=== PATIENT | male | born 1940 | race Caucasian/White ===

== ENCOUNTER → 2016-12-08 | Outpatient (CLI) | payer OTHER ==
[2016-12-08 12:20] LABS: PROTHROMBIN TIME 37.4 secs (9.7-11.4)
== END ==
LOC: LAB 11:45
PROVIDERS: ATTEND Physician Assistant
DX: I48.91 Unspecified atrial fibrillation (principal)
CPT/HCPCS: 36415; 85610

== ENCOUNTER → 2016-12-18 | Outpatient (CLI) | payer OTHER ==
[2016-12-18 09:29] LABS: PROTHROMBIN TIME 38.7 secs (9.7-11.4)
== END ==
LOC: LAB 09:08
PROVIDERS: ATTEND Physician Assistant Medical
DX: I48.91 Unspecified atrial fibrillation (principal)
CPT/HCPCS: 36415; 85610

== ENCOUNTER 2016-12-20 13:24 | Inpatient (IN) | payer OTHER ==
[2016-12-20] MEDS ORDERED: ALBUTEROL SULFATE 2.5 MG/3 ML NEB ONE (13:44)
[2016-12-20] MEDS ORDERED: Sodium Chloride 0.9% 1,000 ML PRIMARY IV ONE (13:44)
[2016-12-20] MEDS ORDERED: methylPREDNISolone 125 MG/2 ML VIAL IVP ONE (13:44)
[2016-12-20] MEDS ORDERED: NORMAL SALINE 10 ML SYRINGE FLUSH IVP PRN (13:44)
[2016-12-20 13:57] LABS: BASOPHILS # (AUTO) 0.07 10*3/UL; BASOPHILS % (AUTO) 0.7 % (0-1); EOSINOPHILS % (AUTO) 2.8 % (0-8); HEMATOCRIT 39.2 % (42.0-52.0); HEMOGLOBIN 13.8 g/dL (14.0-18.0); IMM GRAN % (AUTO) 0.2 % (0-5); IMM GRAN# (AUTO) 0.02 10*3/UL; LYMPHOCYTES % (AUTO) 38.2 % (10-50); MEAN CORPUSCULAR HEMOGLOBIN 32.6 PG (27-31); MEAN CORPUSCULAR HGB CONC 35.2 g/dL (33-37); MEAN PLATELET VOLUME 10.3 FL (7.4-12.2); MONOCYTES # (AUTO) 1.86 10*3/UL (0.3-0.8); MONOCYTES % (AUTO) 17.4 % (5-15); NEUTROPHILS # (AUTO) 4.37 10*3/UL; NEUTROPHILS % (AUTO) 40.7 % (50-80); RDW COEFFICIENT OF VARIATION 14.9 % (11.5-14.5); RED BLOOD COUNT 4.23 10^6/uL (4.70-6.10); WHITE BLOOD COUNT 10.72 10^3/uL (4.8-10.8)
[2016-12-20 14:01] LABS: PLATELET MORPHOLOGY COMMENT NORMAL MORPHOLOGY (NORM)
[2016-12-20 14:03] LABS: BUN/CREATININE RATIO 27.5 (6-20); CALCIUM 9.5 mg/dL (8.7-10.7); CREATININE 0.8 mg/dL (0.70-1.50); POTASSIUM 4.1 meq/L (3.8-5.2); TOTAL PROTEIN 7.4 g/dL (6.1-8.0)
--- NOTE | 2016-12-20 14:07 | EKG ---
[address] [address] Measurements Intervals [place] Rate: 80 P: 87 AK: 146 QRS: 83 QRSD: 75 T: 66 QT: 365 QTc: 401 Interpretive Statements SINUS RHYTHM WITH MARKED SINUS ARRHYTHMIA MINIMAL ST DEPRESSION [0.025+ mV ST DEPRESSION] Compared to ECG 08/05/2014 09:05:55 Atrial fibrillation no longer present Myocardial infarct finding no longer present Possible ischemia no longer present ST (T wave) deviation still present Electronically Signed On 12-22-16 08:07:49 MST by Gurjit Sanders MD [email or web address]
[2016-12-20] MEDS: LEVALBUTEROL HCL 1.25 MG/3 ML NEB PRN ×3 (14:15→14:49)
[2016-12-20] MEDS ORDERED: LORazepam 2 MG/1 ML VIAL IVP ONE (14:55)
[2016-12-20] MEDS ORDERED: LORazepam 2 MG/1 ML VIAL ONE (15:02)
[2016-12-20] MEDS ORDERED: Sodium Chloride 0.9% 1,000 ML IV SCH (16:30)
--- NOTE | 2016-12-20 16:36 | PDOC ---
History and Physical - History of Present Illness Date and Time of Service: 12/20/2016 4:30 PM Chief Complaint: Shortness of breath of one day duration History of Present Illness: This is a 75 years old male with medical history significant for history of COPD on oxygen at night and intermittently during the day, hypertension, history of coronary artery disease with previous stent in 2013 and chronic pain syndrome who came into the hospital with history of shortness of breath that started today he said he tried his nebulizer didn't work and because of that he came into the ER. In the ER he was found in COPD exacerbation was given breathing treatments and he continued to feel short of breath so he was admitted. He did say that he think that he got a cold the last 2 days with some cough and minimal phlegm production. No fever, no chest pain. Past Medical History Medical History: 1. COPD on oxygen at night and intermittently during the daytime. 2. Hypothyroidism. 3. Coronary artery disease with previous stent in 2013. 4. Atrial fibrillation on Coumadin. 5. Chronic pain syndrome Surgical History: 1. Appendectomy. 2. Previous knee replacement. 3. Cervical neck fusion 2012 Family History: Reviewed an Not Pertinent Past Social History: He smokes one pack a day, drinks nearly every day no drugs. Tobacco Use: Current Every Day Smoker Substance Use Type: None Alcohol Use: Other (He drinks nearly every day) Medication / Allergies Home Medications: Home Medications Medication Instructions Recorded Confirmed Type Aspirin Chewable Tab 324 mg PO ONCE (ED) #0 tab 08/05/14 12/20/16 Rx Levothyroxine Sodium [Synthroid] 100 mcg PO DAILY 08/05/14 12/20/16 History Metoprolol Tartrate Tab 12.5 mg PO BID #0 tablet 08/05/14 12/20/16 Rx [Lopressor Tab] Atorvastatin Calcium [Lipitor] 20 mg PO DAILY 11/10/14 12/20/16 History Warfarin Sodium [Coumadin Tab] 5 mg PO DAILY 11/10/14 12/20/16 History Albuterol Sulfate [Proair Hfa] 2 puff INH Q4-6H #3 inh 05/30/16 12/20/16 Clinic Albuterol Sulfate [Ventolin Hfa] 1 - 2 puff INH Q4-6H PRN #1 puff 05/30/1612/20 Clinic Budesonide/Formoterol Fumarate 6 gm IH BID #3 inhaler 05/30/16 12/20/16 Clinic [Symbicort] Nitroglycerin SL Tab [Nitrostat 0.4 mg SL PRN PRN #20 tab 05/30/16 12/20/16 Clinic Sl Tab] Albuterol/Ipratropium Inhaler 4 gm IH QID #1 inhaler 07/15/16 12/20/16 Clinic [Combivent Respimat Inhaler] Lisinopril 20 mg PO BID #90 tab-cap 10/28/16 12/20/16 Clinic Tizanidine HCl 1 cap PO Q6-8H PRN #90 cap 11/19/16 12/20/16 Clinic oxyCODONE/APAP 5/325 Tab 1 tab PO Q6H PRN 12/20/16 12/20/16 History [Percocet 5/325 Tab] Allergies/Adverse Reactions: Allergies Allergy/AdvReac Type Severity Reaction Status Date / Time amlodipine besylate Allergy Intermediate Edema of Verified 12/20/16 18:38 [From [facility]] ankles Review of Systems - Review of Systems All Systems: Reviewed & No Additional Complaints Except as Stated Exam - Vitals Vital Signs: Vital Signs Temperature 97.3 F Temperature Source Temporal Artery Scan Pulse Rate 92 Respiratory Rate 18 Blood Pressure 97/57 Pulse Ox 94 Height 5 ft 7.5 in Weight 121 lb 6 oz - General General Appearance: POSITIVE: No Acute Distress, Thin - Head Head Exam: POSITIVE: Normal Inspection, Atraumatic - Eye Eye Exam: POSITIVE: Normal Appearance - ENT ENT Exam: POSITIVE: Normal Exam - Neck Neck Exam: POSITIVE: Normal Inspection - Respiratory Additional Respiratory Exam Details: Very poor air entry otherwise clear - Cardiovascular Cardiovascular Exam: POSITIVE: RRR - GI/Abdominal GI/Abdominal Exam: POSITIVE: Normal Bowel Sounds, Non Tender, Non Distended, Soft - Rectal Rectal Exam: POSITIVE: Deferred - External Exam: POSITIVE: Deferred Exam: POSITIVE: Deferred - Extremities Extremities Exam: POSITIVE: Normal Inspection - Back Back Exam: POSITIVE: Normal Inspection - Neurological Neurological Exam: POSITIVE: Alert, Oriented x 3, CN II-XII Intact, Moves All Extremities Equally - Psychiatric Psychiatric Exam: POSITIVE: Normal Affect - Integumentary Integumentary Exam: POSITIVE: Normal Color Results - Labs CBC and BMP: 12/20/16 13:14 12/20/16 13:14 - EKG Data EKG Shows Normal: Sinus Rhythm - EKG Data Additional EKG Details: Minimal ST depression in lead 2 and 3 - Imaging Status: Image Reviewed by Me (Chest x-ray show evidence of COPD infiltrates) Assessment and Plan - Patient Problems (1) COPD exacerbation Current Visit: Yes Status: Acute Comment: We'll treat him as such with antibiotics, steroid and breathing treatment. (2) History of atrial fibrillation Current Visit: Yes Status: Acute Comment: Continue Coumadin will monitor his INR (3) Hypertension Current Visit: Yes Status: Acute Comment: Same med (4) Chronic pain syndrome Current Visit: Yes Status: Acute Comment: Continue previous pain medications (5) Hypothyroidism Current Visit: Yes Status: Acute Comment: Same med (6) DVT prophylaxis Current Visit: Yes Status: Acute Comment: He is on Coumadin
[2016-12-20] MEDS: NICOTINE 21 MG /DAY PATCH TRANSDERM SCH (17:00)
[2016-12-20] MEDS: cefTRIAXone Inj 1 GM in Sodium Chloride 0.9% 100 ML IV SCH (17:01)
[2016-12-20] MEDS: NORMAL SALINE 10 ML SYRINGE FLUSH IVP PRN (17:13)
[2016-12-20] MEDS: AZITHROMYCIN 250 MG TABLET PO SCH (17:32)
[2016-12-20] MEDS: methylPREDNISolone 125 MG/2 ML VIAL IVP SCH (18:17)
[2016-12-20] MEDS: LEVALBUTEROL HCL 1.25 MG/3 ML NEB SCH (18:34)
[2016-12-20] MEDS ORDERED: AZITHROMYCIN 250 MG TABLET PO SCH (19:00)
[2016-12-20] MEDS: ATORVASTATIN 20 MG TABLET PO SCH (20:47)
[2016-12-20] MEDS: Metoprolol TARTRATE Tab 25 MG TAB PO SCH (20:47)
[2016-12-20] MEDS: Warfarin 5 MG TAB PO SCH (20:47)
[2016-12-20] MEDS: LORazepam 2 MG/1 ML VIAL IVP PRN (20:47)
[2016-12-20] MEDS: LISINOPRIL 20 MG TABLET PO SCH (20:47)
[2016-12-20] MEDS ORDERED: BUDESONIDE IH SCH (21:00)
[2016-12-20] MEDS ORDERED: FORMOTEROL FUMARATE IH SCH (21:00)
--- NOTE | 2016-12-20 23:21 | PDOC ---
Dyspnea HPI - General Chief Complaint: Dyspnea Stated Complaint: DYSPNEA Date Seen by Provider: 12/20/16 Time Seen by Provider: 13:30 Source: POSITIVE: Patient, EMS, Other (Son) Exam Limitations: POSITIVE: No limitations Treatment Prior to Arrival: REPORTS: Oxygen, Albuterol Neb Treatment, Other ( Solu-Medrol per paramedics) Nurse's Notes Reviewed & Considered: Yes EMS Report Reviewed & Considered: Verbal - History of Present Illness Initial Comments: The patient is a 75 year old male. He is brought to the emergency room by ambulance. He states that this morning he began to develop an increase in his chronic dyspnea. He states he has had a loose cough and states he has had some URI symptoms for 2 or 3 days. He has a known history of COPD and continues to smoke about a pack of cigarettes per day. Patient administered 2 albuterol treatments by nebulizer at home, and when he experienced no improvement he called the ambulance. Paramedics administered a DuoNeb nebulizer treatment and another albuterol nebulizer treatment in route and also administered 125 mg of Solu-Medrol IV. Body Location Affected: REPORTS: Chest Timing: REPORTS: Gradual (Dyspnea), Getting Worse Duration: <24 hours Severity: Moderate Quality: REPORTS: Other (Patient denies any pain anywhere) Initiating Event: REPORTS: Upper Respiratory Illness Context: REPORTS: Rest Exacerbated By: REPORTS: Exertion, Coughing Associated Symptoms: REPORTS: Productive Cough. DENIES: Fever, Chills, Sweating , Chest Pain, Chest Discomfort, Left Chest, Right Chest, Central Chest, Chest Heaviness, Chest Tightness, Painful Breathing, Radiation to Back, Radiation to Jaw, Radiation to Arm, Bloody Cough, Heart Racing, Leg Pain, Calf Pain, Ankle Swelling, Leg Swelling, Dizziness, Light-Headedness, Anxiety, Tingling - Hands, Tingling - Face, Muscle Spasms - Hands, Muscle Spasms - Feet Similar Symptoms Previously: Yes Recently seen/treated/hospitalized: No Any Prior Injuries Related to Current Complaint?: No - Patient Home Medications Home Medications: Home Medications Aspirin Chewable Tab 324 mg PO ONCE (ED) #0 tab 08/05/14 Levothyroxine Sodium [Synthroid] 100 mcg PO DAILY 08/05/14 Metoprolol Tartrate Tab [Lopressor Tab] 12.5 mg PO BID #0 tablet 08/05/14 Atorvastatin Calcium [Lipitor] 20 mg PO DAILY 11/10/14 Warfarin Sodium [Coumadin Tab] 5 mg PO DAILY 11/10/14 Albuterol Sulfate [Proair Hfa] 2 puff INH Q4-6H #3 inh 05/30/16 Albuterol Sulfate [Ventolin Hfa] 1 - 2 puff INH Q4-6H PRN #1 puff 05/30/16 Budesonide/Formoterol Fumarate [Symbicort] 6 gm IH BID #3 inhaler 05/30/16 Nitroglycerin SL Tab [Nitrostat Sl Tab] 0.4 mg SL PRN PRN #20 tab 05/30/16 Albuterol/Ipratropium Inhaler [Combivent Respimat Inhaler] 4 gm IH QID #1 inhaler 07/15/16 Lisinopril 20 mg PO BID #90 tab-cap 10/28/16 Tizanidine HCl 1 cap PO Q6-8H PRN #90 cap 11/19/16 oxyCODONE/APAP 5/325 Tab [Percocet 5/325 Tab] 1 tab PO Q6H PRN 12/20/16 - Patient Allergies Allergies/Adverse Reactions: Allergies Allergy/AdvReac Type Severity Reaction Status Date / Time amlodipine besylate Allergy Intermediate Edema of Verified 12/20/16 18:38 [From [facility]] ankles Past Medical History - heen HEENT History: Hard of Hearing Additional HEENT History: wears glasses Cardiovascular History: Hypertension, Previous SD, Arrhythmia Additional Cardiovasular History: STENTS Respiratory History: COPD, Shortness of Breath, Home Oxygen Use Gastrointestinal History: Denies History Genitourinary History: Denies History Endocrine History: Hypothyroidism Musculoskeletal History: Arthritis, Joint Pain, Osteoarthritis Prosthesis or Implant: Yes (left knee replacement) Neurological History: Denies History Blood Disorders: Denies History Psychiatric History: Substance Abuse Additional Psychiatric History: acoholic History of Sexually Transmitted Diseases: No Male Reproductive History: Denies History Cancer History: Skin In Past Year Been Physically Harmed or Verbally Threatened: No History of MDRO: No History of Other Communicable Diseases: No Tobacco Use: Current Every Day Smoker Alcohol Use: Occasionally Substance Use Type: None Previous Surgical History: Yes Type / Date of Surgery: MULTIPLE ORTHO, APPY, STENT Anesthesia Reactions: No Malignant Hyperthermia: No Significant Family History: Cancer Additional Family History: both sisters had breast CA Past Medical History Reviewed: Reviewed - No Changes ROS - Limitations ROS Limitations: No Limitations Constitution: REPORTS: Recent Illness (URI symptoms) Cardiovascular: REPORTS: Denies Cardiac Symptoms Respiratory: REPORTS: Cough Productive, Shortness Of Breath Neurological: REPORTS: Denies Neuro Symptoms Gastrointestinal: REPORTS: Denies GI Symptoms Endocrine: REPORTS: Denies Symptoms Musculoskeletal: REPORTS: Denies MS Symptoms Genitourinary: REPORTS: Denies Symptoms Eyes: REPORTS: Denies Symptoms ENT: REPORTS: Denies Symptoms Skin: REPORTS: Denies Skin Symptoms Lympathic: REPORTS: Denies Lympathic Symptoms Immunologic: POSITIVE: Denies Symptoms Psychiatric: POSITIVE: Anxiety Dyspnea Physical Exam - General Appearance General Appearance: REPORTS: Alert, Cooperative, No Acute Distress, No Evidence of Trauma, Anxious - HEENT HEENT: POSITIVE: Head Inspection Nml, Eyes Inspection Nml, Ears Inspection Nml, Nose Inspection Nml, Oral/Dental Inspect. Nml, Pharynx Inspect. Nml, PERRL, EOMI - Neck Neck: REPORTS: Normal Inspection, No Carotid Bruit - Respiratory Respiratory: REPORTS: No Pleuritic Chest Pain, Respiratory Distress, Prolonged Expirations, Decreased Air Movement, Speaks Broken Sentences. DENIES: No Respiratory Distress (Moderate respiratory distress; oxygen saturation on 4 L around 92%), Breath Sounds Normal (Breasts sounds very distant with some scattered rhonchi), Speaks Full Sentences, No Pain on Inspiration, Rhonchi, Accessory Muscle Use, Retractions, Splinting, Dull on Percussion, Chest Wall Tenderness, Stridor - Cardiovascular Cardiovascular: REPORTS: Regular Rate and Rhythm, Heart Sounds Normal, Equal Pulses, Strong Pulses, No Murmur, No Gallop, No Friction Rub, No JVD Peripheral Pulses: Radial (R): 2+, Radial (L): 2+ - Abdomen Abdomen: Soft: (All Quadrants), Normal Bowel Sounds: (All Quadrants), Denies Tenderness: (All Quadrants), No Splenomegaly: (All Quadrants), No Hepatomegaly: (All Quadrants), No Guarding: (All Quadrants), No Rebound: (All Quadrants), No Palpable Pulse: (All Quadrants), No Palpabale Mass: (All Quadrants), No Distention: (All Quadrants), No Rigidity: (All Quadrants) - Skin Skin: REPORTS: Intact, Normal For Race, Warm, Dry, No Rash - Extremities Extremity: Non-Tender: (All Extremities), Normal ROM: (All Extremities), Normal Inspection: (All Extremities) - Neurological / Psychological Neurological: POSITIVE: Oriented X3, admin dir Normal As Tested, Motor Normal, Sensation Normal, 5, 6 Dyspnea Progress - Results Reviewed by me Xrays/CTs/US Reviewed by me: Yes Discussed with Radiologist: No Radiology Findings: Emphysema; no definite infiltrates seen on my interpretation ; radiologist interpretation pending. Lab Results Reviewed: Yes Lab Results:: Laboratory Results 12/20/16 12/20/16 12/20/16 Range/Units 13:14 13:15 14:14 WBC 10.72 (4.8-10.8) 10^3/uL RBC 4.23 L (4.70-6.10) 10^6/uL Hgb 13.8 L (14.0-18.0) g/dL Hct 39.2 L (42.0-52.0) % MCV 92.7 H (80-90) FL MCH 32.6 H (27-31) PG MCHC 35.2 (33-37) g/dL RDW Std Deviation 48.9 (39-50) fL RDW Coeff of Isabelle 14.9 H (11.5-14.5) % Plt Count 365 H (140-350) 10*3/uL MPV 10.3 (7.4-12.2) FL Immature Gran % (Auto) 0.2 (0-5) % Neut % (Auto) 40.7 L (50-80) % Lymph % (Auto) 38.2 (10-50) % [place] % (Auto) 17.4 H (5-15) % Eos % (Auto) 2.8 (0-8) % Baso % (Auto) 0.7 (0-1) % Immature Gran # (Auto) 0.02 10*3/UL Neut # (Auto) 4.37 10*3/UL Lymph # (Auto) 4.10 10*3/uL [place] # (Auto) 1.86 H (0.3-0.8) 10*3/UL Eos # (Auto) 0.30 10*3/UL Baso # (Auto) 0.07 10*3/UL WBC Morphology Comment Normal morphology (NORM) Plt Morphology Comment Normal morphology (NORM) RBC Morph Comment Normal morphology (NORM) PT 29.0 H (9.7-11.4) secs INR 2.76 (0.00-5.90) N/A D-Dimer 0.21 (0.00-0.59) mg/L VBG pH 7.34 (7.32-7.42) VBG pCO2 44 L (45-55) mmHg VBG HCO3 24 (22-26) mmol/L VBG Base Excess -2 (-2-2) MMOL/L Sodium 138 (135-145) meq/L Potassium 4.1 (3.8-5.2) meq/L Chloride 100 (98-112) meq/L Carbon Dioxide 25 (23-33) meq/L Anion Gap 13 (5-20) BUN 22 (7-22) mg/dL Creatinine 0.8 (0.70-1.50) mg/dL Estimated GFR (>60 ml/min/1.73m(2)) BUN/Creatinine Ratio 27.50 H (6-20) Glucose 109 (78-110) mg/dL Calculated Osmolality 289.0 (267-292) mOsm/kg Calcium 9.5 (8.7-10.7) mg/dL Total Bilirubin 1.0 (0.3-1.2) mg/dL AST 29 (21-57) IU/L ALT 35 (21-72) IU/L Alkaline Phosphatase 59 (38-126) IU/L Total Protein 7.4 (6.1-8.0) g/dL Albumin 4.4 (3.5-4.8) g/dL Globulin 3.0 (2.50-4.10) g/dL Albumin/Globulin Ratio 1.40 (1.3-2.0) mg/g EKG Interpreted/Reviewed By Me:: Yes EKG Interpretation:: POSITIVE: Normal Rate, Normal Intervals, Normal [place], Normal QRS, Normal ST/T. NEGATIVE: Normal Sinus Rhythm (Sinus arrhythmia) - Patient's Progress Pain Medication Addressed: POSITIVE: Not Applicable School/Work Release Addressed: POSITIVE: Not Applicable Re-Examine Time: 15:15 Re-Examine Comment: Patient breathing better. Able to talk in complete sentences. Patient given a milligram of Ativan IV for his anxiety. Saturations on supplemental oxygen 94%. Blood cultures drawn. Case discussed with hospitalist, Dr. Obando, and patient is admitted for further evaluation and treatment. Status: POSITIVE: Improved, Re-Examined Air Movement: POSITIVE: Fair - Consult Consult (If Yes, Name of Consulting MD & Time Called): Yes (Dr. Obando, hospitalist, [id number]) Consulting MD will see pt:: [place] [facility] [place] Counseled: POSITIVE: Patient, RE: Lab Results, RE: Radiology Results, RE: DX, RE : Need for F/U Patient Care Time - Estimated PCT Patient Care Time (In Minutes): 45 Vital Signs - Recent Vital Signs Vital Signs: Vital Signs (Last 8 hours) Temp Pulse Pulse Resp BP BP Pulse Ox 12/20/16 23:00 98 12/20/16 20:00 98.4 F 93 20 140/71 93 12/20/16 19:00 114 H 87 24 98 12/20/16 18:39 98 12/20/16 16:54 94 12/20/16 16:52 97.2 F 89 24 111/50 94 12/20/16 16:36 90 24 12/20/16 15:58 97.3 F 92 18 97/57 94 - VS Reviewed Vital Signs Reviewed: Yes Discharge Clinical Impression: Chronic obstructive lung disease Discharge Disposition: Admit to Inpatient Condition: Fair Date Decision to Admit to Inpatient: 12/20/16 Time Decision to Admit to Inpatient: 15:15
[2016-12-21] MEDS: methylPREDNISolone 125 MG/2 ML VIAL IVP SCH ×5 (00:17→23:58)
[2016-12-21] MEDS: NORMAL SALINE 10 ML SYRINGE FLUSH IVP PRN ×6 (00:17→23:57)
[2016-12-21] MEDS: LEVALBUTEROL HCL 1.25 MG/3 ML NEB SCH ×4 (00:46→18:52)
[2016-12-21] MEDS: oxyCODONE-ACETAMINOPHEN 5-325 TAB PO PRN (04:22)
[2016-12-21] MEDS: LEVOTHYROXINE 100 MCG TABLET PO SCH (05:46)
[2016-12-21 06:58] LABS: PROTHROMBIN TIME 29.3 secs (9.7-11.4)
[2016-12-21] MEDS: TIOTROPIUM BROMIDE 18 MCG CAPSULE INH SCH (07:19)
[2016-12-21] MEDS: Metoprolol TARTRATE Tab 25 MG TAB PO SCH ×2 (08:10→20:08)
[2016-12-21] MEDS: LISINOPRIL 20 MG TABLET PO SCH ×2 (08:11→20:08)
[2016-12-21] MEDS: NICOTINE 21 MG /DAY PATCH TRANSDERM SCH ×2 (08:11→20:06)
--- NOTE | 2016-12-21 08:39 | PDOC(PROG) ---
Date and Time of Service: 12/21/2016 8:35 AM Interval History: Subjective Maybe a little bit better compared to yesterday but he still short of breath, coughing with minimal phlegm production today. Objective : Data - Labs CBC and BMP: 12/20/16 13:14 12/20/16 13:14 Labs - Last 24 Hours: Laboratory Results 12/21/16 Range/Units 06:44 PT 29.3 H (9.7-11.4) secs INR 2.79 (0.00-5.90) N/A Objective : Exam - General General Appearance: No Acute Distress, Cooperative, Thin - Head Head Exam: Normal Inspection - Eye Eye Exam: Normal Appearance - ENT ENT Exam: Normal Exam - Neck Neck Exam: Normal Inspection - Respiratory Additional Respiratory Exam Details: Very poor air entry but otherwise clear - Cardiovascular Cardiovascular Exam: RRR - GI/Abdominal GI/Abdominal Exam: Normal Bowel Sounds, Non Tender, Non Distended, Soft - Rectal Rectal Exam: Deferred - External Exam: Deferred - Extremities Extremities Exam: Normal Inspection - Back Back Exam: Normal Inspection - Neurological Neurological Exam: Alert, Oriented x 3, CN II-XII Intact, Moves All Extremities Equally - Integumentary Integumentary Exam: Normal Color Assessment and Plan - Patient Problems (1) COPD exacerbation Current Visit: Yes Status: Acute Comment: Continue current treatment with steroid and antibiotics and bronchodilator. We think there is some anxiety component and we gave him some Ativan last night and that helped (2) History of atrial fibrillation Current Visit: Yes Status: Acute Comment: Continue monitoring his INR (3) Hypertension Current Visit: Yes Status: Acute Comment: Same med (4) Chronic pain syndrome Current Visit: Yes Status: Acute Comment: Same med (5) Hypothyroidism Current Visit: Yes Status: Acute Comment: Same med (6) DVT prophylaxis Current Visit: Yes Status: Acute Comment: He is on Coumadin
[2016-12-21] MEDS: LEVALBUTEROL HCL 1.25 MG/3 ML NEB PRN (11:01)
[2016-12-21] MEDS: AZITHROMYCIN 250 MG TABLET PO SCH (16:29)
[2016-12-21] MEDS: cefTRIAXone Inj 1 GM in Sodium Chloride 0.9% 100 ML IV SCH (16:29)
[2016-12-21] MEDS: ATORVASTATIN 20 MG TABLET PO SCH (20:08)
[2016-12-21] MEDS: Warfarin 5 MG TAB PO SCH (20:09)
[2016-12-22] MEDS: LEVALBUTEROL HCL 1.25 MG/3 ML NEB SCH ×4 (00:03→19:09)
[2016-12-22] MEDS: LORazepam 2 MG/1 ML VIAL IVP PRN ×3 (00:32→21:48)
[2016-12-22] MEDS: NORMAL SALINE 10 ML SYRINGE FLUSH IVP PRN ×5 (00:32→19:02)
[2016-12-22] MEDS: LEVALBUTEROL HCL 1.25 MG/3 ML NEB PRN (03:55)
[2016-12-22] MEDS: LEVOTHYROXINE 100 MCG TABLET PO SCH (06:01)
[2016-12-22] MEDS: methylPREDNISolone 125 MG/2 ML VIAL IVP SCH ×2 (06:02→12:19)
[2016-12-22 06:34] LABS: PROTHROMBIN TIME 53.2 secs (9.7-11.4)
[2016-12-22] MEDS ORDERED: LEVALBUTEROL HCL 1.25 MG/3 ML NEB ONE (06:57)
[2016-12-22] MEDS: TIOTROPIUM BROMIDE 18 MCG CAPSULE INH SCH (06:59)
[2016-12-22] MEDS: NICOTINE 21 MG /DAY PATCH TRANSDERM SCH (08:26)
[2016-12-22] MEDS: oxyCODONE-ACETAMINOPHEN 5-325 TAB PO PRN ×2 (08:28→23:49)
[2016-12-22] MEDS: Metoprolol TARTRATE Tab 25 MG TAB PO SCH ×2 (08:28→20:10)
[2016-12-22] MEDS: LISINOPRIL 20 MG TABLET PO SCH ×2 (08:28→20:10)
--- NOTE | 2016-12-22 08:36 | DI ---
XR CXR 2VW PA/LAT,12/20/2016 1:44 PM: Clinical History: Dyspnea Previous Exam: August 05, 2014 Findings: 3 total views of the chest are obtained, and demonstrate a new density within the right midlung field which appears to be in the superior segment of the right lower lobe. There are stable postsurgical c hanges consistent with anterior fusion of the lower cervical spine. There is diffuse hyperinflation and COPD. There is mild osteopenia. Impression: Diffuse COPD and new right lower lobe pneumonia. Recommend followup imaging after treatment to docume nt resolution.
--- NOTE | 2016-12-22 13:12 | PDOC(PROG) ---
Date and Time of Service: 12/22/2016, 1308 Interval History: States that he is thinking about quitting smoking. He's tried Chantix and was not clear whether it really helped because he was only on about a week. No nausea or vomiting. Still feels very short of breath. Objective : Data - Labs CBC and BMP: 12/20/16 13:14 12/20/16 13:14 Labs - Last 24 Hours: Laboratory Results 12/22/16 Range/Units 06:08 PT 53.2 H (9.7-11.4) secs INR 5.00 (0.00-5.90) N/A Objective : Exam - General General Appearance: No Acute Distress, Cooperative Additional General Exam Details: Vital Signs - Last Taken Temperature 97.2 F 12/22/16 11:17 Pulse Rate 76 12/22/16 11:17 Respiratory Rate 18 12/22/16 11:17 Blood Pressure 135/53 12/22/16 11:17 Pulse Ox 4 12/22/16 11:17 His pulse oximetry is 94% on 2-1/2 L per nasal cannula. - Eye Eye Exam: No Scleral Icterus - Respiratory Respiratory Exam: Breathing Non Labored, Decreased Breath Sounds (Markedly decreased breath sounds in his lungs bilaterally.) - Cardiovascular Cardiovascular Exam: RRR, No Murmur, No Clicks, No Gallops, No Rubs, No JVD - GI/Abdominal GI/Abdominal Exam: Normal Bowel Sounds, Non Tender, Non Distended, Soft - Extremities Extremities Exam: No Edema Present, No Cyanosis Present - Neurological Neurological Exam: Alert, Oriented x 3, No Facial Droop, Speech Intact / Clear, Moves All Extremities Equally Assessment and Plan - Patient Problems (1) COPD exacerbation Current Visit: Yes Status: Acute (2) History of atrial fibrillation Current Visit: Yes Status: Acute (3) Hypertension Current Visit: Yes Status: Acute (4) Hypothyroidism Current Visit: Yes Status: Acute Qualifiers: Hypothyroidism type: acquired Qualified Description: Acquired hypothyroidism Qualifier Code(s): (E03.9) Hypothyroidism, unspecified - Assessment / Plan Additional Assessment/Plan Details: INR is elevated today, coumadin stopped continue rocephin and zithromax; reduce steroids dose, but continue hopefully, home tomorrow if breath sounds improve some. nicotine patch and gum PRN
[2016-12-22] MEDS ORDERED: NICOTINE 2 MG GUM BUCCAL PRN (13:14)
[2016-12-22] MEDS ORDERED: ALBUTEROL SULFATE 2.5 MG/3 ML NEB PRN (13:55)
[2016-12-22] MEDS ORDERED: AZITHROMYCIN 250 MG TABLET PO SCH ×2 (16:15→17:00)
[2016-12-22] MEDS: cefTRIAXone Inj 1 GM in Sodium Chloride 0.9% 100 ML IV SCH (16:35)
[2016-12-22] MEDS: methylPREDNISolone 40 MG/1 ML VIAL IVP SCH (19:02)
[2016-12-22] MEDS: ATORVASTATIN 20 MG TABLET PO SCH (20:11)
[2016-12-22] MEDS ORDERED: Influenza 16-17 Vaccine(4yrs+) 45 MCG/0.5 ML SYRINGE IM ONE (23:00)
[2016-12-23] MEDS: methylPREDNISolone 40 MG/1 ML VIAL IVP SCH ×3 (00:04→12:43)
[2016-12-23] MEDS: NORMAL SALINE 10 ML SYRINGE FLUSH IVP PRN ×3 (00:05→12:43)
[2016-12-23] MEDS: LEVALBUTEROL HCL 1.25 MG/3 ML NEB SCH (00:56)
[2016-12-23] MEDS ORDERED: ALPRAZolam Tab 0.25 MG TABLET PO PRN (01:28)
[2016-12-23] MEDS ORDERED: IPRATROPIUM/ALBUTEROL SULFATE 3 ML NEB NEB ONE ×2 (01:28→01:32)
[2016-12-23] MEDS: LEVOTHYROXINE 100 MCG TABLET PO SCH (05:46)
[2016-12-23 05:49] LABS: ABG BASE EXCESS 0 MMOL/L (-2-2); ABG HCO3 25 (22-26); ABG OXYGEN SATURATION 94 % (90-100); ABG PH 7.41 (7.35-7.45); ABG TCO2 26 MMOL/L (23-27); ALLEN TEST Yes; COLLECTION SITE R Rad X 1
[2016-12-23 05:50] LABS: FIO2/O2 2LPM NC
[2016-12-23] MEDS: LORazepam 2 MG/1 ML VIAL IVP PRN (07:41)
[2016-12-23] MEDS: TIOTROPIUM BROMIDE 18 MCG CAPSULE INH SCH (07:55)
[2016-12-23] MEDS: IPRATROPIUM/ALBUTEROL SULFATE 3 ML NEB NEB SCH ×2 (07:55→12:49)
[2016-12-23] MEDS ORDERED: PHYTONADIONE 5 MG TABLET PO ONE ×2 (08:29→12:56)
[2016-12-23] MEDS: LISINOPRIL 20 MG TABLET PO SCH (09:12)
[2016-12-23] MEDS: Metoprolol TARTRATE Tab 25 MG TAB PO SCH (09:12)
[2016-12-23] MEDS: NICOTINE 21 MG /DAY PATCH TRANSDERM SCH (09:23)
[2016-12-23 09:27] LABS: PROTHROMBIN TIME 75.7 secs (9.7-11.4)
[2016-12-23 12:22] VITALS: RESP 18; TEMP 97.6
--- NOTE | 2016-12-23 12:43 | DCSUMMARY ---
Hospitalization Summary Admit Date: 12/20/16 Discharge Date: 12/23/16 Primary Diagnosis:: end-stage COPD with exacerbation. Hospital Course: This is a very pleasant 75-year-old male with a what appears to be end-stage COPD, noted with pulmonary cachexia and stated weight loss of about 20 pounds over the last 6 months or so. The patient was admitted with cough, shortness of breath, and phlegm production. He was placed on Rocephin, Zithromax, and breathing therapies, and steroids. He had intermittent bouts of acute exacerbations of shortness of breath, but overall improved during the hospital stay. His steroids were able to be tapered slightly prior to discharge. He is on Coumadin for atrial fibrillation and stroke prevention, but his INR is now at 7. This is because of the Zithromax interaction and we will need to stop his Coumadin at this time as I think he would benefit from daily Zithromax to help prevent further COPD exacerbations. We predominantly were able to make a better effect with nebulized therapies here for breathing then with inhaled therapies. Anxiety was quite severe, and was improved with Xanax or Ativan during the hospital stay. The patient is aware that he is at end-stage COPD and is already starting to make arrangements at home for considerations for his end-of-life state. We will try to get him some information on consideration for the hospice program as well. Today, no complaints of chest pain. States his breathing is much better. No nausea or vomiting. We did work on smoking cessation and use nicotine replacement products and spoke about a at bedside in depth. He "wants to go home". Assessment and Plan: 1. As per discharge assessments noted 2. Disposition: Patient is discharged home. 3. Condition on discharge, stable and improved. Poor prognosis for long-term based on end-stage COPD. 4. Diet: regular diet 5. Activities: resume normal activities 6. Follow-Up: 1. Dr. Mishra later this week 2. 7. Medications at the Time of Discharge: Home Medications Medication Instructions Recorded Confirmed Type Aspirin Chewable Tab 324 mg PO ONCE (ED) #0 tab 08/05/14 12/20/16 Rx Levothyroxine Sodium [Synthroid] 100 mcg PO DAILY 08/05/14 12/20/16 History Metoprolol Tartrate Tab 12.5 mg PO BID #0 tablet 08/05/14 12/20/16 Rx [Lopressor Tab] Atorvastatin Calcium [Lipitor] 20 mg PO DAILY 11/10/14 12/20/16 History Albuterol Sulfate [Proair Hfa] 2 puff INH Q4-6H #3 inh 05/30/16 12/20/16 Clinic Albuterol Sulfate [Ventolin Hfa] 1 - 2 puff INH Q4-6H PRN #1 puff 05/30/1612/20 Clinic Budesonide/Formoterol Fumarate 6 gm IH BID #3 inhaler 05/30/16 12/20/16 Clinic [SYMBICORT] Nitroglycerin SL Tab [Nitrostat 0.4 mg SL PRN PRN #20 tab 05/30/16 12/20/16 Clinic SL Tab] Albuterol/Ipratropium Inhaler 4 gm IH QID #1 inhaler 07/15/16 12/20/16 Clinic [Combivent Respimat Inhaler] Lisinopril 20 mg PO BID #90 tab-cap 10/28/16 12/20/16 Clinic oxyCODONE/APAP 5/325 Tab 1 tab PO Q6H PRN 12/20/16 12/20/16 History [Percocet 5/325 Tab] ALPRAZolam Tab [Xanax Tab] 0.25 mg PO Q8H PRN #60 tab 12/23/16 Rx Albuterol Neb Soln 0.083% 2.5 mg NEB RTQ2H PRN #120 vial.neb 12/23/16 Rx Albuterol/Ipratrop Neb Soln 3 ml NEB RTQ6H #120 ampul.neb 12/23/16 Rx [Duoneb Neb Soln] Azithromycin [Zithromax] 250 mg PO DAILY@1700 #30 tab 12/23/16 Rx Nicotine 21mg Patch [Nicoderm CQ 1 patch TRANSDERM DAILY #30 patch 12/23/16 Rx 21mg Patch] Nicotine 2mg Gum [Nicorette 2mg 2 mg BUCCAL Q3H PRN #90 gum 12/23/16 Rx Gum] Prednisone 10 mg PO DAILY #120 tab.ds.pk 12/23/16 Rx Rivaroxaban [Xarelto] 20 mg PO DAILY #90 tablet 12/23/16 Rx 8. Time, care, counseling and coordination of care for this discharge is greater than 30 minutes. Exam - Vitals Vital Signs: Vital Signs Temperature 97.6 F Temperature Source Temporal Artery Scan Pulse Rate [Apical] 84 Pulse Rate [Telemetry] 76 Pulse Rate [Pulse Oximeter] 87 Pulse Rate 87 Respiratory Rate 18 Blood Pressure [Left Arm] 141/67 Blood Pressure [Right Arm] 142/65 Blood Pressure 97/57 Pulse Ox 95 Oxygen Flow Rate 2 Oxygen Delivery Method Nasal Cannula Height 5 ft 7.5 in Weight 118 lb 3.2 oz - General General Appearance: POSITIVE: No Acute Distress, Cooperative - Eye Eye Exam: POSITIVE: No Scleral Icterus - Respiratory Respiratory Exam: POSITIVE: Breathing Non Labored, Decreased Breath Sounds ( Improved breath sounds over yesterday.) - Cardiovascular Cardiovascular Exam: POSITIVE: RRR, No Murmur, No Clicks, No Gallops, No Rubs, No JVD - GI/Abdominal GI/Abdominal Exam: POSITIVE: Normal Bowel Sounds, Non Tender, Non Distended, Soft - Extremities Extremities Exam: POSITIVE: No Edema Present, No Cyanosis Present, Clubbing Present - Neurological Neurological Exam: POSITIVE: Alert, Oriented x 3, No Facial Droop, Speech Intact / Clear, Moves All Extremities Equally, No Fasciculations, No Clonus - Psychiatric Psychiatric Exam: POSITIVE: Normal Affect, Normal Mood Data Perinent Studies: Laboratory Results 12/20/16 12/20/16 12/20/16 Range/Units 13:14 13:15 14:14 WBC 10.72 (4.8-10.8) 10^3/uL RBC 4.23 L (4.70-6.10) 10^6/uL Hgb 13.8 L (14.0-18.0) g/dL Hct 39.2 L (42.0-52.0) % MCV 92.7 H (80-90) FL MCH 32.6 H (27-31) PG MCHC 35.2 (33-37) g/dL RDW Std Deviation 48.9 (39-50) fL RDW Coeff of Isabelle 14.9 H (11.5-14.5) % Plt Count 365 H (140-350) 10*3/uL MPV 10.3 (7.4-12.2) FL Immature Gran % (Auto) 0.2 (0-5) % Neut % (Auto) 40.7 L (50-80) % Lymph % (Auto) 38.2 (10-50) % [place] % (Auto) 17.4 H (5-15) % Eos % (Auto) 2.8 (0-8) % Baso % (Auto) 0.7 (0-1) % Immature Gran # (Auto) 0.02 10*3/UL Neut # (Auto) 4.37 10*3/UL Lymph # (Auto) 4.10 10*3/uL [place] # (Auto) 1.86 H (0.3-0.8) 10*3/UL Eos # (Auto) 0.30 10*3/UL Baso # (Auto) 0.07 10*3/UL WBC Morphology Comment Normal morphology (NORM) Plt Morphology Comment Normal morphology (NORM) RBC Morph Comment Normal morphology (NORM) PT 29.0 H (9.7-11.4) secs INR 2.76 (0.00-5.90) N/A D-Dimer 0.21 (0.00-0.59) mg/L ABG pH (7.35-7.45) ABG pCO2 (34-38) MMHG ABG pO2 (65-75) MMHG ABG HCO3 (22-26) ABG Total CO2 (23-27) MMOL/L ABG O2 Saturation (90-100) % ABG Base Excess (-2-2) MMOL/L Gray Test VBG pH 7.34 (7.32-7.42) VBG pCO2 44 L (45-55) mmHg VBG HCO3 24 (22-26) mmol/L VBG Base Excess -2 (-2-2) MMOL/L FiO2 Sodium 138 (135-145) meq/L Potassium 4.1 (3.8-5.2) meq/L Chloride 100 (98-112) meq/L Carbon Dioxide 25 (23-33) meq/L Anion Gap 13 (5-20) BUN 22 (7-22) mg/dL Creatinine 0.8 (0.70-1.50) mg/dL Estimated GFR (>60 ml/min/1.73m(2)) BUN/Creatinine Ratio 27.50 H (6-20) Glucose 109 (78-110) mg/dL Calculated Osmolality 289.0 (267-292) mOsm/kg Calcium 9.5 (8.7-10.7) mg/dL Total Bilirubin 1.0 (0.3-1.2) mg/dL AST 29 (21-57) IU/L ALT 35 (21-72) IU/L Alkaline Phosphatase 59 (38-126) IU/L Total Protein 7.4 (6.1-8.0) g/dL Albumin 4.4 (3.5-4.8) g/dL Globulin 3.0 (2.50-4.10) g/dL Albumin/Globulin Ratio 1.40 (1.3-2.0) mg/g 12/21/16 12/22/16 12/23/16 Range/Units 06:44 06:08 01:35 WBC (4.8-10.8) 10^3/uL RBC (4.70-6.10) 10^6/uL Hgb (14.0-18.0) g/dL Hct (42.0-52.0) % MCV (80-90) FL MCH (27-31) PG MCHC (33-37) g/dL RDW Std Deviation (39-50) fL RDW Coeff of Isabelle (11.5-14.5) % Plt Count (140-350) 10*3/uL MPV (7.4-12.2) FL Immature Gran % (Auto) (0-5) % Neut % (Auto) (50-80) % Lymph % (Auto) (10-50) % [place] % (Auto) (5-15) % Eos % (Auto) (0-8) % Baso % (Auto) (0-1) % Immature Gran # (Auto) 10*3/UL Neut # (Auto) 10*3/UL Lymph # (Auto) 10*3/uL [place] # (Auto) (0.3-0.8) 10*3/UL Eos # (Auto) 10*3/UL Baso # (Auto) 10*3/UL WBC Morphology Comment (NORM) Plt Morphology Comment (NORM) RBC Morph Comment (NORM) PT 29.3 H 53.2 H (9.7-11.4) secs INR 2.79 5.00 (0.00-5.90) N/A D-Dimer (0.00-0.59) mg/L ABG pH 7.41 (7.35-7.45) ABG pCO2 40 H (34-38) MMHG ABG pO2 72 (65-75) MMHG ABG HCO3 25 (22-26) ABG Total CO2 26 (23-27) MMOL/L ABG O2 Saturation 94 (90-100) % ABG Base Excess 0 (-2-2) MMOL/L Gray Test Yes VBG pH (7.32-7.42) VBG pCO2 (45-55) mmHg VBG HCO3 (22-26) mmol/L VBG Base Excess (-2-2) MMOL/L FiO2 2lpm nc Sodium (135-145) meq/L Potassium (3.8-5.2) meq/L Chloride (98-112) meq/L Carbon Dioxide (23-33) meq/L Anion Gap (5-20) BUN (7-22) mg/dL Creatinine (0.70-1.50) mg/dL Estimated GFR (>60 ml/min/1.73m(2)) BUN/Creatinine Ratio (6-20) Glucose (78-110) mg/dL Calculated Osmolality (267-292) mOsm/kg Calcium (8.7-10.7) mg/dL Total Bilirubin (0.3-1.2) mg/dL AST (21-57) IU/L ALT (21-72) IU/L Alkaline Phosphatase (38-126) IU/L Total Protein (6.1-8.0) g/dL Albumin (3.5-4.8) g/dL Globulin (2.50-4.10) g/dL Albumin/Globulin Ratio (1.3-2.0) mg/g 12/23/16 Range/Units 07:55 WBC (4.8-10.8) 10^3/uL RBC (4.70-6.10) 10^6/uL Hgb (14.0-18.0) g/dL Hct (42.0-52.0) % MCV (80-90) FL MCH (27-31) PG MCHC (33-37) g/dL RDW Std Deviation (39-50) fL RDW Coeff of Isabelle (11.5-14.5) % Plt Count (140-350) 10*3/uL MPV (7.4-12.2) FL Immature Gran % (Auto) (0-5) % Neut % (Auto) (50-80) % Lymph % (Auto) (10-50) % [place] % (Auto) (5-15) % Eos % (Auto) (0-8) % Baso % (Auto) (0-1) % Immature Gran # (Auto) 10*3/UL Neut # (Auto) 10*3/UL Lymph # (Auto) 10*3/uL [place] # (Auto) (0.3-0.8) 10*3/UL Eos # (Auto) 10*3/UL Baso # (Auto) 10*3/UL WBC Morphology Comment (NORM) Plt Morphology Comment (NORM) RBC Morph Comment (NORM) PT 75.7 H (9.7-11.4) secs INR 7.06 H* (0.00-5.90) N/A D-Dimer (0.00-0.59) mg/L ABG pH (7.35-7.45) ABG pCO2 (34-38) MMHG ABG pO2 (65-75) MMHG ABG HCO3 (22-26) ABG Total CO2 (23-27) MMOL/L ABG O2 Saturation (90-100) % ABG Base Excess (-2-2) MMOL/L Gray Test VBG pH (7.32-7.42) VBG pCO2 (45-55) mmHg VBG HCO3 (22-26) mmol/L VBG Base Excess (-2-2) MMOL/L FiO2 Sodium (135-145) meq/L Potassium (3.8-5.2) meq/L Chloride (98-112) meq/L Carbon Dioxide (23-33) meq/L Anion Gap (5-20) BUN (7-22) mg/dL Creatinine (0.70-1.50) mg/dL Estimated GFR (>60 ml/min/1.73m(2)) BUN/Creatinine Ratio (6-20) Glucose (78-110) mg/dL Calculated Osmolality (267-292) mOsm/kg Calcium (8.7-10.7) mg/dL Total Bilirubin (0.3-1.2) mg/dL AST (21-57) IU/L ALT (21-72) IU/L Alkaline Phosphatase (38-126) IU/L Total Protein (6.1-8.0) g/dL Albumin (3.5-4.8) g/dL Globulin (2.50-4.10) g/dL Albumin/Globulin Ratio (1.3-2.0) mg/g Patient Problems - Patient Problem List (1) COPD exacerbation Current Visit: Yes Status: Acute (2) History of atrial fibrillation Current Visit: Yes Status: Acute (3) Hypertension Current Visit: Yes Status: Acute Qualifiers: Hypertension type: essential hypertension Qualified Description: Essential hypertension Qualifier Code(s): (I10) Essential (primary) hypertension (4) Hypothyroidism Current Visit: Yes Status: Acute Qualifiers: Hypothyroidism type: acquired Qualified Description: Acquired hypothyroidism Qualifier Code(s): (E03.9) Hypothyroidism, unspecified
== END 2016-12-23 13:31 | disposition home or self-care (01) | DRG 191 ==
LOC: ER 13:24 → MED/SURG 15:32
PROVIDERS: ADMIT Internal Medicine; ATTEND Internal Medicine
DX: J44.9 Chronic obstructive pulmonary disease, unspecified (principal); R06.00 Dyspnea, unspecified; J44.1 Chronic obstructive pulmonary disease with (acute) exacerbation; R64 Cachexia; I48.91 Unspecified atrial fibrillation; I10 Essential (primary) hypertension; E03.9 Hypothyroidism, unspecified; G89.4 Chronic pain syndrome
CPT/HCPCS: 36415; 36600; 71020; 80053; 82803; 85025; 85379; 85610; 87040; 87804; 93005; 93010; 94640; 94761; 96374; 99285; J0696; J2060; J2920; J7030; J7050; J7620

== ENCOUNTER → 2016-12-26 | Outpatient (CLI) | payer OTHER | LOC: MMPC 12-26 09:00 | PROVIDERS: ATTEND Family Medicine | DX: J43.2 Centrilobular emphysema (principal); I25.10 Atherosclerotic heart disease of native coronary artery without angina pectoris; I10 Essential (primary) hypertension | CPT/HCPCS: 99213; G0463 ==

== ENCOUNTER 2016-12-27 00:50 | Inpatient (IN) | payer OTHER ==
[2016-12-27] MEDS ORDERED: Sodium Chloride 0.9% 1,000 ML PRIMARY IV ONE (01:31)
[2016-12-27] MEDS ORDERED: NORMAL SALINE 10 ML SYRINGE FLUSH IVP PRN (01:31)
[2016-12-27] MEDS ORDERED: ALBUTEROL SULFATE 2.5 MG/3 ML NEB ONE (01:31)
[2016-12-27 01:46] LABS: BASOPHILS # (AUTO) 0.03 10*3/UL; BASOPHILS % (AUTO) 0.2 % (0-1); EOSINOPHILS % (AUTO) 0.2 % (0-8); HEMATOCRIT 44.5 % (42.0-52.0); HEMOGLOBIN 15.2 g/dL (14.0-18.0); IMM GRAN % (AUTO) 0.4 % (0-5); IMM GRAN# (AUTO) 0.08 10*3/UL; LYMPHOCYTES # (AUTO) 2.71 10*3/uL; LYMPHOCYTES % (AUTO) 14.1 % (10-50); MEAN CORPUSCULAR HEMOGLOBIN 31.2 PG (27-31); MEAN CORPUSCULAR HGB CONC 34.2 g/dL (33-37); MEAN PLATELET VOLUME 9.8 FL (7.4-12.2); MONOCYTES # (AUTO) 2.22 10*3/UL (0.3-0.8); MONOCYTES % (AUTO) 11.5 % (5-15); NEUTROPHILS # (AUTO) 14.16 10*3/UL; NEUTROPHILS % (AUTO) 73.6 % (50-80); RDW COEFFICIENT OF VARIATION 14.9 % (11.5-14.5); RED BLOOD COUNT 4.87 10^6/uL (4.70-6.10); WHITE BLOOD COUNT 19.24 10^3/uL (4.8-10.8)
[2016-12-27 01:48] LABS: BILIRUBIN,TOTAL 1.7 mg/dL (0.3-1.2); CALCIUM 9.2 mg/dL (8.7-10.7); CREATININE 0.7 mg/dL (0.70-1.50); POTASSIUM 3.7 meq/L (3.8-5.2)
[2016-12-27 02:01] LABS: PLATELET MORPHOLOGY COMMENT NORMAL MORPHOLOGY (NORM)
[2016-12-27 02:14] LABS: VENOUS HCO3 27.2 mmol/L (22-26)
--- NOTE | 2016-12-27 02:53 | PDOC ---
Upper Respiratory HPI - General Chief Complaint: Respiratory Complaint Stated Complaint: Difficulty Breathing Date Seen by Provider: 12/27/16 Time Seen by Provider: 01:20 Source: POSITIVE: Patient, EMS Exam Limitations: POSITIVE: No limitations Nurse's Notes Reviewed & Considered: Yes EMS Report Reviewed & Considered: Verbal - History of Present Illness Initial Comments: The patient is a 75-year-old male who is brought to the emergency room by ambulance. Patient has a history of severe emphysema and COPD. He smoked a pack of cigarettes per day up until 6 days ago. He was admitted to the hospital Thursday, 5 days ago, for an exacerbation of COPD and was discharged 2 days ago. Patient states he's gotten progressively dyspneic and has had some cough. No known fevers. No chest pain. He is on oxygen at home 2-1/2 L/m continuously. Patient has a past history of alcohol abuse and hypertension and has had a previous myocardial infarction with coronary artery stents. History of hypothyroidism. In route to the emergency room paramedics administered a DuoNeb nebulizer treatment followed by an albuterol nebulizer treatment. They administered 125 mg of Solu-Medrol IV and 2 g of magnesium IV. Patient is cachectic and states he weighs 113 pounds. He lives alone, but his son has been staying with him since he was discharged from the hospital. Timing: REPORTS: Gradual, Getting Worse Duration: <24 hours Severity: Moderate Quality: REPORTS: Other (Dyspnea; denies pain) Context: DENIES: Recent Foreign Travel, Insect Bite, Tick Bite, Multiple Pt's w / Same Sx, Recent Chemotherapy, Other Modifying Factors: improves with: Exertion, Coughing Associated Symptoms: REPORTS: Productive Cough (Cough productive of mucoid sputum), Shortness of Breath. DENIES: Fever, Chills, Sweating, Earache, Runny Nose, Sinus Pain, Sinus Drainage, Sore Throat, Hoarseness, Allergy, Hay Fever, Chest Pain, Cough, Bloody Cough, Hurts to Breathe, Headache, Other Similar Symptoms Previously: Yes Recently seen/treated/hospitalized: Yes Any Prior Injuries Related to Current Complaint?: No - Patient Home Medications Home Medications: Home Medications Aspirin Chewable Tab 324 mg PO ONCE (ED) #0 tab 08/05/14 Levothyroxine Sodium [Synthroid] 100 mcg PO DAILY 08/05/14 Metoprolol Tartrate Tab [Lopressor Tab] 12.5 mg PO BID #0 tablet 08/05/14 Atorvastatin Calcium [Lipitor] 20 mg PO DAILY 11/10/14 Albuterol Sulfate [Proair Hfa] 2 puff INH Q4-6H #3 inh 05/30/16 Albuterol Sulfate [Ventolin Hfa] 1 - 2 puff INH Q4-6H PRN #1 puff 05/30/16 Budesonide/Formoterol Fumarate [SYMBICORT] 6 gm IH BID #3 inhaler 05/30/16 Nitroglycerin SL Tab [Nitrostat SL Tab] 0.4 mg SL PRN PRN #20 tab 05/30/16 Albuterol/Ipratropium Inhaler [Combivent Respimat Inhaler] 4 gm IH QID #1 inhaler 07/15/16 Lisinopril 20 mg PO BID #90 tab-cap 10/28/16 oxyCODONE/APAP 5/325 Tab [Percocet 5/325 Tab] 1 tab PO Q6H PRN 12/20/16 ALPRAZolam Tab [Xanax Tab] 0.25 mg PO Q8H PRN #60 tab 12/23/16 Albuterol Neb Soln 0.083% 2.5 mg NEB RTQ2H PRN #120 vial.neb 12/23/16 Albuterol/Ipratrop Neb Soln [Duoneb Neb Soln] 3 ml NEB RTQ6H #120 ampul.neb Azithromycin [Zithromax] 250 mg PO DAILY@1700 #30 tab 12/23/16 Nicotine 21mg Patch [Nicoderm CQ 21mg Patch] 1 patch TRANSDERM DAILY #30 patch 12/23/16 Nicotine 2mg Gum [Nicorette 2mg Gum] 2 mg BUCCAL Q3H PRN #90 gum 12/23/16 Prednisone 10 mg PO DAILY #120 tab.ds.pk 12/23/16 Rivaroxaban [Xarelto] 20 mg PO DAILY #90 tablet 12/23/16 - Patient Allergies Allergies/Adverse Reactions: Allergies Allergy/AdvReac Type Severity Reaction Status Date / Time amlodipine besylate Allergy Intermediate Edema of Verified 12/23/16 06:27 [From [facility]] ankles Past Medical History - heen HEENT History: Hard of Hearing Additional HEENT History: wears glasses Cardiovascular History: Hypertension, Previous PA, Arrhythmia Additional Cardiovasular History: STENTS Respiratory History: COPD, Shortness of Breath, Home Oxygen Use Gastrointestinal History: Denies History Genitourinary History: Denies History Endocrine History: Hypothyroidism Musculoskeletal History: Arthritis, Joint Pain, Osteoarthritis Prosthesis or Implant: Yes (left knee replacement) Neurological History: Denies History Blood Disorders: Denies History Psychiatric History: Substance Abuse Additional Psychiatric History: acoholic History of Sexually Transmitted Diseases: No Cancer History: Skin In Past Year Been Physically Harmed or Verbally Threatened: No History of MDRO: No History of Other Communicable Diseases: No Tobacco Use: Current Every Day Smoker Alcohol Use: Occasionally Substance Use Type: None Previous Surgical History: Yes Type / Date of Surgery: MULTIPLE ORTHO, APPY, STENT Anesthesia Reactions: No Malignant Hyperthermia: No Significant Family History: Cancer Additional Family History: both sisters had breast CA Past Medical History Reviewed: Reviewed - No Changes ROS - Limitations ROS Limitations: No Limitations Constitution: REPORTS: Denies Symptoms, Weakness Cardiovascular: REPORTS: Denies Cardiac Symptoms Respiratory: REPORTS: Cough Productive (Productive of mucoid sputum), Shortness Of Breath Neurological: REPORTS: Denies Neuro Symptoms Gastrointestinal: REPORTS: Denies GI Symptoms Endocrine: REPORTS: Denies Symptoms Musculoskeletal: REPORTS: Denies MS Symptoms Genitourinary: REPORTS: Denies Symptoms Eyes: REPORTS: Denies Symptoms ENT: REPORTS: Denies Symptoms Skin: REPORTS: Denies Skin Symptoms Lympathic: REPORTS: Denies Lympathic Symptoms Immunologic: POSITIVE: Denies Symptoms Psychiatric: POSITIVE: Denies Psych Symptoms Upper Respiratory/Fever Exam - General Appearance General Appearance: REPORTS: Alert, Cooperative, No Evidence of Trauma, Moderate Distress (Due to dyspnea) - HEENT HEENT: POSITIVE: Head Inspection Nml, Eyes Inspection Nml, Ears Inspection Nml, Nose Inspection Nml, Oral/Dental Inspect. Nml, Pharynx Inspect. Nml, PERRL, EOMI - Neck Neck: REPORTS: Normal Inspection, Supple - Respiratory Respiratory: REPORTS: No Pleuritic Chest Pain, No Pain on Inspiration, Respiratory Distress (Moderate), Rhonchi (Breath sounds very distant), Decreased Air Movement, Speaks Broken Sentences - Abdomen Abdomen: Soft: (All Quadrants), Normal Bowel Sounds: (All Quadrants), Denies Tenderness: (All Quadrants), No Splenomegaly: (All Quadrants), No Hepatomegaly: (All Quadrants), No Guarding: (All Quadrants), No Rebound: (All Quadrants), No Palpable Pulse: (All Quadrants), No Palpabale Mass: (All Quadrants), No Distention: (All Quadrants), No Rigidity: (All Quadrants) - Cardiovascular Cardiovascular: REPORTS: Regular Rate and Rhythm, Heart Sounds Normal, Equal Pulses, Strong Pulses, No Murmur, No Gallop, No Friction Rub, No JVD Peripheral Pulses: Radial (R): 2+, Radial (L): 2+ - Skin Skin: REPORTS: Intact, Normal For Race, Warm, Dry, No Rash - Extremities Extremity: Non-Tender: (All Extremities), Normal ROM: (All Extremities), Normal Inspection: (All Extremities) - Neurological / Psychological Neurological: POSITIVE: Oriented X3, criminal legal assistant Normal As Tested, Motor Normal, Sensation Normal, 5, 6 Upper Resp/Fever Progress - Results Reviewed by me Xrays/CTs/US Reviewed by me: Yes Discussed with Radiologist: No Radiology Findings: Severe emphysema Lab Results Reviewed: Yes Lab Results:: Laboratory Results 12/27/16 12/27/16 Range/Units 01:00 01:31 WBC 19.24 H (4.8-10.8) 10^3/uL RBC 4.87 (4.70-6.10) 10^6/uL Hgb 15.2 (14.0-18.0) g/dL Hct 44.5 (42.0-52.0) % MCV 91.4 H (80-90) FL MCH 31.2 H (27-31) PG MCHC 34.2 (33-37) g/dL RDW Std Deviation 48.5 (39-50) fL RDW Coeff of Isabelle 14.9 H (11.5-14.5) % Plt Count 441 H (140-350) 10*3/uL MPV 9.8 (7.4-12.2) FL Immature Gran % (Auto) 0.4 (0-5) % Neut % (Auto) 73.6 (50-80) % Lymph % (Auto) 14.1 (10-50) % [place] % (Auto) 11.5 (5-15) % Eos % (Auto) 0.2 (0-8) % Baso % (Auto) 0.2 (0-1) % Immature Gran # (Auto) 0.08 10*3/UL Neut # (Auto) 14.16 10*3/UL Lymph # (Auto) 2.71 10*3/uL [place] # (Auto) 2.22 H (0.3-0.8) 10*3/UL Eos # (Auto) 0.04 10*3/UL Baso # (Auto) 0.03 10*3/UL WBC Morphology Comment Normal morphology (NORM) Plt Morphology Comment Normal morphology (NORM) RBC Morph Comment Normal morphology (NORM) VBG pH 7.33 (7.32-7.42) VBG pCO2 50.7 (45-55) mmHg VBG HCO3 27.2 H (22-26) mmol/L VBG Base Excess 1 (-2-2) MMOL/L Sodium 140 (135-145) meq/L Potassium 3.7 L (3.8-5.2) meq/L Chloride 98 (98-112) meq/L Carbon Dioxide 31 (23-33) meq/L Anion Gap 11 (5-20) BUN 28 H (7-22) mg/dL Creatinine 0.7 (0.70-1.50) mg/dL Estimated GFR (>60 ml/min/1.73m(2)) BUN/Creatinine Ratio 40.00 H (6-20) Glucose 178 H (78-110) mg/dL Calculated Osmolality 299.0 H (267-292) mOsm/kg Calcium 9.2 (8.7-10.7) mg/dL Magnesium 2.4 (1.6-2.4) mg/dL Total Bilirubin 1.7 H (0.3-1.2) mg/dL AST 112 H (21-57) IU/L ALT 57 (21-72) IU/L Alkaline Phosphatase 45 (38-126) IU/L Total Protein 7.0 (6.1-8.0) g/dL Albumin 4.2 (3.5-4.8) g/dL Globulin 2.8 (2.50-4.10) g/dL Albumin/Globulin Ratio 1.50 (1.3-2.0) mg/g EKG Interpreted/Reviewed By Me:: Yes EKG Interpretation:: POSITIVE: Normal Sinus Rhythm, Normal Rate, Normal Intervals, Normal [place], Normal QRS, Normal ST/T, Abnormal EKG (Supraventricular premature beats) - Patient's Progress Pain Medication Addressed: POSITIVE: Not Applicable School/Work Release Addressed: POSITIVE: Not Applicable Re-Examine Time: 02:40 Re-Examine Comment: Peak expiratory flow rate less than 60% predicted both before and after beta agonist nebulizer treatment. Able to speak in complete sentences now when he states he feels some better, but he still dyspneic. Status: POSITIVE: Improved, Re-Examined Air Movement: Poor Antibiotics Given: No Nebulizer Treatment Given:: Yes - Consult Consult (If Yes, Name of Consulting MD & Time Called): Yes (Dr. Hicks, hospitalist, [id number]) Consulting MD will see pt:: POSITIVE: [facility] – [place] Admit Counseled: POSITIVE: Patient, RE: Lab Results, RE: Radiology Results, RE: DX, RE : Need for F/U Patient Care Time - Estimated PCT Patient Care Time (In Minutes): 40 Vital Signs - Recent Vital Signs Vital Signs: Vital Signs (Last 8 hours) Temp Pulse Resp BP Pulse Ox 12/27/16 01:15 98.2 F 96 26 H 165/86 94 - VS Reviewed Vital Signs Reviewed: Yes Discharge Clinical Impression: Emphysema lung, COPD exacerbation, Cachexia Discharge Disposition: Admit to Inpatient Condition: Fair Date Decision to Admit to Inpatient: 12/27/16 Time Decision to Admit to Inpatient: 02:40
[2016-12-27] MEDS ORDERED: ASPIRIN 81 MG (BABY) CHEWABLE TABLET PO ONE (03:10)
[2016-12-27] MEDS ORDERED: ACETAMINOPHEN 325 MG TABLET PO PRN (03:10)
[2016-12-27] MEDS ORDERED: NICOTINE 2 MG GUM BUCCAL PRN (03:10)
[2016-12-27] MEDS ORDERED: ONDANSETRON 4 MG/2 ML VIAL IVP PRN (03:10)
[2016-12-27] MEDS ORDERED: NITROGLYCERIN 0.4 MG SL TAB (BOTTLE OF 3) SL PRN (03:10)
--- NOTE | 2016-12-27 03:25 | EKG ---
[address] [place] [address] [place] [address] Measurements Intervals [place] Rate: 99 P: 84 MT: 140 QRS: 86 QRSD: 75 T: 58 QT: 367 QTc: 423 Interpretive Statements SINUS RHYTHM WITH OCCASIONAL SUPRAVENTRICULAR PREMATURE COMPLEXES NONSPECIFIC ST DEPRESSION Compared to ECG 12/20/2016 14:05:29 Sinus arrhythmia no longer present ST (T wave) deviation still present Electronically Signed On 12-27-16 15:50:03 [facility] by Beltran Noble [email or web address]
[2016-12-27] MEDS: NORMAL SALINE 10 ML SYRINGE FLUSH IVP PRN ×4 (03:41→22:12)
[2016-12-27] MEDS: methylPREDNISolone 125 MG/2 ML VIAL IVP SCH ×4 (03:41→22:10)
[2016-12-27] MEDS: ALPRAZolam Tab 0.25 MG TABLET PO PRN ×3 (03:41→22:10)
[2016-12-27 03:53] LABS: PROTHROMBIN TIME 13.4 secs (9.7-11.4)
[2016-12-27] MEDS: oxyCODONE-ACETAMINOPHEN 5-325 TAB PO PRN ×2 (04:51→16:27)
--- NOTE | 2016-12-27 04:51 | DI ---
HISTORY: Respiratory insufficiency. COPD. Question PE. TECHNIQUE: Contiguous axial images of the chest were obtained and submitted for interpretation. FINDINGS: No main or segmental pulmonary emboli. Moderate emphysematous changes are noted bilaterally, most severe in the upper lobes. The lungs are h yperinflated without pneumothorax, pleural effusion, or area of consolidation. There is a calcified granuloma in the left upper lobe. There is a 6 mm subpleural pulmonary nodule in the posterior aspect of the right lower lobe. Airways are patent with no endobronchial lesion. There is diffuse bronchi al wall thickening, a finding associated with chronic bronchitis and reactive airways disease. No evidence of great vessel injury, dissection, or aneurysm. There are extensive atheromatous aortic and coronary artery calcifications. The right and left main pulmonary arteries are dilated, a findin g associated with pulmonary artery hypertension. There is microcardia with no pericardial effusion. No mediastinal or hilar lymphadenopathy. There are calcified left hilar lymph nodes. The thyroid exhibits normal CT morphology. 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 The patient is cachectic. There is age indeterminate anterior compression deformity of L1. There is m ultilevel degenerative disc disease and postsurgical changes of the cervical thoracic spine. IMPRESSION: 1. No main or segmental pulmonary emboli. 2. Moderate bilateral emphysematous changes, most severe in the upper lobes, with hyperinflated lungs . 3. Subpleural 6 mm nodule posterior right lower lobe. Follow-up is recommended according to the Flei schner criteria. 4. Diffuse bronchial wall thickening is a finding associated with chronic bronchitis and reactive air ways disease. 5. Dilated right and left main pulmonary arteries, a finding that is commonly associated with pulmona ry artery hypertension. 6. Microcardia. 7. 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 A dedicated angiogram may be obtained for further characterization. 8. Age indeterminate L1 anterior compression deformity.
--- NOTE | 2016-12-27 04:56 | PDOC ---
History and Physical - History of Present Illness Date and Time of Service: 12/27/2016, 0454 Chief Complaint: Acute exacerbation shortness breath History of Present Illness: This very pleasant 75-year-old male that we actually discharged earlier this week with end-stage COPD who was treated aggressively for an exacerbation. At the time of his discharge, I felt like this could be end-stage and we gave him information on hospice. He states that he is going to explore this and was starting to do that within the next week with his primary care provider Dr. Mishra. He was doing his breathing treatments, switched over to his Xarelto therapy, continuing steroids, and daily Zithromax to try and prevent exacerbations and he woke up this morning suddenly feeling very short of breath. He states he tried an albuterol updraft and it didn't help. He states he didn't want to get as bad as he was when he initially came in the hospital last time so he had his son called 911 and came in for evaluation. Apparently in route, the patient was given some magnesium, and an extra dose of Solu- Medrol. He also got a DuoNeb in route. He got 1 more albuterol therapy in the emergency room. Chest x-ray did not reveal a pneumonia and in fact on my view it has not changed significantly since 2013. No CT scan was done. It is unclear if the patient had a pulmonary embolus that may be adding to his shortness of breath given his high risk status with his COPD so I ordered one on admission. I am still waiting for the results from the radiologist although I do not grossly see something that stands out as a massive pulmonary embolism on my view of the film. Was very straightforward with the patient, and don't see much that we can do outside of what we have artery been doing to make him better. I think this is end-stage, as marked by pulmonary cachexia and hospice is the patient's best option. He is very interested in having a hospice consultation. He reports in addition to his severe shortness of breath, that he has had increased work of breathing, no appetite at all, and has not slept since leaving the hospital. He states overall that the steroids seemed to help him more than anything. Past Medical History Medical History: 1. COPD with chronic hypoxemic respiratory failure, oxygen at home which she intermittently takes during the day, and is on all the time at night. He has pulmonary cachexia as well. We have him on daily steroids and Zithromax to try and prevent exacerbations. 2. Hypothyroidism. 3. Coronary artery disease with previous stent in 2013. 4. Atrial fibrillation, which we switched over to Xarelto. 5. Chronic pain syndrome. 6. Pulmonary cachexia and loss of weight. Surgical History: 1. Appendectomy. 2. Previous knee replacement. 3. Cervical neck fusion 2012 Family History: Reviewed an Not Pertinent Pertinent Family History: Father of coronary artery disease and myocardial infarction. He's not sure what his mother passed on from. Past Social History: He smokes one pack a day, drinks nearly every day no drugs. Has 2 children, a son who lives here in [place]. His ex- also helps take care of him. He states he has not had anything to smoke since we put a nicotine patch on him on his prior hospital stay. Tobacco Use: Former Smoker (Has not had anything to smoke since prior hospital stay when he was placed on the nicotine patch) Substance Use Type: None Alcohol Use: Heavy Medication / Allergies Home Medications: Home Medications Medication Instructions Recorded Confirmed Type Aspirin Chewable Tab 324 mg PO ONCE (ED) #0 tab 08/05/14 12/27/16 Rx Levothyroxine Sodium [Synthroid] 100 mcg PO DAILY 08/05/14 12/27/16 History Metoprolol Tartrate Tab 12.5 mg PO BID #0 tablet 08/05/14 12/27/16 Rx [Lopressor Tab] Atorvastatin Calcium [Lipitor] 20 mg PO DAILY 11/10/14 12/27/16 History Albuterol Sulfate [Proair Hfa] 2 puff INH Q4-6H #3 inh 05/30/16 12/27/16 Clinic Albuterol Sulfate [Ventolin Hfa] 1 - 2 puff INH Q4-6H PRN #1 puff 05/30/1612/27 Clinic Budesonide/Formoterol Fumarate 6 gm IH BID #3 inhaler 05/30/16 12/27/16 Clinic [SYMBICORT] Nitroglycerin SL Tab [Nitrostat 0.4 mg SL PRN PRN #20 tab 05/30/16 12/27/16 Clinic SL Tab] Albuterol/Ipratropium Inhaler 4 gm IH QID #1 inhaler 07/15/16 12/27/16 Clinic [Combivent Respimat Inhaler] Lisinopril 20 mg PO BID #90 tab-cap 10/28/16 12/27/16 Clinic oxyCODONE/APAP 5/325 Tab 1 tab PO Q6H PRN 12/20/16 12/27/16 History [Percocet 5/325 Tab] ALPRAZolam Tab [Xanax Tab] 0.25 mg PO Q8H PRN #60 tab 12/23/16 12/27/16 Rx Albuterol Neb Soln 0.083% 2.5 mg NEB RTQ2H PRN #120 vial.neb 12/23/16 12/27/16 Rx Albuterol/Ipratrop Neb Soln 3 ml NEB RTQ6H #120 ampul.neb 12/23/16 12/27/16 Rx [Duoneb Neb Soln] Azithromycin [Zithromax] 250 mg PO DAILY@1700 #30 tab 12/23/16 12/27/16 Rx Nicotine 21mg Patch [Nicoderm CQ 1 patch TRANSDERM DAILY #30 patch 12/23/16 Rx 21mg Patch] Nicotine 2mg Gum [Nicorette 2mg 2 mg BUCCAL Q3H PRN #90 gum 12/23/16 12/27/16 Rx Gum] Prednisone 10 mg PO DAILY #120 tab.ds.pk 12/23/16 12/27/16 Rx Rivaroxaban [Xarelto] 20 mg PO DAILY #90 tablet 12/23/16 12/27/16 Rx Allergies/Adverse Reactions: Allergies Allergy/AdvReac Type Severity Reaction Status Date / Time amlodipine besylate Allergy Intermediate Edema of Verified 12/23/16 06:27 [From [facility]] ankles Review of Systems - Constitutional Constitutional: REPORTS: General Health Poor, Weight Loss - Respiratory Respiratory: REPORTS: Cough, Dyspnea At Rest, Dyspnea with Exertion, See HPI - Cardiovascular Cardiovascular: REPORTS: Negative System Review - Gastrointestinal Gastrointestinal / Abdominal: REPORTS: Poor Appetite - Genitourinary Genitourinary: REPORTS: Negative System Review - Musculoskeletal Musculoskeletal: REPORTS: Back Pain, Other (States he has arthritis) - Hematlogic / Lymphatic Hematologic / Lymphatic: REPORTS: Negative System Review - Neurological Neurologic: REPORTS: Negative System Review - Psychiatric Psychiatric: REPORTS: Anxiety Exam - Vitals Vital Signs: Vital Signs Temperature 98.2 F Temperature Source Temporal Artery Scan Pulse Rate 90 Respiratory Rate 22 Blood Pressure 131/74 Pulse Ox 94 Oxygen Flow Rate 2 Oxygen Delivery Method Nasal Cannula Height 5 ft 7 in Weight 108 lb 9.6 oz - General General Appearance: POSITIVE: Cooperative, Mild Distress - Head Head Exam: POSITIVE: Normal Inspection, Normocephalic, Atraumatic Additional Head Exam Details: Has temporal wasting consistent with pulmonary cachexia - Eye Eye Exam: POSITIVE: Normal Appearance, No Scleral Icterus - ENT ENT Exam: POSITIVE: Mucous Membranes Moist - Neck Neck Exam: POSITIVE: Normal Inspection, No Tenderness, No Thyromegaly - Respiratory Respiratory Exam: POSITIVE: Decreased Breath Sounds Additional Respiratory Exam Details: Poor air movement on lung exam, tripod positioning, "pink puffer" presentation. He's got excess 3 muscle involvement and anterior scalene involvement, and can only say about 2 or 3 words before taking a breath. He is labored, but doesn't appear in need of intubation - Cardiovascular Cardiovascular Exam: POSITIVE: RRR, No Murmur, No Clicks, No Gallops, No Rubs, No JVD - GI/Abdominal GI/Abdominal Exam: POSITIVE: Normal Bowel Sounds, Non Tender, Non Distended, Soft - Rectal Rectal Exam: POSITIVE: Deferred - External Exam: POSITIVE: Deferred Exam: POSITIVE: Deferred - Extremities Extremities Exam: POSITIVE: No Edema Present, No Cyanosis Present, Clubbing Present - Back Back Exam: POSITIVE: Normal Inspection, No CVA Tenderness - Neurological Neurological Exam: POSITIVE: Alert, Oriented x 3, No Facial Droop, Speech Intact / Clear, Moves All Extremities Equally - Psychiatric Psychiatric Exam: POSITIVE: Normal Affect, Normal Mood - Integumentary Integumentary Exam: POSITIVE: Normal Color, Warm, Dry, Intact Results - Labs CBC and BMP: 12/27/16 01:00 12/27/16 01:00 Labs - Last 24 Hours: Laboratory Results 12/27/16 12/27/16 Range/Units 01:00 01:31 WBC 19.24 H (4.8-10.8) 10^3/uL RBC 4.87 (4.70-6.10) 10^6/uL Hgb 15.2 (14.0-18.0) g/dL Hct 44.5 (42.0-52.0) % MCV 91.4 H (80-90) FL MCH 31.2 H (27-31) PG MCHC 34.2 (33-37) g/dL RDW Std Deviation 48.5 (39-50) fL RDW Coeff of Isabelle 14.9 H (11.5-14.5) % Plt Count 441 H (140-350) 10*3/uL MPV 9.8 (7.4-12.2) FL Immature Gran % (Auto) 0.4 (0-5) % Neut % (Auto) 73.6 (50-80) % Lymph % (Auto) 14.1 (10-50) % Tripp % (Auto) 11.5 (5-15) % Eos % (Auto) 0.2 (0-8) % Baso % (Auto) 0.2 (0-1) % Immature Gran # (Auto) 0.08 10*3/UL Neut # (Auto) 14.16 10*3/UL Lymph # (Auto) 2.71 10*3/uL Tripp # (Auto) 2.22 H (0.3-0.8) 10*3/UL Eos # (Auto) 0.04 10*3/UL Baso # (Auto) 0.03 10*3/UL WBC Morphology Comment Normal morphology (NORM) Plt Morphology Comment Normal morphology (NORM) RBC Morph Comment Normal morphology (NORM) PT 13.4 H (9.7-11.4) secs INR 1.29 (0.00-5.90) N/A VBG pH 7.33 (7.32-7.42) VBG pCO2 50.7 (45-55) mmHg VBG HCO3 27.2 H (22-26) mmol/L VBG Base Excess 1 (-2-2) MMOL/L Sodium 140 (135-145) meq/L Potassium 3.7 L (3.8-5.2) meq/L Chloride 98 (98-112) meq/L Carbon Dioxide 31 (23-33) meq/L Anion Gap 11 (5-20) BUN 28 H (7-22) mg/dL Creatinine 0.7 (0.70-1.50) mg/dL Estimated GFR (>60 ml/min/1.73m(2)) BUN/Creatinine Ratio 40.00 H (6-20) Glucose 178 H (78-110) mg/dL Calculated Osmolality 299.0 H (267-292) mOsm/kg Calcium 9.2 (8.7-10.7) mg/dL Magnesium 2.4 (1.6-2.4) mg/dL Total Bilirubin 1.7 H (0.3-1.2) mg/dL AST 112 H (21-57) IU/L ALT 57 (21-72) IU/L Alkaline Phosphatase 45 (38-126) IU/L Total Protein 7.0 (6.1-8.0) g/dL Albumin 4.2 (3.5-4.8) g/dL Globulin 2.8 (2.50-4.10) g/dL Albumin/Globulin Ratio 1.50 (1.3-2.0) mg/g - EKG Data -: EKG Interpreted by Me EKG Shows Normal: Sinus Rhythm - EKG Data EKG Interpretation: Other (Borderline sinus tachycardia [place] [address] or so) - Imaging Status: Image Reviewed by Me (Chest x-ray, on my view, is negative for any acute pneumonia. It is consistent with hyper expansion and COPD. CTA of the chest, on my view appeared negative for pneumonia. Positive for emphysema, and I could not see grossly any evidence of pulmonary embolism. The radiology report came back literally as I was dictating, and it appears the patient has an L1 compression fracture of undetermined time, emphysema, no evidence of pulmonary embolism, no pneumonia, and significant degenerative spinal disease in the lumbar spine.) Assessment and Plan - Patient Problems (1) Acute on chronic respiratory failure with hypoxemia Current Visit: Yes Status: Acute (2) Respiratory insufficiency Current Visit: Yes Status: Acute (3) Chronic pain syndrome Current Visit: No Status: Acute (4) History of atrial fibrillation Current Visit: No Status: Acute (5) Hypertension Current Visit: Yes Status: Chronic Qualifiers: Hypertension type: essential hypertension Qualified Description: Essential hypertension Qualifier Code(s): (I10) Essential (primary) hypertension (6) Hypothyroidism Current Visit: Yes Status: Chronic Qualifiers: Hypothyroidism type: acquired Qualified Description: Acquired hypothyroidism Qualifier Code(s): (E03.9) Hypothyroidism, unspecified - Assessment / Plan Additional Assessment/Plan Details: Readmit the patient. I did get the CT scan, and again on my view Continue high-dose IV Medrol, no changed antibiotics, continue daily prednisone , and daily Zithromax. Breathing therapies to try and relieve shortness of breath is much as possible. Hospice consult and evaluation. I think overall the patient would probably be better served inpatient but he really wants to try to stay home if possible. Nebulized morphine might help him at home. I'm very glad to see that there is no blood clot, and I think the Coumadin is too much to be managing at this point given his end-stage appearance. Continue Xarelto. Meds for anxiety and for insomnia. We can try BiPAP on a last ditch effort, but I don't think it'll make a lot of difference. Overall prognosis guarded, likely to regardless of anything we can provide him here therapy-hodges. I discussed this with the patient and he is very aware of his end-stage nature of his disease, and he agrees with the plan above. DO NOT RESUSCITATE and DO NOT INTUBATE
[2016-12-27] MEDS: ALBUTEROL SULFATE 2.5 MG/3 ML NEB PRN ×3 (05:07→15:20)
[2016-12-27] MEDS ORDERED: LORazepam 2 MG/1 ML VIAL IVP ONE (05:13)
[2016-12-27] MEDS: LEVOTHYROXINE 100 MCG TABLET PO SCH (05:33)
[2016-12-27] MEDS: IPRATROPIUM/ALBUTEROL SULFATE 3 ML NEB NEB SCH ×3 (06:29→18:45)
[2016-12-27] MEDS: FLUTICASONE/SALMETEROL 500/50 UD INHALER INH SCH ×2 (06:31→18:44)
[2016-12-27] MEDS: Metoprolol TARTRATE Tab 25 MG TAB PO SCH ×2 (08:56→22:10)
[2016-12-27] MEDS: LISINOPRIL 20 MG TABLET PO SCH ×2 (08:56→22:10)
[2016-12-27] MEDS: predniSONE Tab 10 MG TAB PO SCH (08:56)
[2016-12-27] MEDS: NICOTINE 21 MG /DAY PATCH TRANSDERM SCH (08:56)
[2016-12-27] MEDS: Patch Removal PATCH TRANSDERM SCH (09:00)
--- NOTE | 2016-12-27 12:58 | PDOC(PROG) ---
Interval History: Patient with history of end-stage COPD and typical pink puffer readmitted again after 2 days at home. Patient is working pretty hard to breathe with all his accessory muscles I have decided to start BiPAP to give his a muscles arrest he has agreed to this and is doing BiPAP as we speak unfortunately this is not a cure Objective : Data - Labs CBC and BMP: 12/27/16 01:00 12/27/16 01:00 Objective : Exam - General General Appearance: Cooperative - Respiratory Respiratory Exam: Clear to Auscultation - Bilaterally, Decreased Breath Sounds - Cardiovascular Cardiovascular Exam: RRR, No Murmur - GI/Abdominal GI/Abdominal Exam: Normal Bowel Sounds, Non Tender, Non Distended, Soft - Extremities Extremities Exam: No Clubbing Present, No Edema Present, No Cyanosis Present Assessment and Plan - Patient Problems (1) COPD exacerbation Current Visit: Yes Status: Acute (2) Cachexia Current Visit: Yes Status: Acute (3) Pulmonary cachexia due to chronic obstructive pulmonary disease Current Visit: Yes Status: Acute - Assessment / Plan Additional Assessment/Plan Details: This very nice 75-year-old gentleman with end-stage COPD CT scan of his chest shows no PE at this point we'll continue high-dose IV steroids Zithromax. I will try to do BiPAP to help with his with his respiratory fatigue. Hospice consult was initiated he would like to do this at home if possible continue salt though at this point since the Coumadin would not be an option because of his Zithromax. Overall prognosis is guarded and poor I did discuss this with the patient he understands the instead chest nature of the disease does not want to be resuscitated or intubated agrees with the above plan
[2016-12-27] MEDS: Rivaroxaban Tab 10 MG TAB PO SCH (16:26)
[2016-12-27] MEDS: AZITHROMYCIN 250 MG TABLET PO SCH (16:26)
[2016-12-28] MEDS: IPRATROPIUM/ALBUTEROL SULFATE 3 ML NEB NEB SCH ×3 (00:42→14:32)
[2016-12-28] MEDS: methylPREDNISolone 125 MG/2 ML VIAL IVP SCH ×2 (04:31→11:06)
[2016-12-28] MEDS: NORMAL SALINE 10 ML SYRINGE FLUSH IVP PRN ×2 (04:31→11:06)
[2016-12-28] MEDS: ALBUTEROL SULFATE 2.5 MG/3 ML NEB PRN ×2 (04:49→09:41)
[2016-12-28 05:32] LABS: VENOUS HCO3 26.3 mmol/L (22-26)
[2016-12-28] MEDS: ALPRAZolam Tab 0.25 MG TABLET PO PRN (05:37)
[2016-12-28] MEDS: LEVOTHYROXINE 100 MCG TABLET PO SCH (05:37)
[2016-12-28 05:47] LABS: BASOPHILS # (AUTO) 0.02 10*3/UL; BASOPHILS % (AUTO) 0.1 % (0-1); EOSINOPHILS % (AUTO) 0 % (0-8); HEMATOCRIT 40.5 % (42.0-52.0); HEMOGLOBIN 13.7 g/dL (14.0-18.0); IMM GRAN % (AUTO) 0.4 % (0-5); IMM GRAN# (AUTO) 0.09 10*3/UL; LYMPHOCYTES # (AUTO) 1.02 10*3/uL; LYMPHOCYTES % (AUTO) 5.1 % (10-50); MEAN CORPUSCULAR HEMOGLOBIN 31.2 PG (27-31); MEAN CORPUSCULAR HGB CONC 33.8 g/dL (33-37); MEAN PLATELET VOLUME 9.9 FL (7.4-12.2); MONOCYTES # (AUTO) 0.98 10*3/UL (0.3-0.8); MONOCYTES % (AUTO) 4.9 % (5-15); NEUTROPHILS # (AUTO) 17.93 10*3/UL; NEUTROPHILS % (AUTO) 89.5 % (50-80); RDW COEFFICIENT OF VARIATION 14.8 % (11.5-14.5); RED BLOOD COUNT 4.39 10^6/uL (4.70-6.10); WHITE BLOOD COUNT 20.04 10^3/uL (4.8-10.8)
[2016-12-28 05:56] LABS: BUN/CREATININE RATIO 44.28 (6-20); CALCIUM 9.3 mg/dL (8.7-10.7); CREATININE 0.7 mg/dL (0.70-1.50); POTASSIUM 4.6 meq/L (3.8-5.2)
[2016-12-28 08:02] LABS: PLATELET MORPHOLOGY COMMENT NORMAL MORPHOLOGY (NORM)
[2016-12-28] MEDS: FLUTICASONE/SALMETEROL 500/50 UD INHALER INH SCH ×2 (08:39→18:46)
[2016-12-28] MEDS: NICOTINE 21 MG /DAY PATCH TRANSDERM SCH (09:05)
[2016-12-28] MEDS: LISINOPRIL 20 MG TABLET PO SCH ×2 (09:06→21:29)
[2016-12-28] MEDS: predniSONE Tab 10 MG TAB PO SCH (09:06)
[2016-12-28] MEDS: Metoprolol TARTRATE Tab 25 MG TAB PO SCH ×2 (09:06→21:29)
[2016-12-28] MEDS: Patch Removal PATCH TRANSDERM SCH (09:27)
--- NOTE | 2016-12-28 12:11 | PDOC(PROG) ---
Interval History: Patient did not like the BiPAP but it did give him some muscle relief I had to increase his anxiety medication and feels better he does not want the DuoNeb she went back his albuterol I will also add Spiriva to his regimen Objective : Data - Labs CBC and BMP: 12/28/16 05:37 12/28/16 05:37 Labs - Last 24 Hours: Laboratory Results 12/28/16 12/28/16 Range/Units 05:00 05:37 WBC 20.04 H (4.8-10.8) 10^3/uL RBC 4.39 L (4.70-6.10) 10^6/uL Hgb 13.7 L (14.0-18.0) g/dL Hct 40.5 L (42.0-52.0) % MCV 92.3 H (80-90) FL MCH 31.2 H (27-31) PG MCHC 33.8 (33-37) g/dL RDW Std Deviation 48.4 (39-50) fL RDW Coeff of Isabelle 14.8 H (11.5-14.5) % Plt Count 437 H (140-350) 10*3/uL MPV 9.9 (7.4-12.2) FL Immature Gran % (Auto) 0.4 (0-5) % Neut % (Auto) 89.5 H (50-80) % Lymph % (Auto) 5.1 L (10-50) % Hardin % (Auto) 4.9 L (5-15) % Eos % (Auto) 0 (0-8) % Baso % (Auto) 0.1 (0-1) % Immature Gran # (Auto) 0.09 10*3/UL Neut # (Auto) 17.93 10*3/UL Lymph # (Auto) 1.02 10*3/uL Hardin # (Auto) 0.98 H (0.3-0.8) 10*3/UL Eos # (Auto) 0 10*3/UL Baso # (Auto) 0.02 10*3/UL WBC Morphology Comment Normal morphology (NORM) Plt Morphology Comment Normal morphology (NORM) RBC Morph Comment Normal morphology (NORM) VBG pH 7.54 H (7.32-7.42) VBG pCO2 30.4 L (45-55) mmHg VBG HCO3 26.3 H (22-26) mmol/L VBG Base Excess 4 H (-2-2) MMOL/L Sodium 138 (135-145) meq/L Potassium 4.6 (3.8-5.2) meq/L Chloride 100 (98-112) meq/L Carbon Dioxide 30 (23-33) meq/L Anion Gap 8 (5-20) BUN 31 H (7-22) mg/dL Creatinine 0.7 (0.70-1.50) mg/dL Estimated GFR (>60 ml/min/1.73m(2)) BUN/Creatinine Ratio 44.28 H (6-20) Glucose 135 H (78-110) mg/dL Calculated Osmolality 294.0 H (267-292) mOsm/kg Calcium 9.3 (8.7-10.7) mg/dL Objective : Exam - Head Head Exam: Normal Inspection - Respiratory Respiratory Exam: Clear to Auscultation - Bilaterally, Decreased Breath Sounds - Cardiovascular Cardiovascular Exam: RRR, No Murmur - GI/Abdominal GI/Abdominal Exam: Normal Bowel Sounds, Non Tender, Non Distended - Extremities Extremities Exam: No Clubbing Present, No Edema Present, No Cyanosis Present - Neurological Neurological Exam: Alert, Oriented x 3, CN II-XII Intact, No Facial Droop, Speech Intact / Clear - Psychiatric Psychiatric Exam: Normal Affect, Normal Mood Assessment and Plan - Patient Problems (1) COPD exacerbation Current Visit: Yes Status: Acute Comment: End-stage patient will like to do hospice at home most likely this consult will happen tomorrow I will add Spiriva to his regimen decrease his IV Solu-Medrol to prednisone 30 daily IV steroids make him very agitated and unable to sleep unfortunately there is not much else we can do for this nice patient which the disease state has caused him to lose weight and is cachectic (2) Cachexia Current Visit: Yes Status: Acute (3) Pulmonary cachexia due to chronic obstructive pulmonary disease Current Visit: Yes Status: Acute
[2016-12-28] MEDS: ALBUTEROL SULFATE 8.5 GM HFA INHALER INH PRN ×2 (13:07→18:45)
[2016-12-28] MEDS: ALPRAZolam Tab 1 MG TABLET PO SCH ×2 (13:08→17:40)
--- NOTE | 2016-12-28 14:07 | DI ---
PA /LATERAL CHEST X-RAY, 12/27/2016 1:31 AM : Clinical History: Dyspnea. Emphysema. Previous Exam: 12/20/2016. There is no acute soft tissue or bony abnormality. Heart size is normal. There is no acute infiltrate or effusion. There is centrilobular emphysema with Za B lines indicating chronic interstitial pu lmonary fibrosis. There is pulmonary arterial hypertension. There are no pulmonary nodules. There has been no interval change. Readin. There is no acute infiltrate or effusion. 2. Centrilobular emphysema. There is associated pulmonary arterial hypertension with chronic interst itial pulmonary fibrosis.
[2016-12-28] MEDS: Rivaroxaban Tab 10 MG TAB PO SCH (17:37)
[2016-12-28] MEDS: AZITHROMYCIN 250 MG TABLET PO SCH (17:37)
[2016-12-28] MEDS: oxyCODONE-ACETAMINOPHEN 5-325 TAB PO PRN (19:08)
[2016-12-28] MEDS: LORazepam 2 MG/1 ML VIAL IVP ONE (19:54)
[2016-12-29] MEDS: ALPRAZolam Tab 1 MG TABLET PO SCH ×2 (01:43→12:27)
[2016-12-29] MEDS: ALBUTEROL SULFATE 8.5 GM HFA INHALER INH PRN ×3 (01:57→13:09)
[2016-12-29] MEDS ORDERED: LORazepam 2 MG/1 ML VIAL ONE (03:48)
[2016-12-29] MEDS: LORazepam 2 MG/1 ML VIAL IVP ONE (03:49)
[2016-12-29] MEDS: NORMAL SALINE 10 ML SYRINGE FLUSH IVP PRN (03:49)
[2016-12-29] MEDS: LEVOTHYROXINE 100 MCG TABLET PO SCH (05:36)
[2016-12-29] MEDS ORDERED: TIOTROPIUM BROMIDE 18 MCG CAPSULE INH SCH (07:00)
[2016-12-29] MEDS: FLUTICASONE/SALMETEROL 500/50 UD INHALER INH SCH (07:01)
[2016-12-29] MEDS: NICOTINE 21 MG /DAY PATCH TRANSDERM SCH (08:20)
[2016-12-29] MEDS: Metoprolol TARTRATE Tab 25 MG TAB PO SCH (08:20)
[2016-12-29] MEDS: LISINOPRIL 20 MG TABLET PO SCH (08:20)
[2016-12-29] MEDS: Patch Removal PATCH TRANSDERM SCH (08:39)
[2016-12-29] MEDS ORDERED: predniSONE Tab 20 MG, predniSONE Tab 10 MG PO SCH ×2 (09:00)
[2016-12-29 11:35] VITALS: RESP 19; TEMP 97.5
--- NOTE | 2016-12-29 12:13 | DCSUMMARY ---
Hospitalization Summary Hospital Course: Final Discharge Diagnosis: Current Visit Problems Problem Status Priority Diagnosed Code Acute on chronic respiratory failure with hypoxemia Acute J96.21 COPD exacerbation Acute J44.1 Cachexia Acute R64 Emphysema lung Acute J43.9 End stage COPD Acute J44.9 Pulmonary cachexia due to chronic obstructive pulmonary disease Acute J44.9, R64 Respiratory insufficiency Acute R06.89 Hypertension Chronic I10 Hypothyroidism Chronic E03.9 Diagnostic Data, Laboratory Data, and Procedures of Signifigance: Laboratory Results 12/27/16 12/27/16 12/28/16 Range/Units 01:00 01:31 05:00 WBC 19.24 H (4.8-10.8) 10^3/uL RBC 4.87 (4.70-6.10) 10^6/uL Hgb 15.2 (14.0-18.0) g/dL Hct 44.5 (42.0-52.0) % MCV 91.4 H (80-90) FL MCH 31.2 H (27-31) PG MCHC 34.2 (33-37) g/dL RDW Std Deviation 48.5 (39-50) fL RDW Coeff of Isabelle 14.9 H (11.5-14.5) % Plt Count 441 H (140-350) 10*3/uL MPV 9.8 (7.4-12.2) FL Immature Gran % (Auto) 0.4 (0-5) % Neut % (Auto) 73.6 (50-80) % Lymph % (Auto) 14.1 (10-50) % [place] % (Auto) 11.5 (5-15) % Eos % (Auto) 0.2 (0-8) % Baso % (Auto) 0.2 (0-1) % Immature Gran # (Auto) 0.08 10*3/UL Neut # (Auto) 14.16 10*3/UL Lymph # (Auto) 2.71 10*3/uL [place] # (Auto) 2.22 H (0.3-0.8) 10*3/UL Eos # (Auto) 0.04 10*3/UL Baso # (Auto) 0.03 10*3/UL WBC Morphology Comment Normal morphology (NORM) Plt Morphology Comment Normal morphology (NORM) RBC Morph Comment Normal morphology (NORM) PT 13.4 H (9.7-11.4) secs INR 1.29 (0.00-5.90) N/A VBG pH 7.33 7.54 H (7.32-7.42) VBG pCO2 50.7 30.4 L (45-55) mmHg VBG HCO3 27.2 H 26.3 H (22-26) mmol/L VBG Base Excess 1 4 H (-2-2) MMOL/L Sodium 140 (135-145) meq/L Potassium 3.7 L (3.8-5.2) meq/L Chloride 98 (98-112) meq/L Carbon Dioxide 31 (23-33) meq/L Anion Gap 11 (5-20) BUN 28 H (7-22) mg/dL Creatinine 0.7 (0.70-1.50) mg/dL Estimated GFR (>60 ml/min/1.73m(2)) BUN/Creatinine Ratio 40.00 H (6-20) Glucose 178 H (78-110) mg/dL Calculated Osmolality 299.0 H (267-292) mOsm/kg Calcium 9.2 (8.7-10.7) mg/dL Magnesium 2.4 (1.6-2.4) mg/dL Total Bilirubin 1.7 H (0.3-1.2) mg/dL AST 112 H (21-57) IU/L ALT 57 (21-72) IU/L Alkaline Phosphatase 45 (38-126) IU/L Total Protein 7.0 (6.1-8.0) g/dL Albumin 4.2 (3.5-4.8) g/dL Globulin 2.8 (2.50-4.10) g/dL Albumin/Globulin Ratio 1.50 (1.3-2.0) mg/g 12/28/16 Range/Units 05:37 WBC 20.04 H (4.8-10.8) 10^3/uL RBC 4.39 L (4.70-6.10) 10^6/uL Hgb 13.7 L (14.0-18.0) g/dL Hct 40.5 L (42.0-52.0) % MCV 92.3 H (80-90) FL MCH 31.2 H (27-31) PG MCHC 33.8 (33-37) g/dL RDW Std Deviation 48.4 (39-50) fL RDW Coeff of Isabelle 14.8 H (11.5-14.5) % Plt Count 437 H (140-350) 10*3/uL MPV 9.9 (7.4-12.2) FL Immature Gran % (Auto) 0.4 (0-5) % Neut % (Auto) 89.5 H (50-80) % Lymph % (Auto) 5.1 L (10-50) % [place] % (Auto) 4.9 L (5-15) % Eos % (Auto) 0 (0-8) % Baso % (Auto) 0.1 (0-1) % Immature Gran # (Auto) 0.09 10*3/UL Neut # (Auto) 17.93 10*3/UL Lymph # (Auto) 1.02 10*3/uL [place] # (Auto) 0.98 H (0.3-0.8) 10*3/UL Eos # (Auto) 0 10*3/UL Baso # (Auto) 0.02 10*3/UL WBC Morphology Comment Normal morphology (NORM) Plt Morphology Comment Normal morphology (NORM) RBC Morph Comment Normal morphology (NORM) PT (9.7-11.4) secs INR (0.00-5.90) N/A VBG pH (7.32-7.42) VBG pCO2 (45-55) mmHg VBG HCO3 (22-26) mmol/L VBG Base Excess (-2-2) MMOL/L Sodium 138 (135-145) meq/L Potassium 4.6 (3.8-5.2) meq/L Chloride 100 (98-112) meq/L Carbon Dioxide 30 (23-33) meq/L Anion Gap 8 (5-20) BUN 31 H (7-22) mg/dL Creatinine 0.7 (0.70-1.50) mg/dL Estimated GFR (>60 ml/min/1.73m(2)) BUN/Creatinine Ratio 44.28 H (6-20) Glucose 135 H (78-110) mg/dL Calculated Osmolality 294.0 H (267-292) mOsm/kg Calcium 9.3 (8.7-10.7) mg/dL Magnesium (1.6-2.4) mg/dL Total Bilirubin (0.3-1.2) mg/dL AST (21-57) IU/L ALT (21-72) IU/L Alkaline Phosphatase (38-126) IU/L Total Protein (6.1-8.0) g/dL Albumin (3.5-4.8) g/dL Globulin (2.50-4.10) g/dL Albumin/Globulin Ratio (1.3-2.0) mg/g Course of Hospitalization: Is a very nice 75-year-old gentleman with end-stage COPD who was recently admitted and discharged and then readmitted again for end-stage COPD exacerbation he is on steroids and daily Zithromax was also given a trial of BiPAP in the hospital which did not make any difference and he actually does not like it. We had a hospice consult which she wanted and the plan is he was accepted into home hospice both him and his son and excess all agreed. He is now on Advair, Spiriva, prednisone 30 mg daily he will be discharged in stable and improved condition. He also has pulmonary cachexia and hospice do believe is the patient's best option at this time Past Medical History Medical History: 1. COPD with chronic hypoxemic respiratory failure, oxygen at home which she intermittently takes during the day, and is on all the time at night. He has pulmonary cachexia as well. We have him on daily steroids and Zithromax to try and prevent exacerbations. 2. Hypothyroidism. 3. Coronary artery disease with previous stent in 2013. 4. Atrial fibrillation, which we switched over to Xarelto. 5. Chronic pain syndrome. 6. Pulmonary cachexia and loss of weight. Surgical History: 1. Appendectomy. 2. Previous knee replacement. 3. Cervical neck fusion 2012 Family History: Reviewed an Not Pertinent Pertinent Family History: Father of coronary artery disease and myocardial infarction. He's not sure what his mother passed on from. Past Social History: He smokes one pack a day, drinks nearly every day no drugs. Has 2 children, a son who lives here in [place]. His ex- also helps take care of him. He states he has not had anything to smoke since we put a nicotine patch on him on his prior hospital stay. Tobacco Use: Former Smoker (Has not had anything to smoke since prior hospital stay when he was placed on the nicotine patch) Substance Use Type: None Alcohol Use: Heavy On the date of discharge, the patient was examined: Gen.: No acute distress, alert, nontoxic Heart: Regular rate and rhythm, no murmurs, clicks, gallops, or rubs Lungs: Clear to auscultation bilaterally, breathing is nonlabored Abdomen/GI: Normal tones on auscultation, soft, nontender, nondistended Musculoskeletal/extremities: No clubbing, cyanosis, or edema Vitals reviewed and are listed below Vital Signs (24 hrs) Temp Pulse Pulse Pulse Resp BP Pulse Ox 12/29/16 11:34 97.5 F 64 19 122/51 100 12/29/16 07:30 58 L 17 12/29/16 07:22 97.6 F 76 17 130/49 96 12/29/16 04:48 95 12/29/16 04:17 97.8 F 84 24 145/60 95 12/29/16 03:00 70 12/29/16 00:04 69 12/28/16 20:20 97.6 F 90 24 139/61 94 12/28/16 19:00 84 78 12/28/16 17:00 97.3 F 94 24 140/62 96 12/28/16 15:00 68 Assessment and Plan: 1. As per discharge assessments above 2. Disposition: 3. Condition on discharge, stable and improved. 4. Diet: regular diet 5. Activities: resume normal activities 6. Follow-Up: 1. PCP Dr. Mishra 2. 7. Medications at the Time of Discharge: Home Medications Medication Instructions Recorded Confirmed Type Aspirin Chewable Tab 324 mg PO ONCE (ED) #0 tab 08/05/14 12/27/16 Rx Levothyroxine Sodium [Synthroid] 100 mcg PO DAILY 08/05/14 12/27/16 History Metoprolol Tartrate Tab 12.5 mg PO BID #0 tablet 08/05/14 12/27/16 Rx [Lopressor Tab] Atorvastatin Calcium [Lipitor] 20 mg PO DAILY 11/10/14 12/27/16 History Albuterol Sulfate [Proair Hfa] 2 puff INH Q4-6H #3 inh 05/30/16 12/27/16 Clinic Albuterol Sulfate [Ventolin Hfa] 1 - 2 puff INH Q4-6H PRN #1 puff 05/30/1612/27 Clinic Budesonide/Formoterol Fumarate 6 gm IH BID #3 inhaler 05/30/16 12/27/16 Clinic [SYMBICORT] Nitroglycerin SL Tab [Nitrostat 0.4 mg SL PRN PRN #20 tab 05/30/16 12/27/16 Clinic SL Tab] Albuterol/Ipratropium Inhaler 4 gm IH QID #1 inhaler 07/15/16 12/27/16 Clinic [Combivent Respimat Inhaler] Lisinopril 20 mg PO BID #90 tab-cap 10/28/16 12/27/16 Clinic oxyCODONE/APAP 5/325 Tab 1 tab PO Q6H PRN 12/20/16 12/27/16 History [Percocet 5/325 Tab] ALPRAZolam Tab [Xanax Tab] 0.25 mg PO Q8H PRN #60 tab 12/23/16 12/27/16 Rx Albuterol Neb Soln 0.083% 2.5 mg NEB RTQ2H PRN #120 vial.neb 12/23/16 12/27/16 Rx Albuterol/Ipratrop Neb Soln 3 ml NEB RTQ6H #120 ampul.neb 12/23/16 12/27/16 Rx [Duoneb Neb Soln] Azithromycin [Zithromax] 250 mg PO DAILY@1700 #30 tab 12/23/16 12/27/16 Rx Nicotine 21mg Patch [Nicoderm CQ 1 patch TRANSDERM DAILY #30 patch 12/23/16 Rx 21mg Patch] Nicotine 2mg Gum [Nicorette 2mg 2 mg BUCCAL Q3H PRN #90 gum 12/23/16 12/27/16 Rx Gum] Prednisone 10 mg PO DAILY #120 tab.ds.pk 12/23/16 12/27/16 Rx Rivaroxaban [Xarelto] 20 mg PO DAILY #90 tablet 12/23/16 12/27/16 Rx Spiriva one puff twice a day 8. Time, care, counseling and coordination of care for this discharge is greater than 30 minutes. Exam - Vitals Vital Signs: Vital Signs Temperature 97.5 F Temperature Source Temporal Artery Scan Pulse Rate [Apical] 58 Pulse Rate [Pulse Oximeter] 64 Pulse Rate [Telemetry] 97 Pulse Rate 70 Respiratory Rate 19 Blood Pressure [Left Arm] 122/51 Blood Pressure 131/74 Pulse Ox 100 Oxygen Flow Rate 4.5 Oxygen Delivery Method Nasal Cannula Height 5 ft 7 in Weight 50.984 kg Patient Problems - Patient Problem List (1) COPD exacerbation Current Visit: Yes Status: Acute (2) Cachexia Current Visit: Yes Status: Acute (3) Pulmonary cachexia due to chronic obstructive pulmonary disease Current Visit: Yes Status: Acute
== END 2016-12-29 14:40 | disposition hospice, home (50) | DRG 191 ==
LOC: ER 00:50 → MED/SURG 03:02
PROVIDERS: ADMIT Family Medicine; ATTEND Family Medicine
DX: J44.1 Chronic obstructive pulmonary disease with (acute) exacerbation (principal); R64 Cachexia; J43.8 Other emphysema; I10 Essential (primary) hypertension; E03.9 Hypothyroidism, unspecified; R06.89 Other abnormalities of breathing
CPT/HCPCS: 36415; 71020; 71275; 80048; 80053; 82803; 83735; 85025; 85610; 87040; 93005; 93010; 94640; 94660; 94761; 99284; J2060; J7512; J7620

== ENCOUNTER 2017-02-01 06:30 | Inpatient (IN) | payer OTHER ==
[2017-02-01] MEDS ORDERED: NORMAL SALINE 10 ML SYRINGE FLUSH IVP PRN ×2 (07:05→09:29)
[2017-02-01] MEDS ORDERED: ONDANSETRON 4 MG/2 ML VIAL IVP ONE (07:05)
[2017-02-01] MEDS ORDERED: Sodium Chloride 0.9% 1,000 ML PRIMARY IV ONE (07:05)
[2017-02-01] MEDS ORDERED: ONDANSETRON 4 MG/2 ML VIAL ONE (07:09)
--- NOTE | 2017-02-01 07:12 | EKG ---
[address] [place] [address] Measurements Intervals [place] Rate: 61 P: [place]: 0 QRS: 89 QRSD: 74 T: 79 QT: 441 QTc: 444 Interpretive Statements SINUS RHYTHM WITH FREQUENT PACS AND ATRIAL BIGEMINEY LOW QRS VOLTAGE IN PRECORDIAL LEADS Compared to ECG 12/27/2016 01:37:18 Low QRS voltage now present ST (T wave) deviation no longer present Electronically Signed On 02-01-17 11:41:47 MDT by Beltran Noble [email or web address]
[2017-02-01 07:13] LABS: BASOPHILS # (AUTO) 0.01 10*3/UL; BASOPHILS % (AUTO) 0.1 % (0-1); EOSINOPHILS # (AUTO) 0.01 10*3/UL; EOSINOPHILS % (AUTO) 0.1 % (0-8); HEMATOCRIT 24.3 % (42.0-52.0); HEMOGLOBIN 8.1 g/dL (14.0-18.0); LYMPHOCYTES # (AUTO) 1.24 10*3/uL; MEAN CORPUSCULAR HEMOGLOBIN 32.5 PG (27-31); MEAN CORPUSCULAR HGB CONC 33.3 g/dL (33-37); MEAN CORPUSCULAR VOLUME 97.6 FL (80-90); MONOCYTES # (AUTO) 1.26 10*3/UL (0.3-0.8); MONOCYTES % (AUTO) 9.9 % (5-15); NEUTROPHILS # (AUTO) 10.13 10*3/UL; NEUTROPHILS % (AUTO) 79.6 % (50-80); PLATELET MORPHOLOGY COMMENT NORMAL MORPHOLOGY (NORM); RBC MORPHOLOGY COMMENT NORMAL MORPHOLOGY (NORM); RED BLOOD COUNT 2.49 10^6/uL (4.70-6.10); WBC MORPHOLOGY COMMENT NORMAL MORPHOLOGY (NORM)
[2017-02-01] MEDS ORDERED: MORPHINE SULFATE 4 MG/1 ML ONE (07:17)
[2017-02-01] MEDS ORDERED: MORPHINE SULFATE 4 MG/1 ML IVP ONE (07:21)
[2017-02-01 07:24] LABS: BUN/CREATININE RATIO 32.5 (6-20); CALCIUM 6.4 mg/dL (8.7-10.7); SERUM ALBUMIN 2.4 g/dL (3.5-4.8)
[2017-02-01] MEDS ORDERED: Pantoprazole Inj 40 MG in Normal Saline Flush 10 ML IVP ONE ×2 (08:31→09:37)
--- NOTE | 2017-02-01 08:52 | PDOC ---
Nausea/Vomiting/Diarrhea HPI - General Chief Complaint: Nausea / Vomiting / Diarrhea Stated Complaint: diarrhea Date Seen by Provider: 02/01/17 Time Seen by Provider: 06:40 Source: POSITIVE: Patient, EMS, Old records Exam Limitations: POSITIVE: No limitations Nurse's Notes Reviewed & Considered: Yes EMS Report Reviewed & Considered: Verbal - History of Present Illness Initial Comments: The patient is a 76-year-old male who is brought to the emergency room by ambulance from his residence. Patient states that for 3 days she's had severe nausea without vomiting. He also states he's had diarrhea. He states his stool is "dark brown". Patient fell at home and thinks he may have had a brief loss of consciousness. He fell and struck his back and left shoulder and he has an abrasion to both sides of his back and a skin tear to the posterior aspect of his right elbow patient has a long-standing history of COPD and was hospitalized in December for this condition. He presently takes 30 mg of prednisone daily. He also has a history of atrial fibrillation for which she is receiving Xarelto, 20 mg daily. He is presently taking Zithromax, and was treated with antibiotics for his recent exacerbation of COPD. He has a history of having had a cardiac stent in the past he lives with his son, who called the ambulance when he fell. Paramedics report that his blood pressure at the scene was around 90/50 and they did start an IV and administered some saline in route. Patient denies any head, chest, neck or extremity trauma or discomfort. He states he does have a history of chronic low back pain. History of cachexia secondary to his COPD. He states he's had some "heartburn"lately. Body Location Affected: REPORTS: Abdomen (Heartburn with nausea and diarrhea) Timing: REPORTS: Gradual, Getting Worse Duration: >24 hours (3 days) Severity: Moderate Quality: REPORTS: "Pain" (Some heartburn) Abdominal Pain Onset Location: REPORTS: Epigastric Abdominal Pain Radiation: REPORTS: No radiation Context: REPORTS: Standing (Possible syncopal episode when he stood up at home this morning) Modifying Factors: improves with: Nothing Associated Symptoms: REPORTS: Diarrhea, Abdominal Pain (Epigastric), Burning Similar Symptoms Previously: No Recent Care Received: REPORTS: Recently Seen, Treated by MD, Hospitalized ( Hospitalized in late December for exacerbation of COPD) Any Prior Injuries Related to Current Complaint?: No - Patient Home Medications Home Medications: Home Medications Aspirin Chewable Tab 324 mg PO ONCE (ED) #0 tab 08/05/14 Levothyroxine Sodium [Synthroid] 100 mcg PO DAILY 08/05/14 Metoprolol Tartrate Tab [Lopressor Tab] 12.5 mg PO BID #0 tablet 08/05/14 Atorvastatin Calcium [Lipitor] 20 mg PO DAILY 11/10/14 Albuterol Sulfate [Proair Hfa] 2 puff INH Q4-6H #3 inh 05/30/16 Albuterol Sulfate [Ventolin Hfa] 1 - 2 puff INH Q4-6H PRN #1 puff 05/30/16 Budesonide/Formoterol Fumarate [SYMBICORT] 6 gm IH BID #3 inhaler 05/30/16 Nitroglycerin SL Tab [Nitrostat SL Tab] 0.4 mg SL PRN PRN #20 tab 05/30/16 Albuterol/Ipratropium Inhaler [Combivent Respimat Inhaler] 4 gm IH QID #1 inhaler 07/15/16 Lisinopril 20 mg PO BID #90 tab-cap 10/28/16 oxyCODONE/APAP 5/325 Tab [Percocet 5/325 Tab] 1 tab PO Q6H PRN 12/20/16 ALPRAZolam Tab [Xanax Tab] 0.25 mg PO Q8H PRN #60 tab 12/23/16 Albuterol Neb Soln 0.083% 2.5 mg NEB RTQ2H PRN #120 vial.neb 12/23/16 Albuterol/Ipratrop Neb Soln [Duoneb Neb Soln] 3 ml NEB RTQ6H #120 ampul.neb Azithromycin [Zithromax] 250 mg PO DAILY@1700 #30 tab 12/23/16 Nicotine 21mg Patch [Nicoderm CQ 21mg Patch] 1 patch TRANSDERM DAILY #30 patch 12/23/16 Nicotine 2mg Gum [Nicorette 2mg Gum] 2 mg BUCCAL Q3H PRN #90 gum 12/23/16 Rivaroxaban [Xarelto] 20 mg PO DAILY #90 tablet 12/23/16 Tiotropium Inhalation Cap [Spiriva Inhalation Cap] 18 mcg INH RTDAILY #30 inhaler 12/29/16 predniSONE Tab [Deltasone Tab] 30 mg PO DAILY #30 tab 12/29/16 - Patient Allergies Allergies/Adverse Reactions: Allergies Allergy/AdvReac Type Severity Reaction Status Date / Time amlodipine besylate Allergy Intermediate Edema of Verified 02/01/17 06:39 [From [facility]] ankles Past Medical History - heen HEENT History: Hard of Hearing Additional HEENT History: wears glasses Cardiovascular History: Hypertension, Previous ID, Arrhythmia Additional Cardiovasular History: STENTS Respiratory History: COPD, Shortness of Breath, Home Oxygen Use Gastrointestinal History: Denies History Genitourinary History: Denies History Endocrine History: Hypothyroidism Musculoskeletal History: Arthritis, Joint Pain, Osteoarthritis Prosthesis or Implant: Yes (left knee replacement) Neurological History: Denies History Blood Disorders: Denies History Psychiatric History: Substance Abuse Additional Psychiatric History: acoholic History of Sexually Transmitted Diseases: No Cancer History: Skin In Past Year Been Physically Harmed or Verbally Threatened: No History of MDRO: No History of Other Communicable Diseases: No Tobacco Use: Former Smoker Alcohol Use: None Substance Use Type: None Previous Surgical History: Yes Type / Date of Surgery: MULTIPLE ORTHO, APPY, STENT Anesthesia Reactions: No Malignant Hyperthermia: No Significant Family History: Cancer Additional Family History: both sisters had breast CA Past Medical History Reviewed: Reviewed - No Changes ROS - Limitations ROS Limitations: No Limitations Constitution: REPORTS: Weakness Cardiovascular: REPORTS: Denies Cardiac Symptoms Respiratory: REPORTS: Denies Resp Symptoms Neurological: REPORTS: Denies Neuro Symptoms Gastrointestinal: REPORTS: Abdominal Pain ("Heart burn"), Nausea, Diarrhea, Black Stools Endocrine: REPORTS: Denies Symptoms Musculoskeletal: REPORTS: Denies MS Symptoms Genitourinary: REPORTS: Denies Symptoms Eyes: REPORTS: Denies Symptoms ENT: REPORTS: Denies Symptoms Skin: REPORTS: Denies Skin Symptoms Lympathic: REPORTS: Denies Lympathic Symptoms Immunologic: POSITIVE: Denies Symptoms Psychiatric: POSITIVE: Denies Psych Symptoms Nausea/Vomiting/Diarrhea Exam - General Appearance General Appearance: POSITIVE: Alert, Cooperative, No Evidence of Trauma, Mild Distress - HEENT HEENT: POSITIVE: Head Inspection Nml, Eyes Inspection Nml, Ears Inspection Nml, Nose Inspection Nml, Oral/Dental Inspect. Nml, Pharynx Inspect. Nml, PERRL, EOMI - Neck Neck: POSITIVE: Supple, Normal Inspection, Non Tender - Respiratory Respiratory: POSITIVE: No Respiratory Distress, Breath Sounds Normal, Chest Non- Tender - Cardiovascular Cardiovascular: POSITIVE: Heart Sounds Normal, Equal Pulses, Strong Pulses, Irregularly Irreg Rhythm. NEGATIVE: Tachycardia, Bradycardia (Irregular rhythm. 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 show a predominantly sinus rhythm with frequent PACs, or possibly sinus arrhythmia) Peripheral Pulses: Radial (R): 2+, Radial (L): 2+ - Chest Chest: POSITIVE: Tender (Some tenderness on palpation over the right and left posterior thorax sees where he has abrasions from his recent fall; no bony or subcutaneous crepitus or emphysema or flail.) - Abdomen Abdomen: Soft: (All Quadrants), Normal Bowel Sounds: (All Quadrants), Denies Tenderness: (All Quadrants), No Splenomegaly: (All Quadrants), No Hepatomegaly: (All Quadrants), No Guarding: (All Quadrants), No Rebound: (All Quadrants), No Palpable Pulse: (All Quadrants), No Palpabale Mass: (All Quadrants), No Distention: (All Quadrants), No Rigidity: (All Quadrants) - Genital / Rectal Rectal: POSITIVE: Non Tender, Normal Rectal Tone, Heme Positive Stool - Back Back: POSITIVE: Other (Abrasions to both posterior lateral thoraces, left greater than right as above) - Skin Skin: POSITIVE: Other (Skin tear posterior aspect of right elbow and abrasions posterior thorax as above) - Extremities Extremity: Non-Tender: (All Extremities), Normal ROM: (All Extremities), Normal Inspection: (All Extremities) - Neurological / Psychological Neurological: POSITIVE: Oriented X3, transcriptionist Normal As Tested, Motor Normal, Sensation Normal, 5, 6 Images - Complete Complete: 1 - Abrasions 2 - Abrasion 3 - Small skin tear N/V/D Progress - Results Reviewed by me Xrays/CTs/US Reviewed by me: Yes Discussed with Radiologist: No Radiology Findings: Chest x-ray shows no rib fractures or pulmonary contusions or pneumothorax. COPD. Atelectasis versus infiltrates right lower lung. Lab Results Reviewed: Yes (H/H 8.1/24.3; on 12/28/2016 H/H was13.7/40.5) Lab Results:: Laboratory Results 02/01/17 02/01/17 02/01/17 Range/Units 07:00 07:12 07:13 WBC 12.72 H (4.8-10.8) 10^3/uL RBC 2.49 L (4.70-6.10) 10^6/uL Hgb 8.1 L (14.0-18.0) g/dL Hct 24.3 L (42.0-52.0) % MCV 97.6 H (80-90) FL MCH 32.5 H (27-31) PG MCHC 33.3 (33-37) g/dL RDW Std Deviation 56.5 H (39-50) fL RDW Coeff of Isabelle 16.7 H (11.5-14.5) % Plt Count 285 (140-350) 10*3/uL MPV 9.0 (7.4-12.2) FL Immature Gran % (Auto) 0.6 (0-5) % Neut % (Auto) 79.6 (50-80) % Lymph % (Auto) 9.7 L (10-50) % [place] % (Auto) 9.9 (5-15) % Eos % (Auto) 0.1 (0-8) % Baso % (Auto) 0.1 (0-1) % Immature Gran # (Auto) 0.07 10*3/UL Neut # (Auto) 10.13 10*3/UL Lymph # (Auto) 1.24 10*3/uL [place] # (Auto) 1.26 H (0.3-0.8) 10*3/UL Eos # (Auto) 0.01 10*3/UL Baso # (Auto) 0.01 10*3/UL WBC Morphology Comment Normal morphology (NORM) Plt Morphology Comment Normal morphology (NORM) RBC Morph Comment Normal morphology (NORM) PT 12.7 H (9.7-11.4) secs INR 1.23 (0.00-5.90) N/A APTT 38.3 H (22.6-31.3) SECS Sodium 130 L (135-145) meq/L Potassium 3.5 L (3.8-5.2) meq/L Chloride 104 (98-112) meq/L Carbon Dioxide 19 L (23-33) meq/L Anion Gap 7 (5-20) BUN 26 H (7-22) mg/dL Creatinine 0.8 (0.70-1.50) mg/dL Estimated GFR (>60 ml/min/1.73m(2)) BUN/Creatinine Ratio 32.50 H (6-20) Glucose 98 (78-110) mg/dL Calculated Osmolality 274.0 (267-292) mOsm/kg Lactic Acid 2.0 (0.70-2.10) MMOL/L Calcium 6.4 L (8.7-10.7) mg/dL Magnesium 2.0 (1.6-2.4) mg/dL Total Bilirubin 1.4 H (0.3-1.2) mg/dL AST 23 (21-57) IU/L ALT 41 (21-72) IU/L Alkaline Phosphatase 31 L (38-126) IU/L Total Protein 4.3 L (6.1-8.0) g/dL Albumin 2.4 L (3.5-4.8) g/dL Globulin 1.9 L (2.50-4.10) g/dL Albumin/Globulin Ratio 1.20 L (1.3-2.0) mg/g Amylase 60 (30-110) U/L Lipase 99 (23-300) IU/L EKG Interpreted/Reviewed By Me:: Yes EKG Interpretation:: POSITIVE: Normal Intervals, Normal [place], Normal QRS, Normal ST/T (Basically a sinus rhythm with frequent PVCs; possibly sinus arrhythmia) - Patient's Progress Pain Medication Addressed: POSITIVE: Yes (Morphine sulfate, 4 mg for his back pain) School/Work Release Addressed: POSITIVE: Not Applicable Re-examine Time: 08:30 Re-Examine Comment: After 1100 mL of normal saline blood pressure is 118/72, pulse 70. Patient given Protonix 40 mg IV and then started on a Protonix consonant infusion. Patient does not list Xarelto among his home medications, however review of his discharge summary in late December indicates that he was on this medication. 2 units of packed red blood cells ordered typed and crossed. Status: POSITIVE: Improved, Re-Examined - Consult Consult (If Yes, Name of Consulting MD & Time Called): Yes (Dr. Obando, hospitalist, [id number]) Consulting MD will see pt:: [place] [facility] [place] Counseled: POSITIVE: Patient, RE: Lab Results, RE: Radiology Results, RE: DX, RE : Need for F/U Patient Care Time - Estimated PCT Patient Care Time (In Minutes): 60 Vital Signs - Recent Vital Signs Vital Signs: Vital Signs (Last 8 hours) Temp Pulse Resp BP Pulse Ox 02/01/17 06:42 96.1 F L 62 18 91/57 97 - VS Reviewed Vital Signs Reviewed: Yes Discharge Clinical Impression: Chronic obstructive lung disease, Cachexia, Upper gastrointestinal hemorrhage, Hypotension Discharge Disposition: Admit to Inpatient Condition: Fair Date Decision to Admit to Inpatient: 02/01/17 Time Decision to Admit to Inpatient: 08:15
[2017-02-01] MEDS ORDERED: LIDOCAINE W/ SODIUM BICARB 0.5 ML SYR SUBD PRN (09:29)
[2017-02-01] MEDS ORDERED: Sodium Chloride 0.9% 1,000 ML PRIMARY IV SCH (09:30)
--- NOTE | 2017-02-01 09:32 | PDOC ---
History and Physical - History of Present Illness Date and Time of Service: 02/01/2017 9:45 AM Chief Complaint: Diarrhea going on off 2-3 days duration, heartburn started today. Nausea the last 2 days. Past out today History of Present Illness: This is a 76 years old male with medical history significant for history of COPD on oxygen, history of coronary artery disease with previous stent and history of atrial fibrillation was on Coumadin and recently was switched to Xarelto, he had 2 recent admission to the hospital for COPD exacerbation the last one was end of December who came into the hospital with history of diarrhea that started 2-3 days ago, he said he want multiple times yesterday maybe more than 10 times he didn't notice bleeding, he said he didn't pay attention, had nausea and decreased appetite and abdominal pain initially describe it in the lower abdomen but today is more like heartburn in the epigastrium. He said he got up today and he passed out son helped him to get up and they called the medics and brought him here. In the ER blood tests showed a hemoglobin of 8.1 in addition he was guaiac positive. He was given fluids and was admitted. He did get also Protonix in the ER. He is denying chest pain, says always short of breath, abdominal pain mainly now in the epigastric area it was earlier in the lower abdomen. No vomiting he said he was just nauseated. Past Medical History Medical History: 1. COPD with chronic hypoxemic respiratory failure, oxygen at home which she intermittently takes during the day, and is on all the time at night. He has pulmonary cachexia as well. He is on daily steroids and Zithromax to try and prevent exacerbations. 2. Hypothyroidism. 3. Coronary artery disease with previous stent in 2013. 4. Atrial fibrillation, he was switched over to Xarelto recently. 5. Chronic pain syndrome. 6. Pulmonary cachexia and loss of weight. Surgical History: 1. Appendectomy. 2. Previous knee replacement. 3. Cervical neck fusion 2012 Family History: Reviewed an Not Pertinent Pertinent Family History: Father of coronary artery disease and myocardial infarction. He's not sure what his mother passed on from. Past Social History: He smokes one pack a day, drinks nearly every day no drugs. Has 2 children, a son who lives here in [place]. His ex- also helps take care of him. He states he has not had anything to smoke since we put a nicotine patch on him on his prior hospital stay. Tobacco Use: Former Smoker Substance Use Type: None Alcohol Use: Occasionally Medication / Allergies Home Medications: Home Medications Medication Instructions Recorded Confirmed Type RX: Aspirin Chewable Tab 324 mg PO ONCE (ED) #0 tab 08/05/14 02/01/17 Rx RX: Levothyroxine Sodium 100 mcg PO DAILY 08/05/14 02/01/17 History [Synthroid] RX: Metoprolol Tartrate Tab 12.5 mg PO BID #0 tablet 08/05/14 02/01/17 Rx [Lopressor Tab] RX: Atorvastatin Calcium [Lipitor] 20 mg PO DAILY 11/10/14 02/01/17 History RX: Albuterol Sulfate [Proair Hfa] 2 puff INH Q4-6H #3 inh 05/30/16 02/01/17 Clinic RX: Albuterol Sulfate [Ventolin 1 - 2 puff INH Q4-6H PRN #1 puff 05/30/16 Clinic Hfa] RX: Budesonide/Formoterol Fumarate 6 gm IH BID #3 inhaler 05/30/16 02/01/17 Clinic [SYMBICORT] RX: Nitroglycerin SL Tab 0.4 mg SL PRN PRN #20 tab 05/30/16 02/01/17 Clinic [Nitrostat SL Tab] RX: Albuterol/Ipratropium Inhaler 4 gm IH QID #1 inhaler 07/15/16 02/01/17 Clinic [Combivent Respimat Inhaler] RX: Lisinopril 20 mg PO BID #90 tab-cap 10/28/16 02/01/17 Clinic RX: oxyCODONE/APAP 5/325 Tab 1 tab PO Q6H PRN 12/20/16 02/01/17 History [Percocet 5/325 Tab] RX: ALPRAZolam Tab [Xanax Tab] 0.25 mg PO Q8H PRN #60 tab 12/23/16 02/01/17 Rx RX: Albuterol Neb Soln 0.083% 2.5 mg NEB RTQ2H PRN #120 vial.neb 12/23/16 Rx RX: Albuterol/Ipratrop Neb Soln 3 ml NEB RTQ6H #120 ampul.neb 12/23/16 02/01/17 Rx [Duoneb Neb Soln] RX: Azithromycin [Zithromax] 250 mg PO DAILY@1700 #30 tab 12/23/16 02/01/17 Rx RX: Nicotine 21mg Patch [Nicoderm 1 patch TRANSDERM DAILY #30 patch 12/23/1612/19 Rx CQ 21mg Patch] RX: Nicotine 2mg Gum [Nicorette 2 mg BUCCAL Q3H PRN #90 gum 12/23/16 02/01/17 Rx 2mg Gum] RX: Rivaroxaban [Xarelto] 20 mg PO DAILY #90 tablet 12/23/16 02/01/17 Rx RX: Tiotropium Inhalation Cap 18 mcg INH RTDAILY #30 inhaler 12/29/16 02/01/17 Rx [Spiriva Inhalation Cap] RX: predniSONE Tab [Deltasone 30 mg PO DAILY #30 tab 12/29/16 02/01/17 Rx Tab] Allergies/Adverse Reactions: Allergies Allergy/AdvReac Type Severity Reaction Status Date / Time amlodipine besylate Allergy Intermediate Edema of Verified 02/01/17 09:46 [From [facility]] ankles Review of Systems - Review of Systems All Systems: Reviewed & No Additional Complaints Except as Stated Exam - General General Appearance: POSITIVE: No Acute Distress, Cooperative - Head Head Exam: POSITIVE: Normal Inspection, Atraumatic - Eye Eye Exam: POSITIVE: Normal Appearance - ENT ENT Exam: POSITIVE: Normal Exam - Respiratory Respiratory Exam: POSITIVE: Clear to Auscultation - Bilaterally - Cardiovascular Cardiovascular Exam: POSITIVE: RRR - GI/Abdominal GI/Abdominal Exam: POSITIVE: Normal Bowel Sounds, Non Tender, Non Distended, Soft - Rectal Rectal Exam: POSITIVE: Deferred - External Exam: POSITIVE: Deferred - Extremities Extremities Exam: POSITIVE: Normal Inspection - Back Back Exam: POSITIVE: Normal Inspection - Neurological Neurological Exam: POSITIVE: Alert, Oriented x 3 - Psychiatric Psychiatric Exam: POSITIVE: Normal Affect - Integumentary Integumentary Exam: POSITIVE: Normal Color Results - Labs CBC and BMP: 02/01/17 07:13 02/01/17 07:12 Assessment and Plan - Patient Problems (1) GI bleed Current Visit: Yes Status: Acute Comment: Probably upper, will continue on IV Protonix, will give Tranexamic acid , DC Xarelto. Will send for C. difficile also. We consulted surgery (2) Chronic obstructive lung disease Current Visit: Yes Status: Acute Comment: Continue bronchodilator treatment. Hold the prednisone for now (3) Hypertension Current Visit: No Status: Chronic Comment: We'll hold the blood pressure medication for now. Qualifiers: Hypertension type: essential hypertension Qualified Description: Essential hypertension Qualifier Code(s): (I10) Essential (primary) hypertension (4) Hypothyroidism Current Visit: No Status: Chronic Comment: Same medications Qualifiers: Hypothyroidism type: acquired Qualified Description: Acquired hypothyroidism Qualifier Code(s): (E03.9) Hypothyroidism, unspecified (5) Chronic pain syndrome Current Visit: No Status: Acute Comment: same pain medications (6) History of atrial fibrillation Current Visit: No Status: Acute Comment: Will hold Xarleto for now. Will hold Beta wilton for now, if BP better we may restart beta blockers
[2017-02-01] MEDS ORDERED: Sodium Chloride 0.9% 500 ML PRIMARY IV ONE (09:36)
[2017-02-01] MEDS: MORPHINE SULFATE 2 MG/1 ML IVP PRN ×2 (10:30→17:17)
[2017-02-01] MEDS: ALPRAZolam Tab 0.25 MG TABLET PO PRN ×2 (10:30→23:38)
[2017-02-01] MEDS: ONDANSETRON 4 MG/2 ML VIAL IV PRN (10:30)
[2017-02-01] MEDS: ALBUTEROL SULFATE 2.5 MG/3 ML NEB PRN (10:37)
[2017-02-01] MEDS ORDERED: TRANEXAMIC ACID 1,000 MG / 10 ML VIAL ONE (10:56)
[2017-02-01] MEDS ORDERED: Sodium Chloride 0.9% 100 ML IV ONE ×2 (12:01→23:07)
[2017-02-01] MEDS: Tranexamic Acid 1,000 MG in Sodium Chloride 0.9% 100 ML IV SCH ×2 (12:06→23:37)
[2017-02-01] MEDS: oxyCODONE-ACETAMINOPHEN 5-325 TAB PO PRN ×2 (12:14→23:38)
[2017-02-01 13:11] LABS: VENOUS PH 7.34 (7.32-7.42)
[2017-02-01] MEDS: IPRATROPIUM/ALBUTEROL SULFATE 3 ML NEB NEB SCH ×2 (13:22→18:19)
[2017-02-01 16:14] LABS: BILIRUBIN,URINE NEGATIVE (NEG); CLARITY,URINE CLEAR (CLEAR); COLOR,URINE YELLOW; GLUCOSE, URINE (UA) NEGATIVE (NEG); NITRATE,URINE NEGATIVE (NEG); OCCULT BLOOD,URINE NEGATIVE (NEG); PROTEIN,URINE 100 mg/dl (NEG)
[2017-02-01 16:29] LABS: SQUAMOUS EPITHELIAL CELL,UR FEW; URINE SAMPLE TYPE CLEAN CATCH URINE
[2017-02-01 16:30] LABS: URINE CASTS FEW
[2017-02-01] MEDS ORDERED: Metoprolol TARTRATE Tab 25 MG TAB PO SCH (21:00)
[2017-02-01 21:02] LABS: BASOPHILS # (AUTO) 0.02 10*3/UL; BASOPHILS % (AUTO) 0.1 % (0-1); EOSINOPHILS # (AUTO) 0 10*3/UL; EOSINOPHILS % (AUTO) 0 % (0-8); HEMATOCRIT 35.4 % (42.0-52.0); HEMOGLOBIN 12.3 g/dL (14.0-18.0); LYMPHOCYTES # (AUTO) 1.47 10*3/uL; MEAN CORPUSCULAR HEMOGLOBIN 31.7 PG (27-31); MEAN CORPUSCULAR HGB CONC 34.7 g/dL (33-37); MEAN CORPUSCULAR VOLUME 91.2 FL (80-90); MEAN PLATELET VOLUME 8.8 FL (7.4-12.2); MONOCYTES # (AUTO) 1.61 10*3/UL (0.3-0.8); MONOCYTES % (AUTO) 10.7 % (5-15); NEUTROPHILS # (AUTO) 11.95 10*3/UL; NEUTROPHILS % (AUTO) 79.1 % (50-80); RED BLOOD COUNT 3.88 10^6/uL (4.70-6.10)
[2017-02-01 21:03] LABS: PLATELET MORPHOLOGY COMMENT NORMAL MORPHOLOGY (NORM); RBC MORPHOLOGY COMMENT NORMAL MORPHOLOGY (NORM); WBC MORPHOLOGY COMMENT NORMAL MORPHOLOGY (NORM)
[2017-02-01 21:11] LABS: BUN/CREATININE RATIO 31.25 (6-20); CALCIUM 6.9 mg/dL (8.7-10.7)
[2017-02-01] MEDS: ATORVASTATIN 20 MG TABLET PO SCH (21:14)
--- NOTE | 2017-02-01 21:39 | DI ---
AP /LATERAL CHEST X-RAY, 02/01/2017 7:12 AM : Clinical History: Chest trauma. COPD. Previous Exam: 12/27/2016. There is no acute soft tissue or bony abnormality. The patient is cachectic. Heart size is normal. No acute infiltrate or effusion is present. There is no pneumothorax or evidence of a pulmonary contusi on. Septae are present indicating presence of bullae. There is centrilobular emphysema with pulmonary arterial hypertension. Za B lines are present indicating chronic interstitial pulmonary fibrosis . Mediastinal structures are otherwise normal. There are no pulmonary nodules. Readin. No acute fracture is evident. There is no pneumothorax or pulmonary contusion. 2. Centrilobular emphysema with bullae and pulmonary arterial hypertension. Chronic interstitial pul monary fibrosis.
[2017-02-01] MEDS: FORMOTEROL FUMARATE IH SCH (23:42)
[2017-02-01] MEDS: BUDESONIDE IH SCH (23:42)
[2017-02-02] MEDS: IPRATROPIUM/ALBUTEROL SULFATE 3 ML NEB NEB SCH ×4 (00:55→19:18)
[2017-02-02 05:19] LABS: BASOPHILS # (AUTO) 0.01 10*3/UL; BASOPHILS % (AUTO) 0.1 % (0-1); EOSINOPHILS # (AUTO) 0.03 10*3/UL; EOSINOPHILS % (AUTO) 0.2 % (0-8); HEMATOCRIT 35.9 % (42.0-52.0); LYMPHOCYTES # (AUTO) 1.65 10*3/uL; MEAN CORPUSCULAR HEMOGLOBIN 30.9 PG (27-31); MEAN CORPUSCULAR HGB CONC 33.4 g/dL (33-37); MEAN CORPUSCULAR VOLUME 92.5 FL (80-90); MEAN PLATELET VOLUME 9.7 FL (7.4-12.2); MONOCYTES # (AUTO) 1.57 10*3/UL (0.3-0.8); MONOCYTES % (AUTO) 10.9 % (5-15); NEUTROPHILS # (AUTO) 11.11 10*3/UL; RED BLOOD COUNT 3.88 10^6/uL (4.70-6.10)
[2017-02-02 05:21] LABS: PLATELET MORPHOLOGY COMMENT NORMAL MORPHOLOGY (NORM); RBC MORPHOLOGY COMMENT NORMAL MORPHOLOGY (NORM); WBC MORPHOLOGY COMMENT NORMAL MORPHOLOGY (NORM)
[2017-02-02 05:30] LABS: BUN/CREATININE RATIO 26.25 (6-20); CALCIUM 6.8 mg/dL (8.7-10.7); SERUM ALBUMIN 2.9 g/dL (3.5-4.8)
[2017-02-02] MEDS: LEVOTHYROXINE 100 MCG TABLET PO SCH (06:15)
[2017-02-02] MEDS: TIOTROPIUM BROMIDE 18 MCG CAPSULE INH SCH (06:50)
--- NOTE | 2017-02-02 08:07 | PDOC(PROG) ---
Date and Time of Service: 02/02/2017 8:04 AM Interval History: Subjective Patient feels better compared to yesterday, he vomited once in the ICU and it was a coffee-ground that was yesterday and none since then. No more diarrhea. His abdominal pain is gone. Overall he feels better. Some fatigue but otherwise no new symptoms. His breathing is the same at his baseline Objective : Data - Labs CBC and BMP: 02/02/17 04:33 02/02/17 04:33 Labs - Last 24 Hours: Laboratory Results 02/01/17 02/01/17 02/02/17 Range/Units 15:45 20:57 04:33 WBC 15.11 H 14.41 H (4.8-10.8) 10^3/uL RBC 3.88 L 3.88 L (4.70-6.10) 10^6/uL Hgb 12.3 L 12.0 L (14.0-18.0) g/dL Hct 35.4 L 35.9 L (42.0-52.0) % MCV 91.2 H 92.5 H (80-90) FL MCH 31.7 H 30.9 (27-31) PG MCHC 34.7 33.4 (33-37) g/dL RDW Std Deviation 57.1 H 59.8 H (39-50) fL RDW Coeff of Isabelle 17.7 H 18.2 H (11.5-14.5) % Plt Count 268 279 (140-350) 10*3/uL MPV 8.8 9.7 (7.4-12.2) FL Immature Gran % (Auto) 0.4 0.3 (0-5) % Neut % (Auto) 79.1 77.0 (50-80) % Lymph % (Auto) 9.7 L 11.5 (10-50) % [place] % (Auto) 10.7 10.9 (5-15) % Eos % (Auto) 0 0.2 (0-8) % Baso % (Auto) 0.1 0.1 (0-1) % Immature Gran # (Auto) 0.06 0.04 10*3/UL Neut # (Auto) 11.95 11.11 10*3/UL Lymph # (Auto) 1.47 1.65 10*3/uL [place] # (Auto) 1.61 H 1.57 H (0.3-0.8) 10*3/UL Eos # (Auto) 0 0.03 10*3/UL Baso # (Auto) 0.02 0.01 10*3/UL WBC Morphology Comment Normal morphology Normal morphology (NORM) Plt Morphology Comment Normal morphology Normal morphology (NORM) RBC Morph Comment Normal morphology Normal morphology (NORM) Sodium 129 L 129 L (135-145) meq/L Potassium 4.8 D 4.2 (3.8-5.2) meq/L Chloride 101 100 (98-112) meq/L Carbon Dioxide 23 22 L (23-33) meq/L Anion Gap 5 7 (5-20) BUN 25 H 21 (7-22) mg/dL Creatinine 0.8 0.8 (0.70-1.50) mg/dL Estimated GFR (>60 ml/min/1.73m(2)) BUN/Creatinine Ratio 31.25 H 26.25 H (6-20) Glucose 95 79 (78-110) mg/dL Calculated Osmolality 271.0 269.0 (267-292) mOsm/kg Calcium 6.9 L 6.8 L (8.7-10.7) mg/dL Total Bilirubin 2.0 H (0.3-1.2) mg/dL AST 26 (21-57) IU/L ALT 42 (21-72) IU/L Alkaline Phosphatase 43 (38-126) IU/L Total Protein 5.3 L (6.1-8.0) g/dL Albumin 2.9 L (3.5-4.8) g/dL Globulin 2.4 L (2.50-4.10) g/dL Albumin/Globulin Ratio 1.20 L (1.3-2.0) mg/g Ur Collection Type Clean catch urine Urine Color Yellow Urine Clarity Clear (CLEAR) Urine pH 7.0 (5.0-8.5) Ur Specific [place] 1.020 (1.005-1.030) Urine Protein 100 (NEG) mg/dl Urine Glucose (UA) Negative (NEG) mg/dL Urine Ketones 15 (NEG) Urine Occult Blood Negative (NEG) Urine Nitrate Negative (NEG) Urine Bilirubin Negative (NEG) Urine Urobilinogen 1.0 (0.2) EU/dL Ur Leukocyte Esterase Negative (NEG) Urine RBC 2-3 (NONE) /hpf Urine WBC 1-2 (NONE) Ur Squamous Epith Cells Few (NONE) Ur Renal Epithelial Cell None (NONE) Urine Crystals None Urine Bacteria None (NONE) Urine Casts Few (NONE) Urine Mucus Few (NONE) Urine Trichomonas None (NONE) Urine Yeast None (NONE) Ur Culture Indicated? Culture not set Objective : Exam - General General Appearance: No Acute Distress, Cooperative, Thin - Head Head Exam: Normal Inspection, Atraumatic - Eye Eye Exam: Normal Appearance - ENT ENT Exam: Normal Exam - Neck Neck Exam: Normal Inspection - Respiratory Additional Respiratory Exam Details: Decreased air entry otherwise clear - Cardiovascular Cardiovascular Exam: RRR - GI/Abdominal GI/Abdominal Exam: Normal Bowel Sounds, Non Tender, Non Distended, Soft - Rectal Rectal Exam: Deferred - External Exam: Deferred - Extremities Extremities Exam: Normal Inspection - Back Back Exam: Normal Inspection - Neurological Neurological Exam: Alert, Oriented x 3, CN II-XII Intact - Psychiatric Psychiatric Exam: Normal Affect - Integumentary Integumentary Exam: Normal Color Assessment and Plan - Patient Problems (1) GI bleed Current Visit: Yes Status: Acute Comment: Looks upper, hemoglobin is stable, he is status 2 units of blood. We DC'd the Xarelto. We DC'd the prednisone. Continue Protonix drip. We'll start cutting back on his fluid. May be able to stop it at one point today. Advance his diet and keep him nothing by mouth after midnight for scope tomorrow. (2) Chronic obstructive lung disease Current Visit: Yes Status: Acute Comment: Continue bronchodilator treatment (3) Hypertension Current Visit: No Status: Chronic Comment: Hold lisinopril I think we can start the metoprolol Qualifiers: Hypertension type: essential hypertension Qualified Description: Essential hypertension Qualifier Code(s): (I10) Essential (primary) hypertension (4) Hypothyroidism Current Visit: No Status: Chronic Comment: Same medications Qualifiers: Hypothyroidism type: acquired Qualified Description: Acquired hypothyroidism Qualifier Code(s): (E03.9) Hypothyroidism, unspecified (5) Chronic pain syndrome Current Visit: No Status: Acute Comment: Same medications (6) History of atrial fibrillation Current Visit: No Status: Acute Comment: Restart metoprolol, we DC'd the Xarelto
[2017-02-02] MEDS: ALPRAZolam Tab 0.25 MG TABLET PO PRN ×2 (09:21→16:51)
[2017-02-02] MEDS: Metoprolol TARTRATE Tab 25 MG TAB PO SCH ×2 (09:26→20:20)
[2017-02-02] MEDS: ALBUTEROL SULFATE 2.5 MG/3 ML NEB PRN ×2 (09:32→22:17)
[2017-02-02] MEDS: FORMOTEROL FUMARATE IH SCH (11:16)
[2017-02-02] MEDS: BUDESONIDE IH SCH (11:16)
[2017-02-02] MEDS: MORPHINE SULFATE 2 MG/1 ML IVP PRN ×3 (11:58→22:10)
[2017-02-02] MEDS ORDERED: NORMAL SALINE 10 ML SYRINGE FLUSH IVP PRN (13:19)
[2017-02-02] MEDS ORDERED: LIDOCAINE W/ SODIUM BICARB 0.5 ML SYR SUBD PRN (13:19)
[2017-02-02] MEDS: metroNIDAZOLE Tab 500 MG TAB PO SCH ×2 (15:17→20:21)
[2017-02-02] MEDS: ONDANSETRON 4 MG/2 ML VIAL IV PRN (16:55)
[2017-02-02 17:24] LABS: HEMATOCRIT 35.5 % (42.0-52.0); HEMOGLOBIN 11.9 g/dL (14.0-18.0)
[2017-02-02] MEDS: FLUTICASONE/SALMETEROL 500/50 UD INHALER INH SCH (19:18)
[2017-02-02] MEDS: ATORVASTATIN 20 MG TABLET PO SCH (20:21)
[2017-02-03] MEDS: ALPRAZolam Tab 0.25 MG TABLET PO PRN (00:41)
[2017-02-03] MEDS: IPRATROPIUM/ALBUTEROL SULFATE 3 ML NEB NEB SCH ×4 (01:00→20:04)
[2017-02-03] MEDS: LEVOTHYROXINE 100 MCG TABLET PO SCH (04:52)
[2017-02-03 05:10] LABS: BASOPHILS # (AUTO) 0.03 10*3/UL; BASOPHILS % (AUTO) 0.2 % (0-1); EOSINOPHILS # (AUTO) 0.18 10*3/UL; EOSINOPHILS % (AUTO) 1.1 % (0-8); HEMATOCRIT 35.7 % (42.0-52.0); HEMOGLOBIN 12.1 g/dL (14.0-18.0); MEAN CORPUSCULAR HEMOGLOBIN 31.2 PG (27-31); MEAN CORPUSCULAR HGB CONC 33.9 g/dL (33-37); MEAN PLATELET VOLUME 10.2 FL (7.4-12.2); MONOCYTES # (AUTO) 1.95 10*3/UL (0.3-0.8); MONOCYTES % (AUTO) 12.2 % (5-15); NEUTROPHILS % (AUTO) 76.5 % (50-80); PLATELET MORPHOLOGY COMMENT NORMAL MORPHOLOGY (NORM); RBC MORPHOLOGY COMMENT NORMAL MORPHOLOGY (NORM); RED BLOOD COUNT 3.88 10^6/uL (4.70-6.10); WBC MORPHOLOGY COMMENT NORMAL MORPHOLOGY (NORM)
[2017-02-03 05:22] LABS: BLOOD UREA NITROGEN 15 mg/dL (7-22); CALCIUM 6.7 mg/dL (8.7-10.7); SERUM ALBUMIN 2.6 g/dL (3.5-4.8)
[2017-02-03] MEDS ORDERED: Lactated Ringers 1,000 ML PRIMARY IV ONE (06:16)
[2017-02-03] MEDS: TIOTROPIUM BROMIDE 18 MCG CAPSULE INH SCH (06:48)
[2017-02-03] MEDS: FLUTICASONE/SALMETEROL 500/50 UD INHALER INH SCH ×2 (06:48→20:04)
[2017-02-03] MEDS: MORPHINE SULFATE 2 MG/1 ML IVP PRN ×4 (06:58→21:46)
[2017-02-03] MEDS ORDERED: LIDOCAINE 2% VISCOUS(20 MG/1 ML) - 15 ML UD CUP PO ONE (07:25)
[2017-02-03] MEDS ORDERED: LIDOCAINE W/ SODIUM BICARB 0.5 ML SYR ONE (07:34)
--- NOTE | 2017-02-03 08:13 | GEN.OPNOTE ---
EGD Operative Note Surgery Date: 02/03/17 Preoperative Diagnosis: Gastrointestinal hemorrhage Postoperative Diagnosis: Esophagitis. Gastric ulcers. Duodenitis and ulcers Procedure: Esophagogastroduodenoscopy with biopsy Surgeon: Randy Montesinos MD Anesthesia Provider: John Snow CRNA Anesthesia Type: MAC Indications: Patient had acute gastrointestinal hemorrhage where he dropped his hemoglobin today 8.1. Patient denied any blood in the stool but test Hemoccult positive. Patient is anticoagulated Findings: Esophagus: The videoscope was inserted into the posterior pharynx current esophagus under visualization. At the EG junction patient did have some linear ulcers that appear to be healing. GE junction measured about 38 cm from incisors. GE Junction : 38 cm from incisors Fundus : Scope was flexed on itself revealing hiatal hernia. Patient did have some ulcerations within the hiatal hernia. Body : Patient has some ulcerations that were healing within the body of the stomach biopsies taken Prepyloric : Prepyloric area had some acute inflammatory condition CLOtest was taken Small Intestine : First second third and fourth portion the duodenum visualizes cutely inflamed with some ulcerations no actively bleeding. Biopsies taken A lubricated flexible upper endoscope was inserted and passed through the esophagus and stomach into the duodenum.
[2017-02-03] MEDS ORDERED: TAMSULOSIN 0.4 MG CAPSULE PO SCH (09:00)
--- NOTE | 2017-02-03 09:16 | PDOC(PROG) ---
Date and Time of Service: 02/03/2017 9:14 AM Interval History: Subjective Patient feel he said fatigued and tired, but the no more diarrhea no abdominal pain. He just had the upper EGD procedure. Objective : Data - Labs CBC and BMP: 02/03/17 04:29 02/03/17 04:29 Labs - Last 24 Hours: Laboratory Results 02/02/17 02/03/17 Range/Units 17:19 04:29 WBC 15.96 H (4.8-10.8) 10^3/uL RBC 3.88 L (4.70-6.10) 10^6/uL Hgb 11.9 L 12.1 L (14.0-18.0) g/dL Hct 35.5 L 35.7 L (42.0-52.0) % MCV 92.0 H (80-90) FL MCH 31.2 H (27-31) PG MCHC 33.9 (33-37) g/dL RDW Std Deviation 57.5 H (39-50) fL RDW Coeff of Isabelle 17.5 H (11.5-14.5) % Plt Count 230 (140-350) 10*3/uL MPV 10.2 (7.4-12.2) FL Immature Gran % (Auto) 0.6 (0-5) % Neut % (Auto) 76.5 (50-80) % Lymph % (Auto) 9.4 L (10-50) % [place] % (Auto) 12.2 (5-15) % Eos % (Auto) 1.1 (0-8) % Baso % (Auto) 0.2 (0-1) % Immature Gran # (Auto) 0.10 10*3/UL Neut # (Auto) 12.20 10*3/UL Lymph # (Auto) 1.50 10*3/uL [place] # (Auto) 1.95 H (0.3-0.8) 10*3/UL Eos # (Auto) 0.18 10*3/UL Baso # (Auto) 0.03 10*3/UL WBC Morphology Comment Normal morphology (NORM) Plt Morphology Comment Normal morphology (NORM) RBC Morph Comment Normal morphology (NORM) Sodium 125 L (135-145) meq/L Potassium 4.6 (3.8-5.2) meq/L Chloride 98 (98-112) meq/L Carbon Dioxide 17 L (23-33) meq/L Anion Gap 10 (5-20) BUN 15 (7-22) mg/dL Creatinine 0.6 L (0.70-1.50) mg/dL Estimated GFR Stage Set Designer BUN/Creatinine Ratio 25.00 H (6-20) Glucose 59 L (78-110) mg/dL Calculated Osmolality 258.0 L (267-292) mOsm/kg Calcium 6.7 L (8.7-10.7) mg/dL Total Bilirubin 2.4 H (0.3-1.2) mg/dL AST 25 (21-57) IU/L ALT 37 (21-72) IU/L Alkaline Phosphatase 36 L (38-126) IU/L Total Protein 4.7 L (6.1-8.0) g/dL Albumin 2.6 L (3.5-4.8) g/dL Globulin 2.1 L (2.50-4.10) g/dL Albumin/Globulin Ratio 1.20 L (1.3-2.0) mg/g Objective : Exam - General General Appearance: No Acute Distress, Cooperative, Thin - Head Head Exam: Normal Inspection, Atraumatic - Eye Eye Exam: Normal Appearance - ENT ENT Exam: Normal Exam - Neck Neck Exam: Normal Inspection - Respiratory Additional Respiratory Exam Details: Decreased air entry otherwise clear - Cardiovascular Cardiovascular Exam: RRR - GI/Abdominal GI/Abdominal Exam: Normal Bowel Sounds, Non Tender, Non Distended, Soft - Rectal Rectal Exam: Deferred - External Exam: Deferred - Extremities Extremities Exam: Normal Inspection - Back Back Exam: Normal Inspection - Neurological Neurological Exam: Alert, Oriented x 3, CN II-XII Intact, Speech Intact / Clear , Moves All Extremities Equally - Psychiatric Psychiatric Exam: Normal Affect Assessment and Plan - Patient Problems (1) GI bleed Current Visit: Yes Status: Acute Comment: EGD showed the multiple ulcers I think probably this is responsible for the bleeding. Continue Protonix drip until tomorrow and then will stop it and switch him to twice a day by mouth Protonix. We DC'd the prednisone. We DC 'd the Xarelto for now. (2) Chronic obstructive lung disease Current Visit: Yes Status: Acute Comment: Continue bronchodilators (3) Hypertension Current Visit: No Status: Chronic Comment: Continue holding the lisinopril Qualifiers: Hypertension type: essential hypertension Qualified Description: Essential hypertension Qualifier Code(s): (I10) Essential (primary) hypertension (4) Hypothyroidism Current Visit: No Status: Chronic Comment: Same med Qualifiers: Hypothyroidism type: acquired Qualified Description: Acquired hypothyroidism Qualifier Code(s): (E03.9) Hypothyroidism, unspecified (5) Chronic pain syndrome Current Visit: No Status: Acute Comment: Same medications (6) History of atrial fibrillation Current Visit: No Status: Acute Comment: Continue beta wilton and hold anticoagulation for now. (7) C. difficile colitis Current Visit: Yes Status: Acute Comment: Stool study showed C. difficile so we DC'd his Zithromax and he is on Flagyl continue.
[2017-02-03] MEDS ORDERED: ALPRAZolam Tab 0.25 MG TABLET PO PRN (09:26)
[2017-02-03] MEDS ORDERED: Calcium/Vit D 600mg/400u Tab 1 TAB TABLET PO SCH (10:00)
[2017-02-03] MEDS: metroNIDAZOLE Tab 500 MG TAB PO SCH ×4 (11:06→21:40)
[2017-02-03] MEDS: Calcium/Vit D 600mg/400u Tab 1 TAB TABLET PO SCH ×2 (11:06→21:39)
[2017-02-03] MEDS: TAMSULOSIN 0.4 MG CAPSULE PO SCH (11:06)
[2017-02-03] MEDS: Metoprolol TARTRATE Tab 25 MG TAB PO SCH ×3 (11:07→21:38)
[2017-02-03] MEDS ORDERED: ONDANSETRON 4 MG/2 ML VIAL ONE (11:25)
[2017-02-03] MEDS: ONDANSETRON 4 MG/2 ML VIAL IVP PRN (11:30)
[2017-02-03] MEDS: ONDANSETRON 4 MG/2 ML VIAL IV PRN (11:30)
[2017-02-03] MEDS ORDERED: MORPHINE SULFATE 2 MG/1 ML ONE ×2 (11:57→12:29)
[2017-02-03] MEDS ORDERED: 1/2NS + 20mEq KCL 1,000 ML PRIMARY IV ONE (18:01)
[2017-02-03] MEDS: ATORVASTATIN 20 MG TABLET PO SCH (21:39)
[2017-02-04] MEDS: IPRATROPIUM/ALBUTEROL SULFATE 3 ML NEB NEB SCH ×4 (00:30→19:10)
[2017-02-04] MEDS: LEVOTHYROXINE 100 MCG TABLET PO SCH (04:35)
[2017-02-04 05:44] LABS: BLOOD UREA NITROGEN 11 mg/dL (7-22); BUN/CREATININE RATIO 18.33 (6-20); CALCIUM 7.1 mg/dL (8.7-10.7)
[2017-02-04] MEDS: MORPHINE SULFATE 2 MG/1 ML IVP PRN ×3 (06:18→17:17)
[2017-02-04] MEDS: FLUTICASONE/SALMETEROL 500/50 UD INHALER INH SCH ×2 (06:37→19:10)
[2017-02-04] MEDS: TAMSULOSIN 0.4 MG CAPSULE PO SCH (08:55)
[2017-02-04] MEDS: Metoprolol TARTRATE Tab 25 MG TAB PO SCH ×2 (08:56→20:14)
[2017-02-04] MEDS: PANTOPRAZOLE 40 MG TABLET PO SCH ×2 (08:56→20:14)
[2017-02-04] MEDS: Calcium/Vit D 600mg/400u Tab 1 TAB TABLET PO SCH ×2 (08:56→20:14)
[2017-02-04] MEDS: metroNIDAZOLE Tab 500 MG TAB PO SCH (08:57)
[2017-02-04] MEDS ORDERED: TAMSULOSIN 0.4 MG CAPSULE PO SCH (09:00)
[2017-02-04] MEDS ORDERED: PANTOPRAZOLE 40 MG TABLET PO SCH (09:00)
[2017-02-04 10:49] LABS: BASOPHILS # (AUTO) 0.05 10*3/UL; BASOPHILS % (AUTO) 0.3 % (0-1); EOSINOPHILS # (AUTO) 0 10*3/UL; EOSINOPHILS % (AUTO) 0 % (0-8); HEMATOCRIT 32.7 % (42.0-52.0); HEMOGLOBIN 10.9 g/dL (14.0-18.0); LYMPHOCYTES # (AUTO) 1.24 10*3/uL; MEAN CORPUSCULAR HGB CONC 33.3 g/dL (33-37); MEAN CORPUSCULAR VOLUME 92.9 FL (80-90); MEAN PLATELET VOLUME 9.5 FL (7.4-12.2); MONOCYTES # (AUTO) 1.41 10*3/UL (0.3-0.8); MONOCYTES % (AUTO) 8.4 % (5-15); NEUTROPHILS # (AUTO) 13.93 10*3/UL; NEUTROPHILS % (AUTO) 82.7 % (50-80); RED BLOOD COUNT 3.52 10^6/uL (4.70-6.10)
[2017-02-04 10:51] LABS: PLATELET MORPHOLOGY COMMENT NORMAL MORPHOLOGY (NORM); RBC MORPHOLOGY COMMENT NORMAL MORPHOLOGY (NORM); WBC MORPHOLOGY COMMENT NORMAL MORPHOLOGY (NORM)
[2017-02-04] MEDS: ONDANSETRON 4 MG/2 ML VIAL IVP PRN (11:18)
--- NOTE | 2017-02-04 14:01 | PDOC(PROG) ---
Interval History: Patient is status post EGD multiple ulcers found feels pretty weak occasional cough Objective : Data - Labs CBC and BMP: 02/04/17 04:43 02/04/17 04:37 Labs - Last 24 Hours: Laboratory Results 02/03/17 02/04/17 02/04/17 Range/Units 08:08 04:37 04:43 WBC 16.84 H (4.8-10.8) 10^3/uL RBC 3.52 L (4.70-6.10) 10^6/uL Hgb 10.9 L (14.0-18.0) g/dL Hct 32.7 L (42.0-52.0) % MCV 92.9 H (80-90) FL MCH 31.0 (27-31) PG MCHC 33.3 (33-37) g/dL RDW Std Deviation 55.7 H (39-50) fL RDW Coeff of Isabelle 16.9 H (11.5-14.5) % Plt Count 254 (140-350) 10*3/uL MPV 9.5 (7.4-12.2) FL Immature Gran % (Auto) 1.2 (0-5) % Neut % (Auto) 82.7 H (50-80) % Lymph % (Auto) 7.4 L (10-50) % [place] % (Auto) 8.4 (5-15) % Eos % (Auto) 0 (0-8) % Baso % (Auto) 0.3 (0-1) % Immature Gran # (Auto) 0.21 10*3/UL Neut # (Auto) 13.93 10*3/UL Lymph # (Auto) 1.24 10*3/uL [place] # (Auto) 1.41 H (0.3-0.8) 10*3/UL Eos # (Auto) 0 10*3/UL Baso # (Auto) 0.05 10*3/UL WBC Morphology Comment Normal morphology (NORM) Plt Morphology Comment Normal morphology (NORM) RBC Morph Comment Normal morphology (NORM) Sodium 124 L (135-145) meq/L Potassium 4.0 (3.8-5.2) meq/L Chloride 95 L (98-112) meq/L Carbon Dioxide 22 L (23-33) meq/L Anion Gap 7 (5-20) BUN 11 (7-22) mg/dL Creatinine 0.6 L (0.70-1.50) mg/dL Estimated GFR Tool Inspector BUN/Creatinine Ratio 18.33 (6-20) Glucose 116 H (78-110) mg/dL Calculated Osmolality 257.0 L (267-292) mOsm/kg Calcium 7.1 L (8.7-10.7) mg/dL Vitamin D 25-Hydroxy 13.9 L (30-100) NG/ML H. pylori Urease Test Negative (NEGATIVE) Objective : Exam - General General Appearance: Cooperative - Head Head Exam: Normal Inspection, Normocephalic - Respiratory Additional Respiratory Exam Details: Decreased breath sounds at the bases and some rhonchi in the left lower lobe - Cardiovascular Cardiovascular Exam: RRR, No Murmur, No Clicks, No Gallops - GI/Abdominal GI/Abdominal Exam: Normal Bowel Sounds, Non Tender, Non Distended, Soft - Extremities Extremities Exam: No Clubbing Present, No Edema Present - Neurological Neurological Exam: Alert, Oriented x 3, CN II-XII Intact, No Facial Droop - Psychiatric Psychiatric Exam: Normal Affect, Normal Mood Assessment and Plan - Patient Problems (1) C. difficile colitis Current Visit: Yes Status: Acute Comment: Continue Flagyl (2) Cachexia Current Visit: Yes Status: Acute Comment: Secondary to end-stage lung disease (3) Chronic obstructive lung disease Current Visit: Yes Status: Acute Comment: Check a VBG (4) GI bleed Current Visit: Yes Status: Acute Comment: Multiple ulcers found stop anticoagulation for now he is on Simpson for A. fib but because of the bleeding we will need to hold this (5) Hyponatremia Current Visit: Yes Status: Acute Comment: Patient is cachectic from his lung status end-stage lung disease looks to have very dehydrated malnourished we will hydrate with normal saline 75 recheck labs in the morning Photo / Body Diagrams - Uploaded Photos Uploaded Photos:
[2017-02-04] MEDS: Sodium Chloride 0.9% 1,000 ML IV SCH (14:35)
[2017-02-04] MEDS: Vancomycin Oral Soln 125 MG/5 ML (7500MG/300ML) BOTTLE PO SCH ×2 (14:58→20:16)
[2017-02-04 15:38] LABS: VENOUS PH 7.45 (7.32-7.42)
--- NOTE | 2017-02-04 16:12 | DI ---
CT CHEST SCAN WITHOUT IV CONTRAST, 02/04/2017 1:58 PM : Clinical History: Cough. Previous Exam: 12/27/2016. Scans are performed from the base of the neck to the lower lung bases without IV contrast. Sagittal a nd coronal images using non MIPS and MIPS technique are generated. The patient appears cachectic. The base of the neck and thoracic inlet are normal. There are no abnor mal axillary, supraclavicular, mediastinal, or hilar nodes. Since the previous study, the patient has slight increase in the small pericardial effusion. This patient either has very dense coronary arter y calcifications or the patient has multiple stents in the proximal and middle thirds of the LAD, the proximal half of the left circumflex artery, and in the proximal portion of the right coronary arter y. There are no acute infiltrates or effusions. There is centrilobular emphysema with bullae predomin antly in the lung apices. There is also evidence of Za A and Za B lines indicating interstiti al pulmonary fibrosis. However, since the last exam, the Za A and Za B lines are significantl y more prominent on the left side than on the previous exam whereas there has been no significant zack nge in those interstitial markings in the right lung. There are some patchy densities toward the malvin phery of the lingular segment and left upper lobe. This patient may have experienced aspiration in th e left lung while he was in a left decubitus position and the changes in the peripheral alveoli and t he interstitial markings of the left upper lobe represent subacute or acute interstitial and alveolar disease. There has been no significant change in the overall appearance of the right lung. Both adre nal glands and the spleen as well as the visualized portions of the liver and pancreas are normal. Th ere are some calcifications in the upper portions of the kidneys but these are felt to be vascular ra ther than renal calculi. READIN. There is no classic acute alveolar infiltrate present to indicate a bacterial pneumonia. However, since the previous study from 12/27/2016, the patient has developed increased amounts of Za A and Za B lines predominantly in the left upper lobe including the lingular segment. There is also ev idence of alveolar airspace disease along the perimeter of the lingular segment. These findings are s uggestive that this patient probably aspirated while he was in the left lateral decubitus position so metime in the recent past since the last examination. 2. There is a small pericardial effusion that is slightly larger than on the prior exam. There is al so extensive coronary artery disease. 3. There is bullous emphysema with pulmonary arterial hypertension and chronic interstitial pulmonar y fibrosis.
--- NOTE | 2017-02-04 16:51 | PT.PROG ---
Progress Note Progress Note: S. Patient stated that he is very sore and tired this afternoon and does not want to do much exercise. O. Patient performed supine exercises in the form of; heel slides, quad sets, ankle pumps, pillow squeezes, hip abduction/adduction all x 10 bilaterally. Patient was left in bed with alarm and call light. A. Patient did not tolerate treatment well this afternoon, he struggles with pain and did not want to move this afternoon however he agreed to do more more exercises tomorrow. P. continue POC.
[2017-02-04] MEDS ORDERED: LEVOFLOXACIN 750 MG IV ONE (20:10)
[2017-02-04] MEDS: ATORVASTATIN 20 MG TABLET PO SCH (20:14)
[2017-02-04] MEDS: oxyCODONE-ACETAMINOPHEN 5-325 TAB PO PRN (20:14)
[2017-02-04] MEDS: Levofloxacin 750mg (Premix) 750 MG in Dextrose 1 BAG IV SCH (20:19)
[2017-02-04] MEDS: ALPRAZolam Tab 0.25 MG TABLET PO PRN (23:42)
[2017-02-05] MEDS: IPRATROPIUM/ALBUTEROL SULFATE 3 ML NEB NEB SCH ×4 (00:12→18:53)
[2017-02-05] MEDS: Vancomycin Oral Soln 125 MG/5 ML (7500MG/300ML) BOTTLE PO SCH ×4 (01:29→19:42)
[2017-02-05 04:42] LABS: BASOPHILS # (AUTO) 0.04 10*3/UL; BASOPHILS % (AUTO) 0.3 % (0-1); EOSINOPHILS # (AUTO) 0.02 10*3/UL; EOSINOPHILS % (AUTO) 0.1 % (0-8); HEMATOCRIT 31.6 % (42.0-52.0); HEMOGLOBIN 10.6 g/dL (14.0-18.0); LYMPHOCYTES # (AUTO) 1.37 10*3/uL; MEAN CORPUSCULAR HEMOGLOBIN 31.1 PG (27-31); MEAN CORPUSCULAR HGB CONC 33.5 g/dL (33-37); MEAN CORPUSCULAR VOLUME 92.7 FL (80-90); MEAN PLATELET VOLUME 9.4 FL (7.4-12.2); MONOCYTES # (AUTO) 1.35 10*3/UL (0.3-0.8); MONOCYTES % (AUTO) 9.5 % (5-15); NEUTROPHILS # (AUTO) 11.25 10*3/UL; NEUTROPHILS % (AUTO) 79.6 % (50-80); RED BLOOD COUNT 3.41 10^6/uL (4.70-6.10)
[2017-02-05] MEDS: LEVOTHYROXINE 100 MCG TABLET PO SCH (04:42)
[2017-02-05] MEDS: oxyCODONE-ACETAMINOPHEN 5-325 TAB PO PRN ×2 (04:42→20:28)
[2017-02-05 04:43] LABS: PLATELET MORPHOLOGY COMMENT NORMAL MORPHOLOGY (NORM); RBC MORPHOLOGY COMMENT NORMAL MORPHOLOGY (NORM); WBC MORPHOLOGY COMMENT NORMAL MORPHOLOGY (NORM)
[2017-02-05] MEDS: Sodium Chloride 0.9% 1,000 ML IV SCH ×2 (04:43→20:31)
[2017-02-05 04:54] LABS: BLOOD UREA NITROGEN 9 mg/dL (7-22); SERUM ALBUMIN 2.5 g/dL (3.5-4.8)
[2017-02-05] MEDS: FLUTICASONE/SALMETEROL 500/50 UD INHALER INH SCH ×2 (06:25→18:53)
[2017-02-05] MEDS: Metoprolol TARTRATE Tab 25 MG TAB PO SCH ×2 (09:05→20:32)
[2017-02-05] MEDS: TAMSULOSIN 0.4 MG CAPSULE PO SCH (09:07)
[2017-02-05] MEDS: Calcium/Vit D 600mg/400u Tab 1 TAB TABLET PO SCH ×2 (09:07→20:27)
[2017-02-05] MEDS: PANTOPRAZOLE 40 MG TABLET PO SCH ×2 (09:08→20:27)
[2017-02-05] MEDS: Levofloxacin 750mg (Premix) 750 MG in Dextrose 1 BAG IV SCH (09:11)
[2017-02-05] MEDS: MORPHINE SULFATE 2 MG/1 ML IVP PRN ×3 (10:01→19:41)
--- NOTE | 2017-02-05 10:10 | PTI REPORT ---
Thank you for the referral of Nino [place]. He was seen on 02/04/17 for an inpatient evaluation secondary to c.diff, rib fracture, and falling at home. SUBJECTIVE: The patient is a 76-year-old male who was referred by Dr. Obando secondary to falling at home. He has been in the hospital the last three or four days under acute status with a diagnosis of c.diff, rib fracture, and falling at home. He states he fell at home in the kitchen this last Thursday evening where he sustained his rib fracture. The patient is also a chronic smokes and is on oxygen and has an unrelated diagnosis of COPD. Rib fractures are obviously making it harder to breathe. The patient does live alone at home in the [facility] apartment building but states he does have good family support. He does have one flight of stairs to get into and out of his home. PAST MEDICAL HISTORY: Past medical history can be found in the patient's medical record. OBJECTIVE FINDINGS: General observations: The patient was seen in his room and was alert and oriented x3. He was struggling to breathe a little bit. Pain: Deep breathing is painful and sore on the left side of his rib cage. The patient has a history of chronic neck and back pain. The patient states this recent fall has exacerbated his lower lumbar back pain, right in the small of his back. He denies any radicular symptoms. Range of motion/Strength: The patient demonstrates good range of motion of both upper extremities with functional strength at the shoulders, elbows, hands, and fingers. The patient's lower extremities have functional range of motion and strength without any deficiencies. Transfers: The patient needs assist of one to transfer from seated to standing. Balance: The patient's La score was 18, which is very poor. Ambulation: The patient states that he does use a cane and sometimes a walker at home, but doesn't always use it as he should. ASSESSMENT: Problem List: Weakness of upper and lower extremities COPD History of back pain High risk for falling Short-Term Goals: To be met by discharge from inpatient: Patient will have a pain level less than or equal to 4/10 with activity. Patient will be able to perform all bed mobility and transfers independently and safely. Patient will be able to ambulate household distances with least restrictive assistive device. Patient will be able to ascend and descend one flight of stairs with least restrictive assistive device independently and safely. Long-Term Goals: To be met following discharge from inpatient: Patient will be able to return to home, as independent as possible, as a LOW to MEDIUM fall risk. TREATMENT PLAN: Patient will be seen B.I.D during the week and one time per day over the weekend as an inpatient for pain relief modalities for his back and rib cage, strengthening of upper and lower extremities, transfer training, and working on ambulatory distance and stairs. INITIAL TREATMENT: Treatment today consisted of the initial evaluation activities only. JEN
--- NOTE | 2017-02-05 11:38 | PT.PROG ---
Progress Note Progress Note: Patient refused therapy this morning. He stated he is too tired to do therapy after having a shower this morning.
--- NOTE | 2017-02-05 12:01 | PDOC(PROG) ---
Objective : Data - Labs CBC and BMP: 02/05/17 04:22 02/05/17 04:22 Labs - Last 24 Hours: Laboratory Results 02/04/17 02/04/17 02/04/17 Range/Units 04:37 14:23 14:26 WBC (4.8-10.8) 10^3/uL RBC (4.70-6.10) 10^6/uL Hgb (14.0-18.0) g/dL Hct (42.0-52.0) % MCV (80-90) FL MCH (27-31) PG MCHC (33-37) g/dL RDW Std Deviation (39-50) fL RDW Coeff of Isabelle (11.5-14.5) % Plt Count (140-350) 10*3/uL MPV (7.4-12.2) FL Immature Gran % (Auto) (0-5) % Neut % (Auto) (50-80) % Lymph % (Auto) (10-50) % [place] % (Auto) (5-15) % Eos % (Auto) (0-8) % Baso % (Auto) (0-1) % Immature Gran # (Auto) 10*3/UL Neut # (Auto) 10*3/UL Lymph # (Auto) 10*3/uL [place] # (Auto) (0.3-0.8) 10*3/UL Eos # (Auto) 10*3/UL Baso # (Auto) 10*3/UL WBC Morphology Comment (NORM) Plt Morphology Comment (NORM) RBC Morph Comment (NORM) VBG pH 7.45 H (7.32-7.42) VBG pCO2 30 L (45-55) mmHg VBG HCO3 21 L (22-26) mmol/L VBG Base Excess -3 L (-2-2) MMOL/L Sodium (135-145) meq/L Potassium (3.8-5.2) meq/L Chloride (98-112) meq/L Carbon Dioxide (23-33) meq/L Anion Gap (5-20) BUN (7-22) mg/dL Creatinine (0.70-1.50) mg/dL Estimated GFR BUN/Creatinine Ratio (6-20) Glucose (78-110) mg/dL Calculated Osmolality (267-292) mOsm/kg Calcium 6.9 L (8.9 - 10.1) mg/dL Phosphorus 1.1 L (2.5 - 4.5) mg/dL Magnesium 2.1 (1.6-2.4) mg/dL Total Bilirubin (0.3-1.2) mg/dL AST (21-57) IU/L ALT (21-72) IU/L Alkaline Phosphatase (38-126) IU/L Total Protein (6.1-8.0) g/dL Albumin (3.5-4.8) g/dL Globulin (2.50-4.10) g/dL Albumin/Globulin Ratio (1.3-2.0) mg/g Creatinine (PTH) 0.6 L (0.8-1.3) mg/dL 02/05/17 Range/Units 04:22 WBC 14.15 H (4.8-10.8) 10^3/uL RBC 3.41 L (4.70-6.10) 10^6/uL Hgb 10.6 L (14.0-18.0) g/dL Hct 31.6 L (42.0-52.0) % MCV 92.7 H (80-90) FL MCH 31.1 H (27-31) PG MCHC 33.5 (33-37) g/dL RDW Std Deviation 55.3 H (39-50) fL RDW Coeff of Isabelle 16.8 H (11.5-14.5) % Plt Count 275 (140-350) 10*3/uL MPV 9.4 (7.4-12.2) FL Immature Gran % (Auto) 0.8 (0-5) % Neut % (Auto) 79.6 (50-80) % Lymph % (Auto) 9.7 L (10-50) % [place] % (Auto) 9.5 (5-15) % Eos % (Auto) 0.1 (0-8) % Baso % (Auto) 0.3 (0-1) % Immature Gran # (Auto) 0.12 10*3/UL Neut # (Auto) 11.25 10*3/UL Lymph # (Auto) 1.37 10*3/uL [place] # (Auto) 1.35 H (0.3-0.8) 10*3/UL Eos # (Auto) 0.02 10*3/UL Baso # (Auto) 0.04 10*3/UL WBC Morphology Comment Normal morphology (NORM) Plt Morphology Comment Normal morphology (NORM) RBC Morph Comment Normal morphology (NORM) VBG pH (7.32-7.42) VBG pCO2 (45-55) mmHg VBG HCO3 (22-26) mmol/L VBG Base Excess (-2-2) MMOL/L Sodium 126 L (135-145) meq/L Potassium 3.8 (3.8-5.2) meq/L Chloride 96 L (98-112) meq/L Carbon Dioxide 24 (23-33) meq/L Anion Gap 6 (5-20) BUN 9 (7-22) mg/dL Creatinine 0.6 L (0.70-1.50) mg/dL Estimated GFR Fruit Cutter BUN/Creatinine Ratio 15.00 (6-20) Glucose 97 (78-110) mg/dL Calculated Osmolality 260.0 L (267-292) mOsm/kg Calcium 7.0 L (8.9 - 10.1) mg/dL Phosphorus (2.5 - 4.5) mg/dL Magnesium (1.6-2.4) mg/dL Total Bilirubin 1.3 H (0.3-1.2) mg/dL AST 19 L (21-57) IU/L ALT 33 (21-72) IU/L Alkaline Phosphatase 51 (38-126) IU/L Total Protein 4.8 L (6.1-8.0) g/dL Albumin 2.5 L (3.5-4.8) g/dL Globulin 2.3 L (2.50-4.10) g/dL Albumin/Globulin Ratio 1.00 L (1.3-2.0) mg/g Creatinine (PTH) (0.8-1.3) mg/dL Assessment and Plan - Patient Problems (1) C. difficile colitis Current Visit: Yes Status: Acute Comment: Continue by mouth vancomycin for a total 14 days diarrhea is improving as well as white count (2) Cachexia Current Visit: Yes Status: Acute Comment: Patient was discharged to hospice a few months ago secondary to end- stage lung disease he did go home and had his appetite back he gained 20 pounds in and he is now not in hospice any longer (3) Chronic obstructive lung disease Current Visit: Yes Status: Acute Comment: Continue current meds (4) GI bleed Current Visit: Yes Status: Acute Comment: GI bleed is resolved patient on Protonix by mouth twice a day (5) Hyponatremia Current Visit: Yes Status: Acute Comment: Continue IV fluids (6) Urinary obstruction Current Visit: Yes Status: Acute Comment: He was unable to urinate last night we had to insert a Horn he had 800 out I will get CT scan of his abdomen and pelvis make sure he does not have any masses or something pushing on his ureters or kidneys or prostate if his imaging is normal then we will try to take out the Horn and put him on Flomax and consult with urology (7) Infiltrate noted on imaging study Current Visit: Yes Status: Acute Comment: *Levaquin 750 IV daily Photo / Body Diagrams - Uploaded Photos Uploaded Photos:
--- NOTE | 2017-02-05 14:34 | DI ---
CT ABDOMEN SCAN WITH IV CONTRAST, 02/05/2017 11:56 AM : Clinical History: Urinary obstruction. Previous Exam: 11/11/2014. Scans are performed from the lower lung bases through the liver and kidneys with IV contrast. 65 ml o f Isovue 300 was injected IV. Low density oral barium contrast (Volumen - low density CT enterography oral contrast) was administered for all phases of the exam. But there is chronic interstitial fibrosis manifested by Za A and Za B lines with more involv ement on the left side than the right. The liver is normal. The gallbladder is grossly normal. There is no abnormality of the spleen, pancreas, and adrenal glands. Both kidneys are normal in size, shape , position and contour. There is no hydronephrosis or hydroureter. There are bilateral renal calcific ations but these are felt to be vascular. No renal or ureteral calculi are present. There are no abno rmal retrocrural or periaortic nodes. No ascites is present. READING: Normal CT abdomen scan. There is no hydronephrosis or hydroureter. CT PELVIS SCAN WITH IV CONTRAST, 02/05/2017 11:56 AM: Clinical History: See above. Previous Exam: 11/11/2014. Scans are performed from just superior to the umbilicus to the symphysis pubis with IV contrast. This is the same bolus of contrast used for the CT scans of the abdomen. Scans through the lower abdomen and pelvis show no masses or abnormal fluid collections. There is no adenopathy. The appendix is not visualized with certainty but there is no inflammatory mass either in the cecum or in the right lower quadrant. The small bowel, terminal ileum, and ileocecal valve are n ormal. The colon is also normal. There are no hernias. The bladder is partially filled and a Horn ca theter is present. There is enlargement of the prostate. READING: Prostatic enlargement. The exam is otherwise normal.
--- NOTE | 2017-02-05 16:35 | PT.PROG ---
Progress Note Progress Note: S. Patient states that he does not want to do much therapy this afternoon. O. Patient performed supine to sit transfer then sit to stand transfer then ambulated 30 feet around his room. He was left in the restroom and nursing was notified and he was given the call light. A. Patient continues to struggle with pain and is not willing to participate with therapy. Patient would continue to benefit from skilled therapy to increase strength and mobility. P. Continue POC.
[2017-02-05] MEDS: ATORVASTATIN 20 MG TABLET PO SCH (20:28)
[2017-02-06] MEDS: IPRATROPIUM/ALBUTEROL SULFATE 3 ML NEB NEB SCH ×4 (00:25→19:11)
[2017-02-06] MEDS: Vancomycin Oral Soln 125 MG/5 ML (7500MG/300ML) BOTTLE PO SCH ×4 (02:26→20:50)
[2017-02-06] MEDS: MORPHINE SULFATE 2 MG/1 ML IVP PRN ×3 (02:26→15:21)
[2017-02-06] MEDS: LEVOTHYROXINE 100 MCG TABLET PO SCH (04:55)
[2017-02-06] MEDS: oxyCODONE-ACETAMINOPHEN 5-325 TAB PO PRN ×2 (04:55→19:11)
[2017-02-06 05:34] LABS: BASOPHILS # (AUTO) 0.04 10*3/UL; BASOPHILS % (AUTO) 0.4 % (0-1); EOSINOPHILS # (AUTO) 0.03 10*3/UL; EOSINOPHILS % (AUTO) 0.3 % (0-8); HEMATOCRIT 31.5 % (42.0-52.0); HEMOGLOBIN 10.5 g/dL (14.0-18.0); LYMPHOCYTES # (AUTO) 1.38 10*3/uL; MEAN CORPUSCULAR HEMOGLOBIN 30.6 PG (27-31); MEAN CORPUSCULAR HGB CONC 33.3 g/dL (33-37); MEAN CORPUSCULAR VOLUME 91.8 FL (80-90); MEAN PLATELET VOLUME 9.4 FL (7.4-12.2); MONOCYTES # (AUTO) 1.13 10*3/UL (0.3-0.8); MONOCYTES % (AUTO) 11.7 % (5-15); NEUTROPHILS # (AUTO) 7.01 10*3/UL; NEUTROPHILS % (AUTO) 72.5 % (50-80); RED BLOOD COUNT 3.43 10^6/uL (4.70-6.10)
[2017-02-06 05:40] LABS: BLOOD UREA NITROGEN 6 mg/dL (7-22); CALCIUM 6.9 mg/dL (8.7-10.7); SERUM ALBUMIN 2.5 g/dL (3.5-4.8)
[2017-02-06 05:44] LABS: PLATELET MORPHOLOGY COMMENT NORMAL MORPHOLOGY (NORM); RBC MORPHOLOGY COMMENT NORMAL MORPHOLOGY (NORM); WBC MORPHOLOGY COMMENT NORMAL MORPHOLOGY (NORM)
[2017-02-06] MEDS: FLUTICASONE/SALMETEROL 500/50 UD INHALER INH SCH ×2 (06:23→19:11)
[2017-02-06] MEDS: Levofloxacin 750mg (Premix) 750 MG in Dextrose 1 BAG IV SCH (08:30)
[2017-02-06] MEDS: PANTOPRAZOLE 40 MG TABLET PO SCH ×2 (08:33→20:49)
[2017-02-06] MEDS: Metoprolol TARTRATE Tab 25 MG TAB PO SCH ×2 (08:33→20:48)
[2017-02-06] MEDS: Calcium/Vit D 600mg/400u Tab 1 TAB TABLET PO SCH ×2 (08:33→20:48)
[2017-02-06] MEDS: TAMSULOSIN 0.4 MG CAPSULE PO SCH (08:34)
[2017-02-06] MEDS: Sodium Chloride 0.9% 1,000 ML IV SCH (08:39)
[2017-02-06] MEDS: Sodium Chloride 0.9% 1,000 ML with Multivitamin Inj 10 ML, Thiamine Inj 100 MG, Folic A... IV SCH ×5 (10:48)
--- NOTE | 2017-02-06 11:55 | PDOC(PROG) ---
Interval History: Patient states he is doing a little better but he seems very weak and cachectic secondary to his end-stage lung disease denies chest pain nausea vomiting Objective : Data - Labs CBC and BMP: 02/06/17 05:26 02/06/17 05:26 Labs - Last 24 Hours: Laboratory Results 02/06/17 Range/Units 05:26 WBC 9.67 (4.8-10.8) 10^3/uL RBC 3.43 L (4.70-6.10) 10^6/uL Hgb 10.5 L (14.0-18.0) g/dL Hct 31.5 L (42.0-52.0) % MCV 91.8 H (80-90) FL MCH 30.6 (27-31) PG MCHC 33.3 (33-37) g/dL RDW Std Deviation 54.7 H (39-50) fL RDW Coeff of Isabelle 16.7 H (11.5-14.5) % Plt Count 282 (140-350) 10*3/uL MPV 9.4 (7.4-12.2) FL Immature Gran % (Auto) 0.8 (0-5) % Neut % (Auto) 72.5 (50-80) % Lymph % (Auto) 14.3 (10-50) % [place]ayer % (Auto) 11.7 (5-15) % Eos % (Auto) 0.3 (0-8) % Baso % (Auto) 0.4 (0-1) % Immature Gran # (Auto) 0.08 10*3/UL Neut # (Auto) 7.01 10*3/UL Lymph # (Auto) 1.38 10*3/uL [place] # (Auto) 1.13 H (0.3-0.8) 10*3/UL Eos # (Auto) 0.03 10*3/UL Baso # (Auto) 0.04 10*3/UL WBC Morphology Comment Normal morphology (NORM) Plt Morphology Comment Normal morphology (NORM) RBC Morph Comment Normal morphology (NORM) Sodium 124 L (135-145) meq/L Potassium 3.3 L (3.8-5.2) meq/L Chloride 96 L (98-112) meq/L Carbon Dioxide 23 (23-33) meq/L Anion Gap 5 (5-20) BUN 6 L (7-22) mg/dL Creatinine 0.5 L (0.70-1.50) mg/dL Estimated GFR Blocker [employer] BUN/Creatinine Ratio 12.00 (6-20) Glucose 117 H (78-110) mg/dL Calculated Osmolality 256.0 L (267-292) mOsm/kg Calcium 6.9 L (8.7-10.7) mg/dL Total Bilirubin 0.8 (0.3-1.2) mg/dL AST 26 (21-57) IU/L ALT 34 (21-72) IU/L Alkaline Phosphatase 65 (38-126) IU/L Total Protein 4.9 L (6.1-8.0) g/dL Albumin 2.5 L (3.5-4.8) g/dL Globulin 2.4 L (2.50-4.10) g/dL Albumin/Globulin Ratio 1.00 L (1.3-2.0) mg/g Objective : Exam - General General Appearance: Cooperative - Respiratory Respiratory Exam: Decreased Breath Sounds, Rhonci - Cardiovascular Cardiovascular Exam: RRR, No Murmur, No Clicks, No Gallops - GI/Abdominal GI/Abdominal Exam: Non Tender, Non Distended, Soft - Extremities Extremities Exam: No Clubbing Present, No Edema Present, No Cyanosis Present Assessment and Plan - Patient Problems (1) C. difficile colitis Current Visit: Yes Status: Acute Comment: Continue by mouth flank WBCs improving (2) Cachexia Current Visit: Yes Status: Acute Comment: I will give him a banana bag this is secondary to his end-stage lung disease (3) Chronic obstructive lung disease Current Visit: Yes Status: Acute Comment: Continue inhalers (4) GI bleed Current Visit: Yes Status: Acute Comment: On Protonix by mouth twice a day (5) Hyponatremia Current Visit: Yes Status: Acute Comment: We'll give him normal saline and banana bag (6) Urinary obstruction Current Visit: Yes Status: Acute Comment: I will take out Horn this morning continue Flomax hopefully this patient will start making urine otherwise will consult urology CT scan of his abdomen and pelvis showed enlarged prostate but no other findings (7) Infiltrate noted on imaging study Current Visit: Yes Status: Acute Comment: Continue Levaquin IV - Assessment / Plan Additional Assessment/Plan Details: Overall this patient is very weak and cachectic he did enroll in hospice month or 2 ago he said he did gain 20 pounds in the was discharged from hospice he remained to be extremely weak he will be continuing to be in the hospital over the weekend to see if he urinates PT and OT was consult that overall he might even need to be in swing bed or jail if he decides to and does not make any improvement over the weekend for now continue IV Levaquin for his pneumonia by mouth bank and IV fluids Photo / Body Diagrams - Uploaded Photos Uploaded Photos:
[2017-02-06] MEDS ORDERED: ERGOCALCIFEROL 50,000 IU CAPSULE PO ONE (14:04)
--- NOTE | 2017-02-06 16:25 | PT.PROG ---
Progress Note Progress Note: S. Patient states that he does not want to do much therapy this afternoon. O. Patient performed supine to sit transfer then sit to stand transfer then ambulated 30 feet around his room. He performed standing balance activities x 3 minutes and standing marches x 10 bilaterally. Patient was left in bed with alarm and call light. A. Patient continues to struggle with pain and is not willing to participate with much therapy. Patient would continue to benefit from skilled therapy to increase strength and mobility and decrease pain. P. Continue POC.
[2017-02-06] MEDS: NORMAL SALINE 10 ML SYRINGE FLUSH IVP PRN (19:29)
[2017-02-06] MEDS: ATORVASTATIN 20 MG TABLET PO SCH (20:49)
[2017-02-07] MEDS: IPRATROPIUM/ALBUTEROL SULFATE 3 ML NEB NEB SCH ×2 (01:55→06:23)
[2017-02-07] MEDS: oxyCODONE-ACETAMINOPHEN 5-325 TAB PO PRN (01:56)
[2017-02-07] MEDS: Vancomycin Oral Soln 125 MG/5 ML (7500MG/300ML) BOTTLE PO SCH ×2 (01:56→09:11)
[2017-02-07] MEDS: LEVOTHYROXINE 100 MCG TABLET PO SCH (05:36)
[2017-02-07] MEDS: FLUTICASONE/SALMETEROL 500/50 UD INHALER INH SCH (06:24)
[2017-02-07 07:49] VITALS: RESP 16; TEMP 98.2
[2017-02-07] MEDS: MORPHINE SULFATE 2 MG/1 ML IVP PRN (08:00)
[2017-02-07] MEDS ORDERED: Sodium Chloride 0.9% 1,000 ML PRIMARY IV ONE (08:20)
[2017-02-07 08:39] LABS: BASOPHILS # (AUTO) 0.03 10*3/UL; BASOPHILS % (AUTO) 0.4 % (0-1); EOSINOPHILS # (AUTO) 0.02 10*3/UL; EOSINOPHILS % (AUTO) 0.2 % (0-8); HEMATOCRIT 31.2 % (42.0-52.0); HEMOGLOBIN 10.7 g/dL (14.0-18.0); MEAN CORPUSCULAR HEMOGLOBIN 31.5 PG (27-31); MEAN CORPUSCULAR HGB CONC 34.3 g/dL (33-37); MEAN CORPUSCULAR VOLUME 91.8 FL (80-90); MONOCYTES # (AUTO) 0.75 10*3/UL (0.3-0.8); MONOCYTES % (AUTO) 9.4 % (5-15); NEUTROPHILS # (AUTO) 6.04 10*3/UL; NEUTROPHILS % (AUTO) 75.4 % (50-80)
[2017-02-07 08:41] LABS: PLATELET MORPHOLOGY COMMENT NORMAL MORPHOLOGY (NORM); RBC MORPHOLOGY COMMENT NORMAL MORPHOLOGY (NORM); WBC MORPHOLOGY COMMENT NORMAL MORPHOLOGY (NORM)
[2017-02-07 08:48] LABS: BLOOD UREA NITROGEN 7 mg/dL (7-22); SERUM ALBUMIN 2.5 g/dL (3.5-4.8)
[2017-02-07] MEDS: Calcium/Vit D 600mg/400u Tab 1 TAB TABLET PO SCH (09:11)
[2017-02-07] MEDS: PANTOPRAZOLE 40 MG TABLET PO SCH (09:12)
[2017-02-07] MEDS: TAMSULOSIN 0.4 MG CAPSULE PO SCH (09:12)
[2017-02-07] MEDS: Levofloxacin 750mg (Premix) 750 MG in Dextrose 1 BAG IV SCH (09:12)
[2017-02-07] MEDS: NORMAL SALINE 10 ML SYRINGE FLUSH IVP PRN (09:13)
[2017-02-07] MEDS ORDERED: THIAMINE 100 MG/1 ML - 2 ML ONE (09:52)
[2017-02-07] MEDS ORDERED: FOLIC ACID 5 MG/1 ML - 10 ML ONE (09:52)
[2017-02-07] MEDS ORDERED: MVI, ADULT NO.1 WITH VIT K 10 ML VIAL IV ONE (09:52)
[2017-02-07] MEDS ORDERED: Sodium Chloride 0.9% 1,000 ML ONE (09:52)
--- NOTE | 2017-02-07 10:00 | PT.PROG ---
Progress Note Progress Note: S: pt reports he is not up to participate in therapy today despite max verbal cues and encouragement from PT.
--- NOTE | 2017-02-07 10:01 | PDOC(PROG) ---
Interval History: See discharge summary Objective : Data - Labs CBC and BMP: 02/07/17 08:35 02/07/17 08:35 Labs - Last 24 Hours: Laboratory Results 02/07/17 Range/Units 08:35 WBC 8.01 (4.8-10.8) 10^3/uL RBC 3.40 L (4.70-6.10) 10^6/uL Hgb 10.7 L (14.0-18.0) g/dL Hct 31.2 L (42.0-52.0) % MCV 91.8 H (80-90) FL MCH 31.5 H (27-31) PG MCHC 34.3 (33-37) g/dL RDW Std Deviation 54.8 H (39-50) fL RDW Coeff of Isabelle 17.0 H (11.5-14.5) % Plt Count 301 (140-350) 10*3/uL MPV 9.0 (7.4-12.2) FL Immature Gran % (Auto) 0.9 (0-5) % Neut % (Auto) 75.4 (50-80) % Lymph % (Auto) 13.7 (10-50) % [place] % (Auto) 9.4 (5-15) % Eos % (Auto) 0.2 (0-8) % Baso % (Auto) 0.4 (0-1) % Immature Gran # (Auto) 0.07 10*3/UL Neut # (Auto) 6.04 10*3/UL Lymph # (Auto) 1.10 10*3/uL [place] # (Auto) 0.75 (0.3-0.8) 10*3/UL Eos # (Auto) 0.02 10*3/UL Baso # (Auto) 0.03 10*3/UL WBC Morphology Comment Normal morphology (NORM) Plt Morphology Comment Normal morphology (NORM) RBC Morph Comment Normal morphology (NORM) Sodium 125 L (135-145) meq/L Potassium 3.1 L (3.8-5.2) meq/L Chloride 94 L (98-112) meq/L Carbon Dioxide 25 (23-33) meq/L Anion Gap 6 (5-20) BUN 7 (7-22) mg/dL Creatinine 0.5 L (0.70-1.50) mg/dL Estimated GFR [employer] Sales Developer BUN/Creatinine Ratio 14.00 (6-20) Glucose 124 H (78-110) mg/dL Calculated Osmolality 258.0 L (267-292) mOsm/kg Calcium 7.0 L (8.7-10.7) mg/dL Total Bilirubin 0.8 (0.3-1.2) mg/dL AST 47 (21-57) IU/L ALT 45 (21-72) IU/L Alkaline Phosphatase 54 (38-126) IU/L Total Protein 4.9 L (6.1-8.0) g/dL Albumin 2.5 L (3.5-4.8) g/dL Globulin 2.4 L (2.50-4.10) g/dL Albumin/Globulin Ratio 1.00 L (1.3-2.0) mg/g TSH 5.63 H (0.2700-4.2000) uIU/mL Free T4 Pending Assessment and Plan - Patient Problems (1) C. difficile colitis Current Visit: Yes Status: Acute Comment: cont po vanco (2) Cachexia Current Visit: Yes Status: Acute Comment: secondary to end stage lung desase gave banana bag (3) Chronic obstructive lung disease Current Visit: Yes Status: Acute Comment: cont inhalers (4) GI bleed Current Visit: Yes Status: Acute Comment: stable s/p egd om ppi (5) Hyponatremia Current Visit: Yes Status: Acute Comment: sec to cachexia (6) Urinary obstruction Current Visit: Yes Status: Acute Comment: resolved (7) Infiltrate noted on imaging study Current Visit: Yes Status: Acute Comment: cont levaquin (8) Hypotension Current Visit: Yes Status: Acute Comment: 1 liter bolus (9) Hypokalemia Current Visit: Yes Status: Acute Comment: replace with 40 bid (10) Hypothyroidism Current Visit: No Status: Chronic Comment: increse dose to 125 mcg thsh 5.95 Qualifiers: Hypothyroidism type: acquired Qualified Description: Acquired hypothyroidism Qualifier Code(s): (E03.9) Hypothyroidism, unspecified Photo / Body Diagrams - Uploaded Photos Uploaded Photos:
[2017-02-07 10:07] LABS: FREE T4 (FREE THYROXINE) 1.28 ng/dL (0.93-1.71)
[2017-02-07] MEDS: Metoprolol TARTRATE Tab 25 MG TAB PO SCH (10:26)
[2017-02-07] MEDS: Sodium Chloride 0.9% 1,000 ML with Multivitamin Inj 10 ML, Thiamine Inj 100 MG, Folic A... IV SCH ×5 (11:08)
--- NOTE | 2017-02-07 11:25 | DCSUMMARY ---
Hospitalization Summary Hospital Course: Final Discharge Diagnosis: Current Visit Problems Problem Status Priority Diagnosed Code C. difficile colitis Acute A04.7 Cachexia Acute R64 Chronic obstructive lung disease Acute J44.9 GI bleed Acute K92.2 Gastrointestinal bleeding, upper Acute K92.2 Hypokalemia Acute E87.6 Hyponatremia Acute E87.1 Hypotension Acute I95.9 Infiltrate noted on imaging study Acute R93.8 Urinary obstruction Acute N13.9 Diagnostic Data, Laboratory Data, and Procedures of Signifigance: Laboratory Results 02/01/17 02/01/17 02/01/17 Range/Units 07:00 07:08 07:12 WBC (4.8-10.8) 10^3/uL RBC (4.70-6.10) 10^6/uL Hgb (14.0-18.0) g/dL Hct (42.0-52.0) % MCV (80-90) FL MCH (27-31) PG MCHC (33-37) g/dL RDW Std Deviation (39-50) fL RDW Coeff of Isabelle (11.5-14.5) % Plt Count (140-350) 10*3/uL MPV (7.4-12.2) FL Immature Gran % (Auto) (0-5) % Neut % (Auto) (50-80) % Lymph % (Auto) (10-50) % Charlton % (Auto) (5-15) % Eos % (Auto) (0-8) % Baso % (Auto) (0-1) % Immature Gran # (Auto) 10*3/UL Neut # (Auto) 10*3/UL Lymph # (Auto) 10*3/uL Charlton # (Auto) (0.3-0.8) 10*3/UL Eos # (Auto) 10*3/UL Baso # (Auto) 10*3/UL WBC Morphology Comment (NORM) Plt Morphology Comment (NORM) RBC Morph Comment (NORM) PT 12.7 H (9.7-11.4) secs INR 1.23 (0.00-5.90) N/A APTT 38.3 H (22.6-31.3) SECS VBG pH 7.34 (7.32-7.42) VBG pCO2 28 L (45-55) mmHg VBG HCO3 15 L (22-26) mmol/L VBG Base Excess -10 L (-2-2) MMOL/L Sodium 130 L (135-145) meq/L Potassium 3.5 L (3.8-5.2) meq/L Chloride 104 (98-112) meq/L Carbon Dioxide 19 L (23-33) meq/L Anion Gap 7 (5-20) BUN 26 H (7-22) mg/dL Creatinine 0.8 (0.70-1.50) mg/dL Estimated GFR (>60 ml/min/1.73m(2)) BUN/Creatinine Ratio 32.50 H (6-20) Glucose 98 (78-110) mg/dL Calculated Osmolality 274.0 (267-292) mOsm/kg Lactic Acid 2.0 (0.70-2.10) MMOL/L Calcium 6.4 L (8.7-10.7) mg/dL Phosphorus (2.5 - 4.5) mg/dL Magnesium 2.0 (1.6-2.4) mg/dL Total Bilirubin 1.4 H (0.3-1.2) mg/dL AST 23 (21-57) IU/L ALT 41 (21-72) IU/L Alkaline Phosphatase 31 L (38-126) IU/L Total Protein 4.3 L (6.1-8.0) g/dL Albumin 2.4 L (3.5-4.8) g/dL Globulin 1.9 L (2.50-4.10) g/dL Albumin/Globulin Ratio 1.20 L (1.3-2.0) mg/g Amylase 60 (30-110) U/L Lipase 99 (23-300) IU/L Vitamin D 25-Hydroxy (30-100) NG/ML TSH (0.2700-4.2000) uIU/mL Free T4 (0.93-1.71) ng/dL Creatinine (PTH) (0.8-1.3) mg/dL Ur Collection Type Urine Color Urine Clarity (CLEAR) Urine pH (5.0-8.5) Ur Specific [place] (1.005-1.030) Urine Protein (NEG) mg/dl Urine Glucose (UA) (NEG) mg/dL Urine Ketones (NEG) Urine Occult Blood (NEG) Urine Nitrate (NEG) Urine Bilirubin (NEG) Urine Urobilinogen (0.2) EU/dL Ur Leukocyte Esterase (NEG) Urine RBC (NONE) /hpf Urine WBC (NONE) Ur Squamous Epith Cells (NONE) Ur Renal Epithelial Cell (NONE) Urine Crystals Urine Bacteria (NONE) Urine Casts (NONE) Urine Mucus (NONE) Urine Trichomonas (NONE) Urine Yeast (NONE) Ur Culture Indicated? H. pylori Urease Test (NEGATIVE) Blood Type A POSITIVE Antibody Screen Negative Crossmatch See Detail 02/01/17 02/01/17 02/01/17 Range/Units 07:13 15:45 20:57 WBC 12.72 H 15.11 H (4.8-10.8) 10^3/uL RBC 2.49 L 3.88 L (4.70-6.10) 10^6/uL Hgb 8.1 L 12.3 L (14.0-18.0) g/dL Hct 24.3 L 35.4 L (42.0-52.0) % MCV 97.6 H 91.2 H (80-90) FL MCH 32.5 H 31.7 H (27-31) PG MCHC 33.3 34.7 (33-37) g/dL RDW Std Deviation 56.5 H 57.1 H (39-50) fL RDW Coeff of Isabelle 16.7 H 17.7 H (11.5-14.5) % Plt Count 285 268 (140-350) 10*3/uL MPV 9.0 8.8 (7.4-12.2) FL Immature Gran % (Auto) 0.6 0.4 (0-5) % Neut % (Auto) 79.6 79.1 (50-80) % Lymph % (Auto) 9.7 L 9.7 L (10-50) % Charlton % (Auto) 9.9 10.7 (5-15) % Eos % (Auto) 0.1 0 (0-8) % Baso % (Auto) 0.1 0.1 (0-1) % Immature Gran # (Auto) 0.07 0.06 10*3/UL Neut # (Auto) 10.13 11.95 10*3/UL Lymph # (Auto) 1.24 1.47 10*3/uL Charl[place] # (Auto) 1.26 H 1.61 H (0.3-0.8) 10*3/UL Eos # (Auto) 0.01 0 10*3/UL Baso # (Auto) 0.01 0.02 10*3/UL WBC Morphology Comment Normal morphology Normal morphology (NORM) Plt Morphology Comment Normal morphology Normal morphology (NORM) RBC Morph Comment Normal morphology Normal morphology (NORM) PT (9.7-11.4) secs INR (0.00-5.90) N/A APTT (22.6-31.3) SECS VBG pH (7.32-7.42) VBG pCO2 (45-55) mmHg VBG HCO3 (22-26) mmol/L VBG Base Excess (-2-2) MMOL/L Sodium 129 L (135-145) meq/L Potassium 4.8 D (3.8-5.2) meq/L Chloride 101 (98-112) meq/L Carbon Dioxide 23 (23-33) meq/L Anion Gap 5 (5-20) BUN 25 H (7-22) mg/dL Creatinine 0.8 (0.70-1.50) mg/dL Estimated GFR (>60 ml/min/1.73m(2)) BUN/Creatinine Ratio 31.25 H (6-20) Glucose 95 (78-110) mg/dL Calculated Osmolality 271.0 (267-292) mOsm/kg Lactic Acid (0.70-2.10) MMOL/L Calcium 6.9 L (8.7-10.7) mg/dL Phosphorus (2.5 - 4.5) mg/dL Magnesium (1.6-2.4) mg/dL Total Bilirubin (0.3-1.2) mg/dL AST (21-57) IU/L ALT (21-72) IU/L Alkaline Phosphatase (38-126) IU/L Total Protein (6.1-8.0) g/dL Albumin (3.5-4.8) g/dL Globulin (2.50-4.10) g/dL Albumin/Globulin Ratio (1.3-2.0) mg/g Amylase (30-110) U/L Lipase (23-300) IU/L Vitamin D 25-Hydroxy (30-100) NG/ML TSH (0.2700-4.2000) uIU/mL Free T4 (0.93-1.71) ng/dL Creatinine (PTH) (0.8-1.3) mg/dL Ur Collection Type Clean catch urine Urine Color Yellow Urine Clarity Clear (CLEAR) Urine pH 7.0 (5.0-8.5) Ur Specific [place] 1.020 (1.005-1.030) Urine Protein 100 (NEG) mg/dl Urine Glucose (UA) Negative (NEG) mg/dL Urine Ketones 15 (NEG) Urine Occult Blood Negative (NEG) Urine Nitrate Negative (NEG) Urine Bilirubin Negative (NEG) Urine Urobilinogen 1.0 (0.2) EU/dL Ur Leukocyte Esterase Negative (NEG) Urine RBC 2-3 (NONE) /hpf Urine WBC 1-2 (NONE) Ur Squamous Epith Cells Few (NONE) Ur Renal Epithelial Cell None (NONE) Urine Crystals None Urine Bacteria None (NONE) Urine Casts Few (NONE) Urine Mucus Few (NONE) Urine Trichomonas None (NONE) Urine Yeast None (NONE) Ur Culture Indicated? Culture not set H. pylori Urease Test (NEGATIVE) Blood Type Antibody Screen Crossmatch 02/02/17 02/02/17 02/03/17 Range/Units 04:33 17:19 04:29 WBC 14.41 H 15.96 H (4.8-10.8) 10^3/uL RBC 3.88 L 3.88 L (4.70-6.10) 10^6/uL Hgb 12.0 L 11.9 L 12.1 L (14.0-18.0) g/dL Hct 35.9 L 35.5 L 35.7 L (42.0-52.0) % MCV 92.5 H 92.0 H (80-90) FL MCH 30.9 31.2 H (27-31) PG MCHC 33.4 33.9 (33-37) g/dL RDW Std Deviation 59.8 H 57.5 H (39-50) fL RDW Coeff of Isabelle 18.2 H 17.5 H (11.5-14.5) % Plt Count 279 230 (140-350) 10*3/uL MPV 9.7 10.2 (7.4-12.2) FL Immature Gran % (Auto) 0.3 0.6 (0-5) % Neut % (Auto) 77.0 76.5 (50-80) % Lymph % (Auto) 11.5 9.4 L (10-50) % Charlton % (Auto) 10.9 12.2 (5-15) % Eos % (Auto) 0.2 1.1 (0-8) % Baso % (Auto) 0.1 0.2 (0-1) % Immature Gran # (Auto) 0.04 0.10 10*3/UL Neut # (Auto) 11.11 12.20 10*3/UL Lymph # (Auto) 1.65 1.50 10*3/uL Charl[place] # (Auto) 1.57 H 1.95 H (0.3-0.8) 10*3/UL Eos # (Auto) 0.03 0.18 10*3/UL Baso # (Auto) 0.01 0.03 10*3/UL WBC Morphology Comment Normal morphology Normal morphology (NORM) Plt Morphology Comment Normal morphology Normal morphology (NORM) RBC Morph Comment Normal morphology Normal morphology (NORM) PT (9.7-11.4) secs INR (0.00-5.90) N/A APTT (22.6-31.3) SECS VBG pH (7.32-7.42) VBG pCO2 (45-55) mmHg VBG HCO3 (22-26) mmol/L VBG Base Excess (-2-2) MMOL/L Sodium 129 L 125 L (135-145) meq/L Potassium 4.2 4.6 (3.8-5.2) meq/L Chloride 100 98 (98-112) meq/L Carbon Dioxide 22 L 17 L (23-33) meq/L Anion Gap 7 10 (5-20) BUN 21 15 (7-22) mg/dL Creatinine 0.8 0.6 L (0.70-1.50) mg/dL Estimated GFR Calender Machine Operator Helper (>60 ml/min/1.73m(2)) BUN/Creatinine Ratio 26.25 H 25.00 H (6-20) Glucose 79 59 L (78-110) mg/dL Calculated Osmolality 269.0 258.0 L (267-292) mOsm/kg Lactic Acid (0.70-2.10) MMOL/L Calcium 6.8 L 6.7 L (8.7-10.7) mg/dL Phosphorus (2.5 - 4.5) mg/dL Magnesium (1.6-2.4) mg/dL Total Bilirubin 2.0 H 2.4 H (0.3-1.2) mg/dL AST 26 25 (21-57) IU/L ALT 42 37 (21-72) IU/L Alkaline Phosphatase 43 36 L (38-126) IU/L Total Protein 5.3 L 4.7 L (6.1-8.0) g/dL Albumin 2.9 L 2.6 L (3.5-4.8) g/dL Globulin 2.4 L 2.1 L (2.50-4.10) g/dL Albumin/Globulin Ratio 1.20 L 1.20 L (1.3-2.0) mg/g Amylase (30-110) U/L Lipase (23-300) IU/L Vitamin D 25-Hydroxy (30-100) NG/ML TSH (0.2700-4.2000) uIU/mL Free T4 (0.93-1.71) ng/dL Creatinine (PTH) (0.8-1.3) mg/dL Ur Collection Type Urine Color Urine Clarity (CLEAR) Urine pH (5.0-8.5) Ur Specific [place] (1.005-1.030) Urine Protein (NEG) mg/dl Urine Glucose (UA) (NEG) mg/dL Urine Ketones (NEG) Urine Occult Blood (NEG) Urine Nitrate (NEG) Urine Bilirubin (NEG) Urine Urobilinogen (0.2) EU/dL Ur Leukocyte Esterase (NEG) Urine RBC (NONE) /hpf Urine WBC (NONE) Ur Squamous Epith Cells (NONE) Ur Renal Epithelial Cell (NONE) Urine Crystals Urine Bacteria (NONE) Urine Casts (NONE) Urine Mucus (NONE) Urine Trichomonas (NONE) Urine Yeast (NONE) Ur Culture Indicated? H. pylori Urease Test (NEGATIVE) Blood Type Antibody Screen Crossmatch 02/03/17 02/04/17 02/04/17 Range/Units 08:08 04:37 04:43 WBC 16.84 H (4.8-10.8) 10^3/uL RBC 3.52 L (4.70-6.10) 10^6/uL Hgb 10.9 L (14.0-18.0) g/dL Hct 32.7 L (42.0-52.0) % MCV 92.9 H (80-90) FL MCH 31.0 (27-31) PG MCHC 33.3 (33-37) g/dL RDW Std Deviation 55.7 H (39-50) fL RDW Coeff of Isabelle 16.9 H (11.5-14.5) % Plt Count 254 (140-350) 10*3/uL MPV 9.5 (7.4-12.2) FL Immature Gran % (Auto) 1.2 (0-5) % Neut % (Auto) 82.7 H (50-80) % Lymph % (Auto) 7.4 L (10-50) % [place] % (Auto) 8.4 (5-15) % Eos % (Auto) 0 (0-8) % Baso % (Auto) 0.3 (0-1) % Immature Gran # (Auto) 0.21 10*3/UL Neut # (Auto) 13.93 10*3/UL Lymph # (Auto) 1.24 10*3/uL [place] # (Auto) 1.41 H (0.3-0.8) 10*3/UL Eos # (Auto) 0 10*3/UL Baso # (Auto) 0.05 10*3/UL WBC Morphology Comment Normal morphology (NORM) Plt Morphology Comment Normal morphology (NORM) RBC Morph Comment Normal morphology (NORM) PT (9.7-11.4) secs INR (0.00-5.90) N/A APTT (22.6-31.3) SECS VBG pH (7.32-7.42) VBG pCO2 (45-55) mmHg VBG HCO3 (22-26) mmol/L VBG Base Excess (-2-2) MMOL/L Sodium 124 L (135-145) meq/L Potassium 4.0 (3.8-5.2) meq/L Chloride 95 L (98-112) meq/L Carbon Dioxide 22 L (23-33) meq/L Anion Gap 7 (5-20) BUN 11 (7-22) mg/dL Creatinine 0.6 L (0.70-1.50) mg/dL Estimated GFR Calender Machine Operator Helper (>60 ml/min/1.73m(2)) BUN/Creatinine Ratio 18.33 (6-20) Glucose 116 H (78-110) mg/dL Calculated Osmolality 257.0 L (267-292) mOsm/kg Lactic Acid (0.70-2.10) MMOL/L Calcium 7.1 L (8.7-10.7) mg/dL Phosphorus 1.1 L (2.5 - 4.5) mg/dL Magnesium (1.6-2.4) mg/dL Total Bilirubin (0.3-1.2) mg/dL AST (21-57) IU/L ALT (21-72) IU/L Alkaline Phosphatase (38-126) IU/L Total Protein (6.1-8.0) g/dL Albumin (3.5-4.8) g/dL Globulin (2.50-4.10) g/dL Albumin/Globulin Ratio (1.3-2.0) mg/g Amylase (30-110) U/L Lipase (23-300) IU/L Vitamin D 25-Hydroxy 13.9 L (30-100) NG/ML TSH (0.2700-4.2000) uIU/mL Free T4 (0.93-1.71) ng/dL Creatinine (PTH) 0.6 L (0.8-1.3) mg/dL Ur Collection Type Urine Color Urine Clarity (CLEAR) Urine pH (5.0-8.5) Ur Specific [place] (1.005-1.030) Urine Protein (NEG) mg/dl Urine Glucose (UA) (NEG) mg/dL Urine Ketones (NEG) Urine Occult Blood (NEG) Urine Nitrate (NEG) Urine Bilirubin (NEG) Urine Urobilinogen (0.2) EU/dL Ur Leukocyte Esterase (NEG) Urine RBC (NONE) /hpf Urine WBC (NONE) Ur Squamous Epith Cells (NONE) Ur Renal Epithelial Cell (NONE) Urine Crystals Urine Bacteria (NONE) Urine Casts (NONE) Urine Mucus (NONE) Urine Trichomonas (NONE) Urine Yeast (NONE) Ur Culture Indicated? H. pylori Urease Test Negative (NEGATIVE) Blood Type Antibody Screen Crossmatch 02/04/17 02/04/17 02/05/17 Range/Units 14:23 14:26 04:22 WBC 14.15 H (4.8-10.8) 10^3/uL RBC 3.41 L (4.70-6.10) 10^6/uL Hgb 10.6 L (14.0-18.0) g/dL Hct 31.6 L (42.0-52.0) % MCV 92.7 H (80-90) FL MCH 31.1 H (27-31) PG MCHC 33.5 (33-37) g/dL RDW Std Deviation 55.3 H (39-50) fL RDW Coeff of Isabelle 16.8 H (11.5-14.5) % Plt Count 275 (140-350) 10*3/uL MPV 9.4 (7.4-12.2) FL Immature Gran % (Auto) 0.8 (0-5) % Neut % (Auto) 79.6 (50-80) % Lymph % (Auto) 9.7 L (10-50) % [place] % (Auto) 9.5 (5-15) % Eos % (Auto) 0.1 (0-8) % Baso % (Auto) 0.3 (0-1) % Immature Gran # (Auto) 0.12 10*3/UL Neut # (Auto) 11.25 10*3/UL Lymph # (Auto) 1.37 10*3/uL [place] # (Auto) 1.35 H (0.3-0.8) 10*3/UL Eos # (Auto) 0.02 10*3/UL Baso # (Auto) 0.04 10*3/UL WBC Morphology Comment Normal morphology (NORM) Plt Morphology Comment Normal morphology (NORM) RBC Morph Comment Normal morphology (NORM) PT (9.7-11.4) secs INR (0.00-5.90) N/A APTT (22.6-31.3) SECS VBG pH 7.45 H (7.32-7.42) VBG pCO2 30 L (45-55) mmHg VBG HCO3 21 L (22-26) mmol/L VBG Base Excess -3 L (-2-2) MMOL/L Sodium 126 L (135-145) meq/L Potassium 3.8 (3.8-5.2) meq/L Chloride 96 L (98-112) meq/L Carbon Dioxide 24 (23-33) meq/L Anion Gap 6 (5-20) BUN 9 (7-22) mg/dL Creatinine 0.6 L (0.70-1.50) mg/dL Estimated GFR Calender Machine Operator Helper (>60 ml/min/1.73m(2)) BUN/Creatinine Ratio 15.00 (6-20) Glucose 97 (78-110) mg/dL Calculated Osmolality 260.0 L (267-292) mOsm/kg Lactic Acid (0.70-2.10) MMOL/L Calcium 7.0 L (8.7-10.7) mg/dL Phosphorus (2.5 - 4.5) mg/dL Magnesium 2.1 (1.6-2.4) mg/dL Total Bilirubin 1.3 H (0.3-1.2) mg/dL AST 19 L (21-57) IU/L ALT 33 (21-72) IU/L Alkaline Phosphatase 51 (38-126) IU/L Total Protein 4.8 L (6.1-8.0) g/dL Albumin 2.5 L (3.5-4.8) g/dL Globulin 2.3 L (2.50-4.10) g/dL Albumin/Globulin Ratio 1.00 L (1.3-2.0) mg/g Amylase (30-110) U/L Lipase (23-300) IU/L Vitamin D 25-Hydroxy (30-100) NG/ML TSH (0.2700-4.2000) uIU/mL Free T4 (0.93-1.71) ng/dL Creatinine (PTH) (0.8-1.3) mg/dL Ur Collection Type Urine Color Urine Clarity (CLEAR) Urine pH (5.0-8.5) Ur Specific [place] (1.005-1.030) Urine Protein (NEG) mg/dl Urine Glucose (UA) (NEG) mg/dL Urine Ketones (NEG) Urine Occult Blood (NEG) Urine Nitrate (NEG) Urine Bilirubin (NEG) Urine Urobilinogen (0.2) EU/dL Ur Leukocyte Esterase (NEG) Urine RBC (NONE) /hpf Urine WBC (NONE) Ur Squamous Epith Cells (NONE) Ur Renal Epithelial Cell (NONE) Urine Crystals Urine Bacteria (NONE) Urine Casts (NONE) Urine Mucus (NONE) Urine Trichomonas (NONE) Urine Yeast (NONE) Ur Culture Indicated? H. pylori Urease Test (NEGATIVE) Blood Type Antibody Screen Crossmatch 02/06/17 02/07/17 Range/Units 05:26 08:35 WBC 9.67 8.01 (4.8-10.8) 10^3/uL RBC 3.43 L 3.40 L (4.70-6.10) 10^6/uL Hgb 10.5 L 10.7 L (14.0-18.0) g/dL Hct 31.5 L 31.2 L (42.0-52.0) % MCV 91.8 H 91.8 H (80-90) FL MCH 30.6 31.5 H (27-31) PG MCHC 33.3 34.3 (33-37) g/dL RDW Std Deviation 54.7 H 54.8 H (39-50) fL RDW Coeff of Isabelle 16.7 H 17.0 H (11.5-14.5) % Plt Count 282 301 (140-350) 10*3/uL MPV 9.4 9.0 (7.4-12.2) FL Immature Gran % (Auto) 0.8 0.9 (0-5) % Neut % (Auto) 72.5 75.4 (50-80) % Lymph % (Auto) 14.3 13.7 (10-50) % [place] % (Auto) 11.7 9.4 (5-15) % Eos % (Auto) 0.3 0.2 (0-8) % Baso % (Auto) 0.4 0.4 (0-1) % Immature Gran # (Auto) 0.08 0.07 10*3/UL Neut # (Auto) 7.01 6.04 10*3/UL Lymph # (Auto) 1.38 1.10 10*3/uL [place] # (Auto) 1.13 H 0.75 (0.3-0.8) 10*3/UL Eos # (Auto) 0.03 0.02 10*3/UL Baso # (Auto) 0.04 0.03 10*3/UL WBC Morphology Comment Normal morphology Normal morphology (NORM) Plt Morphology Comment Normal morphology Normal morphology (NORM) RBC Morph Comment Normal morphology Normal morphology (NORM) PT (9.7-11.4) secs INR (0.00-5.90) N/A APTT (22.6-31.3) SECS VBG pH (7.32-7.42) VBG pCO2 (45-55) mmHg VBG HCO3 (22-26) mmol/L VBG Base Excess (-2-2) MMOL/L Sodium 124 L 125 L (135-145) meq/L Potassium 3.3 L 3.1 L (3.8-5.2) meq/L Chloride 96 L 94 L (98-112) meq/L Carbon Dioxide 23 25 (23-33) meq/L Anion Gap 5 6 (5-20) BUN 6 L 7 (7-22) mg/dL Creatinine 0.5 L 0.5 L (0.70-1.50) mg/dL Estimated GFR Calender Machine Operator Helper Calender Machine Operator Helper (>60 ml/min/1.73m(2)) BUN/Creatinine Ratio 12.00 14.00 (6-20) Glucose 117 H 124 H (78-110) mg/dL Calculated Osmolality 256.0 L 258.0 L (267-292) mOsm/kg Lactic Acid (0.70-2.10) MMOL/L Calcium 6.9 L 7.0 L (8.7-10.7) mg/dL Phosphorus (2.5 - 4.5) mg/dL Magnesium (1.6-2.4) mg/dL Total Bilirubin 0.8 0.8 (0.3-1.2) mg/dL AST 26 47 (21-57) IU/L ALT 34 45 (21-72) IU/L Alkaline Phosphatase 65 54 (38-126) IU/L Total Protein 4.9 L 4.9 L (6.1-8.0) g/dL Albumin 2.5 L 2.5 L (3.5-4.8) g/dL Globulin 2.4 L 2.4 L (2.50-4.10) g/dL Albumin/Globulin Ratio 1.00 L 1.00 L (1.3-2.0) mg/g Amylase (30-110) U/L Lipase (23-300) IU/L Vitamin D 25-Hydroxy (30-100) NG/ML TSH 5.63 H (0.2700-4.2000) uIU/mL Free T4 1.28 (0.93-1.71) ng/dL Creatinine (PTH) (0.8-1.3) mg/dL Ur Collection Type Urine Color Urine Clarity (CLEAR) Urine pH (5.0-8.5) Ur Specific [place] (1.005-1.030) Urine Protein (NEG) mg/dl Urine Glucose (UA) (NEG) mg/dL Urine Ketones (NEG) Urine Occult Blood (NEG) Urine Nitrate (NEG) Urine Bilirubin (NEG) Urine Urobilinogen (0.2) EU/dL Ur Leukocyte Esterase (NEG) Urine RBC (NONE) /hpf Urine WBC (NONE) Ur Squamous Epith Cells (NONE) Ur Renal Epithelial Cell (NONE) Urine Crystals Urine Bacteria (NONE) Urine Casts (NONE) Urine Mucus (NONE) Urine Trichomonas (NONE) Urine Yeast (NONE) Ur Culture Indicated? H. pylori Urease Test (NEGATIVE) Blood Type Antibody Screen Crossmatch Microbiology 02/01/17 07:15 Blood Blood Culture - Final NO GROWTH AFTER 5 DAYS 02/01/17 07:12 Blood Blood Culture - Final NO GROWTH AFTER 5 DAYS 02/01/17 10:15 Stool WBC Smear - Final 02/01/17 10:15 Stool Stool Culture - Final 02/01/17 10:15 Stool Cryptosporidium/Giardia - Final 02/01/17 10:15 Stool Clostridium difficile (PCR) - Final History and Physical pertinent to Admission: This is a 76 years old male with medical history significant for history of COPD on oxygen, history of coronary artery disease with previous stent and history of atrial fibrillation was on Coumadin and recently was switched to Xarelto, he had 2 recent admission to the hospital for COPD exacerbation the last one was end of December who came into the hospital with history of diarrhea that started 2-3 days ago, he said he want multiple times yesterday maybe more than 10 times he didn't notice bleeding, he said he didn't pay attention, had nausea and decreased appetite and abdominal pain initially describe it in the lower abdomen but today is more like heartburn in the epigastrium. He said he got up today and he passed out son helped him to get up and they called the medics and brought him here. In the ER blood tests showed a hemoglobin of 8.1 in addition he was guaiac positive. He was given fluids and was admitted. He did get also Protonix in the ER. He is denying chest pain, says always short of breath, abdominal pain mainly now in the epigastric area it was earlier in the lower abdomen. No vomiting he said he was just nauseated. Past Medical History Medical History: 1. COPD with chronic hypoxemic respiratory failure, oxygen at home which she intermittently takes during the day, and is on all the time at night. He has pulmonary cachexia as well. He is on daily steroids and Zithromax to try and prevent exacerbations. 2. Hypothyroidism. 3. Coronary artery disease with previous stent in 2013. 4. Atrial fibrillation, he was switched over to Xarelto recently. 5. Chronic pain syndrome. 6. Pulmonary cachexia and loss of weight. Surgical History: 1. Appendectomy. 2. Previous knee replacement. 3. Cervical neck fusion 2012 Family History: Reviewed an Not Pertinent Pertinent Family History: Father of coronary artery disease and myocardial infarction. He's not sure what his mother passed on from. Past Social History: He smokes one pack a day, drinks nearly every day no drugs. Has 2 children, a son who lives here in [place]. His ex- also helps take care of him. He states he has not had anything to smoke since we put a nicotine patch on him on his prior hospital stay. Tobacco Use: Former Smoker Substance Use Type: None Alcohol Use: Occasionally Course of Hospitalization: Is a very nice 76-year-old gentleman with end-stage lung disease oxygen dependent also has a history of coronary artery disease with previous stent and atrial fibrillation on Xarelto comes in with the GI bleed. He was home on hospice for the his end-stage lung disease but he says he had gained 20 pounds and was discharged from hospice he had an EGD done which showed some ulcerations upper GI bleed is stable now and is on by mouth Protonix twice a day and we have stopped his a anticoagulation he is all aware of this. He also has developed C. difficile colitis and is on by mouth Vanco his white count has improved also has a lung infiltrate and this is being treated with IV Levaquin. He had an episode of urinary retention Horn had to be inserted and this is resolved CT scan of his abdomen and pelvis showed enlarged prostate. PTOT was consult with patient is extremely weak they recommend nursing home facility patient says he does refuse this does not want to go to senior care and is not interested to in-house physical therapy he says he has a supportive family and that would like to go home at present time and he will decide in the future on what next steps to take. He states that he understand is very weak but he would like to be home at this time and if he had 2 he will call hospice again depending how on how things go. I am replacing his potassium he will be sent home on by mouth potassium pills he also had a bolus of IV fluids and a banana bag yesterday his blood pressure is improved. On the date of discharge, the patient was examined: Gen.: No acute distress, alert, nontoxic looks very weak and cachectic Heart: Regular rate and rhythm, no murmurs, clicks, gallops, or rubs Lungs: Clear to auscultation bilaterally, breathing is nonlabored Abdomen/GI: Normal tones on auscultation, soft, nontender, nondistended Musculoskeletal/extremities: No clubbing, cyanosis, or edema Vitals reviewed and are listed below Vital Signs (24 hrs) Temp Pulse Resp BP BP Pulse Ox 02/07/17 10:27 109/41 02/07/17 07:48 98.2 F 77 16 88/40 96 02/07/17 05:00 97.5 F 87 18 87/45 91 02/07/17 04:39 96 02/07/17 00:08 98.3 F 82 20 110/42 96 02/06/17 21:00 97.5 F 98 16 94/40 94 02/06/17 19:00 98 02/06/17 17:00 98.2 F 94 20 121/56 95 02/06/17 13:00 97.6 F 93 18 111/52 97 Assessment and Plan: 1. As per discharge assessments above 2. Disposition: Home 3. Condition on discharge, stable and improved. 4. Diet: regular diet 5. Activities: resume normal activities 6. Follow-Up: 1. PCP will follow-up with Dr. Mishra to whom I spoke to yesterday 2. 7. Medications at the Time of Discharge: Home Medications Medication Instructions Recorded Confirmed Type Aspirin Chewable Tab 324 mg PO ONCE (ED) #0 tab 08/05/14 02/01/17 Rx Metoprolol Tartrate Tab 12.5 mg PO BID #0 tablet 08/05/14 02/01/17 Rx [Lopressor Tab] Atorvastatin Calcium [Lipitor] 20 mg PO DAILY 11/10/14 02/01/17 History Albuterol Sulfate [Proair Hfa] 2 puff INH Q4-6H #3 inh 05/30/16 02/01/17 Clinic Albuterol Sulfate [Ventolin Hfa] 1 - 2 puff INH Q4-6H PRN #1 puff 05/30/1602/01 Clinic Budesonide/Formoterol Fumarate 6 gm IH BID #3 inhaler 05/30/16 02/01/17 Clinic [SYMBICORT] Nitroglycerin SL Tab [Nitrostat 0.4 mg SL PRN PRN #20 tab 05/30/16 02/01/17 Clinic SL Tab] Albuterol/Ipratropium Inhaler 4 gm IH QID #1 inhaler 07/15/16 02/01/17 Clinic [Combivent Respimat Inhaler] oxyCODONE/APAP 5/325 Tab 1 tab PO Q6H PRN 12/20/16 02/01/17 History [Percocet 5/325 Tab] ALPRAZolam Tab [Xanax Tab] 0.25 mg PO Q8H PRN #60 tab 12/23/16 02/01/17 Rx Albuterol Neb Soln 0.083% 2.5 mg NEB RTQ2H PRN #120 vial.neb 12/23/16 02/01/17 Rx Albuterol/Ipratrop Neb Soln 3 ml NEB RTQ6H #120 ampul.neb 12/23/16 02/01/17 Rx [Duoneb Neb Soln] Nicotine 21mg Patch [Nicoderm CQ 1 patch TRANSDERM DAILY #30 patch 12/23/1612/19 Rx 21mg Patch] Nicotine 2mg Gum [Nicorette 2mg 2 mg BUCCAL Q3H PRN #90 gum 12/23/16 02/01/17 Rx Gum] Tiotropium Inhalation Cap 18 mcg INH RTDAILY #30 inhaler 12/29/16 02/01/17 Rx [Spiriva Inhalation Cap] predniSONE Tab [Deltasone Tab] 30 mg PO DAILY #30 tab 12/29/16 02/01/17 Rx Levothyroxine Sodium [Synthroid] 125 mcg PO DAILY@0530 #30 tab 02/07/17 Rx Pantoprazole Sodium [Protonix] 40 mg PO BID #60 tab 02/07/17 Rx Potassium Chloride [Klor-Con] 40 meq PO BID MEALS #10 tab 02/07/17 Rx Tamsulosin HCl [Flomax] 0.4 mg PO DAILY #30 cap 02/07/17 Rx Vancomycin Oral Soln 250 mg PO Q6H #40 bottle 02/07/17 Rx 8. Time, care, counseling and coordination of care for this discharge is greater than 30 minutes. Exam - Vitals Vital Signs: Vital Signs Temperature 98.2 F Temperature Source Oral Pulse Rate [Apical] 72 Pulse Rate [Pulse Oximeter] 77 Pulse Rate [Telemetry] 76 Pulse Rate 73 Respiratory Rate 16 Blood Pressure [Right Arm] 109/41 Blood Pressure [Left Arm] 88/40 Blood Pressure 139/81 Pulse Ox 96 Oxygen Flow Rate 2 Oxygen Flow Rate 4 Oxygen Delivery Method Nasal Cannula Height 5 ft 7 in Weight 50.122 kg Patient Problems - Patient Problem List (1) C. difficile colitis Current Visit: Yes Status: Acute (2) Cachexia Current Visit: Yes Status: Acute (3) Chronic obstructive lung disease Current Visit: Yes Status: Acute (4) GI bleed Current Visit: Yes Status: Acute (5) Hyponatremia Current Visit: Yes Status: Acute (6) Urinary obstruction Current Visit: Yes Status: Acute (7) Infiltrate noted on imaging study Current Visit: Yes Status: Acute (8) Hypotension Current Visit: Yes Status: Acute (9) Hypokalemia Current Visit: Yes Status: Acute (10) Hypothyroidism Current Visit: No Status: Chronic Qualifiers: Hypothyroidism type: acquired Qualified Description: Acquired hypothyroidism Qualifier Code(s): (E03.9) Hypothyroidism, unspecified
[2017-02-07] MEDS ORDERED: POTASSIUM CHLORIDE 20 MEQ TAB PO SCH (17:00)
[2017-02-08] MEDS ORDERED: LEVOTHYROXINE 125 MCG TABLET PO SCH (05:30)
--- NOTE | 2017-02-09 10:46 | OTI REPORT ---
Thank you for the referral of Nino Spring. He was seen on 02/06/17 for an occupational therapy inpatient evaluation secondary to generalized weakness, rib fractures, and falling at home. SUBJECTIVE: The patient is a 76-year-old male who is being seen secondary to decreased function with his ADLs. The patient has had weight loss and lung difficulties as well as rib fractures. Prior to admission the patient was living at home by himself. The patient fell against his dresser at home approximately three weeks ago and broke the left side of his ribs. He says he has quite a bit of pain there and that his lungs had also "gone out". The patient does have COPD and has increased difficulty with his breathing. The patient reports he was doing most everything by himself including showering, cooking, driving, and getting around his home independently. The patient is typically on two liters of oxygen secondary to his COPD. He reports that he is somewhat limited because of his breathing difficulties. PAST MEDICAL HISTORY: Past medical history can be found in the patient's medical record. OBJECTIVE FINDINGS: Range of motion: Today the patient had shoulder range of motion from 0 to 100 degrees on the right and 0 to 40 degrees on the left. Elbow range of motion is within normal limits. Pain: The patient reports his pain in the ribs is a 6/10 on the verbal analog scale (0=no pain, 10=worst pain> Endurance: The patient does become short of breath very easily and has poor activity tolerance. Strength: Strength in shoulder flexion is 2+/5, strength in shoulder extension is 3/5, elbow flexion/extension is 3/5, and wrist flexion/extension is 3/5. Activities of daily living: The patient requires mod assist for lower extremity dressing and min assist for upper extremity dressing, mainly because of rib pain and also poor activity tolerance. Balance: The patient requires contact guard to min assist for balance for standing and use of a standard walker. ASSESSMENT: Problem List: Decreased activity tolerance Decreased strength Decreased ability to perform ADLs independently Decreased ability to perform functional transfers independently Short-Term Goals: To be met by discharge from inpatient: Patient will be able to dress self independently including set up. Patient will improve upper extremity strength to 4+/5 throughout his bilateral upper extremities. Patient will be able to demonstrate 2-3 energy conservation techniques independently to improve his activity tolerance. Patient will be able to complete all toilet and shower transfers with stand by assistance. Long-Term Goals: To be met following discharge from inpatient: Patient will be discharged home, independent and safe with all ADLs and functional transfers. TREATMENT PLAN: Patient will be seen B.I.D during the week and one time per day over the weekend as an inpatient to address the above goals and objectives. INITIAL TREATMENT: Treatment today consisted of the initial evaluation followed by the patient working on side lying while propped on forearm x6 minutes. The patient sat edge of bed and we placed Kinesio tape over his left ribs for pain management. The patient performed active assistive range of motion of the shoulders x5, elbows x5, and wrists x5 and that was all the patient stated he could tolerate. The patient transferred from sit to stand with contact guard assist. He was able to stand x2 minutes and then reported he was tired and needed to sit again. The patient then transferred back into bed with increased time and contact guard assist. JEN
== END 2017-02-07 12:36 | disposition home or self-care (01) | DRG 372 ==
LOC: ER 06:30 → ICU 08:49 → MED/SURG 02-03 05:55 → OPS 02-03 07:20 → MED/SURG 02-03 08:30
PROVIDERS: ADMIT Internal Medicine; ATTEND Internal Medicine
PROC: 0DB68ZX Excision of Stomach, Via Natural or Artificial Opening Endoscopic, Diagnostic (ICD-10-PCS; principal; 2017-02-03 08:00)
DX: A04.7 Enterocolitis due to Clostridium difficile (principal); R64 Cachexia; K92.2 Gastrointestinal hemorrhage, unspecified; E87.1 Hypo-osmolality and hyponatremia; J44.9 Chronic obstructive pulmonary disease, unspecified; E87.6 Hypokalemia; I95.9 Hypotension, unspecified; N13.9 Obstructive and reflux uropathy, unspecified; I48.91 Unspecified atrial fibrillation
CPT/HCPCS: 36415; 36430; 71020; 71250; 74177; 80048; 80053; 81001; 81003; 82150; 82306; 82310; 82565; 82803; 83605; 83690; 83735; 84100; 84439; 84443; 85014; 85018; 85025; 85610; 85730; 86850; 86900; 86901; 86922; 86970; 87040; 87046; 87205; 87328; 87329; 87339; 87493; 93005; 93010; 94640; 94761; 96361; 96374; 96375; 97110; 97116; 97161; 97166; 97530; 99285; J2270; J2405; J3411; J3475; J3490; J7030; J7040; J7050; J7120; J7620; P9016

== ENCOUNTER → 2017-02-10 | Outpatient (CLI) | payer OTHER | LOC: MMPC 09:00 | PROVIDERS: ATTEND Family Medicine | DX: J43.2 Centrilobular emphysema (principal); I25.10 Atherosclerotic heart disease of native coronary artery without angina pectoris; I48.91 Unspecified atrial fibrillation; M81.0 Age-related osteoporosis without current pathological fracture; M54.9 Dorsalgia, unspecified | CPT/HCPCS: 99214; G0463 ==

== ENCOUNTER → 2017-02-16 | Outpatient (CLI) | payer OTHER ==
[2017-02-16 13:20] LABS: BLOOD UREA NITROGEN 15 mg/dL (7-22); CALCIUM 8.5 mg/dL (8.7-10.7); SERUM ALBUMIN 2.6 g/dL (3.5-4.8)
== END ==
LOC: MOB LAB 11:05
PROVIDERS: ATTEND Family Medicine
DX: I10 Essential (primary) hypertension (principal); Z12.5 Encounter for screening for malignant neoplasm of prostate
CPT/HCPCS: 36415; 80053; G0103; 85610

== ENCOUNTER → 2017-02-23 | Outpatient (CLI) | payer OTHER | LOC: MMPC 09:00 | PROVIDERS: ATTEND Family Medicine | DX: Z79.01 Long term (current) use of anticoagulants (principal); Z51.81 Encounter for therapeutic drug level monitoring; I48.91 Unspecified atrial fibrillation | CPT/HCPCS: 85610 ==

== ENCOUNTER → 2017-02-26 | Outpatient (CLI) | payer OTHER | LOC: MMPC 09:00 | PROVIDERS: ATTEND Family Medicine | DX: Z79.01 Long term (current) use of anticoagulants (principal); Z51.81 Encounter for therapeutic drug level monitoring; I48.91 Unspecified atrial fibrillation | CPT/HCPCS: 85610 ==

== ENCOUNTER → 2017-02-27 | Outpatient (CLI) | payer OTHER | LOC: LAB 13:22 | PROVIDERS: ATTEND Family Medicine | DX: R19.7 Diarrhea, unspecified (principal); Z86.19 Personal history of other infectious and parasitic diseases | CPT/HCPCS: 87046; 87205; 87328; 87329; 87493 ==

== ENCOUNTER → 2017-03-05 | Outpatient (CLI) | payer OTHER | LOC: MMPC 09:00 | PROVIDERS: ATTEND Family Medicine | DX: Z79.01 Long term (current) use of anticoagulants (principal); Z51.81 Encounter for therapeutic drug level monitoring; I48.91 Unspecified atrial fibrillation | CPT/HCPCS: 85610 ==

== ENCOUNTER → 2017-03-09 | Outpatient (CLI) | payer OTHER | LOC: MMPC 09:00 | PROVIDERS: ATTEND Family Medicine | DX: Z79.01 Long term (current) use of anticoagulants (principal); Z51.81 Encounter for therapeutic drug level monitoring; I48.91 Unspecified atrial fibrillation | CPT/HCPCS: 85610 ==

== ENCOUNTER → 2017-03-12 | Outpatient (CLI) | payer OTHER | LOC: MMPC 10:00 | PROVIDERS: ATTEND Podiatrist Foot & Ankle Surgery | DX: M79.671 Pain in right foot (principal); M79.672 Pain in left foot; L84 Corns and callosities; L85.1 Acquired keratosis [keratoderma] palmaris et plantaris; L91.8 Other hypertrophic disorders of the skin; M21.6X1 Other acquired deformities of right foot; M20.41 Other hammer toe(s) (acquired), right foot; L60.3 Nail dystrophy; L85.0 Acquired ichthyosis; I73.9 Peripheral vascular disease, unspecified; M20.42 Other hammer toe(s) (acquired), left foot; M21.6X2 Other acquired deformities of left foot | CPT/HCPCS: 11056 ×2; 11721 ×2; G0463 ==

== ENCOUNTER → 2017-03-13 | Outpatient (CLI) | payer OTHER | LOC: MMPC 09:00 | PROVIDERS: ATTEND Family Medicine | DX: D50.8 Other iron deficiency anemias (principal); E83.51 Hypocalcemia; D53.9 Nutritional anemia, unspecified; J43.2 Centrilobular emphysema | CPT/HCPCS: 99214; G0463; J3420 ==

== ENCOUNTER → 2017-03-23 | Outpatient (CLI) | payer OTHER | LOC: MMPC 09:00 | PROVIDERS: ATTEND Family Medicine | DX: Z79.01 Long term (current) use of anticoagulants (principal); Z51.81 Encounter for therapeutic drug level monitoring; I48.91 Unspecified atrial fibrillation | CPT/HCPCS: 85610 ==

== ENCOUNTER → 2017-03-26 | Outpatient (CLI) | payer OTHER ==
[2017-03-26 12:11] LABS: BUN/CREATININE RATIO 26.25 (6-20); CALCIUM 9.4 mg/dL (8.7-10.7)
== END ==
LOC: MOB LAB 09:52
PROVIDERS: ATTEND Family Medicine
DX: M81.0 Age-related osteoporosis without current pathological fracture (principal); I10 Essential (primary) hypertension
CPT/HCPCS: 36415; 80048; 99213; J0897

== ENCOUNTER 2017-03-31 23:55 | Emergency (ER) | payer OTHER ==
[2017-04-01] MEDS ORDERED: FUROSEMIDE 10 MG/1 ML - 4 ML IVP ONE (00:28)
[2017-04-01] MEDS ORDERED: NORMAL SALINE 10 ML SYRINGE FLUSH IVP PRN (00:28)
[2017-04-01 00:30] VITALS: RESP 28; TEMP 98
[2017-04-01 00:39] LABS: BASOPHILS # (AUTO) 0.07 10*3/UL; BASOPHILS % (AUTO) 0.9 % (0-1); EOSINOPHILS # (AUTO) 0.07 10*3/UL; EOSINOPHILS % (AUTO) 0.9 % (0-8); HEMATOCRIT 31.4 % (42.0-52.0); HEMOGLOBIN 10.2 g/dL (14.0-18.0); LYMPHOCYTES # (AUTO) 4.22 10*3/uL; MEAN CORPUSCULAR HEMOGLOBIN 30.4 PG (27-31); MEAN CORPUSCULAR HGB CONC 32.5 g/dL (33-37); MEAN CORPUSCULAR VOLUME 93.5 FL (80-90); MEAN PLATELET VOLUME 9.3 FL (7.4-12.2); MONOCYTES # (AUTO) 0.74 10*3/UL (0.3-0.8); MONOCYTES % (AUTO) 9.1 % (5-15); NEUTROPHILS # (AUTO) 3.05 10*3/UL; NEUTROPHILS % (AUTO) 37.3 % (50-80); RED BLOOD COUNT 3.36 10^6/uL (4.70-6.10)
[2017-04-01 00:42] LABS: PLATELET MORPHOLOGY COMMENT NORMAL MORPHOLOGY (NORM); RBC MORPHOLOGY COMMENT NORMAL MORPHOLOGY (NORM); WBC MORPHOLOGY COMMENT NORMAL MORPHOLOGY (NORM)
[2017-04-01 00:46] LABS: BUN/CREATININE RATIO 14.28 (6-20); CALCIUM 8.5 mg/dL (8.7-10.7); SERUM ALBUMIN 3.9 g/dL (3.5-4.8)
--- NOTE | 2017-04-01 00:50 | PDOC ---
Lower Extremity Problem HPI - General Chief Complaint: Lower Extremity Problem/Injury Stated Complaint: LEFT FOOT/ANKLE/FOOT SWELLING/REDNESS AND PAIN Date Seen by Provider: 04/01/17 Time Seen by Provider: 00:45 - History of Present Illness Initial Comments: Patient is a very nice 76-year-old gentleman who presents to the emergency department tonight complaining of bilateral lower extremity swelling. He apparently has had some intermittent mild swelling mostly just in his left foot but over the last couple of days he's had swelling develop in both feet and lower legs from the knee down. It became significant enough tonight that he started to concern him as it started to feel very tight in his legs. He denies any substantial significant change in his breathing but he always struggles with breathing secondary to substantial emphysema and lung disease. He is on chronic oxygen. He has had multiple medication changes over the last few months and he is not exactly sure what all medicines he is on currently. He knows that he had amlodipine discontinued because of leg swelling and had a dose of lisinopril added but then decreased slightly. Otherwise he is not sure but he doesn't think that he takes any diuretics. He doesn't believe he's ever been told he had congestive heart failure. He denies any active fever or chills or chest pain or nausea or vomiting or dysuria or other symptoms besides the bilateral lower extremity swelling. - Patient Home Medications Home Medications: Home Medications Aspirin Chewable Tab 324 mg PO ONCE (ED) #0 tab 08/05/14 Metoprolol Tartrate Tab [Lopressor Tab] 12.5 mg PO BID #0 tablet 08/05/14 Albuterol Sulfate [Ventolin Hfa] 1 - 2 puff INH Q4-6H PRN #1 puff 05/30/16 Budesonide/Formoterol Fumarate [SYMBICORT] 6 gm IH BID #3 inhaler 05/30/16 Nitroglycerin SL Tab [Nitrostat SL Tab] 0.4 mg SL PRN PRN #20 tab 05/30/16 Albuterol/Ipratropium Inhaler [Combivent Respimat Inhaler] 4 gm IH QID #1 inhaler 07/15/16 oxyCODONE/APAP 5/325 Tab [Percocet 5/325 Tab] 1 tab PO Q6H PRN 12/20/16 Albuterol Neb Soln 0.083% 2.5 mg NEB RTQ2H PRN #120 vial.[facility] 12/23/16 Albuterol/Ipratrop Neb Soln [Duoneb Neb Soln] 3 ml NEB RTQ6H #120 ampul.[facility] Levofloxacin Tab [Levaquin Tab] 750 mg PO DAILY #2 tablet 02/07/17 Pantoprazole Sodium [Protonix] 40 mg PO BID #60 tab 02/07/17 Omeprazole 1 cap PO BID #60 cap 02/10/17 Warfarin Sodium 1 tab PO QD #30 tab 02/13/17 Atorvastatin Calcium [Lipitor] 20 mg PO DAILY #90 tab 02/24/17 Alprazolam 1 tab-cap PO Q8H PRN #270 tab-cap 02/25/17 Tamsulosin HCl 0.4 mg PO DAILY #30 cap 03/05/17 Tizanidine HCl 2 tab PO Q6-8H #90 tab 03/05/17 Levothyroxine Sodium [Synthroid] 125 mcg PO DAILY@0530 #30 tab 03/06/17 Ferrous Gluconate 324 mg PO QD #30 tab 03/13/17 Lisinopril 1 tab PO DAILY #90 tab 03/26/17 Warfarin Sodium 0.5 tab PO QD #90 tab 03/26/17 Furosemide [Lasix] 20 mg PO BID #60 tab 04/01/17 Potassium Chloride 10 meq PO BID #60 capsule.sa 04/01/17 - Patient Allergies Allergies/Adverse Reactions: Allergies Allergy/AdvReac Type Severity Reaction Status Date / Time amlodipine besylate Allergy Intermediate Edema of Verified 04/01/17 00:12 [From [facility]] ankles Past Medical History - heen HEENT History: Hard of Hearing Additional HEENT History: wears glasses Cardiovascular History: Hypertension, Previous CO, Arrhythmia, Hyperlipidemia Additional Cardiovasular History: CARDIAC STENT Respiratory History: COPD, Shortness of Breath, Home Oxygen Use Additional Respiratory History: 2.5L AT HOME Gastrointestinal History: Diverticulitis, GI Bleed Genitourinary History: Denies History Endocrine History: Hypothyroidism Musculoskeletal History: Arthritis, Back Pain, Joint Pain, Osteoarthritis Prosthesis or Implant: Yes (left knee replacement) Additional Musculoskeletal History: hardware in right ankle and neck- fusion Neurological History: Denies History Blood Disorders: Denies History Psychiatric History: Substance Abuse Additional Psychiatric History: acoholism History of Sexually Transmitted Diseases: No Cancer History: Skin In Past Year Been Physically Harmed or Verbally Threatened: No History of MDRO: No History of Other Communicable Diseases: No Tobacco Use: Former Smoker Alcohol Use: Occasionally How much alcohol do you normally drink a day?: 2 DRINKS WEEKLY Substance Use Type: None Previous Surgical History: Yes Type / Date of Surgery: MULTIPLE ORTHO, APPY, STENT, L TKA, CARPAL TUNNEL Anesthesia Reactions: No Malignant Hyperthermia: No Significant Family History: Cancer Additional Family History: both sisters had breast CA Past Medical History Reviewed: Reviewed - No Changes ROS - Limitations ROS Limitations: No Limitations Constitution: REPORTS: Denies Symptoms Cardiovascular: REPORTS: Denies Cardiac Symptoms Respiratory: REPORTS: Denies Resp Symptoms Neurological: REPORTS: Denies Neuro Symptoms Lower Ext Problem Exam - General Appearance General Appearance: POSITIVE: Alert, Cooperative, No Acute Distress - Extremities Lower Extremity: POSITIVE: Other (Bilateral lower extremity edema 2-3+ up to about the knee. Left greater than right. No evidence of cellulitis.) Joint Exam: POSITIVE: Joints Normal, Normal ROM - Neuro / Psych Neuro/Psych: POSITIVE: Sensation Normal, Motor Normal - HEENT HEENT: POSITIVE: Head Inspection Nml - Respiratory / CVS Respiratory / CVS: POSITIVE: No Respiratory Distress, Other (irregular rate and rhythm) - Abdomen Abdomen: Soft: (All Quadrants), Normal Bowel Sounds: (All Quadrants), Denies Tenderness: (All Quadrants) Images - Uploaded Photos Uploaded Photos: Lower Ext Problem Progress - Results Reviewed by me Lab Results Reviewed: Yes Lab Results:: Laboratory Results 04/01/17 Range/Units 00:30 WBC 8.16 (4.8-10.8) 10^3/uL RBC 3.36 L (4.70-6.10) 10^6/uL Hgb 10.2 L (14.0-18.0) g/dL Hct 31.4 L (42.0-52.0) % MCV 93.5 H (80-90) FL MCH 30.4 (27-31) PG MCHC 32.5 L (33-37) g/dL RDW Std Deviation 56.7 H (39-50) fL RDW Coeff of Isabelle 17.2 H (11.5-14.5) % Plt Count 352 H (140-350) 10*3/uL MPV 9.3 (7.4-12.2) FL Immature Gran % (Auto) 0.1 (0-5) % Neut % (Auto) 37.3 L (50-80) % Lymph % (Auto) 51.7 H (10-50) % [place] % (Auto) 9.1 (5-15) % Eos % (Auto) 0.9 (0-8) % Baso % (Auto) 0.9 (0-1) % Immature Gran # (Auto) 0.01 10*3/UL Neut # (Auto) 3.05 10*3/UL Lymph # (Auto) 4.22 10*3/uL [place] # (Auto) 0.74 (0.3-0.8) 10*3/UL Eos # (Auto) 0.07 10*3/UL Baso # (Auto) 0.07 10*3/UL WBC Morphology Comment Normal morphology (NORM) Plt Morphology Comment Normal morphology (NORM) RBC Morph Comment Normal morphology (NORM) Patient Care Time - Estimated PCT Patient Care Time (In Minutes): 35 Vital Signs - Recent Vital Signs Vital Signs: Vital Signs (Last 8 hours) Temp Pulse Resp BP Pulse Ox 03/31/17 23:55 98.0 F 92 28 H 140/74 92 - VS Reviewed Vital Signs Reviewed: Yes Discharge Clinical Impression: Edema Qualifiers: Edema type: unspecified Qualifier Code: (R60.9) Edema, unspecified CHF (congestive heart failure) Qualifiers: Congestive heart failure type: unspecified congestive heart failure type Congestive heart failure chronicity: unspecified congestive heart failure chronicity Qualifier Code: (I50.9) Heart failure, unspecified Discharge Disposition: Discharged to Home Condition: Stable Prescriptions / Orders: Furosemide [Lasix] 20 mg PO BID #60 tab Potassium Chloride 10 meq PO BID #60 capsule.sa Patient Instructions Given at Discharge: Heart Failure (ED), Leg Edema (ED), Low Sodium Diet (ED), Fluid Restriction (ED) Additional Instructions: Take Lasix 20 mg twice a day Take potassium 10 mEq twice a day Weight yourself daily and record your weights and take them to your primary care provider at your next visit Follow a low sodium diet with a goal of 2 g of sodium daily or less Restrict her fluid intake to 1-1/2-2 L daily Follow-up with echocardiogram as has been ordered for you Follow-up with your primary care provider in the very near future to discuss the new diagnosis of congestive heart failure. Return here if he has increasing shortness of breath or any other increasing or changing complaints for reevaluation. Follow Up With: ALEXANDER GIBSON [Primary Care Provider] -
[2017-04-01] MEDS ORDERED: POTASSIUM CHLORIDE 20 MEQ TAB PO ONE (01:01)
[2017-04-01 01:38] LABS: CLARITY,URINE CLEAR (CLEAR); COLOR,URINE YELLOW; GLUCOSE, URINE (UA) NEGATIVE (NEG); PH,URINE 5.5 (5.0-8.5); PROTEIN,URINE NEGATIVE (NEG); URINE SAMPLE TYPE CLEAN CATCH URINE
[2017-04-01 01:39] LABS: BILIRUBIN,URINE NEGATIVE (NEG); NITRATE,URINE NEGATIVE (NEG); OCCULT BLOOD,URINE NEGATIVE (NEG); UROBILINOGEN,URINE 0.2 EU/dL (0.2)
== END 2017-04-01 01:30 | disposition home or self-care (01) ==
LOC: ER 23:55
DX: R60.0 Localized edema (principal); I50.9 Heart failure, unspecified; R06.02 Shortness of breath; E78.5 Hyperlipidemia, unspecified; I10 Essential (primary) hypertension; Z99.81 Dependence on supplemental oxygen
CPT/HCPCS: 80053; 81003; 83880; 84443; 85025; 85610; 96374; 99283; J1940

== ENCOUNTER → 2017-04-01 | Outpatient (CLI) | payer OTHER | LOC: MMPC 09:00 | PROVIDERS: ATTEND Family Medicine | DX: I50.9 Heart failure, unspecified (principal); J43.2 Centrilobular emphysema | CPT/HCPCS: 99213; G0463 ==

== ENCOUNTER → 2017-04-06 | Outpatient (CLI) | payer OTHER | LOC: MMPC 09:00 | PROVIDERS: ATTEND Family Medicine | DX: Z79.01 Long term (current) use of anticoagulants (principal); Z51.81 Encounter for therapeutic drug level monitoring; I48.91 Unspecified atrial fibrillation | CPT/HCPCS: 85610 ==

== ENCOUNTER → 2017-04-07 | Outpatient (CLI) | payer OTHER | LOC: US 12:44 | PROVIDERS: ATTEND Family Medicine | DX: I50.9 Heart failure, unspecified (principal); I51.7 Cardiomegaly | CPT/HCPCS: 93306 ==

== ENCOUNTER → 2017-04-20 | Outpatient (CLI) | payer OTHER ==
[2017-04-20 12:11] LABS: HEMATOCRIT 33.5 % (42.0-52.0); HEMOGLOBIN 10.9 g/dL (14.0-18.0); MEAN CORPUSCULAR HEMOGLOBIN 30.2 PG (27-31); MEAN CORPUSCULAR HGB CONC 32.5 g/dL (33-37); MEAN CORPUSCULAR VOLUME 92.8 FL (80-90); MEAN PLATELET VOLUME 8.9 FL (7.4-12.2); RED BLOOD COUNT 3.61 10^6/uL (4.70-6.10)
[2017-04-20 13:05] LABS: BLOOD UREA NITROGEN 13 mg/dL (7-22); BUN/CREATININE RATIO 21.66 (6-20); CALCIUM 7.8 mg/dL (8.7-10.7)
== END ==
LOC: LAB 11:52
PROVIDERS: ATTEND Family Medicine
DX: K29.80 Duodenitis without bleeding (principal); Z86.19 Personal history of other infectious and parasitic diseases
CPT/HCPCS: 36415; 80048; 85027

== ENCOUNTER → 2017-05-04 | Outpatient (CLI) | payer OTHER | LOC: MMPC 09:00 | PROVIDERS: ATTEND Family Medicine | DX: Z79.01 Long term (current) use of anticoagulants (principal); Z51.81 Encounter for therapeutic drug level monitoring; I48.91 Unspecified atrial fibrillation | CPT/HCPCS: 85610 ==

== ENCOUNTER → 2017-05-06 | Outpatient (CLI) | payer OTHER ==
--- NOTE | 2017-05-06 22:00 | DI ---
RIGHT FOOT, 05/06/2017 11:56 AM: Clinical History: Callus of the foot. Previous Exam: None at this facility. 3 weightbearing views are submitted. There is no acute soft tissue, osseous, or joint abnormality. Th ere is a bunion of the head of the first metatarsal bone and a flexion hammertoe deformity of the fou rth toe. Reading: Bunion. Hammertoe deformity of the fourth toe.
--- NOTE | 2017-05-06 22:05 | DI ---
LEFT FOOT, 05/06/2017 11:56 AM: Clinical History: Foot pain. Previous Exam: None at this facility. 3 weightbearing views are submitted. There is a fracture involving the distal aspect of the fifth met atarsal bone. The appearance suggests this is a subacute or possibly chronic fracture although this s hould be correlated with the clinical history and findings. No acute fractures are otherwise noted. T here is a hammertoe deformity involving the second toe. Readin. Fracture of the distal aspect of the fifth metatarsal bone, probably subacute or even chronic. Th is should be correlated with the clinical history and clinical findings. 2. Hammertoe deformity of the second toe.
== END ==
LOC: RAD 11:56
PROVIDERS: ATTEND Podiatrist Foot & Ankle Surgery
DX: M79.672 Pain in left foot (principal); M79.671 Pain in right foot; L84 Corns and callosities; M20.42 Other hammer toe(s) (acquired), left foot; M20.41 Other hammer toe(s) (acquired), right foot
CPT/HCPCS: 73630

== ENCOUNTER → 2017-05-07 | Outpatient (CLI) | payer OTHER | LOC: MMPC 09:00 | PROVIDERS: ATTEND Family Medicine | DX: Z79.01 Long term (current) use of anticoagulants (principal); Z51.81 Encounter for therapeutic drug level monitoring; I48.91 Unspecified atrial fibrillation | CPT/HCPCS: 85610 ==

== ENCOUNTER → 2017-05-08 | Outpatient (CLI) | payer OTHER | LOC: MMPC 10:00 | PROVIDERS: ATTEND Podiatrist Foot & Ankle Surgery | DX: S92.355A Nondisplaced fracture of fifth metatarsal bone, left foot, initial encounter for closed fracture (principal) | CPT/HCPCS: 99212 ==

== ENCOUNTER → 2017-05-11 | Outpatient (CLI) | payer OTHER | LOC: MMPC 09:00 | PROVIDERS: ATTEND Family Medicine | DX: Z79.01 Long term (current) use of anticoagulants (principal); Z51.81 Encounter for therapeutic drug level monitoring; I48.91 Unspecified atrial fibrillation | CPT/HCPCS: 85610 ==

== ENCOUNTER → 2017-05-14 | Outpatient (CLI) | payer OTHER | LOC: MMPC 09:00 | PROVIDERS: ATTEND Family Medicine | DX: J43.2 Centrilobular emphysema (principal); R62.7 Adult failure to thrive; R11.0 Nausea | CPT/HCPCS: 99213; G0463 ==

== ENCOUNTER 2017-05-17 05:52 | Inpatient (IN) | payer OTHER ==
[2017-05-17] MEDS ORDERED: Famotidine Inj 20 MG in Normal Saline Flush 10 ML IVP ONE (06:21)
[2017-05-17] MEDS ORDERED: Sodium Chloride 0.9% 1,000 ML PRIMARY IV ONE ×2 (06:21→15:42)
[2017-05-17] MEDS: ONDANSETRON 4 MG/2 ML VIAL IVP ONE ×2 (06:30→08:55)
[2017-05-17] MEDS: MORPHINE SULFATE 2 MG/1 ML IVP ONE ×2 (06:44→07:44)
[2017-05-17 06:45] LABS: VENOUS PH 7.39 (7.32-7.42)
[2017-05-17 06:52] LABS: CALCIUM 9.7 mg/dL (8.7-10.7); SERUM ALBUMIN 4.1 g/dL (3.5-4.8)
[2017-05-17 06:54] LABS: C-REACTIVE PROTEIN 5.7 mg/dL (0.0-0.9)
[2017-05-17 07:15] LABS: HEMATOCRIT 39.1 % (42.0-52.0); HEMOGLOBIN 13.2 g/dL (14.0-18.0); MEAN CORPUSCULAR VOLUME 88.9 FL (80-90)
[2017-05-17 07:16] LABS: MEAN CORPUSCULAR HGB CONC 33.8 g/dL (33-37); MEAN PLATELET VOLUME 9.4 FL (7.4-12.2); PLATELET MORPHOLOGY COMMENT NORMAL MORPHOLOGY (NORM); RBC MORPHOLOGY COMMENT NORMAL MORPHOLOGY (NORM); WBC MORPHOLOGY COMMENT NORMAL MORPHOLOGY (NORM)
[2017-05-17 07:17] LABS: BAND NEUTROPHILS % 8 % (0-10); BASOPHILS % (MANUAL) 3 % (0-1); EOSINOPHILS % (MANUAL) 1 % (0-8); LYMPHOCYTES % (MANUAL) 20 % (10-50); MONOCYTES % (MANUAL) 8 % (0-12); NEUTROPHILS % (MANUAL) 60 % (50-80)
[2017-05-17] MEDS ORDERED: cefTRIAXone Inj 2 GM in Sodium Chloride 0.9% 100 ML IV ONE (07:17)
[2017-05-17] MEDS ORDERED: CEFTRIAXONE SODIUM 2 GM VIAL IV ONE (07:27)
[2017-05-17] MEDS ORDERED: Sodium Chloride 0.9% 100 ML IV ONE (07:30)
--- NOTE | 2017-05-17 08:56 | PDOC ---
Abdomen/Flank HPI - General Chief Complaint: Abdomen Pain Stated Complaint: ABDOMINAL PAIN Date Seen by Provider: 05/17/17 Time Seen by Provider: 06:10 Source: POSITIVE: Patient Exam Limitations: POSITIVE: No limitations Nurse's Notes Reviewed & Considered: Yes - History of Present Illness Initial Comments: The patient is a 76-year-old male. He presents to the emergency room with a three-day history of abdominal pain, primarily below the umbilicus bilaterally. He's also had some associated vomiting. Patient states his only previous abdominal surgery was an appendectomy as a child. He does not think he's been having any fevers. No hematemesis, melena, hematochezia, dysuria or hematuria. Patient has a long-standing history of severe COPD; he stopped smoking this past December. Patient states he is on warfarin for a cardiac stent. Body Location Affected: REPORTS: Abdomen Timing: REPORTS: Gradual, Getting Worse Duration: >24 hours (3 days, according to patient) Severity: Moderate Quality: REPORTS: "Pain" Abdominal Pain Onset Location: REPORTS: RLQ, LLQ, Periumbilical, Suprapubic Abdominal Pain Radiation: REPORTS: No radiation Context: REPORTS: None Modifying Factors: improves with: Vomiting Associated Symptoms: REPORTS: Denies symptoms Similar Symptoms Previously: No Recent Care Received: REPORTS: Denies Any Prior Injuries Related to Current Complaint?: No - Patient Home Medications Home Medications: Home Medications Aspirin Chewable Tab 324 mg PO ONCE (ED) #0 tab 08/05/14 Metoprolol Tartrate Tab [Lopressor Tab] 12.5 mg PO BID #0 tablet 08/05/14 Budesonide/Formoterol Fumarate [SYMBICORT] 6 gm IH BID #3 inhaler 05/30/16 Nitroglycerin SL Tab [Nitrostat SL Tab] 0.4 mg SL PRN PRN #20 tab 05/30/16 Albuterol/Ipratropium Inhaler [Combivent Respimat Inhaler] 4 gm IH QID #1 inhaler 07/15/16 oxyCODONE/APAP 5/325 Tab [Percocet 5/325 Tab] 1 tab PO Q6H PRN 12/20/16 Albuterol Neb Soln 0.083% 2.5 mg NEB RTQ2H PRN #120 vial.neb 12/23/16 Albuterol/Ipratrop Neb Soln [Duoneb Neb Soln] 3 ml NEB RTQ6H #120 ampul.neb Pantoprazole Sodium [Protonix] 40 mg PO BID #60 tab 02/07/17 Warfarin Sodium 1 tab PO QD #30 tab 02/13/17 Atorvastatin Calcium [Lipitor] 20 mg PO DAILY #90 tab 02/24/17 Alprazolam 1 tab-cap PO Q8H PRN #270 tab-cap 02/25/17 Tamsulosin HCl 0.4 mg PO DAILY #30 cap 03/05/17 Tizanidine HCl 2 tab PO Q6-8H #90 tab 03/05/17 Lisinopril 1 tab PO DAILY #90 tab 03/26/17 Warfarin Sodium 0.5 tab PO QD #90 tab 03/26/17 Potassium Chloride 10 meq PO BID #60 capsule.sa 04/01/17 Levothyroxine Sodium [Synthroid] 125 mcg PO DAILY@0530 #30 tab 04/03/17 Furosemide 20 mg PO BID #180 tab 04/30/17 Potassium Chloride [Klor-Con 10] 1 tab PO BID #180 tab 04/30/17 Ferrous Gluconate 324 mg PO QD #30 tab 05/07/17 Omeprazole 1 cap PO BID #60 cap 05/07/17 Albuterol Sulfate [Ventolin Hfa] 1 - 2 puff INH Q4-6H PRN #3 puff 05/14/17 Mirtazapine 15 mg PO QHS #90 tab 05/14/17 Ondansetron [Ondansetron Odt] 1 tab PO Q4-6H PRN #60 tab 05/14/17 - Patient Allergies Allergies/Adverse Reactions: Allergies Allergy/AdvReac Type Severity Reaction Status Date / Time amlodipine besylate Allergy Intermediate Edema of Verified 05/17/17 05:59 [From [facility]] ankles Past Medical History - heen HEENT History: Hard of Hearing Additional HEENT History: wears glasses Cardiovascular History: Hypertension, Previous DC, Arrhythmia, Hyperlipidemia Additional Cardiovasular History: CARDIAC STENT Respiratory History: COPD, Shortness of Breath, Home Oxygen Use Additional Respiratory History: 2.5L AT HOME Gastrointestinal History: Diverticulitis, GI Bleed Genitourinary History: Denies History Endocrine History: Hypothyroidism Musculoskeletal History: Arthritis, Back Pain, Joint Pain, Osteoarthritis Prosthesis or Implant: Yes (left knee replacement) Additional Musculoskeletal History: hardware in right ankle and neck- fusion Neurological History: Denies History Blood Disorders: Denies History Psychiatric History: Substance Abuse Additional Psychiatric History: alcoholism History of Sexually Transmitted Diseases: No Cancer History: Skin In Past Year Been Physically Harmed or Verbally Threatened: No History of MDRO: No History of Other Communicable Diseases: No Tobacco Use: Former Smoker Alcohol Use: Occasionally Substance Use Type: None Previous Surgical History: Yes Type / Date of Surgery: MULTIPLE ORTHO, APPY, STENT, L TKA, CARPAL TUNNEL Anesthesia Reactions: No Malignant Hyperthermia: No Significant Family History: Cancer Additional Family History: both sisters had breast CA Past Medical History Reviewed: Reviewed - No Changes ROS - Limitations ROS Limitations: No Limitations Constitution: REPORTS: Denies Symptoms Cardiovascular: REPORTS: Denies Cardiac Symptoms Respiratory: REPORTS: Denies Resp Symptoms Neurological: REPORTS: Denies Neuro Symptoms Gastrointestinal: REPORTS: Abdominal Pain, Nausea, Vomitting Endocrine: REPORTS: Denies Symptoms Musculoskeletal: REPORTS: Denies MS Symptoms Genitourinary: REPORTS: Denies Symptoms Eyes: REPORTS: Denies Symptoms ENT: REPORTS: Denies Symptoms Skin: REPORTS: Denies Skin Symptoms Lympathic: REPORTS: Denies Lympathic Symptoms Immunologic: POSITIVE: Denies Symptoms Psychiatric: POSITIVE: Denies Psych Symptoms Abdominal/Flank Pain PE - General Appearance General Appearance: POSITIVE: Alert, Cooperative, No Evidence of Trauma, Moderate Distress. NEGATIVE: No Acute Distress - HEENT HEENT: POSITIVE: Head Inspection Nml, Eyes Inspection Nml, Ears Inspection Nml, Nose Inspection Nml, Oral/Dental Inspect. Nml, Pharynx Inspect. Nml, PERRL, EOMI - Neck Neck: POSITIVE: Normal Inspection, No Apparent Injury - Respiratory Respiratory: POSITIVE: No Respiratory Distress, Breath Sounds Normal, Chest Non- Tender - Cardiovascular Cardiovascular: POSITIVE: Regular Rate and Rhythm, Heart Sounds Normal, Equal Pulses, Strong Pulses Peripheral Pulses: Radial (R): 2+, Radial (L): 2+ - Chest Chest: POSITIVE: Non Tender - Abdomen Abdomen: Soft: (RUQ), (RLQ), Normal Bowel Sounds: (All Quadrants), Tenderness Noted: (LUQ), (LLQ) Additional Abdominal Details: Abdominal examination shows that the patient has tenderness on palpation over the lower abdomen bilaterally and over the paraumbilical area. Possible rebound. Bowel sounds are present but probably somewhat depressed. No masses palpable. 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 As Tested, Motor Normal, Sensation Normal, 5, 6 - Psychological Psychiatric: POSITIVE: Affect Appropriate, Mood Appropriate Images - Complete Complete: 1 - Abdominal tenderness on palpation Abdomen Progress - Results Reviewed by me Lab Results Reviewed: Yes Lab Results:: Laboratory Results 05/17/17 05/17/17 Range/Units 06:20 06:38 WBC 18.36 H (4.8-10.8) 10^3/uL RBC 4.40 L (4.70-6.10) 10^6/uL Hgb 13.2 L (14.0-18.0) g/dL Hct 39.1 L (42.0-52.0) % MCV 88.9 (80-90) FL MCH 30.0 (27-31) PG MCHC 33.8 (33-37) g/dL RDW Std Deviation 48.8 (39-50) fL RDW Coeff of Isabelle 15.2 H (11.5-14.5) % Plt Count 514 H (140-350) 10*3/uL MPV 9.4 (7.4-12.2) FL Neutrophils % (Manual) 60 (50-80) % Band Neutrophils % 8 (0-10) % Lymphocytes % (Manual) 20 (10-50) % Monocytes % (Manual) 8 (0-12) % Eosinophils % (Manual) 1 (0-8) % Basophils % (Manual) 3 H (0-1) % Metamyelocytes % Not Reportable Myelocytes % Not Reportable Promyelocytes % Not Reportable Blast Cells Not Reportable WBC Morphology Comment Normal morphology (NORM) Plt Morphology Comment Normal morphology (NORM) RBC Morph Comment Normal morphology (NORM) VBG pH 7.39 (7.32-7.42) VBG pCO2 36 L (45-55) mmHg VBG HCO3 22 (22-26) mmol/L VBG Base Excess -3 L (-2-2) MMOL/L Sodium 131 L (135-145) meq/L Potassium 4.8 (3.8-5.2) meq/L Chloride 94 L (98-112) meq/L Carbon Dioxide 20 L (23-33) meq/L Anion Gap 17 (5-20) BUN 27 H (7-22) mg/dL Creatinine 1.0 (0.70-1.50) mg/dL Estimated GFR (>60 ml/min/1.73m(2)) BUN/Creatinine Ratio 27.00 H (6-20) Glucose 198 H (78-110) mg/dL Calculated Osmolality 282.0 (267-292) mOsm/kg Lactic Acid 4.1 H (0.70-2.10) MMOL/L Calcium 9.7 (8.7-10.7) mg/dL Total Bilirubin 0.9 (0.3-1.2) mg/dL AST 31 (21-57) IU/L ALT 21 (21-72) IU/L Alkaline Phosphatase 82 (38-126) IU/L C-Reactive Protein 5.7 H (0.0-0.9) mg/dL Total Protein 7.0 (6.1-8.0) g/dL Albumin 4.1 (3.5-4.8) g/dL Globulin 3.0 (2.50-4.10) g/dL Albumin/Globulin Ratio 1.30 (1.3-2.0) mg/g Amylase 133 H (30-110) U/L Lipase 227 (23-300) IU/L - Patient's Progress Pain Medication Addressed: POSITIVE: Yes (Patient medicated with morphine sulfate) School/Work Release Addressed: POSITIVE: Not Applicable Re-examine Time: 08:40 Re-Examine Comment: Condition essentially unchanged. Lactic acid is elevated and CRP is elevated. White blood cell count is over 18,000. Am concerned about an acute abdomen. Patient meets the criteria for sepsis and 2 blood cultures were drawn and, following this, patient was given 2 g of Rocephin IV. PT/INR pending. CT scan of abdomen pending. Urinalysis pending. Care of patient transferred to Dr. Lucero, the emergency physician coming on duty. Status: POSITIVE: Unchanged, Re-Examined Patient Care Time - Estimated PCT Patient Care Time (In Minutes): 55 Vital Signs - Recent Vital Signs Vital Signs: Vital Signs (Last 8 hours) Temp Pulse Resp BP Pulse Ox 05/17/17 06:06 96.6 F L 114 H 22 103/74 91 - VS Reviewed Vital Signs Reviewed: Yes Discharge Clinical Impression: Abdominal pain, Sepsis due to undetermined organism Condition: Good Care Transferred To: , [id number]
--- NOTE | 2017-05-17 08:58 | DI ---
HISTORY: Abdominal pain. COMPARISON: 02/05/2017. TECHNIQUE: Multiple helically acquired CT images are obtained through the abdomen and pelvis followi ng the intravenous administration of contrast. FINDINGS: There is no free air nor free fluid. The urinary bladder is unremarkable. Moderate stool is seen throughout colon. Severe peripheral vascular disease is noted with approximat lorena 50% stenosis of the common iliac arteries. The gallbladder is unremarkable as well. The spleen is unremarkable. There is no mesenteric nor retroperitoneal lymphadenopathy. Diffuse degenerative changes of the spine are noted to include severe facet arthropathy. There is al so degenerative disc disease throughout. There is some fluid-filled loops of small bowel without dilation. IMPRESSION: 1. No acute intra-abdominal pathology.
[2017-05-17] MEDS ORDERED: ONDANSETRON 4 MG/2 ML VIAL IVP ONE ×2 (09:03→15:42)
[2017-05-17] MEDS ORDERED: MORPHINE SULFATE 4 MG/1 ML IVP ONE ×2 (09:03→15:42)
--- NOTE | 2017-05-17 09:09 | PDOC ---
Transfer of Care - Care Accepted Time Care Transferred: 08:30 Report from Transferring Physician Received: Yes MDM / ED Course: This patient presented to the emergency department with malvin-umbilical abdominal pain, nausea vomiting, and alternating constipation and diarrhea. He received IV fluids, morphine sulfate, and Zofran. He continues to have pain and nausea with vomiting. CT scan of his abdomen is normal. CBC shows white count elevated at 18. Dr. Oliver's shift ended while awaiting results of coag studies and urinalysis. Home Medications: Home Medications Aspirin Chewable Tab 324 mg PO ONCE (ED) #0 tab 08/05/14 Metoprolol Tartrate Tab [Lopressor Tab] 12.5 mg PO BID #0 tablet 08/05/14 Budesonide/Formoterol Fumarate [SYMBICORT] 6 gm IH BID #3 inhaler 05/30/16 Nitroglycerin SL Tab [Nitrostat SL Tab] 0.4 mg SL PRN PRN #20 tab 05/30/16 Albuterol/Ipratropium Inhaler [Combivent Respimat Inhaler] 4 gm IH QID #1 inhaler 07/15/16 oxyCODONE/APAP 5/325 Tab [Percocet 5/325 Tab] 1 tab PO Q6H PRN 12/20/16 Albuterol Neb Soln 0.083% 2.5 mg NEB RTQ2H PRN #120 vial.neb 12/23/16 Albuterol/Ipratrop Neb Soln [Duoneb Neb Soln] 3 ml NEB RTQ6H #120 ampul.neb Pantoprazole Sodium [Protonix] 40 mg PO BID #60 tab 02/07/17 Warfarin Sodium 1 tab PO QD #30 tab 02/13/17 Atorvastatin Calcium [Lipitor] 20 mg PO DAILY #90 tab 02/24/17 Alprazolam 1 tab-cap PO Q8H PRN #270 tab-cap 02/25/17 Tamsulosin HCl 0.4 mg PO DAILY #30 cap 03/05/17 Tizanidine HCl 2 tab PO Q6-8H #90 tab 03/05/17 Lisinopril 1 tab PO DAILY #90 tab 03/26/17 Warfarin Sodium 0.5 tab PO QD #90 tab 03/26/17 Potassium Chloride 10 meq PO BID #60 capsule.sa 04/01/17 Levothyroxine Sodium [Synthroid] 125 mcg PO DAILY@0530 #30 tab 04/03/17 Furosemide 20 mg PO BID #180 tab 04/30/17 Potassium Chloride [Klor-Con 10] 1 tab PO BID #180 tab 04/30/17 Ferrous Gluconate 324 mg PO QD #30 tab 05/07/17 Omeprazole 1 cap PO BID #60 cap 05/07/17 Albuterol Sulfate [Ventolin Hfa] 1 - 2 puff INH Q4-6H PRN #3 puff 05/14/17 Mirtazapine 15 mg PO QHS #90 tab 05/14/17 Ondansetron [Ondansetron Odt] 1 tab PO Q4-6H PRN #60 tab 05/14/17 Allergies/Adverse Reactions: Allergies amlodipine besylate [From [facility]] Allergy (Intermediate, Verified 05/17/17 05: 59) Edema of ankles Vital Signs Reviewed: Yes Nurse's Notes Reviewed & Considered: Yes - Pending Patient Care Items Pending Patient Care Items: POSITIVE: Labs - Expected Patient Outcome Tentative Impression of Patient: Abdominal pain with nausea and vomiting. Expected Disposition: POSITIVE: Home - Re-Evaluation of Patient Re-Examine Time:: 11:25 Disposition of Patient: POSITIVE: Discharged Counseled: POSITIVE: Patient, RE: Lab Results, RE: Radiology Results, RE: DX, RE : Need for F/U Pending Test Results Documented: Yes Clinical Impression Documented: Yes (patient with abdominal pain that has resolved, also with nausea and vomitin) - Results Reviewed Lab Results Reviewed by Me: Yes Lab Results: Laboratory Results 05/17/17 05/17/17 05/17/17 Range/Units 06:20 06:22 06:38 WBC 18.36 H (4.8-10.8) 10^3/uL RBC 4.40 L (4.70-6.10) 10^6/uL Hgb 13.2 L (14.0-18.0) g/dL Hct 39.1 L (42.0-52.0) % MCV 88.9 (80-90) FL MCH 30.0 (27-31) PG MCHC 33.8 (33-37) g/dL RDW Std Deviation 48.8 (39-50) fL RDW Coeff of Isabelle 15.2 H (11.5-14.5) % Plt Count 514 H (140-350) 10*3/uL MPV 9.4 (7.4-12.2) FL Neutrophils % (Manual) 60 (50-80) % Band Neutrophils % 8 (0-10) % Lymphocytes % (Manual) 20 (10-50) % Monocytes % (Manual) 8 (0-12) % Eosinophils % (Manual) 1 (0-8) % Basophils % (Manual) 3 H (0-1) % Metamyelocytes % Not Reportable Myelocytes % Not Reportable Promyelocytes % Not Reportable Blast Cells Not Reportable WBC Morphology Comment Normal morphology (NORM) Plt Morphology Comment Normal morphology (NORM) RBC Morph Comment Normal morphology (NORM) PT (9.7-11.4) secs INR (0.00-5.90) N/A VBG pH 7.39 (7.32-7.42) VBG pCO2 36 L (45-55) mmHg VBG HCO3 22 (22-26) mmol/L VBG Base Excess -3 L (-2-2) MMOL/L Sodium 131 L (135-145) meq/L Potassium 4.8 (3.8-5.2) meq/L Chloride 94 L (98-112) meq/L Carbon Dioxide 20 L (23-33) meq/L Anion Gap 17 (5-20) BUN 27 H (7-22) mg/dL Creatinine 1.0 (0.70-1.50) mg/dL Estimated GFR (>60 ml/min/1.73m(2)) BUN/Creatinine Ratio 27.00 H (6-20) Glucose 198 H (78-110) mg/dL Calculated Osmolality 282.0 (267-292) mOsm/kg Lactic Acid 4.1 H (0.70-2.10) MMOL/L Calcium 9.7 (8.7-10.7) mg/dL Total Bilirubin 0.9 (0.3-1.2) mg/dL AST 31 (21-57) IU/L ALT 21 (21-72) IU/L Alkaline Phosphatase 82 (38-126) IU/L C-Reactive Protein 5.7 H (0.0-0.9) mg/dL Total Protein 7.0 (6.1-8.0) g/dL Albumin 4.1 (3.5-4.8) g/dL Globulin 3.0 (2.50-4.10) g/dL Albumin/Globulin Ratio 1.30 (1.3-2.0) mg/g Amylase 133 H (30-110) U/L Lipase 227 (23-300) IU/L Ur Collection Type Clean catch urine Urine Color Yellow Urine Clarity Clear (CLEAR) Urine pH 6.0 (5.0-8.5) Ur Specific [place] 1.010 (1.005-1.030) Urine Protein Negative (NEG) mg/dl Urine Glucose (UA) Negative (NEG) mg/dL Urine Ketones Negative (NEG) Urine Occult Blood Negative (NEG) Urine Nitrate Negative (NEG) Urine Bilirubin Negative (NEG) Urine Urobilinogen 0.2 (0.2) EU/dL Ur Leukocyte Esterase Negative (NEG) Ur Culture Indicated? Culture not set 05/17/17 Range/Units 08:55 WBC (4.8-10.8) 10^3/uL RBC (4.70-6.10) 10^6/uL Hgb (14.0-18.0) g/dL Hct (42.0-52.0) % MCV (80-90) FL MCH (27-31) PG MCHC (33-37) g/dL RDW Std Deviation (39-50) fL RDW Coeff of Isabelle (11.5-14.5) % Plt Count (140-350) 10*3/uL MPV (7.4-12.2) FL Neutrophils % (Manual) (50-80) % Band Neutrophils % (0-10) % Lymphocytes % (Manual) (10-50) % Monocytes % (Manual) (0-12) % Eosinophils % (Manual) (0-8) % Basophils % (Manual) (0-1) % Metamyelocytes % Myelocytes % Promyelocytes % Blast Cells WBC Morphology Comment (NORM) Plt Morphology Comment (NORM) RBC Morph Comment (NORM) PT 36.3 H (9.7-11.4) secs INR 3.38 (0.00-5.90) N/A VBG pH (7.32-7.42) VBG pCO2 (45-55) mmHg VBG HCO3 (22-26) mmol/L VBG Base Excess (-2-2) MMOL/L Sodium (135-145) meq/L Potassium (3.8-5.2) meq/L Chloride (98-112) meq/L Carbon Dioxide (23-33) meq/L Anion Gap (5-20) BUN (7-22) mg/dL Creatinine (0.70-1.50) mg/dL Estimated GFR (>60 ml/min/1.73m(2)) BUN/Creatinine Ratio (6-20) Glucose (78-110) mg/dL Calculated Osmolality (267-292) mOsm/kg Lactic Acid (0.70-2.10) MMOL/L Calcium (8.7-10.7) mg/dL Total Bilirubin (0.3-1.2) mg/dL AST (21-57) IU/L ALT (21-72) IU/L Alkaline Phosphatase (38-126) IU/L C-Reactive Protein (0.0-0.9) mg/dL Total Protein (6.1-8.0) g/dL Albumin (3.5-4.8) g/dL Globulin (2.50-4.10) g/dL Albumin/Globulin Ratio (1.3-2.0) mg/g Amylase (30-110) U/L Lipase (23-300) IU/L Ur Collection Type Urine Color Urine Clarity (CLEAR) Urine pH (5.0-8.5) Ur Specific [place] (1.005-1.030) Urine Protein (NEG) mg/dl Urine Glucose (UA) (NEG) mg/dL Urine Ketones (NEG) Urine Occult Blood (NEG) Urine Nitrate (NEG) Urine Bilirubin (NEG) Urine Urobilinogen (0.2) EU/dL Ur Leukocyte Esterase (NEG) Ur Culture Indicated? - Consult Recommendations:: You're being discharged home with instructions for clear liquids today advance diet as tolerated. Your to return here to the emergency room if your pain returns, U began to develop bleeding from her bottom or vomiting blood, if you have fevers 102 or more. Your to follow up with your primary care physician: Thursday for an appointment. Patient Care Time - Estimated PCT Patient Care Time (In Minutes): 45 Vital Signs - Recent Vital Signs Vital Signs: Vital Signs (Last 8 hours) Temp Pulse Resp BP Pulse Ox 05/17/17 06:06 96.6 F L 114 H 22 103/74 91 - VS Reviewed Vital Signs Reviewed: Yes Discharge Clinical Impression: Abdominal pain, Sepsis due to undetermined organism, Nausea and vomiting Discharge Disposition: Discharged to Home Condition: Good Patient Instructions Given at Discharge: Acute Nausea and Vomiting (ED), Acute Abdominal Pain (ED) Follow Up With: ALEXANDER GIBSON [Primary Care Provider] -
[2017-05-17] MEDS: NORMAL SALINE 10 ML SYRINGE FLUSH IVP PRN ×2 (09:18→15:33)
[2017-05-17 09:31] LABS: BILIRUBIN,URINE NEGATIVE (NEG); CLARITY,URINE CLEAR (CLEAR); COLOR,URINE YELLOW; GLUCOSE, URINE (UA) NEGATIVE (NEG); NITRATE,URINE NEGATIVE (NEG); OCCULT BLOOD,URINE NEGATIVE (NEG); PROTEIN,URINE NEGATIVE (NEG); UROBILINOGEN,URINE 0.2 EU/dL (0.2)
[2017-05-17 11:10] LABS: URINE SAMPLE TYPE CLEAN CATCH URINE
--- NOTE | 2017-05-17 11:45 | DI ---
HISTORY: Hypoxia and upper abdominal pain. COMPARISON: 02/01/2017. FINDINGS: PA and lateral views of the chest are obtained, and demonstrate some mild airspace disease within right middle lobe seen only on the lateral view. This was not seen on the prior examination. There is some mild silhouetting of the right heart border as well. There is flattening of the hemidiaphragms. IMPRESSION: 1. Silhouetting of the right heart border with a right middle lobe infiltrate is most consistent with a right middle lobe pneumonia. This was not seen on the prior examination.
--- NOTE | 2017-05-17 15:40 | PDOC ---
Abdomen/Flank HPI - General Chief Complaint: Abdomen Pain Stated Complaint: ABDOMINAL PAIN Date Seen by Provider: 05/17/17 Time Seen by Provider: 15:36 Source: POSITIVE: Patient Exam Limitations: POSITIVE: No limitations Nurse's Notes Reviewed & Considered: Yes - History of Present Illness Initial Comments: This patient was seen here in the emergency room earlier today for abdominal pain with nausea and vomiting. He had an elevated white count to 18, CT scan of his abdomen and pelvis showed no acute findings. Chest x-ray showed a right perihilar pneumonia. Patient was discharged home, an antibiotic was called in for him. He returns now because he's had a return of abdominal pain with nausea. He stated he came in early because he did not want to progress to the point of pain that he had earlier today. At this time he denies any fever chills or sweats. He does have some shortness of breath that is chronic in nature. He is nauseous with abdominal pain in the periumbilical and epigastric region. He states he had been constipated for which she had taken laxatives and then had an episode of diarrhea prior to his presentation earlier today. He denies any hematuria or dysuria. Body Location Affected: REPORTS: Abdomen Timing: REPORTS: Intermittent, Other (Pain had resolved earlier this morning and has now returned.) Duration: <24 hours Severity: Moderate Quality: REPORTS: Cramping, "Pain", Sharpness Abdominal Pain Onset Location: REPORTS: Epigastric, Periumbilical Abdominal Pain Radiation: REPORTS: Epigastric, Periumbilical Context: REPORTS: None Modifying Factors: improves with: Vomiting Associated Symptoms: REPORTS: Nausea, Shortness of breath, Vomiting, Constipation, Diarrhea Similar Symptoms Previously: Yes Recent Care Received: REPORTS: Recently Seen Any Prior Injuries Related to Current Complaint?: No - Patient Home Medications Home Medications: Home Medications Aspirin Chewable Tab 324 mg PO ONCE (ED) #0 tab 08/05/14 Metoprolol Tartrate Tab [Lopressor Tab] 12.5 mg PO BID #0 tablet 08/05/14 Budesonide/Formoterol Fumarate [SYMBICORT] 6 gm IH BID #3 inhaler 05/30/16 Nitroglycerin SL Tab [Nitrostat SL Tab] 0.4 mg SL PRN PRN #20 tab 05/30/16 Albuterol/Ipratropium Inhaler [Combivent Respimat Inhaler] 4 gm IH QID #1 inhaler 07/15/16 oxyCODONE/APAP 5/325 Tab [Percocet 5/325 Tab] 1 tab PO Q6H PRN 12/20/16 Albuterol Neb Soln 0.083% 2.5 mg NEB RTQ2H PRN #120 vial.neb 12/23/16 Albuterol/Ipratrop Neb Soln [Duoneb Neb Soln] 3 ml NEB RTQ6H #120 ampul.neb Pantoprazole Sodium [Protonix] 40 mg PO BID #60 tab 02/07/17 Warfarin Sodium 1 tab PO QD #30 tab 02/13/17 Atorvastatin Calcium [Lipitor] 20 mg PO DAILY #90 tab 02/24/17 Alprazolam 1 tab-cap PO Q8H PRN #270 tab-cap 02/25/17 Tamsulosin HCl 0.4 mg PO DAILY #30 cap 03/05/17 Tizanidine HCl 2 tab PO Q6-8H #90 tab 03/05/17 Lisinopril 1 tab PO DAILY #90 tab 03/26/17 Warfarin Sodium 0.5 tab PO QD #90 tab 03/26/17 Potassium Chloride 10 meq PO BID #60 capsule.sa 04/01/17 Levothyroxine Sodium [Synthroid] 125 mcg PO DAILY@0530 #30 tab 04/03/17 Furosemide 20 mg PO BID #180 tab 04/30/17 Potassium Chloride [Klor-Con 10] 1 tab PO BID #180 tab 04/30/17 Ferrous Gluconate 324 mg PO QD #30 tab 05/07/17 Omeprazole 1 cap PO BID #60 cap 05/07/17 Albuterol Sulfate [Ventolin Hfa] 1 - 2 puff INH Q4-6H PRN #3 puff 05/14/17 Mirtazapine 15 mg PO QHS #90 tab 05/14/17 Ondansetron [Ondansetron Odt] 1 tab PO Q4-6H PRN #60 tab 05/14/17 - Patient Allergies Allergies/Adverse Reactions: Allergies Allergy/AdvReac Type Severity Reaction Status Date / Time amlodipine besylate Allergy Intermediate Edema of Verified 05/17/17 05:59 [From [facility]] ankles Past Medical History - heen HEENT History: Hard of Hearing Additional HEENT History: wears glasses Cardiovascular History: Hypertension, Previous [place], Arrhythmia, Hyperlipidemia Additional Cardiovasular History: CARDIAC STENT Respiratory History: COPD, Shortness of Breath, Home Oxygen Use Additional Respiratory History: 2.5L AT HOME Gastrointestinal History: Diverticulitis, GI Bleed Genitourinary History: Denies History Endocrine History: Hypothyroidism Musculoskeletal History: Arthritis, Back Pain, Joint Pain, Osteoarthritis Prosthesis or Implant: Yes (left knee replacement) Additional Musculoskeletal History: hardware in right ankle and neck- fusion Neurological History: Denies History Blood Disorders: Denies History Psychiatric History: Substance Abuse Additional Psychiatric History: alcoholism History of Sexually Transmitted Diseases: No Cancer History: Skin In Past Year Been Physically Harmed or Verbally Threatened: No History of MDRO: No History of Other Communicable Diseases: No Tobacco Use: Former Smoker Alcohol Use: Occasionally Substance Use Type: None Previous Surgical History: Yes Type / Date of Surgery: MULTIPLE ORTHO, APPY, STENT, L TKA, CARPAL TUNNEL Anesthesia Reactions: No Malignant Hyperthermia: No Significant Family History: Cancer Additional Family History: both sisters had breast CA ROS - Limitations ROS Limitations: No Limitations Constitution: REPORTS: Denies Symptoms Cardiovascular: REPORTS: Denies Cardiac Symptoms Respiratory: REPORTS: Shortness Of Breath Neurological: REPORTS: Denies Neuro Symptoms Gastrointestinal: REPORTS: Abdominal Pain, Nausea, Vomitting, Diarrhea Endocrine: REPORTS: Denies Symptoms Musculoskeletal: REPORTS: Denies MS Symptoms Genitourinary: REPORTS: Denies Symptoms Eyes: REPORTS: Denies Symptoms ENT: REPORTS: Denies Symptoms Skin: REPORTS: Denies Skin Symptoms Lympathic: REPORTS: Denies Lympathic Symptoms Immunologic: POSITIVE: Denies Symptoms Psychiatric: POSITIVE: Denies Psych Symptoms Abdominal/Flank Pain PE - General Appearance General Appearance: POSITIVE: Alert, Cooperative, No Acute Distress, No Evidence of Trauma - HEENT HEENT: POSITIVE: Head Inspection Nml, Eyes Inspection Nml, Ears Inspection Nml, Nose Inspection Nml, Oral/Dental Inspect. Nml, Pharynx Inspect. Nml, PERRL, EOMI - Neck Neck: POSITIVE: Normal Inspection, No Apparent Injury - Respiratory Respiratory: POSITIVE: No Respiratory Distress, Breath Sounds Normal, Chest Non- Tender - Cardiovascular Cardiovascular: POSITIVE: Regular Rate and Rhythm, Heart Sounds Normal, Equal Pulses, Strong Pulses - Chest Chest: POSITIVE: Non Tender - Abdomen Abdomen: Soft: (All Quadrants), Normal Bowel Sounds: (All Quadrants), Tenderness Noted: (LUQ), (RUQ) - Back Back: POSITIVE: Normal Inspection - Skin Skin: POSITIVE: Intact, Normal For Race, Warm, Dry, No Rash - Extremities Extremity: Non-Tender: (All Extremities), Normal ROM: (All Extremities), Normal Inspection: (All Extremities), Pelvis Stable: (All Extremities) - Neurological Neurological: POSITIVE: Oriented X3, head grinder Normal As Tested, Motor Normal, Sensation Normal, 5, 6 - Psychological Psychiatric: POSITIVE: Affect Appropriate, Mood Appropriate Abdomen Progress - Results Reviewed by me Xrays/CTs/US Reviewed by me: Yes Discussed with Radiologist: Yes Lab Results Reviewed: Yes Lab Results:: Laboratory Results 05/17/17 05/17/17 05/17/17 Range/Units 06:20 06:22 06:38 WBC 18.36 H (4.8-10.8) 10^3/uL RBC 4.40 L (4.70-6.10) 10^6/uL Hgb 13.2 L (14.0-18.0) g/dL Hct 39.1 L (42.0-52.0) % MCV 88.9 (80-90) FL MCH 30.0 (27-31) PG MCHC 33.8 (33-37) g/dL RDW Std Deviation 48.8 (39-50) fL RDW Coeff of Isabelle 15.2 H (11.5-14.5) % Plt Count 514 H (140-350) 10*3/uL MPV 9.4 (7.4-12.2) FL Immature Gran % (Auto) (0-5) % Neut % (Auto) (50-80) % Lymph % (Auto) (10-50) % [place] % (Auto) (5-15) % Eos % (Auto) (0-8) % Baso % (Auto) (0-1) % Immature Gran # (Auto) 10*3/UL Neut # (Auto) 10*3/UL Lymph # (Auto) 10*3/uL [place] # (Auto) (0.3-0.8) 10*3/UL Eos # (Auto) 10*3/UL Baso # (Auto) 10*3/UL Neutrophils % (Manual) 60 (50-80) % Band Neutrophils % 8 (0-10) % Lymphocytes % (Manual) 20 (10-50) % Monocytes % (Manual) 8 (0-12) % Eosinophils % (Manual) 1 (0-8) % Basophils % (Manual) 3 H (0-1) % Metamyelocytes % Not Reportable Myelocytes % Not Reportable Promyelocytes % Not Reportable Blast Cells Not Reportable WBC Morphology Comment Normal morphology (NORM) Plt Morphology Comment Normal morphology (NORM) RBC Morph Comment Normal morphology (NORM) PT (9.7-11.4) secs INR (0.00-5.90) N/A VBG pH 7.39 (7.32-7.42) VBG pCO2 36 L (45-55) mmHg VBG HCO3 22 (22-26) mmol/L VBG Base Excess -3 L (-2-2) MMOL/L Sodium 131 L (135-145) meq/L Potassium 4.8 (3.8-5.2) meq/L Chloride 94 L (98-112) meq/L Carbon Dioxide 20 L (23-33) meq/L Anion Gap 17 (5-20) BUN 27 H (7-22) mg/dL Creatinine 1.0 (0.70-1.50) mg/dL Estimated GFR (>60 ml/min/1.73m(2)) BUN/Creatinine Ratio 27.00 H (6-20) Glucose 198 H (78-110) mg/dL Calculated Osmolality 282.0 (267-292) mOsm/kg Lactic Acid 4.1 H (0.70-2.10) MMOL/L Calcium 9.7 (8.7-10.7) mg/dL Magnesium (1.6-2.4) mg/dL Total Bilirubin 0.9 (0.3-1.2) mg/dL AST 31 (21-57) IU/L ALT 21 (21-72) IU/L Alkaline Phosphatase 82 (38-126) IU/L C-Reactive Protein 5.7 H (0.0-0.9) mg/dL Total Protein 7.0 (6.1-8.0) g/dL Albumin 4.1 (3.5-4.8) g/dL Globulin 3.0 (2.50-4.10) g/dL Albumin/Globulin Ratio 1.30 (1.3-2.0) mg/g Amylase 133 H (30-110) U/L Lipase 227 (23-300) IU/L Ur Collection Type Clean catch urine Urine Color Yellow Urine Clarity Clear (CLEAR) Urine pH 6.0 (5.0-8.5) Ur Specific [place] 1.010 (1.005-1.030) Urine Protein Negative (NEG) mg/dl Urine Glucose (UA) Negative (NEG) mg/dL Urine Ketones Negative (NEG) Urine Occult Blood Negative (NEG) Urine Nitrate Negative (NEG) Urine Bilirubin Negative (NEG) Urine Urobilinogen 0.2 (0.2) EU/dL Ur Leukocyte Esterase Negative (NEG) Ur Culture Indicated? Culture not set 05/17/17 05/17/17 05/17/17 Range/Units 08:55 15:42 15:54 WBC 13.89 H (4.8-10.8) 10^3/uL RBC 4.62 L (4.70-6.10) 10^6/uL Hgb 13.7 L (14.0-18.0) g/dL Hct 41.1 L (42.0-52.0) % MCV 89.0 (80-90) FL MCH 29.7 (27-31) PG MCHC 33.3 (33-37) g/dL RDW Std Deviation 49.4 (39-50) fL RDW Coeff of Isabelle 15.3 H (11.5-14.5) % Plt Count 549 H (140-350) 10*3/uL MPV 9.2 (7.4-12.2) FL Immature Gran % (Auto) 0.4 (0-5) % Neut % (Auto) 77.1 (50-80) % Lymph % (Auto) 12.3 (10-50) % [place] % (Auto) 9.6 (5-15) % Eos % (Auto) 0 (0-8) % Baso % (Auto) 0.6 (0-1) % Immature Gran # (Auto) 0.05 10*3/UL Neut # (Auto) 10.71 10*3/UL Lymph # (Auto) 1.71 10*3/uL [place] # (Auto) 1.34 H (0.3-0.8) 10*3/UL Eos # (Auto) 0 10*3/UL Baso # (Auto) 0.08 10*3/UL Neutrophils % (Manual) (50-80) % Band Neutrophils % (0-10) % Lymphocytes % (Manual) (10-50) % Monocytes % (Manual) (0-12) % Eosinophils % (Manual) (0-8) % Basophils % (Manual) (0-1) % Metamyelocytes % Myelocytes % Promyelocytes % Blast Cells WBC Morphology Comment Normal morphology (NORM) Plt Morphology Comment Normal morphology (NORM) RBC Morph Comment Normal morphology (NORM) PT 36.3 H (9.7-11.4) secs INR 3.38 (0.00-5.90) N/A VBG pH 7.43 H (7.32-7.42) VBG pCO2 34 L (45-55) mmHg VBG HCO3 22 (22-26) mmol/L VBG Base Excess -2 (-2-2) MMOL/L Sodium 134 L (135-145) meq/L Potassium 4.3 (3.8-5.2) meq/L Chloride 97 L (98-112) meq/L Carbon Dioxide 22 L (23-33) meq/L Anion Gap 15 (5-20) BUN 30 H (7-22) mg/dL Creatinine 0.9 (0.70-1.50) mg/dL Estimated GFR (>60 ml/min/1.73m(2)) BUN/Creatinine Ratio 33.33 H (6-20) Glucose 157 H (78-110) mg/dL Calculated Osmolality 286.0 (267-292) mOsm/kg Lactic Acid 1.9 (0.70-2.10) MMOL/L Calcium 8.8 (8.7-10.7) mg/dL Magnesium 1.7 (1.6-2.4) mg/dL Total Bilirubin 0.8 (0.3-1.2) mg/dL AST 35 (21-57) IU/L ALT 26 (21-72) IU/L Alkaline Phosphatase 82 (38-126) IU/L C-Reactive Protein 8.8 H (0.0-0.9) mg/dL Total Protein 7.5 (6.1-8.0) g/dL Albumin 4.2 (3.5-4.8) g/dL Globulin 3.3 (2.50-4.10) g/dL Albumin/Globulin Ratio 1.20 L (1.3-2.0) mg/g Amylase (30-110) U/L Lipase (23-300) IU/L Ur Collection Type Urine Color Urine Clarity (CLEAR) Urine pH (5.0-8.5) Ur Specific [place] (1.005-1.030) Urine Protein (NEG) mg/dl Urine Glucose (UA) (NEG) mg/dL Urine Ketones (NEG) Urine Occult Blood (NEG) Urine Nitrate (NEG) Urine Bilirubin (NEG) Urine Urobilinogen (0.2) EU/dL Ur Leukocyte Esterase (NEG) Ur Culture Indicated? - Patient's Progress Pain Medication Addressed: POSITIVE: Yes Re-examine Time: 17:50 Status: POSITIVE: Improved MDM / ED Course: Patient was evaluated, blood drawn and sent to the lab for studies, IV started, radiographic examinations were obtained. ER course: Patient received a liter of normal saline, 4 mg of IV morphine, 4 mg of IV V Zofran, 500 mg of IV azithromycin, 25 mg of IM Toradol. His symptoms did improve. Findings: CBC shows an improvement of his white count from 18.3-13.9. CT scan of his chest reveals no pneumonia present however there is diffuse COPD noted. Assessment: #1 COPD exacerbation. #2 nausea and vomiting. Plan: Admission for IV hydration, antiemetic, and antibiotics. Due to the patient's vomiting he is unable to keep antibiotics down to treat his COPD exacerbation. - Consult Consult (If Yes, Name of Consulting MD & Time Called): Yes (Dr. Moore [id number]) Consulting MD will see pt:: POSITIVE: [facility] Admit Counseled: POSITIVE: Patient, RE: Lab Results, RE: Radiology Results, RE: DX Patient Care Time - Estimated PCT Patient Care Time (In Minutes): 30 Vital Signs - Recent Vital Signs Vital Signs: Vital Signs (Last 8 hours) Temp Pulse Resp BP Pulse Ox 05/17/17 15:27 98.2 F 110 H 24 141/77 89 - VS Reviewed Vital Signs Reviewed: Yes Discharge Clinical Impression: Abdominal pain, Sepsis due to undetermined organism, Nausea and vomiting Discharge Disposition: Admit to Inpatient Condition: Good Patient Instructions Given at Discharge: Acute Nausea and Vomiting (ED), Acute Abdominal Pain (ED) Follow Up With: ALEXANDER GIBSON [Primary Care Provider] - Date Decision to Admit to Inpatient: 05/17/17 Time Decision to Admit to Inpatient: 17:50
[2017-05-17 15:59] LABS: BASOPHILS # (AUTO) 0.08 10*3/UL; BASOPHILS % (AUTO) 0.6 % (0-1); EOSINOPHILS # (AUTO) 0 10*3/UL; EOSINOPHILS % (AUTO) 0 % (0-8); HEMATOCRIT 41.1 % (42.0-52.0); HEMOGLOBIN 13.7 g/dL (14.0-18.0); LYMPHOCYTES # (AUTO) 1.71 10*3/uL; MEAN CORPUSCULAR HEMOGLOBIN 29.7 PG (27-31); MEAN CORPUSCULAR HGB CONC 33.3 g/dL (33-37); MEAN PLATELET VOLUME 9.2 FL (7.4-12.2); MONOCYTES # (AUTO) 1.34 10*3/UL (0.3-0.8); MONOCYTES % (AUTO) 9.6 % (5-15); NEUTROPHILS # (AUTO) 10.71 10*3/UL; NEUTROPHILS % (AUTO) 77.1 % (50-80); RED BLOOD COUNT 4.62 10^6/uL (4.70-6.10)
[2017-05-17 16:02] LABS: VENOUS PH 7.43 (7.32-7.42)
[2017-05-17 16:05] LABS: PLATELET MORPHOLOGY COMMENT NORMAL MORPHOLOGY (NORM); RBC MORPHOLOGY COMMENT NORMAL MORPHOLOGY (NORM); WBC MORPHOLOGY COMMENT NORMAL MORPHOLOGY (NORM)
[2017-05-17 16:09] LABS: BUN/CREATININE RATIO 33.33 (6-20); C-REACTIVE PROTEIN 8.8 mg/dL (0.0-0.9); CALCIUM 8.8 mg/dL (8.7-10.7); MAGNESIUM 1.7 mg/dL (1.6-2.4); SERUM ALBUMIN 4.2 g/dL (3.5-4.8)
--- NOTE | 2017-05-17 17:16 | DI ---
HISTORY: Vomiting and abdominal pain. Renal insufficiency. COMPARISON: 02/04/2017. TECHNIQUE: Multiple helically acquired CT images are obtained through the chest without contrast. FINDINGS: There is some old excreted contrast within the renal collecting system. Diffuse periphera l vascular calcifications are seen. The upper abdomen is otherwise unremarkable. There is diffuse COPD. There is vague density within the left lingula and within the right middle lo be representing some subsegmental atelectasis. There is also a 12 mm spiculated nodule within the ri ght middle lobe. This was not seen on the prior examination. There is no infiltrate nor effusion. Diffuse degenerative changes of the spine are seen. Coronary artery calcifications are also seen. IMPRESSION: 1. Diffuse COPD. 2. New nodular densities within the right middle lobe. This appears to represent airspace disease ho wever, some of this appears nodular. The most prominent of these is a 12 mm nodule just anterior to the minor fissure. Recommend followup imaging as per Fleischner Society guidelines.
[2017-05-17] MEDS ORDERED: PROMETHAZINE 25 MG/1 ML VIAL IM ONE ×2 (17:49→17:55)
[2017-05-17] MEDS ORDERED: MORPHINE SULFATE 2 MG/1 ML IVP ONE (18:12)
[2017-05-17 18:19] LABS: BILIRUBIN,URINE NEGATIVE (NEG); CLARITY,URINE CLEAR (CLEAR); COLOR,URINE YELLOW; GLUCOSE, URINE (UA) NEGATIVE (NEG); NITRATE,URINE NEGATIVE (NEG); OCCULT BLOOD,URINE NEGATIVE (NEG); PH,URINE 5.5 (5.0-8.5); PROTEIN,URINE 30 mg/dl (NEG); UROBILINOGEN,URINE 0.2 EU/dL (0.2)
[2017-05-17 18:20] LABS: BACTERIA,URINE RARE; SQUAMOUS EPITHELIAL CELL,UR RARE; URINE SAMPLE TYPE CLEAN CATCH URINE
--- NOTE | 2017-05-17 18:24 | PDOC ---
History and Physical - History of Present Illness History of Present Illness: This very nice patient known to our service who was admitted in the past with end-stage lung disease and also a GI bleed was actually enrolled in hospice for a while and then gained some weight and was the out of hospice comes into the ER today because of some abdominal pain with nausea and vomiting the first time he was seen in the ER CT scan of his abdomen and pelvis was were unremarkable patient felt better after some IV fluids and was discharged home. Return to the ER because of more abdominal pain but much less this time also complaining of some shortness of breath but the note fever or chills or diaphoresis and CT scan of his chest revealed emphysema and a 12 mm spiculated nodule which will need to be followed was admitted with the COPD exacerbation. Actually at present time is nausea vomiting abdominal pain at all recently all resolved as as well his physical exam are benign. He is actually asking to go home I told patient that he should be hydrated and watched at least overnight and in the morning we will reevaluate his blood work and how he feels. Past Medical History Medical History: 1. COPD with chronic hypoxemic respiratory failure, oxygen at home which she intermittently takes during the day, and is on all the time at night. He has pulmonary cachexia as well. He is on daily steroids and Zithromax to try and prevent exacerbations. 2. Hypothyroidism. 3. Coronary artery disease with previous stent in 2013. 4. Atrial fibrillation, he was switched over to Xarelto recently. 5. Chronic pain syndrome. 6. Pulmonary cachexia and loss of weight. Surgical History: 1. Appendectomy. 2. Previous knee replacement. 3. Cervical neck fusion 2012 Family History: Reviewed an Not Pertinent Pertinent Family History: Father of coronary artery disease and myocardial infarction. He's not sure what his mother passed on from. Past Social History: He smokes one pack a day, drinks nearly every day no drugs. Has 2 children, a son who lives here in [place]. His ex- also helps take care of him. He states he has not had anything to smoke since we put a nicotine patch on him on his prior hospital stay. Tobacco Use: Former Smoker Substance Use Type: None Medication / Allergies Home Medications: Home Medications Medication Instructions Recorded Confirmed Type Aspirin Chewable Tab 324 mg PO ONCE (ED) #0 tab 08/05/14 05/17/17 Rx Metoprolol Tartrate Tab 12.5 mg PO BID #0 tablet 08/05/14 05/17/17 Rx [Lopressor Tab] Budesonide/Formoterol Fumarate 6 gm IH BID #3 inhaler 05/30/16 05/17/17 Clinic [SYMBICORT] Nitroglycerin SL Tab [Nitrostat 0.4 mg SL PRN PRN #20 tab 05/30/16 05/17/17 Clinic SL Tab] Albuterol/Ipratropium Inhaler 4 gm IH QID #1 inhaler 07/15/16 05/17/17 Clinic [Combivent Respimat Inhaler] oxyCODONE/APAP 5/325 Tab 1 tab PO Q6H PRN 12/20/16 05/17/17 History [Percocet 5/325 Tab] Albuterol Neb Soln 0.083% 2.5 mg NEB RTQ2H PRN #120 vial.neb 12/23/16 05/17/17 Rx Albuterol/Ipratrop Neb Soln 3 ml NEB RTQ6H #120 ampul.neb 12/23/16 05/17/17 Rx [Duoneb Neb Soln] Pantoprazole Sodium [Protonix] 40 mg PO BID #60 tab 02/07/17 05/17/17 Rx Warfarin Sodium 1 tab PO QD #30 tab 02/13/17 05/17/17 Clinic Atorvastatin Calcium [Lipitor] 20 mg PO DAILY #90 tab 02/24/17 05/17/17 Clinic Alprazolam 1 tab-cap PO Q8H PRN #270 tab-cap 02/25/17 05/17/17 Clinic Tamsulosin HCl 0.4 mg PO DAILY #30 cap 03/05/17 05/17/17 Clinic Tizanidine HCl 2 tab PO Q6-8H #90 tab 03/05/17 05/17/17 Clinic Lisinopril 1 tab PO DAILY #90 tab 03/26/17 05/17/17 Clinic Warfarin Sodium 0.5 tab PO QD #90 tab 03/26/17 05/17/17 Clinic Potassium Chloride 10 meq PO BID #60 capsule.sa 04/01/17 05/17/17 Rx Levothyroxine Sodium [Synthroid] 125 mcg PO DAILY@0530 #30 tab 04/03/17 Clinic Furosemide 20 mg PO BID #180 tab 04/30/17 05/17/17 Clinic Potassium Chloride [Klor-Con 10] 1 tab PO BID #180 tab 04/30/17 05/17/17 Clinic Ferrous Gluconate 324 mg PO QD #30 tab 05/07/17 05/17/17 Clinic Omeprazole 1 cap PO BID #60 cap 05/07/17 05/17/17 Clinic Albuterol Sulfate [Ventolin Hfa] 1 - 2 puff INH Q4-6H PRN #3 puff 05/14/1705/17 Clinic Mirtazapine 15 mg PO QHS #90 tab 05/14/17 05/17/17 Clinic Ondansetron [Ondansetron Odt] 1 tab PO Q4-6H PRN #60 tab 05/14/17 05/17/17 Clinic Allergies/Adverse Reactions: Allergies Allergy/AdvReac Type Severity Reaction Status Date / Time amlodipine besylate Allergy Intermediate Edema of Verified 05/17/17 05:59 [From [facility]] ankles Review of Systems - Review of Systems All Systems: Reviewed & No Additional Complaints Except as Stated - Constitutional Constitutional: REPORTS: Weight Loss - Respiratory Respiratory: REPORTS: Cough - Gastrointestinal Gastrointestinal / Abdominal: REPORTS: Nausea, Vomiting - Genitourinary Genitourinary: DENIES: Negative System Review, Pain, Burning, Hematuria, Incontinence, Urgency, Hesitant Stream, Decreased Stream, Nocutria, Discharge, Sexual Dyfunction, Other, See HPI - Neurological Neurologic: DENIES: Negative System Review, Headache, Numbness/Paresthesia, Tremors, Weakness, Seizures, Head Trauma, LOC, Dizziness, Confusion, Memory Loss , Difficulty Walking, Incoordination, Other, See HPI Exam - Vitals Vital Signs: Vital Signs Temperature 98.2 F Temperature Source Temporal Artery Scan Pulse Rate [Pulse Oximeter] 110 Respiratory Rate 24 Blood Pressure [Right Arm] 141/77 Pulse Ox 89 Oxygen Delivery Method Room Air Height 5 ft 7 in Weight 50.802 kg - General General Appearance: POSITIVE: No Acute Distress, Cooperative, Thin - Head Head Exam: POSITIVE: Normal Inspection, Normocephalic, Atraumatic - Neck Neck Exam: POSITIVE: Normal Inspection - Respiratory Respiratory Exam: POSITIVE: Decreased Breath Sounds. NEGATIVE: Rales, Rhonci, Crackles, Wheezes - Cardiovascular Cardiovascular Exam: POSITIVE: No Murmur, No Clicks, No Gallops - GI/Abdominal GI/Abdominal Exam: POSITIVE: Normal Bowel Sounds, Non Tender, Non Distended, Soft, No Splenomegaly. NEGATIVE: Distended, Guarding, Diminished Bowel Sounds, Hypoactive Bowel Sounds, No Masses, Pulsatile Mass, Rebound, Rigid, Hepatomegaly - Extremities Extremities Exam: POSITIVE: No Clubbing Present, No Edema Present, No Cyanosis Present Results - Labs CBC and BMP: 05/17/17 15:42 05/17/17 15:42 Labs - Last 24 Hours: Laboratory Results 05/17/17 05/17/17 05/17/17 Range/Units 06:20 06:22 06:38 WBC 18.36 H (4.8-10.8) 10^3/uL RBC 4.40 L (4.70-6.10) 10^6/uL Hgb 13.2 L (14.0-18.0) g/dL Hct 39.1 L (42.0-52.0) % MCV 88.9 (80-90) FL MCH 30.0 (27-31) PG MCHC 33.8 (33-37) g/dL RDW Std Deviation 48.8 (39-50) fL RDW Coeff of Isabelle 15.2 H (11.5-14.5) % Plt Count 514 H (140-350) 10*3/uL MPV 9.4 (7.4-12.2) FL Immature Gran % (Auto) (0-5) % Neut % (Auto) (50-80) % Lymph % (Auto) (10-50) % [place] % (Auto) (5-15) % Eos % (Auto) (0-8) % Baso % (Auto) (0-1) % Immature Gran # (Auto) 10*3/UL Neut # (Auto) 10*3/UL Lymph # (Auto) 10*3/uL [place] # (Auto) (0.3-0.8) 10*3/UL Eos # (Auto) 10*3/UL Baso # (Auto) 10*3/UL Neutrophils % (Manual) 60 (50-80) % Band Neutrophils % 8 (0-10) % Lymphocytes % (Manual) 20 (10-50) % Monocytes % (Manual) 8 (0-12) % Eosinophils % (Manual) 1 (0-8) % Basophils % (Manual) 3 H (0-1) % Metamyelocytes % Not Reportable Myelocytes % Not Reportable Promyelocytes % Not Reportable Blast Cells Not Reportable WBC Morphology Comment Normal morphology (NORM) Plt Morphology Comment Normal morphology (NORM) RBC Morph Comment Normal morphology (NORM) PT (9.7-11.4) secs INR (0.00-5.90) N/A VBG pH 7.39 (7.32-7.42) VBG pCO2 36 L (45-55) mmHg VBG HCO3 22 (22-26) mmol/L VBG Base Excess -3 L (-2-2) MMOL/L Sodium 131 L (135-145) meq/L Potassium 4.8 (3.8-5.2) meq/L Chloride 94 L (98-112) meq/L Carbon Dioxide 20 L (23-33) meq/L Anion Gap 17 (5-20) BUN 27 H (7-22) mg/dL Creatinine 1.0 (0.70-1.50) mg/dL Estimated GFR (>60 ml/min/1.73m(2)) BUN/Creatinine Ratio 27.00 H (6-20) Glucose 198 H (78-110) mg/dL Calculated Osmolality 282.0 (267-292) mOsm/kg Lactic Acid 4.1 H (0.70-2.10) MMOL/L Calcium 9.7 (8.7-10.7) mg/dL Magnesium (1.6-2.4) mg/dL Total Bilirubin 0.9 (0.3-1.2) mg/dL AST 31 (21-57) IU/L ALT 21 (21-72) IU/L Alkaline Phosphatase 82 (38-126) IU/L C-Reactive Protein 5.7 H (0.0-0.9) mg/dL Total Protein 7.0 (6.1-8.0) g/dL Albumin 4.1 (3.5-4.8) g/dL Globulin 3.0 (2.50-4.10) g/dL Albumin/Globulin Ratio 1.30 (1.3-2.0) mg/g Amylase 133 H (30-110) U/L Lipase 227 (23-300) IU/L Ur Collection Type Clean catch urine Urine Color Yellow Urine Clarity Clear (CLEAR) Urine pH 6.0 (5.0-8.5) Ur Specific [place] 1.010 (1.005-1.030) Urine Protein Negative (NEG) mg/dl Urine Glucose (UA) Negative (NEG) mg/dL Urine Ketones Negative (NEG) Urine Occult Blood Negative (NEG) Urine Nitrate Negative (NEG) Urine Bilirubin Negative (NEG) Urine Urobilinogen 0.2 (0.2) EU/dL Ur Leukocyte Esterase Negative (NEG) Ur Culture Indicated? Culture not set 05/17/17 05/17/17 05/17/17 Range/Units 08:55 15:42 15:54 WBC 13.89 H (4.8-10.8) 10^3/uL RBC 4.62 L (4.70-6.10) 10^6/uL Hgb 13.7 L (14.0-18.0) g/dL Hct 41.1 L (42.0-52.0) % MCV 89.0 (80-90) FL MCH 29.7 (27-31) PG MCHC 33.3 (33-37) g/dL RDW Std Deviation 49.4 (39-50) fL RDW Coeff of Isabelle 15.3 H (11.5-14.5) % Plt Count 549 H (140-350) 10*3/uL MPV 9.2 (7.4-12.2) FL Immature Gran % (Auto) 0.4 (0-5) % Neut % (Auto) 77.1 (50-80) % Lymph % (Auto) 12.3 (10-50) % [place] % (Auto) 9.6 (5-15) % Eos % (Auto) 0 (0-8) % Baso % (Auto) 0.6 (0-1) % Immature Gran # (Auto) 0.05 10*3/UL Neut # (Auto) 10.71 10*3/UL Lymph # (Auto) 1.71 10*3/uL [place] # (Auto) 1.34 H (0.3-0.8) 10*3/UL Eos # (Auto) 0 10*3/UL Baso # (Auto) 0.08 10*3/UL Neutrophils % (Manual) (50-80) % Band Neutrophils % (0-10) % Lymphocytes % (Manual) (10-50) % Monocytes % (Manual) (0-12) % Eosinophils % (Manual) (0-8) % Basophils % (Manual) (0-1) % Metamyelocytes % Myelocytes % Promyelocytes % Blast Cells WBC Morphology Comment Normal morphology (NORM) Plt Morphology Comment Normal morphology (NORM) RBC Morph Comment Normal morphology (NORM) PT 36.3 H (9.7-11.4) secs INR 3.38 (0.00-5.90) N/A VBG pH 7.43 H (7.32-7.42) VBG pCO2 34 L (45-55) mmHg VBG HCO3 22 (22-26) mmol/L VBG Base Excess -2 (-2-2) MMOL/L Sodium 134 L (135-145) meq/L Potassium 4.3 (3.8-5.2) meq/L Chloride 97 L (98-112) meq/L Carbon Dioxide 22 L (23-33) meq/L Anion Gap 15 (5-20) BUN 30 H (7-22) mg/dL Creatinine 0.9 (0.70-1.50) mg/dL Estimated GFR (>60 ml/min/1.73m(2)) BUN/Creatinine Ratio 33.33 H (6-20) Glucose 157 H (78-110) mg/dL Calculated Osmolality 286.0 (267-292) mOsm/kg Lactic Acid 1.9 (0.70-2.10) MMOL/L Calcium 8.8 (8.7-10.7) mg/dL Magnesium 1.7 (1.6-2.4) mg/dL Total Bilirubin 0.8 (0.3-1.2) mg/dL AST 35 (21-57) IU/L ALT 26 (21-72) IU/L Alkaline Phosphatase 82 (38-126) IU/L C-Reactive Protein 8.8 H (0.0-0.9) mg/dL Total Protein 7.5 (6.1-8.0) g/dL Albumin 4.2 (3.5-4.8) g/dL Globulin 3.3 (2.50-4.10) g/dL Albumin/Globulin Ratio 1.20 L (1.3-2.0) mg/g Amylase (30-110) U/L Lipase (23-300) IU/L Ur Collection Type Urine Color Urine Clarity (CLEAR) Urine pH (5.0-8.5) Ur Specific [place] (1.005-1.030) Urine Protein (NEG) mg/dl Urine Glucose (UA) (NEG) mg/dL Urine Ketones (NEG) Urine Occult Blood (NEG) Urine Nitrate (NEG) Urine Bilirubin (NEG) Urine Urobilinogen (0.2) EU/dL Ur Leukocyte Esterase (NEG) Ur Culture Indicated? Assessment and Plan - Patient Problems (1) COPD exacerbation Current Visit: No Status: Acute Comment: admit ,abx,steroids,duonebs (2) Abdominal pain Current Visit: Yes Status: Acute Comment: improved neg ct scan (3) Nausea and vomiting Current Visit: Yes Status: Acute Comment: improved cont antiemetics (4) Cachexia Current Visit: No Status: Acute Comment: secondary to lung desease in hospice at one time (5) Chronic pain syndrome Current Visit: No Status: Chronic (6) End stage COPD Current Visit: No Status: Chronic (7) History of atrial fibrillation Current Visit: No Status: Chronic Comment: on coumadin supretheraputic hold tomorrow (8) Hypertension Current Visit: No Status: Chronic Comment: stable cont current meds Qualifiers: Qualified Description: Essential hypertension Qualifier Code(s): (I10 ) Essential (primary) hypertension (9) Hypothyroidism Current Visit: No Status: Chronic Comment: cont current meds Qualifiers: Qualified Description: Acquired hypothyroidism Qualifier Code(s): ( E03.9) Hypothyroidism, unspecified (10) Lung nodule Current Visit: Yes Status: Acute Comment: spiculated ,needs pulm follow up 12 mm new from last ct
[2017-05-17] MEDS ORDERED: ASPIRIN 81 MG (BABY) CHEWABLE TABLET PO ONE (19:03)
[2017-05-17] MEDS ORDERED: oxyCODONE-ACETAMINOPHEN 5-325 TAB PO PRN (19:03)
[2017-05-17] MEDS ORDERED: NORMAL SALINE 10 ML SYRINGE FLUSH IVP PRN (19:03)
[2017-05-17] MEDS ORDERED: ALPRAZolam Tab 0.25 MG TABLET PO SCH (19:03)
[2017-05-17] MEDS ORDERED: LIDOCAINE W/ SODIUM BICARB 0.5 ML SYR SUBD PRN (19:03)
[2017-05-17] MEDS: Sodium Chloride 0.9% 1,000 ML PRIMARY IV SCH (19:37)
[2017-05-17] MEDS ORDERED: methylPREDNISolone 125 MG/2 ML VIAL IVP PRN (20:09)
[2017-05-17] MEDS: IPRATROPIUM/ALBUTEROL SULFATE 3 ML NEB NEB SCH (20:41)
[2017-05-17] MEDS: FORMOTEROL FUMARATE IH SCH (20:56)
[2017-05-17] MEDS: BUDESONIDE IH SCH (20:56)
[2017-05-17] MEDS ORDERED: Mirtazapine Tab 15 MG TAB PO SCH (21:00)
[2017-05-17] MEDS ORDERED: methylPREDNISolone 125 MG/2 ML VIAL IVP SCH (21:00)
[2017-05-17] MEDS: Potassium Chloride Tab 10 MEQ TAB PO SCH (21:22)
[2017-05-17] MEDS: PANTOPRAZOLE 40 MG TABLET PO SCH (21:22)
[2017-05-17] MEDS: Metoprolol TARTRATE Tab 25 MG TAB PO SCH (21:22)
[2017-05-17] MEDS: FUROSEMIDE 20 MG TABLET PO SCH (21:22)
[2017-05-17] MEDS ORDERED: ALPRAZolam Tab 0.25 MG TABLET PO PRN (21:50)
[2017-05-17] MEDS: methylPREDNISolone 40 MG/1 ML VIAL IVP SCH (22:30)
[2017-05-18] MEDS: methylPREDNISolone 40 MG/1 ML VIAL IVP SCH ×2 (03:25→09:28)
[2017-05-18] MEDS: Sodium Chloride 0.9% 1,000 ML PRIMARY IV SCH (03:43)
[2017-05-18] MEDS ORDERED: LEVOTHYROXINE 125 MCG TABLET PO SCH (05:30)
[2017-05-18 05:49] LABS: HEMATOCRIT 32.1 % (42.0-52.0); MEAN CORPUSCULAR HEMOGLOBIN 30.5 PG (27-31); MEAN CORPUSCULAR HGB CONC 34.3 g/dL (33-37); MEAN CORPUSCULAR VOLUME 88.9 FL (80-90); MEAN PLATELET VOLUME 9.5 FL (7.4-12.2); RED BLOOD COUNT 3.61 10^6/uL (4.70-6.10)
[2017-05-18 05:51] LABS: BLOOD UREA NITROGEN 27 mg/dL (7-22); CALCIUM 7.6 mg/dL (8.7-10.7)
[2017-05-18 06:17] LABS: PLATELET MORPHOLOGY COMMENT NORMAL MORPHOLOGY (NORM); RBC MORPHOLOGY COMMENT NORMAL MORPHOLOGY (NORM); WBC MORPHOLOGY COMMENT NORMAL MORPHOLOGY (NORM)
[2017-05-18 06:18] LABS: BAND NEUTROPHILS % 26 % (0-10); BASOPHILS % (MANUAL) 0 % (0-1); EOSINOPHILS % (MANUAL) 0 % (0-8); LYMPHOCYTES % (MANUAL) 14 % (10-50); MONOCYTES % (MANUAL) 2 % (0-12); NEUTROPHILS % (MANUAL) 58 % (50-80)
[2017-05-18] MEDS: IPRATROPIUM/ALBUTEROL SULFATE 3 ML NEB NEB SCH ×2 (06:54→10:52)
[2017-05-18] MEDS: FORMOTEROL FUMARATE IH SCH (06:55)
[2017-05-18] MEDS: BUDESONIDE IH SCH (06:55)
[2017-05-18] MEDS ORDERED: cefTRIAXone Inj 1 GM in Sodium Chloride 0.9% 100 ML IV SCH (07:30)
[2017-05-18] MEDS ORDERED: ATORVASTATIN 20 MG TABLET PO SCH (09:00)
[2017-05-18] MEDS ORDERED: TAMSULOSIN 0.4 MG CAPSULE PO SCH (09:00)
[2017-05-18] MEDS ORDERED: FERROUS GLUCONATE 324 MG TABLET PO SCH (09:00)
[2017-05-18] MEDS ORDERED: LISINOPRIL 5 MG TABLET PO SCH (09:00)
[2017-05-18] MEDS: FUROSEMIDE 20 MG TABLET PO SCH (09:29)
[2017-05-18] MEDS: PANTOPRAZOLE 40 MG TABLET PO SCH (09:29)
[2017-05-18] MEDS: Metoprolol TARTRATE Tab 25 MG TAB PO SCH (09:29)
[2017-05-18] MEDS: Potassium Chloride Tab 10 MEQ TAB PO SCH (09:30)
[2017-05-18 11:06] VITALS: RESP 17; TEMP 98.6
--- NOTE | 2017-05-18 11:27 | DCSUMMARY ---
Hospitalization Summary Admit Date: 05/17/17 Discharge Date: 05/18/17 Primary Diagnosis:: COPD exacerbation Secondary Diagnosis:: Elevated INR Hospital Course: Final Discharge Diagnosis: Current Visit Problems Problem Status Priority Diagnosed Code Abdominal pain Acute R10.9 Lung nodule Acute R91.1 Nausea and vomiting Acute R11.2 Sepsis due to undetermined organism Acute A41.9 Diagnostic Data, Laboratory Data, and Procedures of Signifigance: Laboratory Results 05/17/17 05/17/17 05/17/17 Range/Units 06:20 06:22 06:38 WBC 18.36 H (4.8-10.8) 10^3/uL RBC 4.40 L (4.70-6.10) 10^6/uL Hgb 13.2 L (14.0-18.0) g/dL Hct 39.1 L (42.0-52.0) % MCV 88.9 (80-90) FL MCH 30.0 (27-31) PG MCHC 33.8 (33-37) g/dL RDW Std Deviation 48.8 (39-50) fL RDW Coeff of Isabelle 15.2 H (11.5-14.5) % Plt Count 514 H (140-350) 10*3/uL MPV 9.4 (7.4-12.2) FL Immature Gran % (Auto) (0-5) % Neut % (Auto) (50-80) % Lymph % (Auto) (10-50) % [place] % (Auto) (5-15) % Eos % (Auto) (0-8) % Baso % (Auto) (0-1) % Immature Gran # (Auto) 10*3/UL Neut # (Auto) 10*3/UL Lymph # (Auto) 10*3/uL [place] # (Auto) (0.3-0.8) 10*3/UL Eos # (Auto) 10*3/UL Baso # (Auto) 10*3/UL Neutrophils % (Manual) 60 (50-80) % Band Neutrophils % 8 (0-10) % Lymphocytes % (Manual) 20 (10-50) % Monocytes % (Manual) 8 (0-12) % Eosinophils % (Manual) 1 (0-8) % Basophils % (Manual) 3 H (0-1) % Metamyelocytes % Not Reportable Myelocytes % Not Reportable Promyelocytes % Not Reportable Blast Cells Not Reportable WBC Morphology Comment Normal morphology (NORM) Plt Morphology Comment Normal morphology (NORM) RBC Morph Comment Normal morphology (NORM) PT (9.7-11.4) secs INR (0.00-5.90) N/A VBG pH 7.39 (7.32-7.42) VBG pCO2 36 L (45-55) mmHg VBG HCO3 22 (22-26) mmol/L VBG Base Excess -3 L (-2-2) MMOL/L Sodium 131 L (135-145) meq/L Potassium 4.8 (3.8-5.2) meq/L Chloride 94 L (98-112) meq/L Carbon Dioxide 20 L (23-33) meq/L Anion Gap 17 (5-20) BUN 27 H (7-22) mg/dL Creatinine 1.0 (0.70-1.50) mg/dL Estimated GFR (>60 ml/min/1.73m(2)) BUN/Creatinine Ratio 27.00 H (6-20) Glucose 198 H (78-110) mg/dL Calculated Osmolality 282.0 (267-292) mOsm/kg Lactic Acid 4.1 H (0.70-2.10) MMOL/L Calcium 9.7 (8.7-10.7) mg/dL Magnesium (1.6-2.4) mg/dL Total Bilirubin 0.9 (0.3-1.2) mg/dL AST 31 (21-57) IU/L ALT 21 (21-72) IU/L Alkaline Phosphatase 82 (38-126) IU/L C-Reactive Protein 5.7 H (0.0-0.9) mg/dL Total Protein 7.0 (6.1-8.0) g/dL Albumin 4.1 (3.5-4.8) g/dL Globulin 3.0 (2.50-4.10) g/dL Albumin/Globulin Ratio 1.30 (1.3-2.0) mg/g Amylase 133 H (30-110) U/L Lipase 227 (23-300) IU/L Ur Collection Type Clean catch urine Urine Color Yellow Urine Clarity Clear (CLEAR) Urine pH 6.0 (5.0-8.5) Ur Specific [place] 1.010 (1.005-1.030) Urine Protein Negative (NEG) mg/dl Urine Glucose (UA) Negative (NEG) mg/dL Urine Ketones Negative (NEG) Urine Occult Blood Negative (NEG) Urine Nitrate Negative (NEG) Urine Bilirubin Negative (NEG) Urine Urobilinogen 0.2 (0.2) EU/dL Ur Leukocyte Esterase Negative (NEG) Urine RBC (NONE) /hpf Urine WBC (NONE) Ur Squamous Epith Cells (NONE) Ur Renal Epithelial Cell (NONE) Urine Crystals Urine Bacteria (NONE) Urine Casts (NONE) Urine Mucus (NONE) Urine Trichomonas (NONE) Urine Yeast (NONE) Ur Culture Indicated? Culture not set 05/17/17 05/17/17 05/17/17 Range/Units 08:55 15:42 15:54 WBC 13.89 H (4.8-10.8) 10^3/uL RBC 4.62 L (4.70-6.10) 10^6/uL Hgb 13.7 L (14.0-18.0) g/dL Hct 41.1 L (42.0-52.0) % MCV 89.0 (80-90) FL MCH 29.7 (27-31) PG MCHC 33.3 (33-37) g/dL RDW Std Deviation 49.4 (39-50) fL RDW Coeff of Isabelle 15.3 H (11.5-14.5) % Plt Count 549 H (140-350) 10*3/uL MPV 9.2 (7.4-12.2) FL Immature Gran % (Auto) 0.4 (0-5) % Neut % (Auto) 77.1 (50-80) % Lymph % (Auto) 12.3 (10-50) % [place] % (Auto) 9.6 (5-15) % Eos % (Auto) 0 (0-8) % Baso % (Auto) 0.6 (0-1) % Immature Gran # (Auto) 0.05 10*3/UL Neut # (Auto) 10.71 10*3/UL Lymph # (Auto) 1.71 10*3/uL [place] # (Auto) 1.34 H (0.3-0.8) 10*3/UL Eos # (Auto) 0 10*3/UL Baso # (Auto) 0.08 10*3/UL Neutrophils % (Manual) (50-80) % Band Neutrophils % (0-10) % Lymphocytes % (Manual) (10-50) % Monocytes % (Manual) (0-12) % Eosinophils % (Manual) (0-8) % Basophils % (Manual) (0-1) % Metamyelocytes % Myelocytes % Promyelocytes % Blast Cells WBC Morphology Comment Normal morphology (NORM) Plt Morphology Comment Normal morphology (NORM) RBC Morph Comment Normal morphology (NORM) PT 36.3 H (9.7-11.4) secs INR 3.38 (0.00-5.90) N/A VBG pH 7.43 H (7.32-7.42) VBG pCO2 34 L (45-55) mmHg VBG HCO3 22 (22-26) mmol/L VBG Base Excess -2 (-2-2) MMOL/L Sodium 134 L (135-145) meq/L Potassium 4.3 (3.8-5.2) meq/L Chloride 97 L (98-112) meq/L Carbon Dioxide 22 L (23-33) meq/L Anion Gap 15 (5-20) BUN 30 H (7-22) mg/dL Creatinine 0.9 (0.70-1.50) mg/dL Estimated GFR (>60 ml/min/1.73m(2)) BUN/Creatinine Ratio 33.33 H (6-20) Glucose 157 H (78-110) mg/dL Calculated Osmolality 286.0 (267-292) mOsm/kg Lactic Acid 1.9 (0.70-2.10) MMOL/L Calcium 8.8 (8.7-10.7) mg/dL Magnesium 1.7 (1.6-2.4) mg/dL Total Bilirubin 0.8 (0.3-1.2) mg/dL AST 35 (21-57) IU/L ALT 26 (21-72) IU/L Alkaline Phosphatase 82 (38-126) IU/L C-Reactive Protein 8.8 H (0.0-0.9) mg/dL Total Protein 7.5 (6.1-8.0) g/dL Albumin 4.2 (3.5-4.8) g/dL Globulin 3.3 (2.50-4.10) g/dL Albumin/Globulin Ratio 1.20 L (1.3-2.0) mg/g Amylase (30-110) U/L Lipase (23-300) IU/L Ur Collection Type Urine Color Urine Clarity (CLEAR) Urine pH (5.0-8.5) Ur Specific [place] (1.005-1.030) Urine Protein (NEG) mg/dl Urine Glucose (UA) (NEG) mg/dL Urine Ketones (NEG) Urine Occult Blood (NEG) Urine Nitrate (NEG) Urine Bilirubin (NEG) Urine Urobilinogen (0.2) EU/dL Ur Leukocyte Esterase (NEG) Urine RBC (NONE) /hpf Urine WBC (NONE) Ur Squamous Epith Cells (NONE) Ur Renal Epithelial Cell (NONE) Urine Crystals Urine Bacteria (NONE) Urine Casts (NONE) Urine Mucus (NONE) Urine Trichomonas (NONE) Urine Yeast (NONE) Ur Culture Indicated? 05/17/17 05/18/17 Range/Units 18:00 05:25 WBC 11.78 H (4.8-10.8) 10^3/uL RBC 3.61 L (4.70-6.10) 10^6/uL Hgb 11.0 L (14.0-18.0) g/dL Hct 32.1 L (42.0-52.0) % MCV 88.9 (80-90) FL MCH 30.5 (27-31) PG MCHC 34.3 (33-37) g/dL RDW Std Deviation 48.2 (39-50) fL RDW Coeff of Isabelle 15.2 H (11.5-14.5) % Plt Count 482 H (140-350) 10*3/uL MPV 9.5 (7.4-12.2) FL Immature Gran % (Auto) (0-5) % Neut % (Auto) (50-80) % Lymph % (Auto) (10-50) % [place] % (Auto) (5-15) % Eos % (Auto) (0-8) % Baso % (Auto) (0-1) % Immature Gran # (Auto) 10*3/UL Neut # (Auto) 10*3/UL Lymph # (Auto) 10*3/uL [place] # (Auto) (0.3-0.8) 10*3/UL Eos # (Auto) 10*3/UL Baso # (Auto) 10*3/UL Neutrophils % (Manual) 58 (50-80) % Band Neutrophils % 26 H (0-10) % Lymphocytes % (Manual) 14 (10-50) % Monocytes % (Manual) 2 (0-12) % Eosinophils % (Manual) 0 (0-8) % Basophils % (Manual) 0 (0-1) % Metamyelocytes % Not Reportable Myelocytes % Not Reportable Promyelocytes % Not Reportable Blast Cells Not Reportable WBC Morphology Comment Normal morphology (NORM) Plt Morphology Comment Normal morphology (NORM) RBC Morph Comment Normal morphology (NORM) PT (9.7-11.4) secs INR (0.00-5.90) N/A VBG pH (7.32-7.42) VBG pCO2 (45-55) mmHg VBG HCO3 (22-26) mmol/L VBG Base Excess (-2-2) MMOL/L Sodium 134 L (135-145) meq/L Potassium 4.1 (3.8-5.2) meq/L Chloride 103 (98-112) meq/L Carbon Dioxide 22 L (23-33) meq/L Anion Gap 9 (5-20) BUN 27 H (7-22) mg/dL Creatinine 0.6 L (0.70-1.50) mg/dL Estimated GFR Clinical Aide (>60 ml/min/1.73m(2)) BUN/Creatinine Ratio 45.00 H (6-20) Glucose 124 H (78-110) mg/dL Calculated Osmolality 283.0 (267-292) mOsm/kg Lactic Acid (0.70-2.10) MMOL/L Calcium 7.6 L (8.7-10.7) mg/dL Magnesium (1.6-2.4) mg/dL Total Bilirubin (0.3-1.2) mg/dL AST (21-57) IU/L ALT (21-72) IU/L Alkaline Phosphatase (38-126) IU/L C-Reactive Protein (0.0-0.9) mg/dL Total Protein (6.1-8.0) g/dL Albumin (3.5-4.8) g/dL Globulin (2.50-4.10) g/dL Albumin/Globulin Ratio (1.3-2.0) mg/g Amylase (30-110) U/L Lipase (23-300) IU/L Ur Collection Type Clean catch urine Urine Color Yellow Urine Clarity Clear (CLEAR) Urine pH 5.5 (5.0-8.5) Ur Specific [place] 1.015 (1.005-1.030) Urine Protein 30 (NEG) mg/dl Urine Glucose (UA) Negative (NEG) mg/dL Urine Ketones 15 (NEG) Urine Occult Blood Negative (NEG) Urine Nitrate Negative (NEG) Urine Bilirubin Negative (NEG) Urine Urobilinogen 0.2 (0.2) EU/dL Ur Leukocyte Esterase Negative (NEG) Urine RBC 1-3 (NONE) /hpf Urine WBC 1-3 (NONE) Ur Squamous Epith Cells Rare (NONE) Ur Renal Epithelial Cell None (NONE) Urine Crystals None Urine Bacteria Rare (NONE) Urine Casts None (NONE) Urine Mucus None (NONE) Urine Trichomonas None (NONE) Urine Yeast None (NONE) Ur Culture Indicated? Culture not set History and Physical pertinent to Admission: Course of Hospitalization: This very nice 76-year-old gentleman with past medical history significant for end-stage COPD comes in with abdominal pain through the ER CT scan of his abdomen was unremarkable was discharged home because of the pain has resolved comes back with the still some abdominal pain which also resolved again shortly thereafter CT scan of the chest at that time revealed the most likely COPD exacerbation and dehydration and subtherapeutic INR patient at that time said he wanted to be admitted was started on steroids and antibiotics and already that night he felt like 100 times better and wanted to leave this morning and he is feeling like he is never felt before he feels great and is wanting to go home and he would like to go home no matter what. I will continue with Zithromax 500 for 3 more days this could help his end-stage emphysema and also he will take the 6 more days of prednisone 40 and stop also he will follow-up with his primary care physician in about 5 days appointment was made. He still losing weight from his end-stage COPD he was in hospice at one time he said he is considering doing this again but he will think about it On the date of discharge, the patient was examined: Gen.: No acute distress, alert, nontoxic Heart: Regular rate and rhythm, no murmurs, clicks, gallops, or rubs Lungs: Clear to auscultation bilaterally, breathing is nonlabored Abdomen/GI: Normal tones on auscultation, soft, nontender, nondistended Musculoskeletal/extremities: No clubbing, cyanosis, or edema Vitals reviewed and are listed below Vital Signs (24 hrs) Temp Pulse Pulse Resp BP BP Pulse Ox 05/18/17 11:05 98.6 F 87 17 133/61 97 05/18/17 11:00 81 05/18/17 07:00 81 05/18/17 06:27 97.4 F 94 19 106/64 97 05/18/17 05:32 93 05/18/17 05:00 98.3 F 81 18 112/57 95 05/18/17 03:00 79 05/18/17 01:00 98.8 F 98 16 111/52 93 05/17/17 23:00 95 05/17/17 21:41 99.2 F 103 H 12 108/50 95 05/17/17 18:58 104 H 22 05/17/17 18:46 98.2 F 72 18 141/73 92 05/17/17 15:27 98.2 F 110 H 24 141/77 89 Assessment and Plan: 1. As per discharge assessments above 2. Disposition: Home 3. Condition on discharge, stable and improved. 4. Diet: regular diet 5. Activities: resume normal activities 6. Follow-Up: 1. PCP Dr. Mishra appointment was made 2. 7. Medications at the Time of Discharge: 8. Time, care, counseling and coordination of care for this discharge is greater than 30 minutes. Exam - Vitals Vital Signs: Vital Signs Temperature 98.6 F Temperature Source Temporal Artery Scan Pulse Rate [Pulse Oximeter] 87 Pulse Rate 81 Respiratory Rate 17 Blood Pressure [Right Arm] 133/61 Blood Pressure 141/73 Pulse Ox 97 Oxygen Flow Rate 2.5 Oxygen Delivery Method Nasal Cannula Height 5 ft 7 in Weight 48.534 kg Patient Problems - Patient Problem List (1) COPD exacerbation Current Visit: No Status: Acute (2) Abdominal pain Current Visit: Yes Status: Acute (3) Nausea and vomiting Current Visit: Yes Status: Acute (4) Cachexia Current Visit: No Status: Acute (5) Chronic pain syndrome Current Visit: No Status: Chronic (6) End stage COPD Current Visit: No Status: Chronic (7) History of atrial fibrillation Current Visit: No Status: Chronic (8) Hypertension Current Visit: No Status: Chronic Qualifiers: Qualified Description: Essential hypertension Qualifier Code(s): (I10 ) Essential (primary) hypertension (9) Hypothyroidism Current Visit: No Status: Chronic Qualifiers: Qualified Description: Acquired hypothyroidism Qualifier Code(s): ( E03.9) Hypothyroidism, unspecified (10) Lung nodule Current Visit: Yes Status: Acute
[2017-05-18] MEDS ORDERED: AZITHROMYCIN 250 MG TABLET PO SCH (18:00)
== END 2017-05-18 12:45 | disposition home or self-care (01) | DRG 190 ==
LOC: ER 05:52 → MED/SURG 18:07
PROVIDERS: ADMIT Internal Medicine; ATTEND Internal Medicine
DX: J44.1 Chronic obstructive pulmonary disease with (acute) exacerbation (principal); R10.13 Epigastric pain; R11.2 Nausea with vomiting, unspecified; K59.00 Constipation, unspecified; R19.7 Diarrhea, unspecified; A41.9 Sepsis, unspecified organism; R64 Cachexia; R91.1 Solitary pulmonary nodule; R10.9 Unspecified abdominal pain; I10 Essential (primary) hypertension; E03.9 Hypothyroidism, unspecified; I48.91 Unspecified atrial fibrillation
CPT/HCPCS: 36415 ×2; 71020; 71250; 74177; 80053; 81001; 81003; 82150; 82803; 83605; 83690; 83735; 85007; 85025; 85610; 86140; 87040; 96361; 96365; 96372; 96375; 96376; 99285 ×2; J0456; J2270 ×2; J2405; J2550; S0028; 80048; 94640; 94761; J0696; J2920; J7030; J7050; J7620

== ENCOUNTER → 2017-05-21 | Outpatient (CLI) | payer OTHER | LOC: LAB 09:20 | PROVIDERS: ATTEND Physician Assistant Medical | DX: I48.91 Unspecified atrial fibrillation (principal) | CPT/HCPCS: 36415; 85610; 99213 ==

== ENCOUNTER → 2017-05-25 | Outpatient (CLI) | payer OTHER ==
[2017-05-25 14:36] LABS: BUN/CREATININE RATIO 15.55 (6-20); CALCIUM 8.9 mg/dL (8.7-10.7); SERUM ALBUMIN 3.8 g/dL (3.5-4.8)
[2017-05-25 14:47] LABS: HEMATOCRIT 36.7 % (42.0-52.0); HEMOGLOBIN 12.2 g/dL (14.0-18.0); MEAN CORPUSCULAR HEMOGLOBIN 29.5 PG (27-31); MEAN CORPUSCULAR HGB CONC 33.2 g/dL (33-37); MEAN CORPUSCULAR VOLUME 88.9 FL (80-90); RED BLOOD COUNT 4.13 10^6/uL (4.70-6.10)
[2017-05-25 14:48] LABS: PLATELET MORPHOLOGY COMMENT SEE COMMENTS (NORM); RBC MORPHOLOGY COMMENT NORMAL MORPHOLOGY (NORM); WBC MORPHOLOGY COMMENT SEE COMMENTS (NORM)
[2017-05-25 14:49] LABS: BAND NEUTROPHILS % 20 % (0-10); EOSINOPHILS % (MANUAL) 1 % (0-8); LYMPHOCYTES % (MANUAL) 16 % (10-50); MONOCYTES % (MANUAL) 8 % (0-12); NEUTROPHILS % (MANUAL) 55 % (50-80)
== END ==
LOC: MOB LAB 13:36
PROVIDERS: ATTEND Physician Assistant Medical
DX: R10.33 Periumbilical pain (principal); R10.11 Right upper quadrant pain; R10.12 Left upper quadrant pain; R10.32 Left lower quadrant pain; R10.31 Right lower quadrant pain; I48.91 Unspecified atrial fibrillation; R11.14 Bilious vomiting; R11.0 Nausea
CPT/HCPCS: 36415; 80053; 85007; 85610; 96360 ×2; 96361 ×2; 99214; G0463; J2405

== ENCOUNTER → 2017-05-27 | Outpatient (CLI) | payer OTHER ==
--- NOTE | 2017-05-27 15:25 | DI ---
US ABDOMEN LIMITED,05/27/2017 9:19 AM: Clinical History: Abdominal pain Previous Exam: None at this facility. Findings: Multiple grayscale and color Doppler sonographic images are obtained through the right upper quadrant , and demonstrate a normal-appearing pancreas and liver. The gallbladder contains a single mobile, shadowing stone. The gallbladder wall measured 1 mm and the re is no pericholecystic fluid. Negative sonographic Leung's sign was obtained. The common bile duct measured 4 mm. The right kidney is normal measuring 9.0 cm in length without hydronephrosis nor nephrolithiasis. The aorta is within normal limits. Impression: Cholelithiasis otherwise unremarkable.
== END ==
LOC: US 09:09
PROVIDERS: ATTEND Physician Assistant Medical
DX: R10.12 Left upper quadrant pain (principal); R10.31 Right lower quadrant pain; R10.11 Right upper quadrant pain; R10.33 Periumbilical pain; R11.14 Bilious vomiting; K80.20 Calculus of gallbladder without cholecystitis without obstruction
CPT/HCPCS: 76705

== ENCOUNTER → 2017-06-01 | Outpatient (CLI) | payer OTHER | LOC: LAB 08:49 | PROVIDERS: ATTEND Physician Assistant Medical | DX: I48.91 Unspecified atrial fibrillation (principal) | CPT/HCPCS: 36415; 85610 ==

== ENCOUNTER → 2017-06-03 | Outpatient (CLI) | payer OTHER | LOC: MMPC 09:00 | PROVIDERS: ATTEND Family Medicine | DX: R91.1 Solitary pulmonary nodule (principal); R62.7 Adult failure to thrive; J43.2 Centrilobular emphysema; I25.10 Atherosclerotic heart disease of native coronary artery without angina pectoris; I48.91 Unspecified atrial fibrillation ==

== ENCOUNTER 2017-06-08 09:09 | Day surgery (SDC) | payer OTHER ==
[~2017-06-08 09:09] MED LIST: LIDOCAINE W/ SODIUM BICARB 0.5 ML SYR ONE; Lactated Ringers 1,000 ML PRIMARY IV ONE
[2017-06-08 10:48] VITALS: RESP 20
--- NOTE | 2017-06-08 11:11 | GEN.OPNOTE ---
Colonoscopy Procedure Note Surgery Date: 06/08/17 Preoperative Diagnosis: Weight loss and a history of colon polyps patient is question of metastatic disease to his lungs Postoperative Diagnosis: Diverticulosis. Same as preop Procedure: Colonoscopy Anesthesia Type: MAC Indications: Patient has had weight loss and also has a history of colon polyps. He has multiple small lesions in his lung that may represent metastatic disease Findings: Prep : Marginal Cecum : Ascending : Transverse : Sigmoid : He had extensive sigmoid diverticulosis and sigmoid colon Rectum : No rectal masses are pathology seen Digital Rectal Exam : A lubricated flexible colonoscope was inserted and passed to the blind end of the cecum. Additional Details: I could not get around the sigmoid colon therefore I would recommend that he had a very minimal
[2017-06-08 11:48] VITALS: TEMP 97.3
== END 2017-06-08 11:37 | disposition home or self-care (01) ==
LOC: SDSC 09:09
PROVIDERS: ATTEND Surgery
DX: K80.20 Calculus of gallbladder without cholecystitis without obstruction (principal); Z86.010 Personal history of colon polyps; R91.8 Other nonspecific abnormal finding of lung field; Z79.01 Long term (current) use of anticoagulants; J44.9 Chronic obstructive pulmonary disease, unspecified; K57.90 Diverticulosis of intestine, part unspecified, without perforation or abscess without bleeding; R63.4 Abnormal weight loss
CPT/HCPCS: 45378; 85610; J2704; J7120

== ENCOUNTER 2017-06-12 08:17 | Day surgery (SDC) | payer OTHER ==
[~2017-06-12 08:17] MED LIST changes: +ceFAZolin Inj 2gm (Premix) 50 ML IV ONE
[2017-06-12] MEDS ORDERED: fentaNYL Inj 250 MCG/5 ML VIAL ONE (09:31)
[2017-06-12] MEDS ORDERED: MIDAZOLAM 5 MG/1 ML ONE (09:31)
[2017-06-12] MEDS ORDERED: LIDOCAINE MPF 2% - 5 ML (20 MG/1 ML) ONE (09:31)
[2017-06-12 09:44] VITALS: RESP 18
[2017-06-12] MEDS ORDERED: BUPivacaine Inj 0.5% PF (5mg/ml) 10ml vial ONE (10:11)
[2017-06-12] MEDS ORDERED: ePHEDrine Inj 50 MG/ML AMP ONE (10:42)
[2017-06-12] MEDS ORDERED: BUPivacaine Liposome/PF (Exparel) Inj 20ml vial INFIL ONE ×2 (11:15→11:19)
[2017-06-12] MEDS ORDERED: NORMAL SALINE 10 ML SYRINGE FLUSH IVP PRN (11:42)
--- NOTE | 2017-06-12 11:57 | GEN.OPNOTE ---
Operative Report Surgeon: Evans Noriega DPM Anesthesia Type: General, Local Anesthesia Provider: Vadim Rodriguez CRNA Surgery Date: 06/12/17 Preoperative Diagnosis: Exostosis right 5th toe. 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 [place] of right 5th toe secondary to above with pain. Exostosis interdigitally left 5th toe PIPJ, against 4th toe. [place] of left 5th toe with pain. Plantar callus / intractable plantar keratosis sub left 5th MTH. Left 5th metatarsal neck fracture. Postoperative Diagnosis: Exostosis right 5th toe. 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 [place] of right 5th toe secondary to above with pain. Exostosis interdigitally left 5th toe PIPJ, against 4th toe. [place] of left 5th toe with pain. Plantar callus / intractable plantar keratosis sub left 5th MTH. Left 5th metatarsal neck fracture. Procedure: 1. Exostectomy left 5th toe. 2. Exostectomy right 5th toe. 3. Biopsy of skin left foot plantar 5th MTPJ. Estimated Blood Loss (mL): 10 (pneumatic cuff to the left ankle for 23 minutes total time at 250 mmHg pressure, pneumatic cuff to right ankle for 14 minutes it 'll time.) Fluids: 2 g Ancef preoperatively. 1300 mL lactated Ringer's. Postoperative injection exparel Complications: None Description of Procedure: The patient was brought to the operating room and placed in the supine position. Anesthesia gave can a general LMA. The feet were prepped and draped in the usual sterile fashion. A timeout was performed. Preoperative radiographs were and had been reviewed and the feet were marked. The left foot was then exsanguinated with an elastic Esmarch, after which a pneumatic cuff was inflated about the ankle to 250 mmHg pressure. Attention was directed to the left fifth toe. A dorsal incision was made above the interdigital corn. It was carried deep to the bone. The periosteum and subcutaneous tissues were reflected from the proximal phalangeal head medially of the fifth toe as well as the collateral ligament. Next utilizing a sagittal saw a 4 mm resection of the medial fifth proximal interphalangeal joint was removed. The area was then rasped, irrigated after which bone wax was applied. The wound was irrigated. The periosteum and joint capsule was then repaired utilizing 4-0 Vicryl. And the skin was closed in a full-thickness layer with 4-0 nylon. Attention was now directed to the plantar intractable plantar keratosis of the left fifth metatarsal head. Instead of a punch biopsy, full-thickness football shaped excisional biopsy was performed of the lesion, 5 mm wide and 12 mm long. The lesion was submitted to pathology. The wound was irrigated, and then closed in single layer fashion with 4-0 nylon. The pneumatic cuff was then released from the left ankle after 23 minutes total time. Some light bleeding from the incision sites were noted. Attention was now directed to the right foot. The foot was exsanguinated with an elastic Esmarch after which a pneumatic cuff was inflated about the right ankle to 250 mmHg pressure. Attention was directed to the right fifth toe. A dorsal incision was made above the corn of the dorsal lateral proximal interphalangeal joint. The incision was carried deep to the bone. The periosteum and subcutaneous tissues were reflected from the proximal phalangeal head laterally of the fifth toe as well as the collateral ligament. Next utilizing a sagittal saw the prominent lateral fifth proximal interphalangeal joint was removed. The area was then rasped and irrigated after which bone wax was applied. The wound was again irrigated. The periosteum and joint capsule was then repaired utilizing 4-0 Vicryl. And the skin was closed in a full- thickness layer with 4-0 nylon. Pneumatic cuff was then released from the right ankle after 40 minutes total time. Express was then injected in a ray block fashion around the right and left fifth rays, as well as into the incisional wounds. Dressings were then applied to both feet consisting of Xeroform, gauze, Kerlix and Coban. Patient tolerated the procedure well and was returned recovery.
[2017-06-12] MEDS ORDERED: Lactated Ringers 1,000 ML PRIMARY IV ONE (13:36)
[2017-06-12 14:32] VITALS: TEMP 97
--- NOTE | 2017-06-15 10:26 | DI ---
History: Old fracture fifth metatarsal Comparison: None Findings: There is in old or subacute fracture of the distal fifth metatarsal. There is no acute injury There is no malalignment. There are no destructive/erosive lesions Incidental note is made of vascular calcification in the plantar soft tissue Impression: Old or subacute fracture distal fifth metatarsal. No malalignment
== END 2017-06-12 13:26 | disposition home or self-care (01) ==
LOC: SDSC 08:17
PROVIDERS: ATTEND Podiatrist Foot & Ankle Surgery
DX: M89.8X7 Other specified disorders of bone, ankle and foot (principal); M20.42 Other hammer toe(s) (acquired), left foot; M20.41 Other hammer toe(s) (acquired), right foot; L91.8 Other hypertrophic disorders of the skin; M79.672 Pain in left foot; M79.671 Pain in right foot; B07.0 Plantar wart
CPT/HCPCS: 11100; 28124 ×2; 73630; 85610; C9290; J0690; J2001; J2250; J2704; J3010; J3490; J7120

== ENCOUNTER → 2017-06-15 | Outpatient (CLI) | payer OTHER | LOC: LAB 09:09 | PROVIDERS: ATTEND Physician Assistant Medical | DX: I48.91 Unspecified atrial fibrillation (principal) | CPT/HCPCS: 36415; 85610 ==

== ENCOUNTER → 2017-06-18 | Outpatient (CLI) | payer OTHER | LOC: LAB 08:14 | PROVIDERS: ATTEND Physician Assistant Medical | DX: I48.91 Unspecified atrial fibrillation (principal) | CPT/HCPCS: 36415; 85610 ==

== ENCOUNTER → 2017-06-23 | Outpatient (CLI) | payer OTHER | LOC: LAB 08:34 | PROVIDERS: ATTEND Physician Assistant Medical | DX: I48.91 Unspecified atrial fibrillation (principal) | CPT/HCPCS: 36415; 85610 ==

== ENCOUNTER 2017-10-20 15:35 | Observation (INO) ==
[2017-10-20] MEDS ORDERED: NORMAL SALINE 10 ML SYRINGE FLUSH IVP PRN (15:50)
--- NOTE | 2017-10-20 16:01 | EKG ---
[address] [place] [id number] Measurements Intervals [place] Rate: 57 P: OR: 0 QRS: 64 QRSD: 81 T: 10 QT: 448 QTc: 443 Interpretive Statements SINUS BRADYCARDIA WITH 2ND DEGREE AV BLOCK, MOBITZ TYPE II LOW QRS VOLTAGE IN EXTREMITY LEADS [QRS DEFLECTION < 0.5 mV IN LIMB LEADS] Compared to ECG 02/01/2017 07:09:14 Sinus rhythm no longer present Electronically Signed On 10-21-17 08:55:11 MST by Gurjit Sanders MD [email or web address]
[2017-10-20 16:10] LABS: BASOPHILS # (AUTO) 0.03 10*3/UL; BASOPHILS % (AUTO) 0.2 % (0-1); EOSINOPHILS # (AUTO) 0.11 10*3/UL; EOSINOPHILS % (AUTO) 0.8 % (0-8); Hemoglobin [HGB] 10.9 g/dL (14.0-18.0); LYMPHOCYTES # (AUTO) 1.99 10*3/uL; MEAN CORPUSCULAR HEMOGLOBIN 31.6 PG (27-31); MEAN CORPUSCULAR HGB CONC 34.1 g/dL (33-37); MEAN CORPUSCULAR VOLUME 92.8 FL (80-90); MEAN PLATELET VOLUME 9.5 FL (7.4-12.2); MONOCYTES % (AUTO) 10.6 % (5-15); NEUTROPHILS # (AUTO) 9.65 10*3/UL; NEUTROPHILS % (AUTO) 73.1 % (50-80); RED BLOOD COUNT 3.45 10^6/uL (4.70-6.10)
[2017-10-20 16:13] LABS: PLATELET MORPHOLOGY COMMENT NORMAL MORPHOLOGY (NORM); RBC MORPHOLOGY COMMENT NORMAL MORPHOLOGY (NORM); WBC MORPHOLOGY COMMENT NORMAL MORPHOLOGY (NORM)
--- NOTE | 2017-10-20 16:22 | PDOC ---
General Adult HPI - General Chief Complaint: Neurological Complaints Stated Complaint: APHASIA Date Seen by Provider: 10/20/17 Time Seen by Provider: 15:40 Source: POSITIVE: Patient, Other (son) Exam Limitations: POSITIVE: Clinical condition Nurse's Notes Reviewed & Considered: Yes - History of Present Illness Initial Comment: The patient is a 76-year-old male who is brought to the emergency department by his family with complaints of speech difficulties. His son reports that he had last seen his dad at about 10:00 this morning at which time he seemed normal. He had left to go to physical therapy and at that time his dad was asleep in the chair. While he was at physical therapy his dad kept calling him however would not talk on the phone so he went back home to check on him. When he arrived the patient was having significant difficulty with his speech. His son states that initially he could not say anything even know what looked like he knew what he wanted to say. He then kept repeating over and over "I'm stupid". By the time he arrives here in the emergency department his symptoms seem to be improving and he seems to be less confused and is talking better. The patient denies any headache or chest pain. He has been having some problems with dizziness for the past 6 weeks or so and actually had an MRI of his brain last month which showed atrophy with no other acute findings. He has not had any fever. He does have a history of atrial fibrillation and takes Coumadin. His son reports that 2 nights ago he had had a couple of drinks and fell and hit his head. In addition to weeks ago the patient was diagnosed with profound hypothyroidism and started on thyroid medication. Have you received a tetanus shot in the past 10 years?: Unknown - Patient Home Medications Home Medications: Home Medications Nitroglycerin SL Tab [Nitrostat SL Tab] 0.4 mg SL PRN PRN #20 tab 05/30/16 Albuterol/Ipratrop Neb Soln [Duoneb Neb Soln] 3 ml NEB RTQ6H #120 ampul.neb fluticasone 100 mcg-vilanterol 25 mcg/dose powder for inhalation 1 inh INH Q24H #3 ea 07/14/17 warfarin 5 mg tablet 2.5 mg PO QD #90 tab 07/14/17 tizanidine 4 mg tablet 4 mg PO Q8H PRN #270 tab 08/04/17 gwbyndvk-joswuiqnd-bkifcpbq 3.5 mg/mL-10,000 unit/mL-0.1% eye drops 1 drp OP Q12H #5 ml 09/03/17 duloxetine 20 mg capsule,delayed release 20 mg PO QDAY cap 10/06/17 levothyroxine 50 mcg tablet 50 mcg PO QDAY #30 tab 10/06/17 alprazolam 0.25 mg tablet 0.25 mg PO BID #60 tab 10/13/17 - Patient Allergies Allergies/Adverse Reactions: Allergies 3 Allergy/AdvReac Type Severity Reaction Status Date / Time amlodipine besylate Allergy Intermediate Edema of Verified 10/20/17 15:43 [From [facility]] ankles Past Medical History - heen HEENT History: Hard of Hearing Additional HEENT History: wears glasses Cardiovascular History: Hypertension, Previous DC, Arrhythmia, Hyperlipidemia Additional Cardiovasular History: CARDIAC STENT Respiratory History: COPD, Shortness of Breath, Home Oxygen Use Additional Respiratory History: 2.5L AT HOME Gastrointestinal History: Diverticulitis, GI Bleed Genitourinary History: Denies History Endocrine History: Hypothyroidism Musculoskeletal History: Arthritis, Back Pain, Joint Pain, Osteoarthritis Prosthesis or Implant: Yes (LEFT TKA, 5 PINS LEFT LEG, RIGHT ANKLE, NECK FUSION) Additional Musculoskeletal History: hardware in right ankle and neck- fusion Neurological History: Denies History Blood Disorders: Denies History Psychiatric History: Substance Abuse Additional Psychiatric History: alcoholism History of Sexually Transmitted Diseases: No Cancer History: Skin History of MDRO: No History of Other Communicable Diseases: No Alcohol Use: Occasionally In the Past 12 Months, Have Used or Abuse Any Substance: None Previous Surgical History: Yes Type / Date of Surgery: APPY, STENT, L TKA, L CARPAL TUNNEL, VERTEBRAL FUSION, LEFT AXILLARY CYST REMOVED, BILAT BREASTS CYST REMOVAL, RIGHT ANKLE SURGERY, SMALL FINGER TO LEFT HAND SURGERY, CYST FROM R CHEEK Anesthesia Reactions: No Malignant Hyperthermia: No Significant Family History: Cancer Additional Family History: both sisters had breast CA Past Medical History Reviewed: Reviewed - No Changes ROS - Limitations ROS Limitations: No Limitations Constitution: DENIES: Chills, Fever Cardiovascular: DENIES: Chest Pain, Heart Palpitations, Edema Respiratory: REPORTS: Other (He does have COPD and is on oxygen at home). DENIES: Shortness Of Breath Neurological: REPORTS: Confusion, Dizziness, Difficulty Walking. DENIES: Headache, Numbness, Seizure Activity, Weakness Gastrointestinal: REPORTS: Denies GI Symptoms. DENIES: Nausea, Vomitting, Diarrhea Musculoskeletal: REPORTS: Denies MS Symptoms Genitourinary: REPORTS: Denies Symptoms Eyes: REPORTS: Denies Symptoms ENT: REPORTS: Denies Symptoms Skin: DENIES: Rash General Adult Exam - General Appearance General Appearance: POSITIVE: Alert, Cooperative, No Acute Distress - HEENT HEENT: POSITIVE: Head Inspection Nml, Eyes Inspection Nml, Nose Inspection Nml - Neck Neck: POSITIVE: Normal Inspection. NEGATIVE: Lymphadenopathy - Respiratory Respiratory: POSITIVE: No Respiratory Distress, Breath Sounds Normal (Breath sounds diminished bilaterally) - Cardiovascular Cardiovascular: POSITIVE: No Murmur, Irregularly Irreg. 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 NEGATIVE: Speech Abnormality General Adult Progress - Results Reviewed by me Xrays/CTs/US Reviewed by me: Yes Discussed with Radiologist: Yes Radiology Findings: CT scan of his head reveals no acute intracranial abnormality per radiologist. Lab Results Reviewed by Me: Yes CBC and BMP: 10/20/17 15:50 10/20/17 15:50 EKG Interpretation:: POSITIVE: Normal Rate, Normal QRS, Normal ST/T, Other ( Atrial fibrillation with a normal rate) - Patient's Progress MDM / ED Course: By the time the patient arrived here in the emergency department his symptoms appeared to have for the most part resolved. His initial EKG does show atrial fibrillation with a normal rate. Blood work reveals an INR of 3.2, normal troponin. His TSH is a 79 which is down from 152 weeks ago. T4 is pending. Urinalysis is also pending. His white count is mildly elevated at 13,000. Clinical presentation is consistent with TIA. Findings were discussed with the patient and his family. Decision was made to admit for further monitoring and workup. - Consult Counseled: POSITIVE: Patient, Family, RE: Lab Results, RE: Radiology Results, RE : DX Patient Care Time - Estimated PCT Patient Care Time (In Minutes): 45 Vital Signs - Recent Vital Signs Vital Signs: Vital Signs (Last 8 hours) Temp Pulse Resp BP Pulse Ox 10/20/17 15:35 95.9 F L 82 20 151/87 94 - VS Reviewed Vital Signs Reviewed: Yes Discharge Clinical Impression: Chronic obstructive lung disease, History of atrial fibrillation, Expressive aphasia, TIA (transient ischemic attack), Hypothyroidism Condition: Fair Date Decision to Admit to Inpatient: 10/20/17 Time Decision to Admit to Inpatient: 18:00
--- NOTE | 2017-10-20 16:34 | DI ---
CT brain without contrast, October 20, 2017. History: Recent fall. On Coumadin. Confusion, difficulty with speech. Comparison: September 16, 2017, December 20, 2014 Technique: 5 mm axial slices were acquired through the brain without contrast. Dose report: DLP 1023.60 mGy.cm Findings: No acute intracranial hemorrhage, mass lesion, or midline shift. The white-white matter interface is i ntact. Mild confluent periventricular white matter hypodensity. Ventricles are age-appropriate. There is prominence of the supratentorial sulci, out of proportion to the ventricles. Mild cerebellar volu me loss. The paranasal sinuses and mastoid air cells are clear. Calcifications are noted within the c avernous internal carotid arteries. No fracture. Impression: 1. No acute intracranial process. 2. Global volume loss. 3. Periventricular white matter disease, likely related to chronic small vessel ischemia given the pa tient's age.
[2017-10-20 16:45] LABS: BLOOD UREA NITROGEN 23 mg/dL (7-22); BUN/CREATININE RATIO 25.55 (6-20); MAGNESIUM 1.6 mg/dL (1.6-2.4); SERUM ALBUMIN 4.5 g/dL (3.5-4.8)
[2017-10-20 18:55] LABS: BILIRUBIN,URINE NEGATIVE (NEG); CLARITY,URINE CLEAR (CLEAR); COLOR,URINE YELLOW (Y); GLUCOSE, URINE (UA) NEGATIVE (NEG); NITRATE,URINE NEGATIVE (NEG); OCCULT BLOOD,URINE NEGATIVE (NEG); PROTEIN,URINE TRACE mg/dl (NEG); UROBILINOGEN,URINE 0.2 EU/dL (0.2)
[2017-10-20 18:59] LABS: URINE SAMPLE TYPE CLEAN CATCH URINE
[2017-10-20] MEDS ORDERED: LIDOCAINE W/ SODIUM BICARB 0.5 ML SYR SUBD PRN (19:14)
[2017-10-20] MEDS ORDERED: NITROGLYCERIN 0.4 MG SL TAB (BOTTLE OF 3) SL PRN (19:14)
[2017-10-20] MEDS: IPRATROPIUM/ALBUTEROL SULFATE 3 ML NEB NEB SCH (20:05)
[2017-10-20] MEDS: ALPRAZolam Tab 0.25 MG TABLET PO SCH (20:44)
[2017-10-20] MEDS: NORMAL SALINE 10 ML SYRINGE FLUSH IVP PRN ×2 (20:45→21:30)
[2017-10-20] MEDS: Sodium Chloride 0.9% 1,000 ML PRIMARY IV SCH (20:46)
[2017-10-20] MEDS ORDERED: DEXAMETHASONE OP SCH (21:00)
[2017-10-20] MEDS ORDERED: NEOMYCIN OP SCH (21:00)
[2017-10-20] MEDS ORDERED: POLYMYXIN B OP SCH (21:00)
[2017-10-20] MEDS ORDERED: Warfarin 5 MG TAB PO SCH (21:00)
--- NOTE | 2017-10-20 21:23 | PDOC ---
HPI - History of Present Illness History of Present Illness: This is a very nice 76-year-old gentleman with past medical history of atrial fibrillation on anticoagulation with Coumadin. Was brought to the emergency room by his son because he was having some dysarthria. His son states that he saw his dad this morning at 10:00 then he went to physical therapy apparently his dad tried to call him but could not talk so he went back to check on him at home and has some difficulty finding words and kept on repeating "I'm stupid" and according to the ER physician he stabilized once arrived to the ER with resolution of his symptoms he is now able to speak and has no more difficulty finding words he had some dizziness in the past 6 weeks and had an MRI of the head which showed no acute findings. Also, I think this might be the most important thing participating in all this is that his thyroid the was above 100 and was started on the hormone replacement it is now 79 Past Medical History Medical History: 1. COPD with chronic hypoxemic respiratory failure, oxygen at home which she intermittently takes during the day, and is on all the time at night. He has pulmonary cachexia as well. He is on daily steroids and Zithromax to try and prevent exacerbations. 2. Hypothyroidism. 3. Coronary artery disease with previous stent in 2013. 4. Atrial fibrillation, he was switched over to Xarelto recently. 5. Chronic pain syndrome. 6. Pulmonary cachexia and loss of weight. Surgical History: 1. Appendectomy. 2. Previous knee replacement. 3. Cervical neck fusion 2012 Family History: Reviewed an Not Pertinent Pertinent Family History: Father of coronary artery disease and myocardial infarction. He's not sure what his mother passed on from. Past Social History: He smokes one pack a day, drinks nearly every day no drugs. Has 2 children, a son who lives here in [place]. His ex- also helps take care of him. He states he has not had anything to smoke since we put a nicotine patch on him on his prior hospital stay. Tobacco Use: Unknown If Ever Smoked Do you dip or chew tobacco: No In the Past 12 Months, Have Used or Abuse Any of the Following Substance: None Medication / Allergies Home Medications: Home Medications Medication Instructions Recorded Confirmed Type Nitroglycerin SL Tab [Nitrostat 0.4 mg SL PRN PRN #20 tab 05/30/16 10/20/17 History SL Tab] Albuterol/Ipratrop Neb Soln 3 ml NEB RTQ6H #120 ampul.neb 12/23/16 10/20/17 Rx [Duoneb Neb Soln] fluticasone 100 mcg-vilanterol 25 1 inh INH Q24H #3 ea 07/14/17 10/20/17 Rx mcg/dose powder for inhalation warfarin 5 mg tablet 2.5 mg PO QD #90 tab 07/14/17 10/20/17 Rx tizanidine 4 mg tablet 4 mg PO Q8H PRN #270 tab 08/04/17 10/20/17 Rx zrowzlvq-yzjagjxvz-kzqhcpwq 3.5 1 drp OP Q12H #5 ml 09/03/17 10/20/17 Rx mg/mL-10,000 unit/mL-0.1% eye drops duloxetine 20 mg capsule,delayed 20 mg PO QDAY cap 10/06/17 10/20/17 History release levothyroxine 50 mcg tablet 50 mcg PO QDAY #30 tab 10/06/17 10/20/17 Rx alprazolam 0.25 mg tablet 0.25 mg PO BID #60 tab 10/13/17 10/20/17 Rx Allergies/Adverse Reactions: Allergies 3 Allergy/AdvReac Type Severity Reaction Status Date / Time amlodipine besylate Allergy Intermediate Edema of Verified 10/20/17 15:43 [From [facility]] ankles Review of Systems - Review of Systems All Systems: Reviewed & No Additional Complaints Except as Stated - Respiratory Respiratory: DENIES: Negative System Review, Cough, Sputum, Dyspnea At Rest, Dyspnea with Exertion, Pleuritic Pain, Hemoptysis, Wheezing, Other, See HPI - Cardiovascular Cardiovascular: DENIES: Negative System Review, Chest Pain, Edema, Syncope, Palpitations, Orthopnea, Paroxysmal Nocturnal Dyspnea, Other, See HPI - Gastrointestinal Gastrointestinal / Abdominal: DENIES: Negative System Review, Nausea, Vomiting, Diarrhea, Constipation, Abdominal Pain, Bloody Stool, Poor Appetite, Heartburn, Regurgitation, Bloating, Lactose Intolerance, Melena, Bright Red Blood per Rectum, Other, See HPI - Musculoskeletal Musculoskeletal: DENIES: Negative System Review, Back Pain, Neck Pain, Joint Swelling, Calf Pain, Muscle Pain, Cramping, Joint Pain - Hands, Joint Pain - Elbows, Joint Pain - Shoulders, Joint Pain - Hips, Joint Pain - Knees, Joint Pain - Feet, AM Stiffness, Other, See HPI - Neurological Neurologic: DENIES: Negative System Review, Headache, Numbness/Paresthesia, Tremors, Weakness, Seizures, Head Trauma, LOC, Dizziness, Confusion, Memory Loss , Difficulty Walking, Incoordination, Other, See HPI Exam - Vitals Vital Signs: Vital Signs Temperature 97.3 F Temperature Source Temporal Artery Scan Pulse Rate [Pulse Oximeter] 69 Respiratory Rate 16 Blood Pressure [Right Arm] 136/68 Pulse Ox 98 Oxygen Flow Rate 2 Oxygen Delivery Method Nasal Cannula Height 5 ft 7 in Weight 133 lb - General General Appearance: No Acute Distress, Cooperative - Eye Eye Exam: POSITIVE: Normal Appearance, PERRL, EOMI, No Scleral Icterus - Respiratory Respiratory Exam: POSITIVE: Clear to Auscultation - Bilaterally, Breathing Non Labored, Normal To Percussion, Normal to Percussion and Palpation - Cardiovascular Cardiovascular Exam: POSITIVE: RRR, No Murmur, No Clicks, No Gallops, No Rubs, PMI Non-Displaced - GI/Abdominal GI/Abdominal Exam: POSITIVE: Normal Bowel Sounds, Non Tender, Non Distended, Soft, No Masses, No Hepatomegaly, No Splenomegaly, No Organomegaly - Extremities Extremities Exam: POSITIVE: Normal Inspection, Full ROM, Normal Capillary Refill , No Clubbing Present, No Edema Present, No Cyanosis Present, Negative Arthur's sign, Dosalis Pedis Pulses - Stong & Regular - Neurological Neurological Exam: POSITIVE: Alert, Oriented x 3, Reflexes Normal, Normal Gait, CN II-XII Intact, No Facial Droop, Speech Intact / Clear, Moves All Extremities Equally, No Fasciculations, No Clonus Results - Labs CBC and BMP: 10/20/17 15:50 10/20/17 15:50 Assessment and Plan - Patient Problems (1) Expressive aphasia Current Visit: Yes Status: Acute Comment: Most likely TIA continue aspirin MRI of his head in a.m. MRA of his neck CT scan of his head and no subdural Code(s): R47.01 - Aphasia (2) TIA (transient ischemic attack) Current Visit: Yes Status: Acute Comment: See above Code(s): G45.9 - Transient cerebral ischemic attack, unspecified (3) History of atrial fibrillation Current Visit: Yes Status: Chronic Comment: Continue current meds and Coumadin Code(s): Z86.79 - Personal history of other diseases of the circulatory system (4) Hypothyroidism Current Visit: Yes Status: Chronic Comment: Continue current replacement this should be increased every 2 months Code(s): E03.9 - Hypothyroidism, unspecified Qualifiers:
[2017-10-20] MEDS ORDERED: Magnesium Sulfate 2gm (Premix) 2 GM/50 ML BAG IV ONE (21:40)
[2017-10-21] MEDS: IPRATROPIUM/ALBUTEROL SULFATE 3 ML NEB NEB SCH ×2 (00:58→06:44)
[2017-10-21] MEDS ORDERED: Influenza 17-18 Vaccine (6mo+) Quad 60mcg/0.5ml PF IM ONE (03:47)
[2017-10-21] MEDS ORDERED: PNEUMOCOCCAL 23 VACCINE 25 MCG/0.5 ML VIAL IM ONE (03:47)
[2017-10-21 05:15] LABS: BASOPHILS # (AUTO) 0.02 10*3/UL; BASOPHILS % (AUTO) 0.3 % (0-1); EOSINOPHILS # (AUTO) 0.15 10*3/UL; EOSINOPHILS % (AUTO) 2.1 % (0-8); Hematocrit [HCT] 27.7 % (42.0-52.0); Hemoglobin [HGB] 9.4 g/dL (14.0-18.0); LYMPHOCYTES # (AUTO) 2.62 10*3/uL; MEAN CORPUSCULAR HEMOGLOBIN 31.8 PG (27-31); MEAN CORPUSCULAR HGB CONC 33.9 g/dL (33-37); MEAN CORPUSCULAR VOLUME 93.6 FL (80-90); MEAN PLATELET VOLUME 9.7 FL (7.4-12.2); MONOCYTES # (AUTO) 0.94 10*3/UL (0.3-0.8); MONOCYTES % (AUTO) 13.1 % (5-15); NEUTROPHILS # (AUTO) 3.45 10*3/UL; RED BLOOD COUNT 2.96 10^6/uL (4.70-6.10)
[2017-10-21 05:25] LABS: PLATELET MORPHOLOGY COMMENT NORMAL MORPHOLOGY (NORM); RBC MORPHOLOGY COMMENT NORMAL MORPHOLOGY (NORM); WBC MORPHOLOGY COMMENT NORMAL MORPHOLOGY (NORM)
[2017-10-21 05:26] LABS: BLOOD UREA NITROGEN 23 mg/dL (7-22); BUN/CREATININE RATIO 28.75 (6-20); SERUM ALBUMIN 3.5 g/dL (3.5-4.8)
[2017-10-21] MEDS ORDERED: LEVOTHYROXINE 50 MCG TABLET PO SCH (05:30)
[2017-10-21] MEDS: Sodium Chloride 0.9% 1,000 ML PRIMARY IV SCH (06:46)
[2017-10-21] MEDS ORDERED: VILANTEROL INH SCH (07:00)
[2017-10-21] MEDS ORDERED: FLUTICASONE INH SCH (07:00)
--- NOTE | 2017-10-21 08:31 | DI ---
MRI and MRA of the brain without contrast, October 21, 2017 History: Stroke Technique: Multiplanar multisequence MRI of the brain was performed without contrast. Routine MRA TOF imaging was also obtained. Comparison October 20, 2017. Findings: Evaluation of diffusion imaging demonstrates no restricted diffusion. The white-white matter interface is intact. No evidence of acute intracranial hemorrhage, mass lesion or midline shift. Ventricles are symmetric and age appropriate. Sulci are mildly prominent and out of proportion to the ventricles. Moderate confluent periventricular white matter T2 hyperintensity. There are also scattered deep and subcortical white matter hyperintensities. Basilar cisterns are patent. The major flow voids are present. MRA imaging demonstrates patent internal carotid arteries, anterior cerebral arteries, pericallosal a rteries, anterior communicating artery, middle cerebral arteries, posterior cerebral arteries, basila r artery and vertebral arteries. A right posterior communicating artery is present. The paranasal sinuses and mastoid air cells are clear with the exception of minimal right mastoid opa city. Orbits are symmetric. Parotid glands are symmetric. Impression: No acute intracranial process is identified. Moderate white matter disease, which given the patient's age is likely related to chronic small vesse l ischemia. Global age-related spine loss. Incomplete nightmute of Baez, with absent left posterior communicating artery.
[2017-10-21] MEDS ORDERED: ASPIRIN 325 MG TABLET PO SCH (09:00)
[2017-10-21] MEDS ORDERED: DULOXETINE HCL 20 MG PO SCH (09:00)
[2017-10-21] MEDS ORDERED: POTASSIUM CHLORIDE 20 MEQ TAB PO SCH (09:00)
[2017-10-21] MEDS: ALPRAZolam Tab 0.25 MG TABLET PO SCH (09:18)
[2017-10-21 10:59] VITALS: BP 132/72; RESP 20; TEMP 98.8; O2SAT 97
--- NOTE | 2017-10-21 11:54 | PTI REPORT ---
Thank you for the referral of Nino Spring. He was seen on 10/21/17 for an inpatient evaluation secondary to a mini stroke. SUBJECTIVE: The patient is a 76-year-old male. The patient reports he came in last night to the emergency room with the assistance of his son and his ex-. The patient states yesterday morning he had a haircut and he felt like everything was fine and then he went home and was sitting on the couch and all the sudden he demonstrated having difficulty thinking and was unable to use his phone correctly to call his son. He states luckily his son came home shortly after that and they took him to the emergency room. He states he has been told he had a mini stroke; however, today he is feeling fine except for being exhausted. The patient also states he is very cold, but this is nothing new. PAST MEDICAL HISTORY: Past medical history can be found in the patient's medical record. OBJECTIVE FINDINGS: Bed mobility: The patient is able to perform bed mobility with stand by assistance from supine to edge of bed. He sat edge of bed unsupported for greater than 10 minutes without difficulty. Cognition: The patient was able to perform complex 4-5 step commands without difficulty or verbal prompting. Vision: The patient was able to track at end ranges without difficulty. Facial movement: The patient was able to perform facial movements without any sign of asymmetry bilaterally. Range of motion: The patient was able to perform all active range of motion of upper and lower extremities equal and bilaterally without difficulty. Strength: His lower extremity strength at best right now is 4-/5. Transfers: The patient was able to perform sit to stand transfer with stand by assistance and performed standing activities x3 minutes before requesting to sit down due to feeling weak. Oxygen: The patient is currently on 1-2.5 liters of oxygen via nasal cannula. Ambulation: The patient was only willing to ambulate up to 10 feet within his room with a standard walker, gait belt, and stand by assistance, with his only limitation being very fatigued. ASSESSMENT: Problem List: Decreased strength Decreased mobility Decreased endurance Short-Term Goals: To be met by discharge from inpatient: Patient will be able to [] Patient will be able to [] Patient will be able to [] Patient will be able to [] Long-Term Goals: To be met following discharge from inpatient: Patient will be able to [] Patient will be able to [] TREATMENT PLAN: Patient will be seen B.I.D during the week and one time per day over the weekend as an inpatient to address the above goals and objectives. INITIAL TREATMENT: Treatment today consisted of the initial evaluation followed by the patient ambulating within his room x10 feet only. He was able to perform complex 4-5 command while seated edge of bed unsupported as well as standing within a walker. Following the evaluation, the therapist spoke with nursing in regard to these findings. JEN
== END 2017-10-21 11:35 | disposition home or self-care (01) ==
LOC: MED/SURG 15:35 → ER 15:35
PROVIDERS: ADMIT Internal Medicine; ATTEND Internal Medicine

== ENCOUNTER 2017-11-24 07:28 | Inpatient (IN) ==
[2017-11-24] MEDS ORDERED: IPRATROPIUM/ALBUTEROL SULFATE 3 ML NEB NEB ONE ×2 (07:41→07:45)
[2017-11-24] MEDS ORDERED: Sodium Chloride 0.9% 1,000 ML PRIMARY IV ONE ×2 (07:48→09:23)
[2017-11-24] MEDS ORDERED: ONDANSETRON 4 MG/2 ML VIAL IVP ONE (07:48)
--- NOTE | 2017-11-24 07:49 | EKG ---
[address] [address] Measurements Intervals [place] Rate: 81 P: 90 VT: 154 QRS: 98 QRSD: 87 T: 55 QT: 354 QTc: 392 Interpretive Statements SINUS RHYTHM WITH MARKED SINUS ARRHYTHMIA BORDERLINE RIGHT AXIS DEVIATION [QRS AXIS > 90] Compared to ECG 10/20/2017 15:58:54 Sinus bradycardia no longer present Electronically Signed On 11-24-17 08:37:15 MST by Gurjit Sanders MD [email or web address]
--- NOTE | 2017-11-24 07:51 | PDOC ---
Dyspnea HPI - General Chief Complaint: Dyspnea Stated Complaint: dyspnea since last night Date Seen by Provider: 11/24/17 Time Seen by Provider: 07:46 Source: POSITIVE: Patient Exam Limitations: POSITIVE: No limitations Treatment Prior to Arrival: REPORTS: None Nurse's Notes Reviewed & Considered: Yes - History of Present Illness Initial Comments: This is a 76-year-old, thin, well-developed, pleasant, male complaining of shortness of breath. Patient began to develop shortness of breath yesterday, and it has gotten worse overnight. He is having chills, tachycardia, and increased work of breathing. He denies any headache, no sore throat, no chest pain, no nausea vomiting or diarrhea, no hematuria or dysuria, he denies fever but does have chills, no sweats. Body Location Affected: REPORTS: Chest Timing: REPORTS: Gradual Duration: <24 hours Severity: Moderate Quality: REPORTS: Other (Short of breath) Initiating Event: DENIES: Upper Respiratory Illness, Out of Medications, Sports , Exercise, Aspiration, Choking, Allergy, Exposure - Smoke, Exposure - Mold, Exposure - Other Allergen Context: REPORTS: Rest Exacerbated By: REPORTS: Exertion, Coughing Associated Symptoms: REPORTS: Chills Similar Symptoms Previously: Yes Recently seen/treated/hospitalized: No Any Prior Injuries Related to Current Complaint?: No - Patient Home Medications Home Medications: Home Medications Nitroglycerin SL Tab [Nitrostat SL Tab] 0.4 mg SL PRN PRN #20 tab 05/30/16 Albuterol/Ipratrop Neb Soln [Duoneb Neb Soln] 3 ml NEB RTQ6H #120 ampul.neb fluticasone 100 mcg-vilanterol 25 mcg/dose powder for inhalation 1 inh INH Q24H #3 ea 07/14/17 warfarin 5 mg tablet 2.5 mg PO QD #90 tab 07/14/17 tizanidine 4 mg tablet 4 mg PO Q8H PRN #270 tab 08/04/17 Aspirin 325 mg PO DAILY tab 10/21/17 omeprazole magnesium 20 mg tablet,delayed release 20 mg PO BID #180 tab levothyroxine 100 mcg tablet 100 mcg PO QDAY #30 tab 11/05/17 alprazolam 0.25 mg tablet 0.25 mg PO BID #60 tab 11/18/17 - Patient Allergies Allergies/Adverse Reactions: Allergies 3 Allergy/AdvReac Type Severity Reaction Status Date / Time amlodipine besylate Allergy Intermediate Edema of Verified 11/24/17 07:36 [From [facility]] ankles Past Medical History - heen HEENT History: Hard of Hearing Additional HEENT History: wears glasses Cardiovascular History: Hypertension, Previous ID, Arrhythmia, Hyperlipidemia Additional Cardiovasular History: CARDIAC STENT Respiratory History: COPD, Shortness of Breath, Home Oxygen Use Additional Respiratory History: 2.5L AT HOME Gastrointestinal History: Diverticulitis, GI Bleed Genitourinary History: Denies History Endocrine History: Hypothyroidism Musculoskeletal History: Arthritis, Back Pain, Joint Pain, Osteoarthritis Prosthesis or Implant: Yes (LEFT TKA, 5 PINS LEFT LEG, RIGHT ANKLE, NECK FUSION) Additional Musculoskeletal History: hardware in right ankle and neck- fusion Neurological History: Denies History Blood Disorders: Denies History Psychiatric History: Substance Abuse Additional Psychiatric History: alcoholism History of Sexually Transmitted Diseases: No Cancer History: Skin History of MDRO: No History of Other Communicable Diseases: No Alcohol Use: Occasionally In the Past 12 Months, Have Used or Abuse Any Substance: None Previous Surgical History: Yes Type / Date of Surgery: APPY, STENT, L TKA, L CARPAL TUNNEL, VERTEBRAL FUSION, LEFT AXILLARY CYST REMOVED, BILAT BREASTS CYST REMOVAL, RIGHT ANKLE SURGERY, SMALL FINGER TO LEFT HAND SURGERY, CYST FROM R CHEEK Anesthesia Reactions: No Malignant Hyperthermia: No Significant Family History: Cancer Additional Family History: both sisters had breast CA ROS - Limitations ROS Limitations: No Limitations Constitution: REPORTS: Chills Cardiovascular: REPORTS: Heart Racing Respiratory: REPORTS: Shortness Of Breath Neurological: REPORTS: Denies Neuro Symptoms Gastrointestinal: REPORTS: Denies GI Symptoms Endocrine: REPORTS: Denies Symptoms Musculoskeletal: REPORTS: Denies MS Symptoms Genitourinary: REPORTS: Denies Symptoms Eyes: REPORTS: Denies Symptoms ENT: REPORTS: Denies Symptoms Skin: REPORTS: Denies Skin Symptoms Lympathic: REPORTS: Denies Lympathic Symptoms Immunologic: POSITIVE: Denies Symptoms Psychiatric: POSITIVE: Denies Psych Symptoms Dyspnea Physical Exam - General Appearance General Appearance: REPORTS: Alert, Cooperative, No Evidence of Trauma, Moderate Distress - HEENT HEENT: POSITIVE: Head Inspection Nml, Eyes Inspection Nml, Ears Inspection Nml, Nose Inspection Nml, Oral/Dental Inspect. Nml, Pharynx Inspect. Nml, PERRL, EOMI - Neck Neck: REPORTS: Normal Inspection - Respiratory Respiratory: REPORTS: No Pleuritic Chest Pain, Speaks Full Sentences, Decreased Air Movement - Cardiovascular Cardiovascular: REPORTS: Heart Sounds Normal, Strong Pulses, Irregularly Irreg Rhythm, Tachycardia Peripheral Pulses: Radial (R): 4+ - Abdomen Abdomen: Soft: (All Quadrants), Normal Bowel Sounds: (All Quadrants), Denies Tenderness: (All Quadrants), No Splenomegaly: (All Quadrants), No Hepatomegaly: (All Quadrants), No Guarding: (All Quadrants), No Rebound: (All Quadrants), No Palpable Pulse: (All Quadrants), No Palpabale Mass: (All Quadrants), No Distention: (All Quadrants), No Rigidity: (All Quadrants) - Skin Skin: REPORTS: Intact, Normal For Race, Warm, Dry, No Rash - Extremities Extremity: Non-Tender: (All Extremities), Normal ROM: (All Extremities), Normal Inspection: (All Extremities), Pelvis Stable: (All Extremities) - Neurological / Psychological Neurological: POSITIVE: Affect Apporpriate, Oriented X3, Motor Normal, Sensation Normal Dyspnea Progress - Results Reviewed by me Xrays/CTs/US Reviewed by me: Yes Discussed with Radiologist: No Lab Results Reviewed by Me: Yes CBC and BMP: 11/24/17 08:10 11/24/17 08:10 EKG Interpreted/Reviewed By Me:: Yes EKG Interpretation:: POSITIVE: Abnormal EKG (A fib) - Patient's Progress Pain Medication Addressed: POSITIVE: Not Applicable Re-Examine Time: 09:13 Status: POSITIVE: Improved MDM / ED Course: FINDINGS: anemia, elevated WBC, hypoxia, hypomagnesemia, elevated INR with hyper-anticoagulation. PLAN: admission Air Movement: POSITIVE: Poor Quality Measure Initiative: CP/AMI: POSITIVE: EKG Quality Measure Initiative: CAP: POSITIVE: CXR or CT - Consult Consult (If Yes, Name of Consulting MD & Time Called): Yes (Dr. Boyd 0900hrs) Consulting MD will see pt:: POSITIVE: [facility] [place] Admit Counseled: POSITIVE: Patient, Family, RE: Lab Results, RE: Radiology Results, RE : DX, RE: Need for F/U Patient Care Time - Estimated PCT Patient Care Time (In Minutes): 45 Vital Signs - Recent Vital Signs Vital Signs: Vital Signs (Last 8 hours) Temp Pulse Pulse Pulse Resp BP Pulse Ox 11/24/17 08:28 97.6 F 128 H 128 H 28 H 151/76 88 11/24/17 07:42 74 20 100 11/24/17 07:41 71 20 96 11/24/17 07:28 97.6 F 128 H 28 H 151/76 88 - VS Reviewed Vital Signs Reviewed: Yes Discharge Clinical Impression: Chronic obstructive lung disease, Elevated INR Discharge Disposition: Admit to Inpatient Condition: Stable Follow Up With: ALEXANDER GIBSON [Primary Care Provider] - Date Decision to Admit to Inpatient: 11/24/17 Time Decision to Admit to Inpatient: 09:18
[2017-11-24 08:09] LABS: VENOUS PH 7.52 (7.32-7.42)
[2017-11-24 08:15] LABS: BASOPHILS # (AUTO) 0.07 10*3/UL; BASOPHILS % (AUTO) 0.5 % (0-1); EOSINOPHILS # (AUTO) 0.06 10*3/UL; EOSINOPHILS % (AUTO) 0.4 % (0-8); Hematocrit [HCT] 32.3 % (42.0-52.0); Hemoglobin [HGB] 11.1 g/dL (14.0-18.0); LYMPHOCYTES # (AUTO) 2.23 10*3/uL; MEAN CORPUSCULAR HEMOGLOBIN 32.4 PG (27-31); MEAN CORPUSCULAR HGB CONC 34.4 g/dL (33-37); MEAN CORPUSCULAR VOLUME 94.2 FL (80-90); MEAN PLATELET VOLUME 9.3 FL (7.4-12.2); MONOCYTES # (AUTO) 1.73 10*3/UL (0.3-0.8); MONOCYTES % (AUTO) 12.5 % (5-15); NEUTROPHILS # (AUTO) 9.77 10*3/UL; NEUTROPHILS % (AUTO) 70.3 % (50-80); RED BLOOD COUNT 3.43 10^6/uL (4.70-6.10)
[2017-11-24 08:34] LABS: PLATELET MORPHOLOGY COMMENT NORMAL MORPHOLOGY (NORM); RBC MORPHOLOGY COMMENT NORMAL MORPHOLOGY (NORM); WBC MORPHOLOGY COMMENT NORMAL MORPHOLOGY (NORM)
[2017-11-24 08:45] LABS: BLOOD UREA NITROGEN 17 mg/dL (7-22); BUN/CREATININE RATIO 24.28 (6-20)
[2017-11-24 08:47] LABS: SERUM ALBUMIN 3.6 g/dL (3.5-4.8)
[2017-11-24] MEDS ORDERED: Magnesium Sulfate 2gm (Premix) 2 GM/50 ML BAG IV ONE ×2 (08:54→10:00)
[2017-11-24] MEDS ORDERED: NORMAL SALINE 10 ML SYRINGE FLUSH IVP PRN (10:00)
[2017-11-24] MEDS ORDERED: ACETAMINOPHEN 325 MG TABLET PO PRN (10:00)
[2017-11-24] MEDS ORDERED: ALBUTEROL SULFATE 2.5 MG/3 ML NEB PRN (10:00)
[2017-11-24] MEDS ORDERED: CALCIUM CARBONATE 500 MG (TUMS) CHEWABLE TABLET PO PRN (10:00)
[2017-11-24] MEDS ORDERED: ONDANSETRON 4 MG/2 ML VIAL IVP PRN (10:00)
[2017-11-24] MEDS ORDERED: DOCUSATE 100 MG CAPSULE PO PRN (10:00)
[2017-11-24] MEDS ORDERED: LIDOCAINE W/ SODIUM BICARB 0.5 ML SYR SUBD PRN (10:00)
--- NOTE | 2017-11-24 10:12 | DI ---
CT Abdomen/Pelvis W Contrast,11/24/2017 9:18 AM: Clinical History: Left lower quadrant abdominal pain Previous Exam: May 17, 2017 Findings: Multiple helically acquired CT images are obtained through the abdomen and pelvis without contrast, a nd demonstrate an enlarged prostate. The urinary bladder is unremarkable. Multiple colonic diverticula are noted without evidence of acute diverticulitis at this time. There is moderate stool noted throughout the colon. The liver and spleen are unremarkable. The gallbladder contains some layering density. There is no mesenteric or retroperitoneal lymphadenopathy. There is dextroscoliosis of the mid lumbar spine centered at the L2/3 level. Peripheral vascular calcifications are seen. Peripheral vascular calcifications are noted. Impression: 1. Large amount of dried stool throughout the colon. 2. No evidence of acute diverticulitis.
--- NOTE | 2017-11-24 10:14 | DI ---
XR CXR 2VW PA/LAT,11/24/2017 7:48 AM: Clinical History: Shortness of breath Previous Exam: May 17, 2017 Findings: PA and lateral views of the chest are obtained, and demonstrate new density within the left lower lob e. There are some increased interstitial markings bilaterally. There is also some scarring. Postsurgical changes are seen of the cervical spine at the cervicothoracic junction. There is some flattening of the hemidiaphragms. Impression: Increased density within the left lower lobe most consistent with pneumonia. Recommend followup imagi ng after treatment to document resolution. Cannot rule out the possibility of neoplasia.
[2017-11-24] MEDS ORDERED: NITROGLYCERIN 0.4 MG SL TAB (BOTTLE OF 3) SL PRN (10:35)
[2017-11-24] MEDS: methylPREDNISolone 125 MG/2 ML VIAL IVP SCH ×2 (10:43→16:08)
[2017-11-24] MEDS: Lactated Ringers 1,000 ML PRIMARY IV SCH ×2 (11:57→19:34)
[2017-11-24] MEDS: cefTRIAXone Inj 2 GM in Sodium Chloride 0.9% 100 ML IV SCH (12:29)
[2017-11-24] MEDS: IPRATROPIUM/ALBUTEROL SULFATE 3 ML NEB NEB SCH ×2 (13:09→18:50)
--- NOTE | 2017-11-24 14:13 | DI ---
CT CTA Chest Non-Coronary WWO,11/24/2017 12:20 PM: Clinical History: Shortness of breath and question of lung mass. Previous Exam: May 17, 2017 Findings: Multiple helically acquired CT images are obtained through the chest following a CT chest angiogram p rotocol, and demonstrate spiculated mass within the left lung base measuring 2.8 x 1.5 cm in cross-se ction. There is also a mass involving the lingular fissure which has increased in size from the prior exam and extends to the periphery of the lung, and measures 3.8 x 2.8 cm in cross-section. There are diffuse emphysematous changes. There is a cavitary spiculated mass within the left lung pos teriorly measuring 2.3 cm in long axis There is no evidence of pulmonary embolism. The spiculated density within the right middle lobe remains unchanged from the prior exam and has dec reased since the prior exam. Impression: Enlarging spiculated masses within the left lung base as above to include a cavitary density. Differe ntial diagnosis still includes both infectious and malignant processes. If there is no sign of infect ion, CT-guided biopsy is recommended.
[2017-11-24] MEDS ORDERED: POLYETHYLENE GLYCOL 3350 17 GM POWDER PO ONE (19:10)
--- NOTE | 2017-11-24 19:51 | PDOC ---
HPI - History of Present Illness Date of Service: 11/24/17 Time of Service: 19:45 Chief Complaint: Shortness of breath History of Present Illness: This very pleasant 76-year-old male with end-stage COPD, chronic atrial fibrillation although the patient could not remember that, some memory problems lately that his son described, history of tobacco abuse, hypertension, and coronary artery disease, who comes in accompanied by his son with a complaint of shortness of breath and cough. The patient states that this all started 2 days ago after eating a sandwich. No fevers and no nausea or vomiting. The patient has had some chills and apparently turns to hear up in the 80s sometimes he so cold. He's lost about 5 pounds recently, but tends to fluctuate in terms of his weight. His chest x-ray was indicative of a left- sided pneumonia, so I did get a CT scan, and he has a chronic finding in the middle lobe of the left lung, along with what appears to be a cavitary lesion and a new infiltrate in the left lower lung. We found out that this was a chronic lesion as the patient stated he had a PET scan that was negative within the last 3 months. I do not have the report here were for review. There are no exacerbating factors. Patient did tries inhalers but they did not seem to provide much more help. He is normally on 2 L of oxygen at home. The cavitary lesion and pneumonia in the left lower lobe were also suspicious of neoplasm could not be ruled out, and I spoke with radiology regarding that. I also spoke with the patient and the son regarding a plan of action which will be discussed below. Patient does note that he quit smoking in December of this past year. Past Medical History Medical History: 1. COPD with chronic hypoxemic respiratory failure, oxygen at 2 LPM at home. 2. Hypothyroidism, recently difficult to control. TSH in October was in the 70's. 3. Coronary artery disease with previous stent in 2013. 4. Atrial fibrillation, he was switched over to Xarelto and then back to coumadin. currently sinus. 5. Chronic pain syndrome. 6. Pulmonary cachexia and loss of weight. Surgical History: 1. Appendectomy. 2. Previous knee replacement. 3. Cervical neck fusion 2012 Family History: Reviewed an Not Pertinent Pertinent Family History: Father of coronary artery disease and myocardial infarction. He's not sure what his mother passed on from. Past Social History: quit smoking in 12/2016, drinks two alcoholic beverages daily. Has 2 children, a son who lives here in [place]. His ex- also helps take care of him. Tobacco Use: Former Smoker In the Past 12 Months, Have Used or Abuse Any of the Following Substance: None Alcohol Use: Other (daily.) Medication / Allergies Home Medications: Home Medications Medication Instructions Recorded Confirmed Type Nitroglycerin SL Tab [Nitrostat 0.4 mg SL PRN PRN #20 tab 05/30/16 11/24/17 History SL Tab] Albuterol/Ipratrop Neb Soln 3 ml NEB RTQ6H #120 ampul.neb 12/23/16 11/24/17 Rx [Duoneb Neb Soln] fluticasone 100 mcg-vilanterol 25 1 inh INH Q24H #3 ea 07/14/17 11/24/17 Rx mcg/dose powder for inhalation warfarin 5 mg tablet 2.5 mg PO QD #90 tab 07/14/17 11/24/17 Rx tizanidine 4 mg tablet 4 mg PO Q8H PRN #270 tab 08/04/17 11/24/17 Rx Aspirin 325 mg PO DAILY tab 10/21/17 11/24/17 Rx omeprazole magnesium 20 mg 20 mg PO BID #180 tab 10/23/17 11/24/17 Rx tablet,delayed release levothyroxine 100 mcg tablet 100 mcg PO QDAY #30 tab 11/05/17 11/24/17 Rx alprazolam 0.25 mg tablet 0.25 mg PO BID #60 tab 11/18/17 11/24/17 Rx Allergies/Adverse Reactions: Allergies 3 Allergy/AdvReac Type Severity Reaction Status Date / Time amlodipine besylate Allergy Intermediate Edema of Verified 11/24/17 18:30 [[facility]] ankles Review of Systems - Review of Systems All Systems: Reviewed & No Additional Complaints Except as Stated (I did a 12 point review of systems that is negative except as per HPI and as noted below.) - Constitutional Constitutional: REPORTS: General Health Poor, Weight Loss, Fever / Chills (no fevers, positive for chills.) - Respiratory Respiratory: REPORTS: Cough - Cardiovascular Cardiovascular: REPORTS: Negative System Review - Gastrointestinal Gastrointestinal / Abdominal: REPORTS: Negative System Review - Genitourinary Genitourinary: REPORTS: Negative System Review - Musculoskeletal Musculoskeletal: REPORTS: Other (chronic arthritis and joint pains.) - Neurological Neurologic: REPORTS: Memory Loss (per his son.) Exam - Vitals Vital Signs: Vital Signs Temperature 97.8 F Temperature Source Temporal Artery Scan Pulse Rate [Pulse Oximeter] 60 Pulse Rate 81 Respiratory Rate 20 Blood Pressure [Left Arm] 138/84 Blood Pressure 147/76 Pulse Ox 95 Oxygen Flow Rate 2 Oxygen Delivery Method Nasal Cannula Height 5 ft 7.5 in Weight 128 lb - General General Appearance: No Acute Distress, Cooperative - Head Head Exam: Normocephalic, Atraumatic Additional Head Exam Details: temporal wasting - Eye Eye Exam: POSITIVE: No Scleral Icterus - ENT ENT Exam: POSITIVE: Mucous Membranes Moist - Neck Neck Exam: No Tenderness, No Lymphadenopathy, No Thyromegaly - Respiratory Respiratory Exam: POSITIVE: Breathing Non Labored, Normal to Percussion and Palpation, Decreased Breath Sounds, Coarse Breath Sounds - Cardiovascular Cardiovascular Exam: POSITIVE: RRR, No Murmur, No Clicks, No Gallops, No Rubs, No JVD - GI/Abdominal GI/Abdominal Exam: POSITIVE: Normal Bowel Sounds, Non Tender, Non Distended, Soft - Rectal Rectal Exam: POSITIVE: Deferred - External Exam: POSITIVE: Deferred Exam: POSITIVE: Deferred - Extremities Extremities Exam: POSITIVE: No Edema Present, No Cyanosis Present, Pedal Edema, Clubbing Present - Back Back Exam: POSITIVE: No CVA Tenderness - Neurological Neurological Exam: POSITIVE: Alert, Oriented x 3, No Facial Droop, Speech Intact / Clear, Moves All Extremities Equally - Psychiatric Psychiatric Exam: POSITIVE: Normal Affect, Normal Mood Results - Labs CBC and BMP: 11/24/17 08:10 11/24/17 08:10 Additional Lab Results: Laboratory Results 11/24/17 11/24/17 11/24/17 Range/Units 08:03 08:10 08:10 WBC 13.89 H (4.8-10.8) 10^3/uL RBC 3.43 L (4.70-6.10) 10^6/uL Hgb 11.1 L (14.0-18.0) g/dL Hct 32.3 L (42.0-52.0) % MCV 94.2 H (80-90) FL MCH 32.4 H (27-31) PG MCHC 34.4 (33-37) g/dL RDW Std Deviation 50.4 H (39-50) fL RDW Coeff of Isabelle 15.3 H (11.5-14.5) % Plt Count 431 H (140-350) 10*3/uL MPV 9.3 (7.4-12.2) FL Immature Gran % (Auto) 0.2 (0-5) % Neut % (Auto) 70.3 (50-80) % Lymph % (Auto) 16.1 (10-50) % [place] % (Auto) 12.5 (5-15) % Eos % (Auto) 0.4 (0-8) % Baso % (Auto) 0.5 (0-1) % Immature Gran # (Auto) 0.03 10*3/UL Neut # (Auto) 9.77 10*3/UL Lymph # (Auto) 2.23 10*3/uL [place] # (Auto) 1.73 H (0.3-0.8) 10*3/UL Eos # (Auto) 0.06 10*3/UL Baso # (Auto) 0.07 10*3/UL WBC Morphology Comment Normal morphology (NORM) Plt Morphology Comment Normal morphology (NORM) RBC Morph Comment Normal morphology (NORM) PT 60.4 H (9.7-11.4) secs INR 5.60 (0.00-5.90) N/A D-Dimer 0.40 (0.00-0.59) mg/L VBG pH 7.52 H (7.32-7.42) VBG pCO2 28 L (45-55) mmHg VBG HCO3 23 (22-26) mmol/L VBG Base Excess 0 (-2-2) MMOL/L Sodium (135-145) meq/L Potassium (3.8-5.2) meq/L Chloride (98-112) meq/L Carbon Dioxide (23-33) meq/L Anion Gap (5-20) BUN (7-22) mg/dL Creatinine (0.70-1.50) mg/dL Estimated GFR BUN/Creatinine Ratio (6-20) Glucose (78-110) mg/dL Calculated Osmolality (267-292) mOsm/kg Lactic Acid (0.70-2.10) MMOL/L Calcium (8.7-10.7) mg/dL Magnesium (1.6-2.4) mg/dL Total Bilirubin (0.3-1.2) mg/dL AST (21-57) IU/L ALT (21-72) IU/L Alkaline Phosphatase (38-126) IU/L CK-MB (CK-2) (0.00-5.00) NG/ML Troponin I Handheld (< 0.040) ng/mL NT-Pro-B Natriuret Pep (0-450) PG/ML Total Protein (6.1-8.0) g/dL Albumin (3.5-4.8) g/dL Globulin (2.50-4.10) g/dL Albumin/Globulin Ratio (1.3-2.0) mg/g Serum Alcohol (0-10) mg/dL 11/24/17 11/24/17 11/24/17 Range/Units 08:10 08:10 08:10 WBC (4.8-10.8) 10^3/uL RBC (4.70-6.10) 10^6/uL Hgb (14.0-18.0) g/dL Hct (42.0-52.0) % MCV (80-90) FL MCH (27-31) PG MCHC (33-37) g/dL RDW Std Deviation (39-50) fL RDW Coeff of Isabelle (11.5-14.5) % Plt Count (140-350) 10*3/uL MPV (7.4-12.2) FL Immature Gran % (Auto) (0-5) % Neut % (Auto) (50-80) % Lymph % (Auto) (10-50) % [place] % (Auto) (5-15) % Eos % (Auto) (0-8) % Baso % (Auto) (0-1) % Immature Gran # (Auto) 10*3/UL Neut # (Auto) 10*3/UL Lymph # (Auto) 10*3/uL [place] # (Auto) (0.3-0.8) 10*3/UL Eos # (Auto) 10*3/UL Baso # (Auto) 10*3/UL WBC Morphology Comment (NORM) Plt Morphology Comment (NORM) RBC Morph Comment (NORM) PT (9.7-11.4) secs INR (0.00-5.90) N/A D-Dimer (0.00-0.59) mg/L VBG pH (7.32-7.42) VBG pCO2 (45-55) mmHg VBG HCO3 (22-26) mmol/L VBG Base Excess (-2-2) MMOL/L Sodium 132 L (135-145) meq/L Potassium 3.8 (3.8-5.2) meq/L Chloride 100 (98-112) meq/L Carbon Dioxide 20 L (23-33) meq/L Anion Gap 12 (5-20) BUN 17 (7-22) mg/dL Creatinine 0.7 (0.70-1.50) mg/dL Estimated GFR [employer] BUN/Creatinine Ratio 24.28 H (6-20) Glucose 110 (78-110) mg/dL Calculated Osmolality 276.0 (267-292) mOsm/kg Lactic Acid 1.2 (0.70-2.10) MMOL/L Calcium 9.4 (8.7-10.7) mg/dL Magnesium 1.4 L (1.6-2.4) mg/dL Total Bilirubin 1.6 H (0.3-1.2) mg/dL AST 23 (21-57) IU/L ALT 30 (21-72) IU/L Alkaline Phosphatase 85 (38-126) IU/L CK-MB (CK-2) 2.4 (0.00-5.00) NG/ML Troponin I Handheld (< 0.040) ng/mL NT-Pro-B Natriuret Pep 1160.0 H (0-450) PG/ML Total Protein 6.7 (6.1-8.0) g/dL Albumin 3.6 (3.5-4.8) g/dL Globulin 3.1 (2.50-4.10) g/dL Albumin/Globulin Ratio 1.10 L (1.3-2.0) mg/g Serum Alcohol (0-10) mg/dL 11/24/17 11/24/17 Range/Units 08:10 10:00 WBC (4.8-10.8) 10^3/uL RBC (4.70-6.10) 10^6/uL Hgb (14.0-18.0) g/dL Hct (42.0-52.0) % MCV (80-90) FL MCH (27-31) PG MCHC (33-37) g/dL RDW Std Deviation (39-50) fL RDW Coeff of Isabelle (11.5-14.5) % Plt Count (140-350) 10*3/uL MPV (7.4-12.2) FL Immature Gran % (Auto) (0-5) % Neut % (Auto) (50-80) % Lymph % (Auto) (10-50) % [place] % (Auto) (5-15) % Eos % (Auto) (0-8) % Baso % (Auto) (0-1) % Immature Gran # (Auto) 10*3/UL Neut # (Auto) 10*3/UL Lymph # (Auto) 10*3/uL [place] # (Auto) (0.3-0.8) 10*3/UL Eos # (Auto) 10*3/UL Baso # (Auto) 10*3/UL WBC Morphology Comment (NORM) Plt Morphology Comment (NORM) RBC Morph Comment (NORM) PT (9.7-11.4) secs INR (0.00-5.90) N/A D-Dimer (0.00-0.59) mg/L VBG pH (7.32-7.42) VBG pCO2 (45-55) mmHg VBG HCO3 (22-26) mmol/L VBG Base Excess (-2-2) MMOL/L Sodium (135-145) meq/L Potassium (3.8-5.2) meq/L Chloride (98-112) meq/L Carbon Dioxide (23-33) meq/L Anion Gap (5-20) BUN (7-22) mg/dL Creatinine (0.70-1.50) mg/dL Estimated GFR BUN/Creatinine Ratio (6-20) Glucose (78-110) mg/dL Calculated Osmolality (267-292) mOsm/kg Lactic Acid (0.70-2.10) MMOL/L Calcium (8.7-10.7) mg/dL Magnesium (1.6-2.4) mg/dL Total Bilirubin (0.3-1.2) mg/dL AST (21-57) IU/L ALT (21-72) IU/L Alkaline Phosphatase (38-126) IU/L CK-MB (CK-2) (0.00-5.00) NG/ML Troponin I Handheld 0.000 (< 0.040) ng/mL NT-Pro-B Natriuret Pep (0-450) PG/ML Total Protein (6.1-8.0) g/dL Albumin (3.5-4.8) g/dL Globulin (2.50-4.10) g/dL Albumin/Globulin Ratio (1.3-2.0) mg/g Serum Alcohol 0 (0-10) mg/dL - EKG Data -: EKG Interpreted by Me Rate: Normal EKG Shows Normal: Sinus Rhythm - EKG Data EKG Interpretation: Other (sinus arrhythmia) - Imaging Status: Image Reviewed by Me (CXR, positive for pneumonia or mass on my view on left side. CT positive for cavitary lesion and lower lobe lesion. Discussed findings with radiology. patient recently had a negative PET scan but we do not have results. chronic middle lobe scarring.) AFib Stroke Risk Screening - AFib Stroke Risk (CHADS-VASc) Atrial Fibrillation Ischemic Stroke Risk Factors: Hypertension (He is on coumadin, but is a poor candidate for coumadin with his alcohol use. INR notably elevated. He could not even recall he had atrial fibrillation. will discuss with patient and his son in depth to determine best management moving forward given patient co-morbidities and issues.), Age 75 years or older CHADS-VASc Score (A-Fib Stroke Risk Score): 3 CHADS-VASc Risk: High Risk Assessment and Plan - Patient Problems (1) Pneumonia Current Visit: Yes Status: Acute Code(s): J18.9 - Pneumonia, unspecified organism Qualifiers: Pneumonia type: due to unspecified organism Laterality: left Lung location: lower lobe of lung Qualified Code(s): J18.1 - Lobar pneumonia, unspecified organism (2) Atrial fibrillation Current Visit: Yes Status: Acute Code(s): I48.91 - Unspecified atrial fibrillation Qualifiers: Atrial fibrillation type: chronic Qualified Code(s): I48.2 - Chronic atrial fibrillation (3) Elevated INR Current Visit: Yes Status: Acute Code(s): R79.1 - Abnormal coagulation profile (4) End stage COPD Current Visit: Yes Status: Acute Code(s): J44.9 - Chronic obstructive pulmonary disease, unspecified (5) Pulmonary cachexia due to chronic obstructive pulmonary disease Current Visit: Yes Status: Acute Code(s): J44.9 - Chronic obstructive pulmonary disease, unspecified; R64 - Cachexia (6) HTN (hypertension) Current Visit: Yes Status: Acute Code(s): I10 - Essential (primary) hypertension Qualifiers: Hypertension type: essential hypertension Qualified Code(s): I10 - Essential (primary) hypertension - Assessment / Plan Additional Assessment/Plan Details: admit for pneumonia, treat with rocephin and zithromax. given story with sandwich, if no clinical improvement, consider aspiration as a cause and change antibiotics add breathing therapies and oxygen as necessary check labs in AM replace magnesium repeat CT scan in one month with consideration for CT guided biopsy for lesions if still present as malignancy more likely patient had GI bleed on xarelto. will discuss that with family and patient. I think he would be best served by doing stroke prevention with aspirin, and may benefit from PPI therapy given Hx of GI bleed. had ulcers at GE junction noted on prior 01/2017 EGD. Not a safe candidate for coumadin given alcohol use. lots of stool in colon--linzess and miralax DO NOT RESUSITATE--discussed with patient and son try to get copy of PET scan from [facility] no coumadin today. vitamin K given in ER, check PT and INR tomorrow. hold off on further vitamin K after ER dose. see orders. discussed with patient and son and they agree with the plan.
[2017-11-24] MEDS: ALPRAZolam Tab 0.25 MG TABLET PO SCH (20:51)
[2017-11-25] MEDS: IPRATROPIUM/ALBUTEROL SULFATE 3 ML NEB NEB SCH ×4 (00:12→19:08)
[2017-11-25] MEDS: Lactated Ringers 1,000 ML PRIMARY IV SCH ×3 (04:17→15:15)
[2017-11-25] MEDS: LEVOTHYROXINE 100 MCG TABLET PO SCH (04:40)
[2017-11-25 06:15] LABS: BASOPHILS # (AUTO) 0.01 10*3/UL; BASOPHILS % (AUTO) 0.1 % (0-1); EOSINOPHILS # (AUTO) 0 10*3/UL; EOSINOPHILS % (AUTO) 0 % (0-8); Hematocrit [HCT] 31.7 % (42.0-52.0); Hemoglobin [HGB] 10.4 g/dL (14.0-18.0); LYMPHOCYTES # (AUTO) 1.14 10*3/uL; MEAN CORPUSCULAR HEMOGLOBIN 31.3 PG (27-31); MEAN CORPUSCULAR HGB CONC 32.8 g/dL (33-37); MEAN CORPUSCULAR VOLUME 95.5 FL (80-90); MEAN PLATELET VOLUME 10.3 FL (7.4-12.2); MONOCYTES # (AUTO) 0.44 10*3/UL (0.3-0.8); MONOCYTES % (AUTO) 4.2 % (5-15); NEUTROPHILS # (AUTO) 8.82 10*3/UL; NEUTROPHILS % (AUTO) 84.6 % (50-80); RED BLOOD COUNT 3.32 10^6/uL (4.70-6.10)
[2017-11-25 06:45] LABS: PLATELET MORPHOLOGY COMMENT NORMAL MORPHOLOGY (NORM); WBC MORPHOLOGY COMMENT NORMAL MORPHOLOGY (NORM)
[2017-11-25] MEDS: OMEPRAZOLE 20 MG CAPSULE PO SCH ×2 (06:46→16:51)
[2017-11-25] MEDS: FLUTICASONE INH SCH (06:48)
[2017-11-25] MEDS: VILANTEROL INH SCH (06:48)
[2017-11-25 07:25] LABS: BLOOD UREA NITROGEN 19 mg/dL (7-22); BUN/CREATININE RATIO 31.66 (6-20)
[2017-11-25 07:47] LABS: RBC MORPHOLOGY COMMENT SEE COMMENTS (NORM)
[2017-11-25] MEDS ORDERED: AZITHROMYCIN 250 MG TABLET PO SCH (09:00)
[2017-11-25] MEDS: ALPRAZolam Tab 0.25 MG TABLET PO SCH ×2 (09:17→20:34)
[2017-11-25] MEDS: Linaclotide Cap 290 MCG CAPSULE PO SCH (09:17)
[2017-11-25] MEDS: cefTRIAXone Inj 2 GM in Sodium Chloride 0.9% 100 ML IV SCH (12:25)
--- NOTE | 2017-11-25 16:40 | PDOC(PROG) ---
Date and Time of Service: 11/25/2017, 1635 Interval History: Much better today. Shortness breath is improved cough is present. No nausea or vomiting. We spoke about risks and benefits of anticoagulants. The patient and I spoke in depth regarding Coumadin versus Xarelto versus Eliquis, including all risks and benefits, risks being bleeding complications and possible pitfalls of not being able to reverse bleeding with antidotes, and benefits cream treatment of blood clot, lack of drug interactions, and ease of therapy in terms of lab monitoring. Given the patient has been on Xarelto with GI bleed in the past, but really eliminates these medications as options. I did warn him about the complexity of alcohol and its effects on Coumadin, but he prefers to stay on Coumadin at this time and states it was well regulated outside of the clinic. It is possible that the pneumonia just made things worse. Cautiously resume Coumadin tonight. Our plan for the pneumonia is to treat for 5-7 days, then repeat CT scan in 1 month to evaluate. If mass is still present, the patient would like to arrange an appointment with [facility] to review that CT scan. He like to have it done up there as well. We will call them tomorrow to discuss. If all goes well, no problems overnight, may consider discharge home tomorrow. In terms of thyroid function, TSH markedly reduced to now just about 6. I do not think we should change the dose of Synthroid yet, I think we should continue the same dose for at least another 4 weeks, and recheck. Objective : Data - Labs CBC and BMP: 11/25/17 04:30 11/25/17 04:30 Assessment and Plan - Patient Problems (1) Pneumonia Current Visit: Yes Status: Acute Code(s): J18.9 - Pneumonia, unspecified organism Qualifiers: Pneumonia type: due to unspecified organism Laterality: left Lung location: lower lobe of lung Qualified Code(s): J18.1 - Lobar pneumonia, unspecified organism (2) Atrial fibrillation Current Visit: Yes Status: Acute Code(s): I48.91 - Unspecified atrial fibrillation Qualifiers: Atrial fibrillation type: chronic Qualified Code(s): I48.2 - Chronic atrial fibrillation (3) Elevated INR Current Visit: Yes Status: Acute Code(s): R79.1 - Abnormal coagulation profile (4) End stage COPD Current Visit: Yes Status: Acute Code(s): J44.9 - Chronic obstructive pulmonary disease, unspecified (5) Pulmonary cachexia due to chronic obstructive pulmonary disease Current Visit: Yes Status: Acute Code(s): J44.9 - Chronic obstructive pulmonary disease, unspecified; R64 - Cachexia (6) HTN (hypertension) Current Visit: Yes Status: Acute Code(s): I10 - Essential (primary) hypertension Qualifiers: Hypertension type: essential hypertension Qualified Code(s): I10 - Essential (primary) hypertension
[2017-11-25] MEDS: metroNIDAZOLE 500mg (Premix) 500 MG/100 ML BAG IV SCH (19:11)
[2017-11-26] MEDS: IPRATROPIUM/ALBUTEROL SULFATE 3 ML NEB NEB SCH ×2 (00:05→06:24)
[2017-11-26] MEDS: Lactated Ringers 1,000 ML PRIMARY IV SCH (01:16)
[2017-11-26] MEDS: metroNIDAZOLE 500mg (Premix) 500 MG/100 ML BAG IV SCH (02:54)
[2017-11-26] MEDS: LEVOTHYROXINE 100 MCG TABLET PO SCH (05:41)
[2017-11-26] MEDS: FLUTICASONE INH SCH (06:28)
[2017-11-26] MEDS: VILANTEROL INH SCH (06:28)
[2017-11-26] MEDS: OMEPRAZOLE 20 MG CAPSULE PO SCH (06:49)
[2017-11-26 07:27] VITALS: BP 136/76; RESP 20; TEMP 98.6; O2SAT 92
[2017-11-26] MEDS: ALPRAZolam Tab 0.25 MG TABLET PO SCH (09:58)
[2017-11-26] MEDS: Linaclotide Cap 290 MCG CAPSULE PO SCH (09:59)
--- NOTE | 2017-11-26 11:28 | DCSUMMARY ---
Hospitalization Summary Admit Date: 11/24/2017 Discharge Date: 11/26/17 Primary Diagnosis:: pneumonia, cavitary lesion Secondary Diagnosis:: COPD. Hospital Course: This very pleasant 76-year-old male with end-stage COPD, multiple hospital stays related to complications from blood thinners, atrial fibrillation, amongst other issues. He came in with increased shortness of breath and coughing after eating a sandwich 2 days prior to the hospital stay. He was found to have 2 lesions suspicions for pneumonia in the left lower lobe. One of them was cavitary in nature. He stated that he had had a recent PET scan, but we were not able to obtain results of that prior to discharge. We made the decision to treat this as if it could be an infection, and I also have aspergillosis studies pending. We treated him with Rocephin and Zithromax and then switch that to Rocephin and Flagyl prior to discharge. We will discharge him on Augmentin. He has tolerated therapy well. His INR was elevated at 5.9 on admission. I think this is a combination of the pneumonia and the fact that he drinks alcohol. We had our discussion on anticoagulants, but he said bleeding issues on Xarelto in the past and cannot opt for those medications (DOAC medications). He really wants to stay on Coumadin for stroke prevention. He understands that alcohol could cause issues there. The patient feels that he would not want to be on suddenly aspirin daily. Somebody increased his aspirin to 325 mg in addition to the Coumadin, we will drop that to 81 mg to reduce bleeding risk. He does have a prior history of a cardiac stent, so an 81 mg aspirin make some sense for the patient. Today, he denies any chest pain, shortness of breath, and he is ready to go home. The above discharge and discharge plan was discussed with the patient and his son. They agreed with the plan. Assessment and Plan: 1. As per discharge assessments noted 2. Disposition: Patient is discharged home. 3. Condition on discharge, stable and improved. 4. Diet: regular diet 5. Activities: resume normal activities, but reduce alcohol intake 6. Follow-Up: 1. Dr. Mishra in a week 2. Infectious disease tomorrow 3. Oncology in one month 7. Medications at the Time of Discharge: Home Medications Medication Instructions Recorded Confirmed Type Nitroglycerin SL Tab [Nitrostat 0.4 mg SL PRN PRN #20 tab 05/30/16 11/24/17 History SL Tab] Albuterol/Ipratrop Neb Soln 3 ml NEB RTQ6H #120 ampul.neb 12/23/16 11/24/17 Rx [Duoneb Neb Soln] fluticasone 100 mcg-vilanterol 25 1 inh INH Q24H #3 ea 07/14/17 11/24/17 Rx mcg/dose powder for inhalation warfarin 5 mg tablet 2.5 mg PO QD #90 tab 07/14/17 11/24/17 Rx omeprazole magnesium 20 mg 20 mg PO BID #180 tab 10/23/17 11/24/17 Rx tablet,delayed release levothyroxine 100 mcg tablet 100 mcg PO QDAY #30 tab 11/05/17 11/24/17 Rx alprazolam 0.25 mg tablet 0.25 mg PO BID #60 tab 11/18/17 11/24/17 Rx Amox Tr/Potassium Clavulanate 1 ea PO BID #14 tab 11/26/17 Rx [Augmentin 875-125 Tablet] Aspirin EC 81 mg PO DAILY #90 tablet. 11/26/17 Rx 8. Time, care, counseling and coordination of care for this discharge is greater than 30 minutes. Exam - Vitals Vital Signs: Vital Signs Temperature 98.6 F Temperature Source Temporal Artery Scan Pulse Rate [Pulse Oximeter] 80 Pulse Rate 68 Respiratory Rate 20 Blood Pressure [Right Arm] 136/76 Blood Pressure [Left Arm] 115/61 Blood Pressure 147/76 Pulse Ox 92 Oxygen Flow Rate 2 Oxygen Delivery Method Nasal Cannula Height 5 ft 7.5 in Weight 129 lb - General General Appearance: No Acute Distress, Cooperative - Head Head Exam: Normal Inspection, Normocephalic, Atraumatic - Eye Eye Exam: POSITIVE: No Scleral Icterus - ENT ENT Exam: POSITIVE: Mucous Membranes Moist - Respiratory Respiratory Exam: POSITIVE: Breathing Non Labored, Normal to Percussion and Palpation, Coarse Breath Sounds - Cardiovascular Cardiovascular Exam: POSITIVE: RRR, No Murmur, No Clicks, No Gallops, No Rubs, No JVD - GI/Abdominal GI/Abdominal Exam: POSITIVE: Normal Bowel Sounds, Non Tender, Non Distended, Soft - Extremities Extremities Exam: POSITIVE: No Edema Present, No Cyanosis Present, Clubbing Present - Neurological Neurological Exam: POSITIVE: Alert, Oriented x 3, No Facial Droop, Speech Intact / Clear, Moves All Extremities Equally, Abnormal Gait (He requires a cane to walk and ambulate, but is steady on his feet.) Data Peritnent Studies: 11/24/17 11/24/17 11/24/17 08:10 08:10 08:10 WBC Hgb Hct Plt Count PT INR Sodium Potassium Chloride Carbon Dioxide Anion Gap BUN Creatinine BUN/Creatinine Ratio Glucose Calculated Osmolality Calcium Magnesium 1.4 L Total Bilirubin 1.6 H AST 23 ALT 30 Alkaline Phosphatase 85 CK-MB (CK-2) 2.4 Troponin I Handheld 0.000 NT-Pro-B Natriuret Pep 1160.0 H Total Protein 6.7 Albumin 3.6 Albumin/Globulin Ratio 1.10 L TSH Free T4 Serum Alcohol 11/24/17 11/25/17 11/25/17 10:00 04:30 04:30 WBC 10.43 Hgb 10.4 L Hct 31.7 L Plt Count 406 H PT 11.8 H INR 1.11 Sodium Potassium Chloride Carbon Dioxide Anion Gap BUN Creatinine BUN/Creatinine Ratio Glucose Calculated Osmolality Calcium Magnesium Total Bilirubin AST ALT Alkaline Phosphatase CK-MB (CK-2) Troponin I Handheld NT-Pro-B Natriuret Pep Total Protein Albumin Albumin/Globulin Ratio TSH Free T4 Serum Alcohol 0 11/25/17 11/25/17 04:30 04:30 WBC Hgb Hct Plt Count PT INR Sodium 136 Potassium 3.9 Chloride 102 Carbon Dioxide 23 Anion Gap 11 BUN 19 Creatinine 0.6 L BUN/Creatinine Ratio 31.66 H Glucose 149 H Calculated Osmolality 286.0 Calcium 9.2 Magnesium Total Bilirubin AST ALT Alkaline Phosphatase CK-MB (CK-2) Troponin I Handheld NT-Pro-B Natriuret Pep Total Protein Albumin Albumin/Globulin Ratio TSH 6.19 H Free T4 1.04 Serum Alcohol [address] [facility] [place] [address] PH: DD: [phone] FAX: [phone] ~DIAGNOSTIC IMAGING REPORT~ Patient: DIANNE ESPINOSA : 1940 Sex: M Age: 76 Exam Name: CT CTA Chest Non-Coronary O Exam Date: 11/24/17 Report # : [id number] CPT Code: 48487 EMR/MR #: [id number] Ordering: MARY COVARRUBIAS Admiting: MARY COVARRUBIAS DO Primary: Jarocho Ochoa MD Attending: MARY COVARRUBIAS DO Signed CT CTA Chest Non-Coronary O,11/24/2017 12:20 PM: Clinical History: Shortness of breath and question of lung mass. Previous Exam: May 17, 2017 Findings: Multiple helically acquired CT images are obtained through the chest following a CT chest angiogram protocol, and demonstrate spiculated mass within the left lung base measuring 2.8 x 1.5 cm in cross-section. There is also a mass involving the lingular fissure which has increased in size from the prior exam and extends to the periphery of the lung, and measures 3.8 x 2.8 cm in cross- section. There are diffuse emphysematous changes. There is a cavitary spiculated mass within the left lung posteriorly measuring 2.3 cm in long axis There is no evidence of pulmonary embolism. The spiculated density within the right middle lobe remains unchanged from the prior exam and has decreased since the prior exam. Impression: Enlarging spiculated masses within the left lung base as above to include a cavitary density. Differential diagnosis still includes both infectious and malignant processes. If there is no sign of infection, CT-guided biopsy is recommended. Dictated By: 11/24/17 1355 MEGAN MORRIS MD. Signed By: 11/24/17 1413 MEGAN MORRIS MD. Patient Problems - Patient Problem List (1) Pneumonia Current Visit: Yes Status: Acute Code(s): J18.9 - Pneumonia, unspecified organism Qualifiers: Pneumonia type: due to unspecified organism Laterality: left Lung location: lower lobe of lung Qualified Code(s): J18.1 - Lobar pneumonia, unspecified organism Category: Medical (2) Atrial fibrillation Current Visit: Yes Status: Acute Code(s): I48.91 - Unspecified atrial fibrillation Qualifiers: Atrial fibrillation type: chronic Qualified Code(s): I48.2 - Chronic atrial fibrillation Category: Medical (3) Elevated INR Current Visit: Yes Status: Acute Code(s): R79.1 - Abnormal coagulation profile Category: Medical (4) End stage COPD Current Visit: Yes Status: Acute Code(s): J44.9 - Chronic obstructive pulmonary disease, unspecified Category: Medical (5) Pulmonary cachexia due to chronic obstructive pulmonary disease Current Visit: Yes Status: Acute Code(s): J44.9 - Chronic obstructive pulmonary disease, unspecified; R64 - Cachexia Category: Medical (6) HTN (hypertension) Current Visit: Yes Status: Acute Code(s): I10 - Essential (primary) hypertension Qualifiers: Hypertension type: essential hypertension Qualified Code(s): I10 - Essential (primary) hypertension Category: Medical
[2017-12-02 13:46] LABS: ASPERGILLUS FLAVUS ANTIBODY NEGATIVE; ASPERGILLUS NIGER ANTIBODY NEGATIVE
[2017-12-02 13:50] LABS: ASPERGILLUS FUMIGATUS ANTIBODY NEGATIVE
== END 2017-11-26 11:12 | disposition home or self-care (01) | DRG 191 ==
LOC: ER 07:28 → MED/SURG 09:30
PROVIDERS: ADMIT Family Medicine; ATTEND Family Medicine

== ENCOUNTER 2017-12-31 10:25 | Inpatient (IN) ==
[2017-12-31] MEDS ORDERED: NORMAL SALINE 10 ML SYRINGE FLUSH IVP PRN (10:34)
[2017-12-31] MEDS ORDERED: Sodium Chloride 0.9% 1,000 ML PRIMARY IV ONE (10:34)
[2017-12-31] MEDS ORDERED: IPRATROPIUM/ALBUTEROL SULFATE 3 ML NEB NEB ONE ×2 (10:34→10:37)
--- NOTE | 2017-12-31 10:49 | EKG ---
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
[2017-12-31 10:54] LABS: VENOUS PH 7.43 (7.32-7.42)
[2017-12-31 10:57] LABS: Hematocrit [HCT] 37.7 % (42.0-52.0); Hemoglobin [HGB] 12.6 g/dL (14.0-18.0); MEAN CORPUSCULAR HEMOGLOBIN 30.7 PG (27-31); MEAN CORPUSCULAR HGB CONC 33.4 g/dL (33-37); MEAN CORPUSCULAR VOLUME 91.7 FL (80-90); MEAN PLATELET VOLUME 9.9 FL (7.4-12.2); RED BLOOD COUNT 4.11 10^6/uL (4.70-6.10)
[2017-12-31 11:11] LABS: BAND NEUTROPHILS % 6 % (0-10); BASOPHILS % (MANUAL) 0 % (0-1); EOSINOPHILS % (MANUAL) 0 % (0-8); METAMYELOCYTES % 2 %; MONOCYTES % (MANUAL) 2 % (0-12); NEUTROPHILS % (MANUAL) 72 % (50-80); PLATELET MORPHOLOGY COMMENT NORMAL MORPHOLOGY (NORM); RBC MORPHOLOGY COMMENT NORMAL MORPHOLOGY (NORM); WBC MORPHOLOGY COMMENT NORMAL MORPHOLOGY (NORM)
[2017-12-31 11:16] LABS: BLOOD UREA NITROGEN 25 mg/dL (7-22); BUN/CREATININE RATIO 31.25 (6-20); SERUM ALBUMIN 4.2 g/dL (3.5-4.8)
--- NOTE | 2017-12-31 11:46 | DI ---
AP CHEST X-RAY, 12/31/2017 10:35 AM : Clinical History: Dyspnea. Fever. Cough. Hypoxia. Previous Exam: 11/24/2017. Comparison is also made with the noncontrast CT chest scan from 12/10/2017. There is no acute soft tissue or bony abnormality. Heart size is normal. The lungs are hyperinflated. There is a pleural-based density along the lower left lateral chest wall along with an infiltrate in the lower lung field. This density has progressed since the CT scan and probably represents pneumoni a. On the CT scan in the left lower lobe was a cavitary stellate lesion consistent with a squamous ce ll carcinoma. Between the lateral density in the left heart border is a second density that probably represents a tumor mass. The "honeycomb" pattern of the infiltrate in the left costophrenic angle ref lects the underlying small bullous disease. There is marked pulmonary arterial hypertension. There ar e no other pulmonary nodules. Extensive vascular calcifications are present in the innominate artery, both subclavian and both axillary arteries. Readin. Worsening of an infiltrate in the lingular segment most likely representing pneumonia. There prob ably is also involvement of the left lower lobe. 2. There is a 20 mm stellate density between the lingular infiltrate and the left heart border that would be consistent with the cavitary lesion seen on the recent CT scan. 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 3. Bullous emphysema with pulmonary tail hypertension.
[2017-12-31] MEDS ORDERED: cefTRIAXone Inj 2 GM in Sodium Chloride 0.9% 100 ML IV ONE (12:44)
--- NOTE | 2017-12-31 15:12 | PDOC ---
HPI - History of Present Illness Date of Service: 12/31/17 Time of Service: 16:00 Chief Complaint: Shortness of breath of one day duration History of Present Illness: This is a 77 years old male with medical history significant for history of COPD , chronic atrial fibrillation, history of coronary artery disease with previous stent who came into the hospital because of history of shortness of breath that started today. Maybe had low-grade temperature. He was here in the hospital late November when he was treated for pneumonia. They also did find a cavitary lesion then. Apparently he had another CT in December 10 and he followed up with infectious disease. Because of the shortness of breath he came into the ER a chest x-ray showed Worsening of an infiltrate in the lingular segment most likely representing pneumonia. There is probably is also involvement of the left lower lobe. There is a 20 mm stellate density between the lingular infiltrate and the left heart border that would be consistent with the cavitary lesion seen on the recent CT scan. 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 He was given breathing treatment, antibiotics and fluid Rocephin and Zithromax and was admitted. Apart from the shortness of breath, he has some cough but nothing is coming out. He said his weight is fluctuating his appetite is variable he didn't eat anything today. Past Medical History Medical History: 1. COPD with chronic hypoxemic respiratory failure, oxygen at 2 LPM at home. 2. Hypothyroidism, recently difficult to control. TSH in October was in the 70's. 3. Coronary artery disease with previous stent in 2013. 4. Atrial fibrillation, he was switched over to Xarelto and then back to coumadin. currently sinus. 5. Chronic pain syndrome. 6. Pulmonary cachexia and loss of weight. Surgical History: 1. Appendectomy. 2. Previous knee replacement. 3. Cervical neck fusion 2012 Family History: Reviewed an Not Pertinent Pertinent Family History: Father of coronary artery disease and myocardial infarction. He's not sure what his mother passed on from. Past Social History: quit smoking in 12/2016, drinks two alcoholic beverages daily. Has 2 children, a son who lives here in [place]. His ex- also helps take care of him. Tobacco Use: Former Smoker In the Past 12 Months, Have Used or Abuse Any of the Following Substance: None Alcohol Use: Other (Patient drinks every day.) Medication / Allergies Home Medications: Home Medications 3 Medication Instructions Recorded Confirmed Type Nitroglycerin SL Tab [Nitrostat 0.4 mg SL PRN PRN #20 tab 05/30/16 12/31/17 History SL Tab] Albuterol/Ipratrop Neb Soln 3 ml NEB RTQ6H #120 ampul.neb 12/23/16 12/31/17 Rx [Duoneb Neb Soln] warfarin 5 mg tablet 2.5 mg PO QD #90 tab 07/14/17 12/31/17 Rx omeprazole magnesium 20 mg 20 mg PO BID #180 tab 10/23/17 12/31/17 Rx tablet,delayed release Aspirin EC 81 mg PO DAILY #90 tablet. 11/26/17 12/31/17 Rx ipratropium 20 mcg-albuterol 100 1 puff INH QID 90 Days #4 g 11/30/17 12/31/17 Rx mcg/actuation mist for inhalation fluticasone 100 mcg-vilanterol 25 1 inh INH Q24H #3 ea 12/07/17 12/31/17 Rx mcg/dose powder for inhalation alprazolam 0.25 mg tablet 0.25 mg PO BID #60 tab 12/09/17 12/31/17 Rx tizanidine 4 mg tablet 4 mg PO Q6-8H PRN #360 tab 12/16/17 12/31/17 Rx levothyroxine 112 mcg tablet 112 mcg PO QDAY #30 tab 12/18/17 12/31/17 Rx Allergies/Adverse Reactions: Allergies 3 Allergy/AdvReac Type Severity Reaction Status Date / Time amlodipine besylate Allergy Intermediate Edema of Verified 12/31/17 10:49 [From [facility]] ankles Review of Systems - Review of Systems All Systems: Reviewed & No Additional Complaints Except as Stated Exam - General General Appearance: No Acute Distress Additional General Exam Details: Cachectic is not appear in distress - Head Head Exam: Normal Inspection - Eye Eye Exam: POSITIVE: Normal Appearance - ENT ENT Exam: POSITIVE: Normal Exam - Neck Neck Exam: Normal Inspection - Respiratory Additional Respiratory Exam Details: Decreased breath sounds otherwise clear - Cardiovascular Cardiovascular Exam: POSITIVE: RRR - GI/Abdominal GI/Abdominal Exam: POSITIVE: Normal Bowel Sounds, Non Tender, Non Distended, Soft, No Organomegaly - Rectal Rectal Exam: POSITIVE: Deferred - External Exam: POSITIVE: Deferred - Extremities Extremities Exam: POSITIVE: Normal Inspection - Back Back Exam: POSITIVE: Normal Inspection - Neurological Neurological Exam: POSITIVE: Alert, Oriented x 3, CN II-XII Intact, Speech Intact / Clear, Moves All Extremities Equally - Psychiatric Psychiatric Exam: POSITIVE: Normal Affect Results - Labs CBC and BMP: 12/31/17 10:55 12/31/17 10:55 Assessment and Plan - Patient Problems (1) Pneumonia Current Visit: No Status: Chronic Comment: There is possible pneumonia however because of the cavitary lesion seen on the recent CT and the radiologist raised the possibility of squamous carcinoma I spoke with the warp knitter and the hospitalist at and they accepted the patient the patient will be transferred there today. Code(s): J18.9 - Pneumonia, unspecified organism Qualifiers: Pneumonia type: due to unspecified organism Laterality: left Lung location: lower lobe of lung Qualified Code(s): J18.1 - Lobar pneumonia, unspecified organism
--- NOTE | 2017-12-31 16:16 | DCSUMMARY ---
Hospitalization Summary Admit Date: 12/31/2017 Discharge Date: 12/31/17 Hospital Course: Transfer diagnoses 1. Worsening of an infiltrate in the lingular segment most likely representing pneumonia. 2. 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 3. COPD on oxygen 4. History of atrial fibrillation on Coumadin 5. History of coronary artery disease with previous the stent Hospital course This is a 77 years old male with medical history significant for history of coronary artery disease, atrial fibrillation on Coumadin, COPD on oxygen, admission in November this year for pneumonia also cavitary lesion was found on the CT then, who presented to the hospital with history of shortness of breath that started today. 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 He did receive the Zithromax and Rocephin in the ER and was admitted. I did review the report of the CT that he had in December 10 which showed interval increase in the size of some of the spiculated lesion on the prior exam and decrease in size of one of these spiculated lesions. This likely represents some improvement of some underlying pneumonia, but this is worrisome that this is on the face of malignancy. Consider tissue sampling for further evaluation. Because of this finding I sent the prior 2 CTs including the one that he had in November and December and also the chest x[place] [facility] conformal pad former and spoke with the hospitalist. the conformal pad former looked at the film and suggested transfer for evaluation. I did speak with the patient and the patient accepted transfer patient will be transferred at one point in time today. Laboratory Results 12/31/17 12/31/17 12/31/17 Range/Units 10:42 10:55 10:55 WBC 17.44 H (4.8-10.8) 10^3/uL RBC 4.11 L (4.70-6.10) 10^6/uL Hgb 12.6 L (14.0-18.0) g/dL Hct 37.7 L (42.0-52.0) % MCV 91.7 H (80-90) FL MCH 30.7 (27-31) PG MCHC 33.4 (33-37) g/dL RDW Std Deviation 48.3 (39-50) fL RDW Coeff of Isabelle 14.8 H (11.5-14.5) % Plt Count 327 (140-350) 10*3/uL MPV 9.9 (7.4-12.2) FL Neutrophils % (Manual) 72 (50-80) % Band Neutrophils % 6 (0-10) % Lymphocytes % (Manual) 18 (10-50) % Monocytes % (Manual) 2 (0-12) % Eosinophils % (Manual) 0 (0-8) % Basophils % (Manual) 0 (0-1) % Metamyelocytes % 2 % Myelocytes % Not Reportable Promyelocytes % Not Reportable Blast Cells Not Reportable WBC Morphology Comment Normal morphology (NORM) Plt Morphology Comment Normal morphology (NORM) RBC Morph Comment Normal morphology (NORM) PT (9.7-11.4) secs INR (0.00-5.90) N/A D-Dimer (0.00-0.59) mg/L VBG pH 7.43 H (7.32-7.42) VBG pCO2 33 L (45-55) mmHg VBG HCO3 22 (22-26) mmol/L VBG Base Excess -2 (-2-2) MMOL/L Sodium (135-145) meq/L Potassium (3.8-5.2) meq/L Chloride (98-112) meq/L Carbon Dioxide (23-33) meq/L Anion Gap (5-20) BUN (7-22) mg/dL Creatinine (0.70-1.50) mg/dL BUN/Creatinine Ratio (6-20) Glucose (78-110) mg/dL Calculated Osmolality (267-292) mOsm/kg Calcium (8.7-10.7) mg/dL Magnesium 1.5 L (1.6-2.4) mg/dL Total Bilirubin (0.3-1.2) mg/dL AST (21-57) IU/L ALT (21-72) IU/L Alkaline Phosphatase (38-126) IU/L Troponin I (< 0.040) ng/mL C-Reactive Protein 4.7 H (0.0-0.9) mg/dL NT-Pro-B Natriuret Pep 827 H (0-450) PG/ML Total Protein (6.1-8.0) g/dL Albumin (3.5-4.8) g/dL Globulin (2.50-4.10) g/dL Albumin/Globulin Ratio (1.3-2.0) mg/g 12/31/17 12/31/17 12/31/17 Range/Units 10:55 10:55 10:55 WBC (4.8-10.8) 10^3/uL RBC (4.70-6.10) 10^6/uL Hgb (14.0-18.0) g/dL Hct (42.0-52.0) % MCV (80-90) FL MCH (27-31) PG MCHC (33-37) g/dL RDW Std Deviation (39-50) fL RDW Coeff of Isabelle (11.5-14.5) % Plt Count (140-350) 10*3/uL MPV (7.4-12.2) FL Neutrophils % (Manual) (50-80) % Band Neutrophils % (0-10) % Lymphocytes % (Manual) (10-50) % Monocytes % (Manual) (0-12) % Eosinophils % (Manual) (0-8) % Basophils % (Manual) (0-1) % Metamyelocytes % % Myelocytes % Promyelocytes % Blast Cells WBC Morphology Comment (NORM) Plt Morphology Comment (NORM) RBC Morph Comment (NORM) PT (9.7-11.4) secs INR (0.00-5.90) N/A D-Dimer 0.33 (0.00-0.59) mg/L VBG pH (7.32-7.42) VBG pCO2 (45-55) mmHg VBG HCO3 (22-26) mmol/L VBG Base Excess (-2-2) MMOL/L Sodium 134 L (135-145) meq/L Potassium 4.2 (3.8-5.2) meq/L Chloride 99 (98-112) meq/L Carbon Dioxide 21 L (23-33) meq/L Anion Gap 14 (5-20) BUN 25 H (7-22) mg/dL Creatinine 0.8 (0.70-1.50) mg/dL BUN/Creatinine Ratio 31.25 H (6-20) Glucose 106 (78-110) mg/dL Calculated Osmolality 281.0 (267-292) mOsm/kg Calcium 10.1 (8.7-10.7) mg/dL Magnesium (1.6-2.4) mg/dL Total Bilirubin 2.2 H (0.3-1.2) mg/dL AST 23 (21-57) IU/L ALT 31 (21-72) IU/L Alkaline Phosphatase 50 (38-126) IU/L Troponin I < 0.012 (< 0.040) ng/mL C-Reactive Protein (0.0-0.9) mg/dL NT-Pro-B Natriuret Pep (0-450) PG/ML Total Protein 6.9 (6.1-8.0) g/dL Albumin 4.2 (3.5-4.8) g/dL Globulin 2.6 (2.50-4.10) g/dL Albumin/Globulin Ratio 1.60 (1.3-2.0) mg/g 12/31/17 Range/Units 11:05 WBC (4.8-10.8) 10^3/uL RBC (4.70-6.10) 10^6/uL Hgb (14.0-18.0) g/dL Hct (42.0-52.0) % MCV (80-90) FL MCH (27-31) PG MCHC (33-37) g/dL RDW Std Deviation (39-50) fL RDW Coeff of Isabelle (11.5-14.5) % Plt Count (140-350) 10*3/uL MPV (7.4-12.2) FL Neutrophils % (Manual) (50-80) % Band Neutrophils % (0-10) % Lymphocytes % (Manual) (10-50) % Monocytes % (Manual) (0-12) % Eosinophils % (Manual) (0-8) % Basophils % (Manual) (0-1) % Metamyelocytes % % Myelocytes % Promyelocytes % Blast Cells WBC Morphology Comment (NORM) Plt Morphology Comment (NORM) RBC Morph Comment (NORM) PT 29.7 H (9.7-11.4) secs INR 2.77 (0.00-5.90) N/A D-Dimer (0.00-0.59) mg/L VBG pH (7.32-7.42) VBG pCO2 (45-55) mmHg VBG HCO3 (22-26) mmol/L VBG Base Excess (-2-2) MMOL/L Sodium (135-145) meq/L Potassium (3.8-5.2) meq/L Chloride (98-112) meq/L Carbon Dioxide (23-33) meq/L Anion Gap (5-20) BUN (7-22) mg/dL Creatinine (0.70-1.50) mg/dL BUN/Creatinine Ratio (6-20) Glucose (78-110) mg/dL Calculated Osmolality (267-292) mOsm/kg Calcium (8.7-10.7) mg/dL Magnesium (1.6-2.4) mg/dL Total Bilirubin (0.3-1.2) mg/dL AST (21-57) IU/L ALT (21-72) IU/L Alkaline Phosphatase (38-126) IU/L Troponin I (< 0.040) ng/mL C-Reactive Protein (0.0-0.9) mg/dL NT-Pro-B Natriuret Pep (0-450) PG/ML Total Protein (6.1-8.0) g/dL Albumin (3.5-4.8) g/dL Globulin (2.50-4.10) g/dL Albumin/Globulin Ratio (1.3-2.0) mg/g Discharge instruction Diet regular Activity as started Medications Current Medication(s) 3 Medication Instructions Recorded Confirmed Type Nitroglycerin SL Tab [Nitrostat 0.4 mg SL PRN PRN #20 tab 05/30/16 12/31/17 History SL Tab] Albuterol/Ipratrop Neb Soln 3 ml NEB RTQ6H #120 ampul.neb 12/23/16 12/31/17 Rx [Duoneb Neb Soln] warfarin 5 mg tablet 2.5 mg PO QD #90 tab 07/14/17 12/31/17 Rx omeprazole magnesium 20 mg 20 mg PO BID #180 tab 10/23/17 12/31/17 Rx tablet,delayed release Aspirin EC 81 mg PO DAILY #90 tablet. 11/26/17 12/31/17 Rx ipratropium 20 mcg-albuterol 100 1 puff INH QID 90 Days #4 g 11/30/17 12/31/17 Rx mcg/actuation mist for inhalation fluticasone 100 mcg-vilanterol 25 1 inh INH Q24H #3 ea 12/07/17 12/31/17 Rx mcg/dose powder for inhalation alprazolam 0.25 mg tablet 0.25 mg PO BID #60 tab 12/09/17 12/31/17 Rx tizanidine 4 mg tablet 4 mg PO Q6-8H PRN #360 tab 12/16/17 12/31/17 Rx levothyroxine 112 mcg tablet 112 mcg PO QDAY #30 tab 12/18/17 12/31/17 [place] [facility] [place] Condition at discharge was stable for discharge Exam - Vitals Vital Signs: Vital Signs Temperature 99.7 F Temperature Source Temporal Artery Scan Pulse Rate [Pulse Oximeter] 83 Pulse Rate 82 Respiratory Rate 16 Blood Pressure 114/57 Pulse Ox 92 Oxygen Flow Rate 4 Oxygen Delivery Method Nasal Cannula Height 5 ft 7 in Weight 128 lb 6 oz Patient Problems - Patient Problem List (1) Pneumonia Current Visit: No Status: Chronic Code(s): J18.9 - Pneumonia, unspecified organism Qualifiers: Pneumonia type: due to unspecified organism Laterality: left Lung location: lower lobe of lung Qualified Code(s): J18.1 - Lobar pneumonia, unspecified organism Category: Medical
--- NOTE | 2017-12-31 16:52 | PDOC ---
Upper Respiratory HPI - General Chief Complaint: Dyspnea Stated Complaint: short of breath Date Seen by Provider: 12/31/17 Time Seen by Provider: 10:35 Source: POSITIVE: Patient Exam Limitations: POSITIVE: No limitations Nurse's Notes Reviewed & Considered: Yes - History of Present Illness Initial Comments: The patient is a 77-year-old male who presents to the emergency department with increased shortness of breath and fever. He has a history of recent hospitalization for pneumonia. At that time he was found to have a mass in the left lower lung which was concerning for possible malignancy. He is scheduled to follow-up with an oncologist here in a couple of weeks in [place]. He finished his course of antibiotics about a week ago and seemed to be doing fairly good up until just the last 24 hours. This morning he has developed fever and some subjective chills. He also has increased oxygen requirement. He does have underlying COPD as well. He denies any current chest pain. - Patient Home Medications Home Medications: Home Medications Nitroglycerin SL Tab [Nitrostat SL Tab] 0.4 mg SL PRN PRN #20 tab 05/30/16 Albuterol/Ipratrop Neb Soln [Duoneb Neb Soln] 3 ml NEB RTQ6H #120 ampul.neb warfarin 5 mg tablet 2.5 mg PO QD #90 tab 07/14/17 omeprazole magnesium 20 mg tablet,delayed release 20 mg PO BID #180 tab Aspirin EC 81 mg PO DAILY #90 tablet. 11/26/17 ipratropium 20 mcg-albuterol 100 mcg/actuation mist for inhalation 1 puff INH QID 90 Days #4 g 11/30/17 fluticasone 100 mcg-vilanterol 25 mcg/dose powder for inhalation 1 inh INH Q24H #3 ea 12/07/17 alprazolam 0.25 mg tablet 0.25 mg PO BID #60 tab 12/09/17 tizanidine 4 mg tablet 4 mg PO Q6-8H PRN #360 tab 12/16/17 levothyroxine 112 mcg tablet 112 mcg PO QDAY #30 tab 12/18/17 - Patient Allergies Allergies/Adverse Reactions: Allergies 3 Allergy/AdvReac Type Severity Reaction Status Date / Time amlodipine besylate Allergy Intermediate Edema of Verified 12/31/17 10:49 [From [facility]] ankles Past Medical History - heen HEENT History: Hard of Hearing Additional HEENT History: wears glasses Cardiovascular History: Hypertension, Previous DE, Arrhythmia, Hyperlipidemia Additional Cardiovasular History: CARDIAC STENT Respiratory History: COPD, Shortness of Breath, Home Oxygen Use Additional Respiratory History: 2.5L AT HOME Gastrointestinal History: Diverticulitis, GI Bleed Genitourinary History: Denies History Endocrine History: Hypothyroidism Musculoskeletal History: Arthritis, Back Pain, Joint Pain, Osteoarthritis Prosthesis or Implant: Yes (LEFT TKA, 5 PINS LEFT LEG, RIGHT ANKLE, NECK FUSION) Additional Musculoskeletal History: hardware in right ankle and neck- fusion Neurological History: Denies History Blood Disorders: Denies History Psychiatric History: Substance Abuse Additional Psychiatric History: alcoholism History of Sexually Transmitted Diseases: No Cancer History: Skin In Past Year Been Physically Harmed or Verbally Threatened: No History of MDRO: Yes History of Other Communicable Diseases: No Tobacco Use: Former Smoker Alcohol Use: Occasionally In the Past 12 Months, Have Used or Abuse Any Substance: None Previous Surgical History: Yes Type / Date of Surgery: APPY, STENT, L TKA, L CARPAL TUNNEL, VERTEBRAL FUSION, LEFT AXILLARY CYST REMOVED, BILAT BREASTS CYST REMOVAL, RIGHT ANKLE SURGERY, SMALL FINGER TO LEFT HAND SURGERY, CYST FROM R CHEEK Anesthesia Reactions: No Malignant Hyperthermia: No Significant Family History: Cancer Additional Family History: both sisters had breast CA Past Medical History Reviewed: Reviewed - No Changes ROS - Limitations ROS Limitations: No Limitations Constitution: REPORTS: Chills, Fever Cardiovascular: DENIES: Chest Pain Respiratory: REPORTS: Cough Productive, Shortness Of Breath Neurological: REPORTS: Denies Neuro Symptoms Gastrointestinal: REPORTS: Denies GI Symptoms Musculoskeletal: REPORTS: Denies MS Symptoms Upper Respiratory/Fever Exam - General Appearance General Appearance: REPORTS: Alert, Cooperative, No Acute Distress, Other (He does appear chronically ill and somewhat cachectic) - HEENT HEENT: POSITIVE: Head Inspection Nml, Eyes Inspection Nml, Ears Inspection Nml, Nose Inspection Nml, Pharynx Inspect. Nml - Neck Neck: REPORTS: Normal Inspection. DENIES: Lymphadenopathy - Respiratory Respiratory: REPORTS: No Respiratory Distress, Other (Diminished breath sounds with rhonchi in the left lung base) - Abdomen Abdomen: Soft: (All Quadrants), Denies Tenderness: (All Quadrants), No Distention: (All Quadrants) - Cardiovascular Cardiovascular: REPORTS: Regular Rate and Rhythm, Heart Sounds Normal, No Murmur Peripheral Pulses: Dorsalis-pedis (R): 2+, Dorsalis-pedis (L): 2+ - Skin Skin: REPORTS: Intact, No Rash - Extremities Extremity: Normal ROM: (All Extremities), Normal Inspection: (All Extremities) - Neurological / Psychological Neurological: POSITIVE: Oriented X3, Motor Normal, Sensation Normal Upper Resp/Fever Progress - Results Reviewed by me Xrays/CTs/US Reviewed by me: Yes Discussed with Radiologist: Yes Radiology Findings: Chest x-ray shows increased infiltrate in the left lower lobe CBC and BMP: 12/31/17 10:55 12/31/17 10:55 EKG Interpretation:: POSITIVE: Normal Sinus Rhythm, Normal Rate, Normal QRS, Normal ST/T - Patient's Progress MDM / ED Course: The patient was febrile on arrival with temperature of 100.2. His oxygen requirement was also increased. Blood cultures and lactate were drawn with initial IV start. Initial venous blood gas reveals pH of 7.43 with a PCO2 of 33. His EKG initially shows normal sinus rhythm with no acute changes. Chest x -ray shows increasing infiltrate in the left lower lobe. His white count is elevated at 17,000. He has a normal lactate. Other blood work is essentially unremarkable with normal troponin, mildly elevated BNP at 700. His clinical presentation is consistent with pneumonia. After discussion with Dr. Obando the patient will be admitted. He was started on Rocephin and Zithromax. - Consult Counseled: POSITIVE: Patient, Family, RE: Lab Results, RE: Radiology Results, RE : DX, RE: Need for F/U Patient Care Time - Estimated PCT Patient Care Time (In Minutes): 35 Vital Signs - VS Reviewed Vital Signs Reviewed: Yes Discharge Clinical Impression: Chronic obstructive lung disease Pneumonia Qualifiers: Pneumonia type: due to unspecified organism Laterality: left Lung location: lower lobe of lung Qualified Code(s): J18.1 - Lobar pneumonia, unspecified organism Discharge Disposition: Admit to Inpatient Condition: Fair Date Decision to Admit to Inpatient: 12/31/17 Time Decision to Admit to Inpatient: 12:45
[2017-12-31 17:42] VITALS: BP 138/72; RESP 20; TEMP 98.7; O2SAT 97
== END 2017-12-31 18:05 | disposition short-term general hospital (02) | DRG 195 ==
LOC: ER 10:25 → MED/SURG 12:48
PROVIDERS: ADMIT Internal Medicine; ATTEND Internal Medicine

== ENCOUNTER 2018-01-15 03:21 | Observation (INO) ==
[2018-01-15] MEDS ORDERED: OXYMETAZOLINE 0.05% 15 ML NASAL SPRAY ONE (03:32)
[2018-01-15] MEDS ORDERED: OXYMETAZOLINE 0.05% 15 ML NASAL SPRAY ENOS ONE (03:34)
[2018-01-15] MEDS ORDERED: PHYTONADIONE 10 MG/1 ML AMPULE IM ONE (04:57)
--- NOTE | 2018-01-15 06:49 | PDOC ---
Epistaxis / Nasal FB - General Chief Complaint: Nasal/Mouth Problem /Injury Stated Complaint: Nose wont stop bleeding Date Seen by Provider: 01/15/18 Time Seen by Provider: 03:30 Source: POSITIVE: Patient, Old records Exam Limitations: POSITIVE: No limitations Nurse's Notes Reviewed & Considered: Yes EMS Report Reviewed & Considered: Verbal - History of Present Illness Initial Comments: The patient is a 77-year-old male. Patient was seen in the emergency room at approximately 2115 on 01/14/2018. At that time the patient fell down some steps while he was intoxicated and struck his nose. He sustained a 2 inch laceration to the right side of his nose, which was repaired primarily. Patient has a history of atrial fibrillation and he is on Coumadin for this. CT scan of the head at that visit was normal. CT scan of facial bones showed a minimally displaced nasal fracture. White blood cell count was 7380, hemoglobin 10.8 and hematocrit 31.9. INR was 4.94 and blood alcohol was 193. On discharge from yesterday's visit the patient was alert and oriented and he was not having any bleeding. He was advised to discontinue Coumadin for 24 hours, and then restart at 2.5 mg daily and to follow up with his primary care provider in a couple of days for repeat INR. He is instructed to return to the emergency room in 6 days for wound recheck and probable suture removal. He was taken back to his home by a friend. Patient states that early this morning he was constipated. He was straining at stool. He experienced epistaxis., Primarily from the left nostril. When he could not control the epistaxis he called the ambulance and the ambulance brought him back to the emergency room. Timing: REPORTS: Abrupt Severity: Moderate Lasting (minutes): 120 Quality: REPORTS: "Pain" (some pain to bridge of nose due to nasal fracture) Context: REPORTS: None (exacerbated by straining at stool due to constipation) Modifying Factors: improves with: Nothing Associated Symptoms: Recent Injury (as above) Similar Symptoms Previously: No Recent Care Received: REPORTS: Recently Seen, Treated by MD (as above) Any Prior Injuries Related to Current Complaint?: Yes (as above) - Patient Allergies Allergies/Adverse Reactions: Allergies 3 Allergy/AdvReac Type Severity Reaction Status Date / Time amlodipine besylate Allergy Intermediate Edema of Verified 01/15/18 03:44 [From [facility]] ankles - Patient Home Medications Home Medications: Home Medications Nitroglycerin SL Tab [Nitrostat SL Tab] 0.4 mg SL PRN PRN #20 tab 05/30/16 Albuterol/Ipratrop Neb Soln [Duoneb Neb Soln] 3 ml NEB RTQ6H #120 ampul.neb warfarin 5 mg tablet 2.5 mg PO QD #90 tab 07/14/17 omeprazole magnesium 20 mg tablet,delayed release 20 mg PO BID #180 tab Aspirin EC 81 mg PO DAILY #90 tablet. 11/26/17 ipratropium 20 mcg-albuterol 100 mcg/actuation mist for inhalation 1 puff INH QID 90 Days #4 g 11/30/17 fluticasone 100 mcg-vilanterol 25 mcg/dose powder for inhalation 1 inh INH Q24H #3 ea 12/07/17 tizanidine 4 mg tablet 4 mg PO Q6-8H PRN #360 tab 12/16/17 levothyroxine 112 mcg tablet 112 mcg PO QDAY #30 tab 12/18/17 alprazolam 0.25 mg tablet 0.25 mg PO BID #60 tab 01/14/18 Past Medical History - heen HEENT History: Hard of Hearing Additional HEENT History: wears glasses Cardiovascular History: Hypertension, Previous ID, Arrhythmia, Hyperlipidemia Additional Cardiovasular History: CARDIAC STENT Respiratory History: COPD, Shortness of Breath, Home Oxygen Use Additional Respiratory History: 2.5L AT HOME Gastrointestinal History: Diverticulitis, GI Bleed Genitourinary History: Denies History Endocrine History: Hypothyroidism Musculoskeletal History: Arthritis, Back Pain, Joint Pain, Osteoarthritis Prosthesis or Implant: Yes (LEFT TKA, 5 PINS LEFT LEG, RIGHT ANKLE, NECK FUSION) Additional Musculoskeletal History: hardware in right ankle and neck- fusion Neurological History: Denies History Blood Disorders: Denies History Psychiatric History: Substance Abuse Additional Psychiatric History: alcoholism History of Sexually Transmitted Diseases: No Male Reproductive History: Denies History Cancer History: Skin In Past Year Been Physically Harmed or Verbally Threatened: No History of MDRO: Yes History of Other Communicable Diseases: No Tobacco Use: Former Smoker Alcohol Use: Occasionally In the Past 12 Months, Have Used or Abuse Any Substance: None Previous Surgical History: Yes Type / Date of Surgery: APPY, STENT, L TKA, L CARPAL TUNNEL, VERTEBRAL FUSION, LEFT AXILLARY CYST REMOVED, BILAT BREASTS CYST REMOVAL, RIGHT ANKLE SURGERY, SMALL FINGER TO LEFT HAND SURGERY, CYST FROM R CHEEK Anesthesia Reactions: No Malignant Hyperthermia: No Significant Family History: Cancer Additional Family History: both sisters had breast CA Past Medical History Reviewed: Reviewed - No Changes ROS - Limitations ROS Limitations: No Limitations Constitution: REPORTS: Denies Symptoms Cardiovascular: REPORTS: Denies Cardiac Symptoms Respiratory: REPORTS: Denies Resp Symptoms Neurological: REPORTS: Denies Neuro Symptoms Gastrointestinal: REPORTS: Denies GI Symptoms Endocrine: REPORTS: Denies Symptoms Musculoskeletal: REPORTS: Denies MS Symptoms Genitourinary: REPORTS: Denies Symptoms Eyes: REPORTS: Denies Symptoms ENT: REPORTS: Nose Bleed (Left-sided epistaxis) Skin: REPORTS: Denies Skin Symptoms Lympathic: REPORTS: Denies Lympathic Symptoms Immunologic: POSITIVE: Denies Symptoms Psychiatric: POSITIVE: Denies Psych Symptoms Nose Complaint Exam - General Appearance General Appearance: POSITIVE: Alert, Cooperative, No Acute Distress. NEGATIVE: No Evidence of Trauma (as above) - HEENT Head / Face: POSITIVE: Atraumatic, Normal Inspection, No Facial Swelling Eyes: POSITIVE: Inspection Normal, PERRL, EOM's Intact, Eyelids Uninjured, Conjunctivae Uninjured, No Nystagmus, No Globe Trauma, Sclera Normal, Normal Corneal Inspection Ears: POSITIVE: Ears Normal Inspection, TM Normal Inspection, Auricle Normal, External Canal Normal Nose: POSITIVE: Tenderness, Clotted Nasal Blood, Epistaxis, Active Bleeding. NEGATIVE: No Apparent Trauma, Nares Normal, Nasal Septal Hematoma Oropharynx: POSITIVE: External Inspection Nml, Pharynx Inspect. 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 As Tested, Motor Normal, Sensation Normal - Neck Neck: POSITIVE: Normal Inspection, Thyroid Normal - Respiratory Respiratory: POSITIVE: No Respiratory Distress, Breath Sounds Normal, Chest Non- Tender - Cardiovascular Cardiovascular: POSITIVE: Regular Rate and Rhythm, Heart Sounds Normal, Equal Pulses, Strong Pulses Peripheral Pulses: Radial (R): 2+, Radial (L): 2+ - Abdomen Abdomen: Soft: (All Quadrants), Normal Bowel Sounds: (All Quadrants), Denies Tenderness: (All Quadrants), No Splenomegaly: (All Quadrants), No Hepatomegaly: (All Quadrants), No Guarding: (All Quadrants), No Rebound: (All Quadrants), No Palpable Pulse: (All Quadrants), No Palpabale Mass: (All Quadrants), No Distention: (All Quadrants), No Rigidity: (All Quadrants) - Skin Skin: POSITIVE: Normal Color, No Skin Rash Procedure - Nose Complaint Procedure Procedure By:: Dr. Oliver Time of Procedure:: 03:50 Clots Cleared: From Nasal Passages, By Wall Suction Medication Instilled: Rigo-synephrine External Pressure / Nose Pinched for (minutes): 50 Observe for Bleeding for (minutes):: 50 Inspection Method: Headlight, Nasal Speculum Treatment: Gauze Packing, Surgical Packing Procedure Note:: Initially, control of epistaxis was attempted with packing with pledgets soaked in Rigo-Synephrine. Patient was observed for about an hour and his bleeding seemed to slow down considerably. Then, the bleeding recurred an attempt was made to control the bleeding with Surgicel. This was not successful. IV was started and CBC and coag studies were ordered. Patient was given 10 mg of vitamin K IM. Large Merocel packing was next attempted. Patient still having some bleeding at this time. Precise bleeding site not identified. Nose Complaint Progress - Results Reviewed by me Lab Results Reviewed by Me: Yes (CBC and coags pending) - Patient's Progress Pain Medication Addressed: POSITIVE: Not Applicable School/Work Release Addressed: POSITIVE: Not Applicable Re-Examine Time:: 04:50 Re-Examine Comment: Hemostasis attempted with packing was Rigo-Synephrine soaked pledgets and pressure. This seemed to help initially and his bleeding slowed down. Then bleeding recurred Re-Examine Time: 06:30 Re-Examine Comment: Large Merocel packing placed in left nostril. IV started. CBC and coags ordered. Still having some bleeding. Status: POSITIVE: Unchanged, Re-Examined - Consult Counseled: POSITIVE: Patient, RE: DX, RE: Need for F/U Patient Care Time - Estimated PCT Patient Care Time (In Minutes): 60 Vital Signs - Recent Vital Signs Vital Signs: Vital Signs (Last 8 hours) Temp Pulse Resp BP Pulse Ox 01/15/18 03:21 98.4 F 101 H 18 131/77 99 - VS Reviewed Vital Signs Reviewed: Yes Discharge Clinical Impression: Epistaxis Condition: Fair Follow Up With: ALEXANDER GIBSON [Primary Care Provider] - Care Transferred To: care transferred to Dr. Deleon, ER doctor coming on duty.
[2018-01-15] MEDS ORDERED: Sodium Chloride 0.9% 1,000 ML PRIMARY IV ONE (06:51)
[2018-01-15] MEDS ORDERED: Sodium Chloride 0.9% 500 ML PRIMARY IV ONE (07:00)
[2018-01-15 07:01] LABS: BASOPHILS # (AUTO) 0.07 10*3/UL; BASOPHILS % (AUTO) 0.4 % (0-1); EOSINOPHILS # (AUTO) 0.03 10*3/UL; EOSINOPHILS % (AUTO) 0.2 % (0-8); Hematocrit [HCT] 30.1 % (42.0-52.0); LYMPHOCYTES # (AUTO) 4.28 10*3/uL; MEAN CORPUSCULAR HEMOGLOBIN 30.5 PG (27-31); MEAN CORPUSCULAR HGB CONC 33.2 g/dL (33-37); MEAN CORPUSCULAR VOLUME 91.8 FL (80-90); MEAN PLATELET VOLUME 9.4 FL (7.4-12.2); MONOCYTES # (AUTO) 1.75 10*3/UL (0.3-0.8); MONOCYTES % (AUTO) 10.8 % (5-15); NEUTROPHILS % (AUTO) 62.1 % (50-80); RED BLOOD COUNT 3.28 10^6/uL (4.70-6.10)
[2018-01-15 07:03] LABS: PLATELET MORPHOLOGY COMMENT NORMAL MORPHOLOGY (NORM); RBC MORPHOLOGY COMMENT NORMAL MORPHOLOGY (NORM); WBC MORPHOLOGY COMMENT NORMAL MORPHOLOGY (NORM)
[2018-01-15 07:26] LABS: BLOOD UREA NITROGEN 31 mg/dL (7-22); BUN/CREATININE RATIO 38.75 (6-20)
[2018-01-15] MEDS ORDERED: ONDANSETRON 4 MG/2 ML VIAL IVP ONE (07:36)
[2018-01-15] MEDS ORDERED: cefTRIAXone Inj 1 GM in Sodium Chloride 0.9% 100 ML IV ONE (08:38)
--- NOTE | 2018-01-15 09:19 | PDOC ---
Transfer of Care - Care Accepted Time Care Transferred: 07:00 Report from Transferring Physician Received: Yes (Dr. Oliver) MDM / ED Course: The patient is a 77-year-old male who initially had come to the emergency department last night after he had tripped on his oxygen tubing and fell on the stairs. He had apparently hit his head and face. He had a fairly large laceration down the bridge of his nose that was repaired last night. He had CT scans of his head and facial bones which showed no acute intracranial findings however did show nondisplaced fracture of the nasal bone and septum. The patient also has a history of COPD and chronic atrial fibrillation and takes Coumadin. His hemoglobin last night was 10.6 and his INR was 4.9. He was not having any significant bleeding issues initially last night. He was discharged home. He will return to the emergency department this morning at approximately 3:30 AM with complaints of bleeding from his nose. He had apparently been constipated and had been straining at home and subsequently started bleeding from his nose. Dr. Oliver had initially tried Afrin soaked pledges without much improvement in his bleeding, he subsequently tried Surgicel. He had continued bleeding and a Murocel packing was placed on the left side. The patient continued to have bleeding and subsequently an IV was established. The patient did receive vitamin K 10 mg IM. At the time patient care is transferred the patient has some continued bleeding and labs are pending. The patient's blood pressure initially on arrival was in the 130s over 80s and on repeat at approximately 7 AM was 90/60. Home Medications: Home Medications Nitroglycerin SL Tab [Nitrostat SL Tab] 0.4 mg SL PRN PRN #20 tab 05/30/16 Albuterol/Ipratrop Neb Soln [Duoneb Neb Soln] 3 ml NEB RTQ6H #120 ampul.neb warfarin 5 mg tablet 2.5 mg PO QD #90 tab 07/14/17 omeprazole magnesium 20 mg tablet,delayed release 20 mg PO BID #180 tab Aspirin EC 81 mg PO DAILY #90 tablet. 11/26/17 ipratropium 20 mcg-albuterol 100 mcg/actuation mist for inhalation 1 puff INH QID 90 Days #4 g 11/30/17 fluticasone 100 mcg-vilanterol 25 mcg/dose powder for inhalation 1 inh INH Q24H #3 ea 12/07/17 tizanidine 4 mg tablet 4 mg PO Q6-8H PRN #360 tab 12/16/17 levothyroxine 112 mcg tablet 112 mcg PO QDAY #30 tab 12/18/17 alprazolam 0.25 mg tablet 0.25 mg PO BID #60 tab 01/14/18 Allergies/Adverse Reactions: Allergies amlodipine besylate [From [facility]] Allergy (Intermediate, Verified 01/15/18 03: 44) Edema of ankles Vital Signs Reviewed: Yes Nurse's Notes Reviewed & Considered: Yes - Pending Patient Care Items Pending Patient Care Items: POSITIVE: Labs - Re-Evaluation of Patient Disposition of Patient: POSITIVE: Admitted Counseled: POSITIVE: Patient, RE: Lab Results, RE: Radiology Results, RE: DX - Results Reviewed Lab Results Reviewed by Me: Yes Lab Results: Laboratory Results 01/15/18 01/15/18 01/15/18 Range/Units 06:51 06:51 06:51 WBC 16.27 H (4.8-10.8) 10^3/uL RBC 3.28 L (4.70-6.10) 10^6/uL Hgb 10.0 L (14.0-18.0) g/dL Hct 30.1 L (42.0-52.0) % MCV 91.8 H (80-90) FL MCH 30.5 (27-31) PG MCHC 33.2 (33-37) g/dL RDW Std Deviation 46.6 (39-50) fL RDW Coeff of Isabelle 14.3 (11.5-14.5) % Plt Count 517 H (140-350) 10*3/uL MPV 9.4 (7.4-12.2) FL Immature Gran % (Auto) 0.2 (0-5) % Neut % (Auto) 62.1 (50-80) % Lymph % (Auto) 26.3 (10-50) % [place] % (Auto) 10.8 (5-15) % Eos % (Auto) 0.2 (0-8) % Baso % (Auto) 0.4 (0-1) % Immature Gran # (Auto) 0.04 10*3/UL Neut # (Auto) 10.10 10*3/UL Lymph # (Auto) 4.28 10*3/uL [place] # (Auto) 1.75 H (0.3-0.8) 10*3/UL Eos # (Auto) 0.03 10*3/UL Baso # (Auto) 0.07 10*3/UL WBC Morphology Comment Normal morphology (NORM) Plt Morphology Comment Normal morphology (NORM) RBC Morph Comment Normal morphology (NORM) PT 60.5 H (9.7-11.4) secs INR 5.61 (0.00-5.90) N/A APTT 47.9 H (22.6-36.2) SECS Sodium 138 (135-145) meq/L Potassium 4.4 (3.8-5.2) meq/L Chloride 101 (98-112) meq/L Carbon Dioxide 21 L (23-33) meq/L Anion Gap 16 (5-20) BUN 31 H (7-22) mg/dL Creatinine 0.8 (0.70-1.50) mg/dL BUN/Creatinine Ratio 38.75 H (6-20) Glucose 181 H (78-110) mg/dL Calculated Osmolality 297.0 H (267-292) mOsm/kg Calcium 10.0 (8.7-10.7) mg/dL Magnesium (1.6-2.4) mg/dL Total Bilirubin 0.6 (0.3-1.2) mg/dL AST 33 (21-57) IU/L ALT 36 (21-72) IU/L Alkaline Phosphatase 67 (38-126) IU/L Total Protein 6.8 (6.1-8.0) g/dL Albumin 4.0 (3.5-4.8) g/dL Globulin 2.8 (2.50-4.10) g/dL Albumin/Globulin Ratio 1.40 (1.3-2.0) mg/g Serum Alcohol < 10 (0-10) mg/dL Blood Type Antibody Screen Crossmatch 01/15/18 01/15/18 Range/Units 06:51 07:18 WBC (4.8-10.8) 10^3/uL RBC (4.70-6.10) 10^6/uL Hgb (14.0-18.0) g/dL Hct (42.0-52.0) % MCV (80-90) FL MCH (27-31) PG MCHC (33-37) g/dL RDW Std Deviation (39-50) fL RDW Coeff of Isabelle (11.5-14.5) % Plt Count (140-350) 10*3/uL MPV (7.4-12.2) FL Immature Gran % (Auto) (0-5) % Neut % (Auto) (50-80) % Lymph % (Auto) (10-50) % [place] % (Auto) (5-15) % Eos % (Auto) (0-8) % Baso % (Auto) (0-1) % Immature Gran # (Auto) 10*3/UL Neut # (Auto) 10*3/UL Lymph # (Auto) 10*3/uL [place] # (Auto) (0.3-0.8) 10*3/UL Eos # (Auto) 10*3/UL Baso # (Auto) 10*3/UL WBC Morphology Comment (NORM) Plt Morphology Comment (NORM) RBC Morph Comment (NORM) PT (9.7-11.4) secs INR (0.00-5.90) N/A APTT (22.6-36.2) SECS Sodium (135-145) meq/L Potassium (3.8-5.2) meq/L Chloride (98-112) meq/L Carbon Dioxide (23-33) meq/L Anion Gap (5-20) BUN (7-22) mg/dL Creatinine (0.70-1.50) mg/dL BUN/Creatinine Ratio (6-20) Glucose (78-110) mg/dL Calculated Osmolality (267-292) mOsm/kg Calcium (8.7-10.7) mg/dL Magnesium 1.9 (1.6-2.4) mg/dL Total Bilirubin (0.3-1.2) mg/dL AST (21-57) IU/L ALT (21-72) IU/L Alkaline Phosphatase (38-126) IU/L Total Protein (6.1-8.0) g/dL Albumin (3.5-4.8) g/dL Globulin (2.50-4.10) g/dL Albumin/Globulin Ratio (1.3-2.0) mg/g Serum Alcohol (0-10) mg/dL Blood Type A POSITIVE Antibody Screen Negative Crossmatch See Detail - Consult Recommendations:: I reevaluated the patient at approximately 7:00 AM. The patient does have a mirasol packing in the left nares. He does have some continued bleeding posteriorly as well as occasional dripping anteriorly through the packing. His blood pressure is 90/60 and his pulses in the 90s to 100s. He reports associated nausea and has been vomiting up small amounts of blood. The patient' s blood work was reviewed and his hemoglobin was 10 down from 10.6. His INR also increased from 4.9-5.6. The patient had already received IM vitamin K. The patient was typed and crossed for 2 units of packed red blood cells and was also prepared to receive 2 units of FFP. After a 500 mL bolus of fluids his blood pressure came back up into the 130s over 80s and pulse remains in the 90s. FFP was initiated once available. The patient's bleeding seemed to have slowed down significantly or even stopped. On reevaluation he no longer had any blood dripping anteriorly and posteriorly there was some clot with no active bleeding. I did discuss the patient with Dr. Obando and he recommended an ENT consultation. A subsequent only spoke with Dr. Ramsey who is on-call for ENT at [facility] in [place]. His recommendations were for continued medical management and reversal of the Coumadin. He recommended that the packing should remain in place for 4-5 days and that the patient should be treated with prophylactic antibiotics while packing is in place. He stated that he would see the patient for packing removal in his office early next week. I subsequently relayed these recommendations to Dr. Obando. The patient will be admitted for continued close monitoring. He did receive 1 g of Rocephin IV. Patient Care Time - Estimated PCT Patient Care Time (In Minutes): 40 Vital Signs - Recent Vital Signs Vital Signs: Vital Signs (Last 8 hours) Temp Pulse Resp BP Pulse Ox 01/15/18 08:41 97.5 F 93 18 125/72 99 01/15/18 08:25 96.5 F L 100 18 142/75 100 01/15/18 08:10 97.3 F 89 18 138/80 100 01/15/18 07:25 100 18 95 01/15/18 07:21 100 18 134/84 88 01/15/18 06:43 105 H 20 90/63 95 01/15/18 03:21 98.4 F 101 H 18 131/77 99 - VS Reviewed Vital Signs Reviewed: Yes Discharge Clinical Impression: Epistaxis, Chronic obstructive lung disease, History of atrial fibrillation, Elevated INR, Nasal bone fractures Discharge Disposition: Admit to Inpatient Condition: Fair Follow Up With: ALEXANDER GIBSON [Primary Care Provider] - Date Decision to Admit to Inpatient: 01/15/18 Time Decision to Admit to Inpatient: 08:50
[2018-01-15] MEDS ORDERED: DOCUSATE 100 MG CAPSULE PO PRN (10:03)
[2018-01-15] MEDS ORDERED: ONDANSETRON 4 MG/2 ML VIAL IVP PRN (10:03)
[2018-01-15] MEDS ORDERED: CALCIUM CARBONATE 500 MG (TUMS) CHEWABLE TABLET PO PRN (10:03)
[2018-01-15] MEDS ORDERED: NORMAL SALINE 10 ML SYRINGE FLUSH IVP PRN (10:03)
[2018-01-15] MEDS ORDERED: LIDOCAINE W/ SODIUM BICARB 0.5 ML SYR SUBD PRN (10:03)
--- NOTE | 2018-01-15 10:03 | PDOC ---
HPI - History of Present Illness Date of Service: 01/15/18 Time of Service: 10:15 Chief Complaint: Epistaxis History of Present Illness: This is a 77 years old male with medical history significant for history of COPD , chronic atrial fibrillation, history of coronary artery disease with previous stents, also cavitary lesion in the left lung for which we transferred him to [facility] the budget counselor decided not to biopsy the lesion and follow-up with CT instead who presented to the ER last night after he tripped on his oxygen tubing and fell on the stairs. He apparently hit his head and face. There was a large laceration down the bridge of the nose that was repaired last night. A CT scan of the head and facial bone showed no acute intracranial findings however did show nondisplaced fracture of the nasal bone and septum. After suturing the wound he was discharged home. 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 Initially they tried Afrin but that didn't work so they tried Surgicel. He was giving IM vitamin K. Then packing was placed on the left side. Blood pressure initially was 130/80 but then dropped to 90/60. He was given fluids and started on FFP. Dr. Tompkins did speak with the ENT Dr. Ramsey who suggested to keep the packing until he follows up with him on Thursday. Also suggested prophylactic antibiotics and was given Rocephin. The patient was admitted. He did receive a bolus of IV fluid down in the ER. The patient himself do complain from some lightheadedness some pain in his nose but otherwise denying other symptoms. Past Medical History Medical History: 1. COPD with chronic hypoxemic respiratory failure, oxygen at 2 LPM at home. 2. Hypothyroidism, recently difficult to control. TSH in October was in the 70's. 3. Coronary artery disease with previous stent in 2013. 4. Atrial fibrillation, he was switched over to Xarelto and then back to coumadin. currently sinus. 5. Chronic pain syndrome. 6. Pulmonary cachexia and loss of weight. 7. Cavitary lesion in the left lung was a transfer to [facility] after discussion with the pulmonology and they decided in the end not to biopsy the lesion just followed with CT. Surgical History: 1. Appendectomy. 2. Previous knee replacement. 3. Cervical neck fusion 2012 Family History: Reviewed an Not Pertinent Pertinent Family History: Father of coronary artery disease and myocardial infarction. He's not sure what his mother passed on from. Past Social History: quit smoking in 12/2016, drinks two alcoholic beverages daily. Has 2 children, a son who lives here in [place]. His ex- also helps take care of him. Tobacco Use: Former Smoker Do you dip or chew tobacco: No In the Past 12 Months, Have Used or Abuse Any of the Following Substance: None Medication / Allergies Home Medications: Home Medications 3 Medication Instructions Recorded Confirmed Type Nitroglycerin SL Tab [Nitrostat 0.4 mg SL PRN PRN #20 tab 05/30/16 01/15/18 History SL Tab] Albuterol/Ipratrop Neb Soln 3 ml NEB RTQ6H #120 ampul.neb 12/23/16 01/15/18 Rx [Duoneb Neb Soln] warfarin 5 mg tablet 2.5 mg PO QD #90 tab 07/14/17 01/15/18 Rx omeprazole magnesium 20 mg 20 mg PO BID #180 tab 10/23/17 01/15/18 Rx tablet,delayed release Aspirin EC 81 mg PO DAILY #90 tablet. 11/26/17 01/15/18 Rx ipratropium 20 mcg-albuterol 100 1 puff INH QID 90 Days #4 g 11/30/17 01/15/18 Rx mcg/actuation mist for inhalation fluticasone 100 mcg-vilanterol 25 1 inh INH Q24H #3 ea 12/07/17 01/15/18 Rx mcg/dose powder for inhalation tizanidine 4 mg tablet 4 mg PO Q6-8H PRN #360 tab 12/16/17 01/15/18 Rx levothyroxine 112 mcg tablet 112 mcg PO QDAY #30 tab 12/18/17 01/15/18 Rx alprazolam 0.25 mg tablet 0.25 mg PO BID #60 tab 01/14/18 01/15/18 Rx Allergies/Adverse Reactions: Allergies 3 Allergy/AdvReac Type Severity Reaction Status Date / Time amlodipine besylate Allergy Intermediate Edema of Verified 01/15/18 03:44 [From [facility]] ankles Review of Systems - Review of Systems All Systems: Reviewed & No Additional Complaints Except as Stated Exam - Vitals Vital Signs: Vital Signs Height 5 ft 7 in Weight 120 lb 3.2 oz - General General Appearance: No Acute Distress, Thin - Head Additional Head Exam Details: Bruises noted the nose there is swelling, the wound is sutured, there is a packing in the left nostril. No active bleeding currently - ENT Additonal ENT Exam Details: Swollen nose, laceration is sutured on the anterior nose. Left nostril is packed - Neck Neck Exam: Normal Inspection - Respiratory Additional Respiratory Exam Details: Very poor air entry otherwise clear - Cardiovascular Cardiovascular Exam: POSITIVE: Irregular Rhythm - GI/Abdominal GI/Abdominal Exam: POSITIVE: Normal Bowel Sounds, Non Tender, Non Distended, Soft, No Organomegaly - Rectal Rectal Exam: POSITIVE: Deferred - External Exam: POSITIVE: Deferred - Extremities Extremities Exam: POSITIVE: Normal Inspection - Back Back Exam: POSITIVE: Normal Inspection - Neurological Neurological Exam: POSITIVE: Alert, Oriented x 3, CN II-XII Intact, No Facial Droop, Speech Intact / Clear, Moves All Extremities Equally - Psychiatric Psychiatric Exam: POSITIVE: Flat Affect - Integumentary Integumentary Exam: POSITIVE: Dry Results - Labs CBC and BMP: 01/15/18 06:51 01/15/18 06:51 - Imaging Status: Report Reviewed by Me (CT head 1. No acute intracranial hemorrhage, skull fracture, or other acute intracranial abnormality. 2. Nasal bone fractures with overlying soft tissue swelling. 3. Senescent changes of the brain. CT maxillary sinuses 1. Nasal bone fractures with minimal displacement on the right. 2. Fracture of the bony nasal septum. 3. Nasal soft tissue swelling and foci of soft tissue air compatible soft tissue injury. 4. Scattered mucosal thickening and opacity in the paranasal sinuses with suspected trace air-fluid level in the right maxillary sinus. Findings may represent pre-existing mild paranasal sinus disease.) Assessment and Plan - Patient Problems (1) Epistaxis Current Visit: Yes Status: Acute Comment: The epistaxis probably is combination of trauma and the prolonged INR. He was already given vitamin K and he received 2 units of FFP. The bleeding seemed to be stopped. The packing per recommendation of ENT is to stay in place for another 4-5 days until he follow up with them. Will put him on prophylactic Keflex. Code(s): R04.0 - Epistaxis (2) COPD (chronic obstructive pulmonary disease) Current Visit: Yes Status: Acute Comment: Continue with his inhalers. Code(s): J44.9 - Chronic obstructive pulmonary disease, unspecified (3) Atrial fibrillation Current Visit: No Status: Acute Comment: We'll hold the Coumadin, he did receive vitamin K and FFP already. Will repeat his INR tomorrow. Code(s): I48.91 - Unspecified atrial fibrillation Qualifiers: Atrial fibrillation type: chronic Qualified Code(s): I48.2 - Chronic atrial fibrillation
[2018-01-15] MEDS: Sodium Chloride 0.9% 1,000 ML PRIMARY IV SCH (11:45)
[2018-01-15] MEDS: IPRATROPIUM/ALBUTEROL SULFATE 3 ML NEB NEB SCH ×2 (12:45→18:52)
[2018-01-15] MEDS ORDERED: tiZANidine Tab 4 MG TAB PO PRN (14:32)
[2018-01-15 17:24] LABS: Hematocrit [HCT] 24.4 % (42.0-52.0)
[2018-01-15] MEDS: ACETAMINOPHEN 325 MG TABLET PO PRN (20:11)
[2018-01-15] MEDS ORDERED: oxyCODONE/APAP 7.5/325 Tab 1 TAB TAB PO PRN (20:33)
[2018-01-16] MEDS: IPRATROPIUM/ALBUTEROL SULFATE 3 ML NEB NEB SCH ×3 (01:50→13:10)
[2018-01-16] MEDS ORDERED: LEVOTHYROXINE 112 MCG TABLET PO SCH (05:30)
[2018-01-16] MEDS: Sodium Chloride 0.9% 1,000 ML PRIMARY IV SCH (05:59)
[2018-01-16] MEDS: ACETAMINOPHEN 325 MG TABLET PO PRN (06:04)
[2018-01-16] MEDS ORDERED: VILANTEROL INH SCH (07:00)
[2018-01-16] MEDS ORDERED: FLUTICASONE INH SCH (07:00)
[2018-01-16 07:07] LABS: BASOPHILS # (AUTO) 0.07 10*3/UL; BASOPHILS % (AUTO) 0.7 % (0-1); EOSINOPHILS # (AUTO) 0.06 10*3/UL; EOSINOPHILS % (AUTO) 0.6 % (0-8); Hemoglobin [HGB] 7.1 g/dL (14.0-18.0); MEAN CORPUSCULAR HEMOGLOBIN 29.6 PG (27-31); MEAN CORPUSCULAR HGB CONC 32.3 g/dL (33-37); MEAN CORPUSCULAR VOLUME 91.7 FL (80-90); MONOCYTES # (AUTO) 1.39 10*3/UL (0.3-0.8); NEUTROPHILS # (AUTO) 5.62 10*3/UL; NEUTROPHILS % (AUTO) 56.4 % (50-80)
[2018-01-16 07:20] LABS: PLATELET MORPHOLOGY COMMENT NORMAL MORPHOLOGY (NORM); RBC MORPHOLOGY COMMENT NORMAL MORPHOLOGY (NORM); WBC MORPHOLOGY COMMENT NORMAL MORPHOLOGY (NORM)
[2018-01-16] MEDS ORDERED: Sodium Chloride 0.9% 500 ML PRIMARY IV ONE (08:36)
--- NOTE | 2018-01-16 08:39 | PDOC(PROG) ---
Date and Time of Service: 01/16/2018 8:39 AM Interval History: Subjective Patient's feels better. There is no more bleeding. He is not dizzy and no shortness of breath Objective : Data - Labs CBC and BMP: 01/16/18 07:00 01/15/18 06:51 Objective : Exam - General General Appearance: No Acute Distress, Cooperative, Thin - Head Head Exam: Normal Inspection - Eye Eye Exam: Normal Appearance - ENT Additonal ENT Exam Details: The swelling of the nose seems to be less than what it was. Left nostril is packed. - Neck Neck Exam: Normal Inspection - Respiratory Additional Respiratory Exam Details: Decreased air entry otherwise clear - Cardiovascular Cardiovascular Exam: RRR - GI/Abdominal GI/Abdominal Exam: Normal Bowel Sounds, Non Tender, Non Distended, Soft, No Organomegaly - Rectal Rectal Exam: Deferred - External Exam: Deferred - Extremities Extremities Exam: Normal Inspection - Back Back Exam: Normal Inspection - Neurological Neurological Exam: Alert, Oriented x 3, CN II-XII Intact, No Facial Droop, Speech Intact / Clear, Moves All Extremities Equally - Psychiatric Psychiatric Exam: Normal Affect Assessment and Plan - Patient Problems (1) Epistaxis Current Visit: Yes Status: Acute Comment: Bleeding seemed to be stopped. However he is anemic we'll give him 2 units of blood. He wants to go home after that. We will check his counts after the transfusion and probably send him home. Code(s): R04.0 - Epistaxis (2) COPD (chronic obstructive pulmonary disease) Current Visit: Yes Status: Acute Comment: Continue his nebulizers Code(s): J44.9 - Chronic obstructive pulmonary disease, unspecified (3) Atrial fibrillation Current Visit: No Status: Acute Comment: Continue holding the Coumadin. I think will hold its until his packing is out Code(s): I48.91 - Unspecified atrial fibrillation Qualifiers: Atrial fibrillation type: chronic Qualified Code(s): I48.2 - Chronic atrial fibrillation
[2018-01-16] MEDS: CEPHALEXIN 500 MG CAPSULE PO SCH ×3 (08:51→16:57)
[2018-01-16] MEDS ORDERED: OMEPRAZOLE 20 MG CAPSULE PO SCH (09:00)
--- NOTE | 2018-01-16 10:24 | PDOC ---
General Adult HPI - General Chief Complaint: Nasal/Mouth Problem /Injury Stated Complaint: Nose wont stop bleeding - History of Present Illness Have you received a tetanus shot in the past 10 years?: No - Patient Home Medications Home Medications: Home Medications Nitroglycerin SL Tab [Nitrostat SL Tab] 0.4 mg SL PRN PRN #20 tab 05/30/16 Albuterol/Ipratrop Neb Soln [Duoneb Neb Soln] 3 ml NEB RTQ6H #120 ampul.neb warfarin 5 mg tablet 2.5 mg PO QD #90 tab 07/14/17 omeprazole magnesium 20 mg tablet,delayed release 20 mg PO BID #180 tab Aspirin EC 81 mg PO DAILY #90 tablet. 11/26/17 ipratropium 20 mcg-albuterol 100 mcg/actuation mist for inhalation 1 puff INH QID 90 Days #4 g 11/30/17 fluticasone 100 mcg-vilanterol 25 mcg/dose powder for inhalation 1 inh INH Q24H #3 ea 12/07/17 tizanidine 4 mg tablet 4 mg PO Q6-8H PRN #360 tab 12/16/17 levothyroxine 112 mcg tablet 112 mcg PO QDAY #30 tab 12/18/17 alprazolam 0.25 mg tablet 0.25 mg PO BID #60 tab 01/14/18 - Patient Allergies Allergies/Adverse Reactions: Allergies 3 Allergy/AdvReac Type Severity Reaction Status Date / Time amlodipine besylate Allergy Intermediate Edema of Verified 01/15/18 03:44 [From [facility]] ankles Past Medical History - heen HEENT History: Hard of Hearing Additional HEENT History: wears glasses Cardiovascular History: Hypertension, Previous OK, Arrhythmia, Hyperlipidemia Additional Cardiovasular History: CARDIAC STENT Respiratory History: COPD, Shortness of Breath, Home Oxygen Use Additional Respiratory History: 2.5L AT HOME Gastrointestinal History: Diverticulitis, GI Bleed Genitourinary History: Denies History Endocrine History: Hypothyroidism Musculoskeletal History: Arthritis, Back Pain, Joint Pain, Osteoarthritis Prosthesis or Implant: Yes (LEFT TKA, 5 PINS LEFT LEG, RIGHT ANKLE, NECK FUSION) Additional Musculoskeletal History: hardware in right ankle and neck- fusion Neurological History: Denies History Blood Disorders: Denies History Psychiatric History: Substance Abuse Additional Psychiatric History: alcoholism History of Sexually Transmitted Diseases: No Male Reproductive History: Denies History Cancer History: Skin In Past Year Been Physically Harmed or Verbally Threatened: No History of MDRO: No History of Other Communicable Diseases: No Tobacco Use: Former Smoker Alcohol Use: Occasionally In the Past 12 Months, Have Used or Abuse Any Substance: None Previous Surgical History: Yes Type / Date of Surgery: APPY, STENT, L TKA, L CARPAL TUNNEL, VERTEBRAL FUSION, LEFT AXILLARY CYST REMOVED, BILAT BREASTS CYST REMOVAL, RIGHT ANKLE SURGERY, SMALL FINGER TO LEFT HAND SURGERY, CYST FROM R CHEEK Anesthesia Reactions: No Malignant Hyperthermia: No Significant Family History: Cancer Additional Family History: both sisters had breast CA General Adult Progress - Results Reviewed by me Lab Results Reviewed by Me: Yes CBC and BMP: 01/16/18 07:00 01/15/18 06:51 Vital Signs - Recent Vital Signs Vital Signs: Vital Signs (Last 8 hours) Temp Pulse Pulse Resp BP BP Pulse Ox 01/16/18 09:52 97.8 F 68 22 134/65 95 01/16/18 09:37 98.3 F 63 18 128/75 98 01/16/18 09:33 98.4 F 67 18 134/77 97 01/16/18 09:21 98.2 F 61 20 119/80 98 01/16/18 07:24 97.3 F 51 L 16 130/64 100 01/16/18 06:16 92 18 94 01/16/18 06:15 92 18 94 01/16/18 04:51 97 01/16/18 04:45 98.9 F 63 18 128/72 99 Discharge Clinical Impression: Epistaxis, Chronic obstructive lung disease, History of atrial fibrillation, Elevated INR, Nasal bone fractures Condition: Fair
--- NOTE | 2018-01-16 14:24 | DCSUMMARY ---
Hospitalization Summary Admit Date: 01/15/2018 Discharge Date: 01/16/18 Hospital Course: Discharge diagnoses 1. Epistaxis 2. Nasal bone fractures with overlying soft tissue swelling 3. COPD on oxygen 4. A. fib 5. Anemia status post blood transfusion 6. Chronic pain syndrome 7. Excessive anticoagulation 8. Cavitary lesion in the left lung 9. Laceration across the bridge of the nose that was repaired Hospital course This is a 77 years old male with medical history significant for history of COPD , A fib, history of coronary artery disease with previous stents, history of cavitary lesion left lung for which she was transferred to [facility] the mailing specialist decided not to biopsy the lesion he is suppose to have a CT follow-up in 3-4 weeks, who presented to the ER the night before admission after he tripped on his oxygen tubing and fell on the stairs. He apparently hit his head and face. There was a large laceration down the bridge of the nose that was repaired. A CT of the head and facial bone showed no acute intracranial findings however did show nondisplaced fracture of the nasal bone and septum. After suturing the wound he was discharged home. However he presented risk control consultant on the because of epistaxis, this time he was giving IM vitamin K and had packing of the nose. He was admitted to the hospital. Dr. Deleon did speak with the ENT monorail operator at [facility] Dr. Ramsey who suggested to keep the packing in place and let him follow- up with him as an outpatient early week. Patient did have a drop in his blood pressure and needed fluid and he was admitted. We did reverse effect of anticoagulation with 2 units of FFP. we Kept him overnight, the next day his hemoglobin dropped to 7.1 we gave him 2 units of blood. He wanted to go home so we discharged him. His hemoglobin post transfusion went up from 7.1-9.7. His INR also improved from 5.6-1.4 post vitamin K and FFP transfusion. On The day of discharge bleeding stopped so he was discharged home on oral antibiotics as a prophylaxis and he will follow-up with ENT and with his primary. I did tell him to hold the Coumadin until the packing is removed from his nose. Laboratory Results 01/15/18 01/15/18 01/16/18 Range/Units 07:18 17:00 07:00 WBC 9.96 (4.8-10.8) 10^3/uL RBC 2.40 L (4.70-6.10) 10^6/uL Hgb 8.0 L 7.1 L (14.0-18.0) g/dL Hct 24.4 L 22.0 L (42.0-52.0) % MCV 91.7 H (80-90) FL MCH 29.6 (27-31) PG MCHC 32.3 L (33-37) g/dL RDW Std Deviation 45.4 (39-50) fL RDW Coeff of Isabelle 14.4 (11.5-14.5) % Plt Count 409 H (140-350) 10*3/uL MPV 9.0 (7.4-12.2) FL Immature Gran % (Auto) 0.2 (0-5) % Neut % (Auto) 56.4 (50-80) % Lymph % (Auto) 28.1 (10-50) % [place] % (Auto) 14.0 (5-15) % Eos % (Auto) 0.6 (0-8) % Baso % (Auto) 0.7 (0-1) % Immature Gran # (Auto) 0.02 10*3/UL Neut # (Auto) 5.62 10*3/UL Lymph # (Auto) 2.80 10*3/uL [place] # (Auto) 1.39 H (0.3-0.8) 10*3/UL Eos # (Auto) 0.06 10*3/UL Baso # (Auto) 0.07 10*3/UL WBC Morphology Comment Normal morphology (NORM) Plt Morphology Comment Normal morphology (NORM) RBC Morph Comment Normal morphology (NORM) PT (9.7-11.4) secs INR (0.00-5.90) N/A Blood Type A POSITIVE Antibody Screen Negative Crossmatch See Detail 01/16/18 01/16/18 Range/Units 07:00 15:45 WBC (4.8-10.8) 10^3/uL RBC (4.70-6.10) 10^6/uL Hgb 9.8 L (14.0-18.0) g/dL Hct 29.0 L (42.0-52.0) % MCV (80-90) FL MCH (27-31) PG MCHC (33-37) g/dL RDW Std Deviation (39-50) fL RDW Coeff of Isabelle (11.5-14.5) % Plt Count (140-350) 10*3/uL MPV (7.4-12.2) FL Immature Gran % (Auto) (0-5) % Neut % (Auto) (50-80) % Lymph % (Auto) (10-50) % [place] % (Auto) (5-15) % Eos % (Auto) (0-8) % Baso % (Auto) (0-1) % Immature Gran # (Auto) 10*3/UL Neut # (Auto) 10*3/UL Lymph # (Auto) 10*3/uL [place] # (Auto) (0.3-0.8) 10*3/UL Eos # (Auto) 10*3/UL Baso # (Auto) 10*3/UL WBC Morphology Comment (NORM) Plt Morphology Comment (NORM) RBC Morph Comment (NORM) PT 15.2 H (9.7-11.4) secs INR 1.43 (0.00-5.90) N/A Blood Type Antibody Screen Crossmatch Discussion Diet regular Activity as tolerated Medications Current Medication(s) 3 Medication Instructions Recorded Confirmed Type Nitroglycerin SL Tab [Nitrostat 0.4 mg SL PRN PRN #20 tab 05/30/16 01/15/18 History SL Tab] Albuterol/Ipratrop Neb Soln 3 ml NEB RTQ6H #120 ampul.neb 12/23/16 01/15/18 Rx [Duoneb Neb Soln] omeprazole magnesium 20 mg 20 mg PO BID #180 tab 10/23/17 01/15/18 Rx tablet,delayed release Aspirin EC 81 mg PO DAILY #90 tablet. 11/26/17 01/15/18 Rx ipratropium 20 mcg-albuterol 100 1 puff INH QID 90 Days #4 g 11/30/17 01/15/18 Rx mcg/actuation mist for inhalation fluticasone 100 mcg-vilanterol 25 1 inh INH Q24H #3 ea 12/07/17 01/15/18 Rx mcg/dose powder for inhalation tizanidine 4 mg tablet 4 mg PO Q6-8H PRN #360 tab 12/16/17 01/15/18 Rx levothyroxine 112 mcg tablet 112 mcg PO QDAY #30 tab 12/18/17 01/15/18 Rx alprazolam 0.25 mg tablet 0.25 mg PO BID #60 tab 01/14/18 01/15/18 Rx Cephalexin [Keflex] 500 mg PO QID #20 cap 01/16/18 Rx Follow-up with the PCP in 1-2 weeks, follow-up with ENT Dr. Ramsey Thursday or Thursday, hold Coumadin until the packing is removed Condition at discharge was stable for discharge Exam - Vitals Vital Signs: Vital Signs Temperature 97.9 F Temperature Source Oral Pulse Rate [Pulse Oximeter] 51 Pulse Rate 70 Respiratory Rate 22 Blood Pressure [Left Arm] 130/64 Blood Pressure 148/81 Pulse Ox 92 Oxygen Flow Rate 4 Oxygen Delivery Method Nasal Cannula Height 5 ft 7 in Weight 120 lb 3.2 oz Patient Problems - Patient Problem List (1) Epistaxis Status: Acute Code(s): R04.0 - Epistaxis Category: Medical (2) COPD (chronic obstructive pulmonary disease) Status: Acute Code(s): J44.9 - Chronic obstructive pulmonary disease, unspecified Category: Medical (3) Atrial fibrillation Status: Acute Code(s): I48.91 - Unspecified atrial fibrillation Qualifiers: Atrial fibrillation type: chronic Qualified Code(s): I48.2 - Chronic atrial fibrillation Category: Medical
[2018-01-16 15:46] LABS: Hemoglobin [HGB] 9.8 g/dL (14.0-18.0)
[2018-01-16 16:37] VITALS: BP 133/69; RESP 20; TEMP 97.6; O2SAT 95
== END 2018-01-16 17:04 | disposition home or self-care (01) ==
LOC: ER 03:21 → MED/SURG 03:21
PROVIDERS: ADMIT Internal Medicine; ATTEND Internal Medicine

== ENCOUNTER 2018-06-05 18:20 | Inpatient (IN) ==
[2018-06-05] MEDS ORDERED: ALBUTEROL SULFATE 2.5 MG/3 ML NEB ONE (18:35)
--- NOTE | 2018-06-05 18:42 | EKG ---
[address] [address] Measurements Intervals [place] Rate: 90 P: 80 [place]: 147 QRS: 70 QRSD: 73 T: 49 QT: 335 QTc: 383 Interpretive Statements SINUS RHYTHM WITH SINUS ARRHYTHMIA Compared to ECG 12/31/2017 10:48:08 Myocardial infarct finding no longer present Electronically Signed On 06-07-18 08:18:10 MDT by Gurjit Sanders MD [email or web address]
[2018-06-05] MEDS ORDERED: ACETAMINOPHEN 500 MG TABLET PO ONE (18:49)
[2018-06-05 19:01] LABS: BASOPHILS # (AUTO) 0.04 10*3/UL; BASOPHILS % (AUTO) 0.2 % (0-1); EOSINOPHILS # (AUTO) 0.01 10*3/UL; EOSINOPHILS % (AUTO) 0.1 % (0-8); Hematocrit [HCT] 38.1 % (42.0-52.0); Hemoglobin [HGB] 13.1 g/dL (14.0-18.0); LYMPHOCYTES # (AUTO) 1.77 10*3/uL; MEAN CORPUSCULAR HEMOGLOBIN 31.3 PG (27-31); MEAN CORPUSCULAR HGB CONC 34.4 g/dL (33-37); MEAN CORPUSCULAR VOLUME 90.9 FL (80-90); MEAN PLATELET VOLUME 9.7 FL (7.4-12.2); MONOCYTES % (AUTO) 9.4 % (5-15); NEUTROPHILS # (AUTO) 13.59 10*3/UL; NEUTROPHILS % (AUTO) 79.5 % (50-80); RED BLOOD COUNT 4.19 10^6/uL (4.70-6.10)
[2018-06-05 19:15] LABS: PLATELET MORPHOLOGY COMMENT NORMAL MORPHOLOGY (NORM); RBC MORPHOLOGY COMMENT NORMAL MORPHOLOGY (NORM); WBC MORPHOLOGY COMMENT NORMAL MORPHOLOGY (NORM)
[2018-06-05 19:26] LABS: BLOOD UREA NITROGEN 18 mg/dL (7-22); BUN/CREATININE RATIO 25.71 (6-20); SERUM ALBUMIN 3.7 g/dL (3.5-4.8)
[2018-06-05] MEDS ORDERED: Sodium Chloride 0.9% 1,000 ML PRIMARY IV ONE (19:30)
[2018-06-05] MEDS: cefTRIAXone Inj 2 GM in Sodium Chloride 0.9% 100 ML IV ONE (19:43)
--- NOTE | 2018-06-05 20:05 | DI ---
EXAM: XR Chest, 2 Views CLINICAL HISTORY: ITS.REASON SOB Physician Notes: Tech Comments: TECHNIQUE: Frontal and lateral views of the chest. COMPARISON: 12/31/17. FINDINGS: Lungs: Patchy bilateral lung densities most prominent in the left mid- lower lung which may represent inflammatory/infectious process in the appropriate clinical setting. Additional chronic lung changes. Pleural space: Trace pleural effusions not excluded. No pneumothorax. Heart: Unremarkable. Mediastinum: Unremarkable. Bones/joints: Postsurgical changes in the spine. IMPRESSION: Patchy bilateral lung densities most prominent in the left mid-lower lung which may represent inflammatory/infectious process in the appropriate clinical setting.
[2018-06-05] MEDS ORDERED: LIDOCAINE W/ SODIUM BICARB 0.5 ML SYR SUBD PRN (21:07)
[2018-06-05] MEDS ORDERED: ACETAMINOPHEN 325 MG TABLET PO PRN (21:07)
[2018-06-05] MEDS ORDERED: NITROGLYCERIN 0.4 MG SL TAB (BOTTLE OF 3) SL PRN (21:07)
[2018-06-05] MEDS ORDERED: Warfarin 5 MG TAB PO SCH (21:07)
[2018-06-05] MEDS ORDERED: cefTRIAXone Inj 2 GM in Sodium Chloride 0.9% 100 ML IV SCH (21:07)
[2018-06-05] MEDS ORDERED: ONDANSETRON 4 MG/2 ML VIAL IVP PRN (21:07)
[2018-06-05] MEDS ORDERED: tiZANidine Tab 4 MG TAB PO PRN (21:07)
--- NOTE | 2018-06-05 21:27 | PDOC ---
Dyspnea HPI - General Chief Complaint: Dyspnea Stated Complaint: SOB Date Seen by Provider: 06/05/18 Time Seen by Provider: 18:25 - History of Present Illness Initial Comments: Patient is a 68-year-old male presents to the emergency department with the chief complaint of worsening dyspnea and lethargy at home. The patient has a very complex history including atrial fibrillation and COPD. The patient chronically requires oxygen however he's needed about 2-1/2 L to 3 L when he normally requires 2. Additionally the patient has become increasingly dyspneic. He feels warm to the touch and his son states that he had the heater running in his bedroom. Patient describes a productive cough. He denies any headache blurred vision double vision dysuria hematuria diarrhea or constipation. - Patient Home Medications Home Medications: Home Medications Nitroglycerin SL Tab [Nitrostat SL Tab] 0.4 mg SL PRN PRN #20 tab 05/30/16 Albuterol/Ipratrop Neb Soln [Duoneb Neb Soln] 3 ml NEB RTQ6H #120 ampul.neb omeprazole magnesium 20 mg tablet,delayed release 20 mg PO BID #180 tab Aspirin EC 81 mg PO DAILY #90 tablet. 11/26/17 fluticasone 100 mcg-vilanterol 25 mcg/dose powder for inhalation 1 inh INH Q24H #3 ea 12/07/17 tizanidine 4 mg tablet 4 mg PO Q6-8H PRN #360 tab 12/16/17 warfarin 5 mg tablet 5 mg PO DIRECTED #90 tab 04/06/18 albuterol sulfate HFA 90 mcg/actuation aerosol inhaler 2 puff INH Q6H PRN #18 g 04/09/18 levothyroxine 100 mcg tablet 100 mcg PO QDAY #30 tab 05/25/18 alprazolam 0.25 mg tablet 0.25 mg PO BID #60 tab 06/02/18 - Patient Allergies Allergies/Adverse Reactions: Allergies 3 Allergy/AdvReac Type Severity Reaction Status Date / Time amlodipine besylate Allergy Intermediate Edema of Verified 04/01/18 09:56 [From [facility]] ankles Past Medical History - heen HEENT History: Hard of Hearing Additional HEENT History: wears glasses Cardiovascular History: Hypertension, Previous TX, Arrhythmia, Hyperlipidemia Additional Cardiovasular History: CARDIAC STENT Respiratory History: COPD, Shortness of Breath, Home Oxygen Use Additional Respiratory History: 2.5L AT HOME Gastrointestinal History: Diverticulitis, GI Bleed Genitourinary History: Denies History Endocrine History: Hypothyroidism Musculoskeletal History: Arthritis, Back Pain, Joint Pain, Osteoarthritis Prosthesis or Implant: Yes (LEFT TKA, 5 PINS LEFT LEG, RIGHT ANKLE, NECK FUSION) Additional Musculoskeletal History: hardware in right ankle and neck- fusion Neurological History: Denies History Blood Disorders: Denies History Psychiatric History: Substance Abuse Additional Psychiatric History: alcoholism History of Sexually Transmitted Diseases: No Cancer History: Skin In Past Year Been Physically Harmed or Verbally Threatened: No History of MDRO: No History of Other Communicable Diseases: No Tobacco Use: Never Smoker Alcohol Use: Occasionally In the Past 12 Months, Have Used or Abuse Any Substance: None Previous Surgical History: Yes Type / Date of Surgery: APPY, STENT, L TKA, L CARPAL TUNNEL, VERTEBRAL FUSION, LEFT AXILLARY CYST REMOVED, BILAT BREASTS CYST REMOVAL, RIGHT ANKLE SURGERY, SMALL FINGER TO LEFT HAND SURGERY, CYST FROM R CHEEK Anesthesia Reactions: No Malignant Hyperthermia: No Significant Family History: Cancer Additional Family History: both sisters had breast CA ROS - Limitations ROS Limitations: Other (please comment) (Review of systems: 12 point review of systems negative unless otherwise indicated above.) Dyspnea Physical Exam - General Appearance General Appearance: REPORTS: Other (Physical examination: HEENT: TMs clear bilaterally mucous murmurs moist without pharyngeal erythema and edema. Neck: Supple nontender full range of motion. Eyes: Extraocular motion intact, PERRL. Cardiac: Irregular rate and rhythm without murmurs or click. No reproducible chest wall pain. Respiratory: Coarse rhonchi bilaterally with slight crackles in the left mid to lower lobe. Abdomen: Soft, nontender, nondistended no rebound or guarding. : Deferred. Musculoskeletal: Strength 5/5 to flexion and extension of the upper and lower extremities bilaterally. 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 Neuro: Deep tendon reflexes 2/4 in patellars bilaterally. No numbness in hands or feet. Skin: Warm and dry without rashes or lesions. Heme/ lymph: No anterior cervical or superior clavicular lymphadenopathy. No lower extremity edema. Psychiatric: Patient oriented and responding appropriately. Denies suicidal and homicidal ideation.) Dyspnea Progress - Results Reviewed by me Radiology Findings: Nonspecific increased consolidation of the left mid and lower lobe CBC and BMP: 06/05/18 18:45 06/05/18 18:45 Lab Results:: Laboratory Results 3 06/05/18 06/05/18 06/05/18 18:45 18:45 18:45 WBC 17.07 H RBC 4.19 L Hgb 13.1 L Hct 38.1 L MCV 90.9 H MCH 31.3 H MCHC 34.4 RDW Std Deviation 54.1 H RDW Coeff of Isabelle 16.7 H Plt Count 290 MPV 9.7 Immature Gran % (Auto) 0.4 Neut % (Auto) 79.5 Lymph % (Auto) 10.4 Weston % (Auto) 9.4 Eos % (Auto) 0.1 Baso % (Auto) 0.2 Immature Gran # (Auto) 0.06 Neut # (Auto) 13.59 Lymph # (Auto) 1.77 Weston # (Auto) 1.60 H Eos # (Auto) 0.01 Baso # (Auto) 0.04 WBC Morphology Comment Normal morphology Plt Morphology Comment Normal morphology RBC Morph Comment Normal morphology PT 32.1 H INR 3.08 Sodium Potassium Chloride Carbon Dioxide Anion Gap BUN Creatinine BUN/Creatinine Ratio Glucose Calculated Osmolality Calcium Total Bilirubin AST ALT Alkaline Phosphatase Troponin I < 0.012 Total Protein Albumin Globulin Albumin/Globulin Ratio 3 06/05/18 18:45 WBC RBC Hgb Hct MCV MCH MCHC RDW Std Deviation RDW Coeff of Isabelle Plt Count MPV Immature Gran % (Auto) Neut % (Auto) Lymph % (Auto) Weston % (Auto) Eos % (Auto) Baso % (Auto) Immature Gran # (Auto) Neut # (Auto) Lymph # (Auto) Weston # (Auto) Eos # (Auto) Baso # (Auto) WBC Morphology Comment Plt Morphology Comment RBC Morph Comment PT INR Sodium 136 Potassium 4.0 Chloride 101 Carbon Dioxide 25 Anion Gap 10 BUN 18 Creatinine 0.7 BUN/Creatinine Ratio 25.71 H Glucose 110 Calculated Osmolality 284.0 Calcium 9.3 Total Bilirubin 2.3 H AST 39 ALT 29 Alkaline Phosphatase 70 Troponin I Total Protein 6.4 Albumin 3.7 Globulin 2.7 Albumin/Globulin Ratio 1.30 - Patient's Progress MDM / ED Course: An IV was established patient's connected to child monitor and closely observed in the emergency department without significant event. EKG did not reveal any acute ST or QT abnormality. A 2 view chest x-ray revealed consolidation of the left lower lobe consistent with pneumonia. Patient had a significant leukocytosis. Patient was given a DuoNeb treatment in the emergency Department mild improvement of his pain. Blood cultures were obtained. The patient was given a 1 L normal saline bolus in the emergency department. He was started empirically on Rocephin and azithromycin for community-acquired pneumonia. I discussed these findings with the hospitalist who agreed to admit the patient for further management. Patient Care Time - Estimated PCT Patient Care Time (In Minutes): 200 Vital Signs - Recent Vital Signs Vital Signs: Vital Signs (Last 8 hours) Temp Pulse Pulse Resp BP Pulse Ox 06/05/18 19:47 88 06/05/18 19:44 99.5 F 88 17 96 06/05/18 18:55 101.5 F H 06/05/18 18:47 88 18 96 06/05/18 18:46 83 18 96 06/05/18 18:39 114 H 06/05/18 18:20 101.5 F H 114 H 26 H 157/84 98 Discharge Clinical Impression: Pneumonia Condition: Fair
--- NOTE | 2018-06-05 21:43 | HOSP.PSI ---
Pneumonia Severity Index - PSI Age: 77 Sex: Male Penitentiary Resident: No History of Neoplastic Disease: No History of Liver Disease: No History of Congestive Heart Failure: No History of Cerebrovascular Disease: No History of Renal Disease: No Altered Mental Status: Yes Respiratory Rate Greater Than 30: No Systolic Blood Pressure Less Than 90 mmHg: No Temperature Less Than 95F or Greater Than 103.8F: No Pulse Greater Than 124 bpm: No pH Less Than 7.35: No BUN Greater Than 29: No Sodium Less Than 130: No Glucose Greater Than 249: No Hematocrit Less Than 30%: No Partial Pressure of Oxygen Less Than 60 mmHg: No Pleural Effusion on Xray: No (patient is being admitted for many acquired pneumonia, left lower lobe.) Total PSI Score: 96 PSI Risk: Moderate Risk (91-131) = Consider Inpatient Admission
--- NOTE | 2018-06-05 21:50 | PDOC ---
HPI - History of Present Illness Date of Service: 06/05/18 Time of Service: 21:45 Chief Complaint: Confusion History of Present Illness: This very pleasant well-known 77-year-old male with atrial fibrillation, chronic , COPD, recurrent pneumonias, and a cavitary lesion that resolved without needing biopsy, and muscle spasms, who comes in stating that he was little more confused at home. He was febrile when he arrived and his son insisted that the patient come in for evaluation due to his confusion. In the emergency room he was also complaining of some shortness breath although he states to me as shortness breath seems to be at his baseline. He denies any chest pains. He denied any cough or phlegm production beyond what he normally does. Chest x- ray was revealing for a left-sided pneumonia. He was given Rocephin and Zithromax and Tylenol emergency room and he felt significantly better. He is hopeful to stay here for only one night he feels good. I spoke to him about his prior cavitary lesion and he just recently had oncology follow-up and the patient stated they did not feel that there is any lesion left to biopsy. This just resolved on its own. He quit smoking in December 2016. He is not losing weight. I did look at his prior chest x-rays and it appears that the pneumonia is in the same place that it typically comes up which is in the left lingula/ left lower lobe. Past Medical History Medical History: 1. COPD with chronic hypoxemic respiratory failure, oxygen [facility] 3 L[facility]. 2. Hypothyroidism. 3. Coronary artery disease with previous stent in 2013. 4. Atrial fibrillation, he was switched over to Xarelto and then back to coumadin. currently sinus. INR therapeutic. 5. Chronic pain syndrome. 6. History of epistaxis with nasal bone fractures in 2018 that required blood transfusion. 6. Pulmonary cachexia and loss of weight. 7. Cavitary lesion in the left lung was a transfer to [facility] [place] after discussion with the pulmonology and they decided in the end not to biopsy the lesion just followed with CT. Surgical History: 1. Appendectomy. 2. Previous knee replacement. 3. Cervical neck fusion 2012 Family History: Reviewed an Not Pertinent Pertinent Family History: Father of coronary artery disease and myocardial infarction. He's not sure what his mother passed on from. Past Social History: quit smoking in 12/2016, drinks two alcoholic beverages daily, although today he denies drinking. Has 2 children, a son who lives here in [place]. His ex- also helps take care of him. Tobacco Use: Former Smoker In the Past 12 Months, Have Used or Abuse Any of the Following Substance: None Alcohol Use: None (Denies drinking today but has been known to drink 2 beers a day in the past) Medication / Allergies Home Medications: Home Medications 3 Medication Instructions Recorded Confirmed Type Nitroglycerin SL Tab [Nitrostat 0.4 mg SL PRN PRN #20 tab 05/30/16 04/01/18 History SL Tab] Albuterol/Ipratrop Neb Soln 3 ml NEB RTQ6H #120 ampul.neb 12/23/16 04/01/18 Rx [Duoneb Neb Soln] omeprazole magnesium 20 mg 20 mg PO BID #180 tab 10/23/17 04/01/18 Rx tablet,delayed release Aspirin EC 81 mg PO DAILY #90 tablet. 11/26/17 04/01/18 Rx fluticasone 100 mcg-vilanterol 25 1 inh INH Q24H #3 ea 12/07/17 04/01/18 Rx mcg/dose powder for inhalation tizanidine 4 mg tablet 4 mg PO Q6-8H PRN #360 tab 12/16/17 04/01/18 Rx warfarin 5 mg tablet 5 mg PO DIRECTED #90 tab 04/06/18 Rx albuterol sulfate HFA 90 2 puff INH Q6H PRN #18 g 04/09/18 Rx mcg/actuation aerosol inhaler levothyroxine 100 mcg tablet 100 mcg PO QDAY #30 tab 05/25/18 Rx alprazolam 0.25 mg tablet 0.25 mg PO BID #60 tab 06/02/18 Rx Allergies/Adverse Reactions: Allergies 3 Allergy/AdvReac Type Severity Reaction Status Date / Time amlodipine besylate Allergy Intermediate Edema of Verified 06/05/18 21:55 [From [facility]] ankles Review of Systems - Review of Systems All Systems: Reviewed & No Additional Complaints Except as Stated (I did a 12 point review systems and it was negative other than that discussed in history present illness and then noted below.) - Constitutional Constitutional: REPORTS: Fever / Chills - Respiratory Respiratory: REPORTS: See HPI - Cardiovascular Cardiovascular: REPORTS: Negative System Review - Gastrointestinal Gastrointestinal / Abdominal: REPORTS: Negative System Review - Neurological Neurologic: REPORTS: Negative System Review - Psychiatric Psychiatric: REPORTS: Anxiety (Well controlled with Xanax on a when necessary basis) Exam - Vitals Vital Signs: Vital Signs Temperature 98.9 F Temperature Source Oral Pulse Rate [Pulse Oximeter] 78 Pulse Rate 88 Respiratory Rate 20 Blood Pressure [Left Arm] 141/69 Pulse Ox 94 Oxygen Flow Rate 2 Oxygen Delivery Method Nasal Cannula Height 5 ft 7.5 in Weight 131 lb 9 oz Selected Entries 06/05/18 18:20 Temperature 101.5 F H Respiratory Rate 26 H - General General Appearance: No Acute Distress, Cooperative - Head Head Exam: Normal Inspection, Normocephalic, Atraumatic - Eye Eye Exam: POSITIVE: No Scleral Icterus - ENT ENT Exam: POSITIVE: Mucous Membranes Moist - Neck Neck Exam: Normal Inspection, No Tenderness, No Lymphadenopathy, No Thyromegaly - Respiratory Respiratory Exam: POSITIVE: Breathing Non Labored, Wheezes (Expiratory), Dull to Percussion - Cardiovascular Cardiovascular Exam: POSITIVE: RRR, No Murmur, No Clicks, No Gallops, No Rubs, PMI Non-Displaced, No JVD - GI/Abdominal GI/Abdominal Exam: POSITIVE: Normal Bowel Sounds, Non Tender, Non Distended, Soft - Rectal Rectal Exam: POSITIVE: Deferred - External Exam: POSITIVE: Deferred Exam: POSITIVE: Deferred - Extremities Extremities Exam: POSITIVE: No Edema Present, No Cyanosis Present, Clubbing Present (In the digits) - Back Back Exam: POSITIVE: No CVA Tenderness - Neurological Neurological Exam: POSITIVE: Alert, Oriented x 3, No Facial Droop, Speech Intact / Clear, Moves All Extremities Equally - Psychiatric Psychiatric Exam: POSITIVE: Normal Affect, Normal Mood - Central Line Examination Central Line Present on Admission: No Results - Labs CBC and BMP: 06/05/18 18:45 06/05/18 18:45 Additional Lab Results: Laboratory Results 06/05/18 06/05/18 06/05/18 Range/Units 18:45 18:45 18:45 WBC 17.07 H (4.8-10.8) 10^3/uL RBC 4.19 L (4.70-6.10) 10^6/uL Hgb 13.1 L (14.0-18.0) g/dL Hct 38.1 L (42.0-52.0) % MCV 90.9 H (80-90) FL MCH 31.3 H (27-31) PG MCHC 34.4 (33-37) g/dL RDW Std Deviation 54.1 H (39-50) fL RDW Coeff of Isabelle 16.7 H (11.5-14.5) % Plt Count 290 (140-350) 10*3/uL MPV 9.7 (7.4-12.2) FL Immature Gran % (Auto) 0.4 (0-5) % Neut % (Auto) 79.5 (50-80) % Lymph % (Auto) 10.4 (10-50) % Braxton % (Auto) 9.4 (5-15) % Eos % (Auto) 0.1 (0-8) % Baso % (Auto) 0.2 (0-1) % Immature Gran # (Auto) 0.06 10*3/UL Neut # (Auto) 13.59 10*3/UL Lymph # (Auto) 1.77 10*3/uL Braxton # (Auto) 1.60 H (0.3-0.8) 10*3/UL Eos # (Auto) 0.01 10*3/UL Baso # (Auto) 0.04 10*3/UL WBC Morphology Comment Normal morphology (NORM) Plt Morphology Comment Normal morphology (NORM) RBC Morph Comment Normal morphology (NORM) PT 32.1 H (9.7-11.4) secs INR 3.08 (0.00-5.90) N/A Sodium (135-145) meq/L Potassium (3.8-5.2) meq/L Chloride (98-112) meq/L Carbon Dioxide (23-33) meq/L Anion Gap (5-20) BUN (7-22) mg/dL Creatinine (0.70-1.50) mg/dL BUN/Creatinine Ratio (6-20) Glucose (78-110) mg/dL Calculated Osmolality (267-292) mOsm/kg Calcium (8.7-10.7) mg/dL Total Bilirubin (0.3-1.2) mg/dL AST (21-57) IU/L ALT (21-72) IU/L Alkaline Phosphatase (38-126) IU/L Troponin I < 0.012 (< 0.040) ng/mL Total Protein (6.1-8.0) g/dL Albumin (3.5-4.8) g/dL Globulin (2.50-4.10) g/dL Albumin/Globulin Ratio (1.3-2.0) mg/g 06/05/18 Range/Units 18:45 WBC (4.8-10.8) 10^3/uL RBC (4.70-6.10) 10^6/uL Hgb (14.0-18.0) g/dL Hct (42.0-52.0) % MCV (80-90) FL MCH (27-31) PG MCHC (33-37) g/dL RDW Std Deviation (39-50) fL RDW Coeff of Isabelle (11.5-14.5) % Plt Count (140-350) 10*3/uL MPV (7.4-12.2) FL Immature Gran % (Auto) (0-5) % Neut % (Auto) (50-80) % Lymph % (Auto) (10-50) % Braxton % (Auto) (5-15) % Eos % (Auto) (0-8) % Baso % (Auto) (0-1) % Immature Gran # (Auto) 10*3/UL Neut # (Auto) 10*3/UL Lymph # (Auto) 10*3/uL Braxton # (Auto) (0.3-0.8) 10*3/UL Eos # (Auto) 10*3/UL Baso # (Auto) 10*3/UL WBC Morphology Comment (NORM) Plt Morphology Comment (NORM) RBC Morph Comment (NORM) PT (9.7-11.4) secs INR (0.00-5.90) N/A Sodium 136 (135-145) meq/L Potassium 4.0 (3.8-5.2) meq/L Chloride 101 (98-112) meq/L Carbon Dioxide 25 (23-33) meq/L Anion Gap 10 (5-20) BUN 18 (7-22) mg/dL Creatinine 0.7 (0.70-1.50) mg/dL BUN/Creatinine Ratio 25.71 H (6-20) Glucose 110 (78-110) mg/dL Calculated Osmolality 284.0 (267-292) mOsm/kg Calcium 9.3 (8.7-10.7) mg/dL Total Bilirubin 2.3 H (0.3-1.2) mg/dL AST 39 (21-57) IU/L ALT 29 (21-72) IU/L Alkaline Phosphatase 70 (38-126) IU/L Troponin I (< 0.040) ng/mL Total Protein 6.4 (6.1-8.0) g/dL Albumin 3.7 (3.5-4.8) g/dL Globulin 2.7 (2.50-4.10) g/dL Albumin/Globulin Ratio 1.30 (1.3-2.0) mg/g - EKG Data -: EKG Interpreted by Me Rate: Normal EKG Shows Normal: Sinus Rhythm - EKG Data When Compared to Previous EKG(s) There Are: No Significant Change, Other (There is some baseline artifact some prior EKG that are resolved.) EKG Interpretation: Normal EKG, Other (Has a sinus arrhythmia) - Imaging Status: Image Reviewed by Me (I looked at the chest x-ray, it looks significant for COPD with an elongated chest and heart is narrowed, and there appears to be a left-sided infiltrate) Assessment and Plan - Patient Problems (1) Pneumonia Current Visit: Yes Status: Acute Code(s): J18.9 - Pneumonia, unspecified organism (2) Atrial fibrillation Current Visit: Yes Status: Chronic Code(s): I48.91 - Unspecified atrial fibrillation Qualifiers: Atrial fibrillation type: chronic Qualified Code(s): I48.2 - Chronic atrial fibrillation (3) HTN (hypertension) Current Visit: Yes Status: Acute Code(s): I10 - Essential (primary) hypertension Qualifiers: Hypertension type: essential hypertension Qualified Code(s): I10 - Essential (primary) hypertension (4) COPD (chronic obstructive pulmonary disease) Current Visit: Yes Status: Chronic Code(s): J44.9 - Chronic obstructive pulmonary disease, unspecified Qualifiers: COPD type: emphysema Emphysema type: centrilobular Qualified Code(s): J43.2 - Centrilobular emphysema (5) Chronic anticoagulation Current Visit: Yes Status: Chronic 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 Admit patient. Antibiotics will be given IV rocephin and zithromax I will write for some breathing therapies including nebulized therapies if necessary. Oxygen as necessary to keep saturations greater than 91%. Respiratory therapy to evaluate. Vitamin C by mouth. We'll check a urinary antigen for strep pneumoniae. vaccine status reviewed and I will go ahead and try to get the Pneumovax 13 valent shot to the patient during the hospital stay Patient quit smoking at December 2016 Repeat labs in a.m. CODE STATUS discussed, and is DO NOT RESUSCITATE. The patient is been consistent with this Blood cultures are pending. Telemetry monitoring for now. course of antibiotics will be 5 to 7 days, and will switch to oral antibiotics within 48 hours if clinical picuture stabilizes. The patient is insistent that he will probably go home tomorrow, but I think he really should stay in until about 48 hours after her fever has completely resolved. Although the patient's history is that the oncologist does not think anything needs to be biopsied and this low, the patient continues to have recurrent pneumonias in this area. I'm going to have him repeat CT scan tomorrow, and if there still appears to be something spiculated in the left lower lobe, I think we need to eventually have the patient visit somebody who will do a bronchoscopy and potentially biopsy this area due to recurrent pneumonias in the left lingular/left lower lobe area. Patient recently started multivitamin and I'll continue multivitamin. I think that he should stop the proton pump inhibitor indefinitely unless things or aspiration type events, and GERD related or reflux related, the proton pump inhibitor could be putting him at some risk for pneumonia development. He states he only takes it intermittently and prefers Tums anyway.
[2018-06-05] MEDS ORDERED: CALCIUM CARBONATE 500 MG (TUMS) CHEWABLE TABLET PO PRN (22:00)
[2018-06-05] MEDS ORDERED: Warfarin Tab 2.5 MG TAB PO SCH (22:30)
[2018-06-05] MEDS: ALPRAZolam Tab 0.25 MG TABLET PO SCH (22:54)
[2018-06-06] MEDS: IPRATROPIUM/ALBUTEROL SULFATE 3 ML NEB NEB SCH ×2 (00:59→06:19)
[2018-06-06] MEDS ORDERED: LEVOTHYROXINE 100 MCG TABLET PO SCH (05:30)
[2018-06-06 05:32] LABS: BASOPHILS # (AUTO) 0.05 10*3/UL; BASOPHILS % (AUTO) 0.3 % (0-1); EOSINOPHILS # (AUTO) 0.11 10*3/UL; EOSINOPHILS % (AUTO) 0.7 % (0-8); Hematocrit [HCT] 35.8 % (42.0-52.0); Hemoglobin [HGB] 12.1 g/dL (14.0-18.0); LYMPHOCYTES # (AUTO) 2.14 10*3/uL; MEAN CORPUSCULAR HEMOGLOBIN 30.9 PG (27-31); MEAN CORPUSCULAR HGB CONC 33.8 g/dL (33-37); MEAN CORPUSCULAR VOLUME 91.3 FL (80-90); MEAN PLATELET VOLUME 9.9 FL (7.4-12.2); MONOCYTES # (AUTO) 1.81 10*3/UL (0.3-0.8); MONOCYTES % (AUTO) 10.9 % (5-15); NEUTROPHILS # (AUTO) 12.47 10*3/UL; NEUTROPHILS % (AUTO) 74.9 % (50-80); RED BLOOD COUNT 3.92 10^6/uL (4.70-6.10)
[2018-06-06 06:18] VITALS: BP 132/78; TEMP 97.6
[2018-06-06 06:23] VITALS: RESP 18
[2018-06-06 06:36] LABS: PLATELET MORPHOLOGY COMMENT NORMAL MORPHOLOGY (NORM); RBC MORPHOLOGY COMMENT NORMAL MORPHOLOGY (NORM); WBC MORPHOLOGY COMMENT NORMAL MORPHOLOGY (NORM)
[2018-06-06] MEDS ORDERED: VILANTEROL INH SCH (07:00)
[2018-06-06] MEDS ORDERED: FLUTICASONE INH SCH (07:00)
[2018-06-06 07:39] VITALS: O2SAT 98
[2018-06-06] MEDS ORDERED: Sodium Chloride 0.9% 250 ML IV ONE (08:52)
[2018-06-06] MEDS: ALPRAZolam Tab 0.25 MG TABLET PO SCH (08:55)
[2018-06-06] MEDS ORDERED: ASCORBIC ACID Chewable 500 MG TABLET PO SCH (09:00)
[2018-06-06] MEDS ORDERED: OMEPRAZOLE 20 MG CAPSULE PO SCH (09:00)
[2018-06-06] MEDS ORDERED: cefTRIAXone Inj 2 GM in Sodium Chloride 0.9% 100 ML IV SCH (09:00)
[2018-06-06] MEDS ORDERED: ASPIRIN EC 81 MG TABLET PO SCH (09:00)
[2018-06-06] MEDS ORDERED: Multivitamin Tab 1 TAB PO SCH (09:00)
--- NOTE | 2018-06-06 10:16 | DI ---
EXAM: CT Chest Without Intravenous Contrast CLINICAL HISTORY: 77-year-old male with recurrent left pneumonia, history of spiculated lesion. TECHNIQUE: Axial computed tomography images of the chest without intravenous contrast. Coronal and sagittal reformatted images were created and reviewed. COMPARISON: CXR 06/05/2018 and 06/02/2018; chest CT without contrast 12/10/2017; chest CTA 11/24/2017. FINDINGS: Lungs: Mild to moderate centrilobular/panlobular emphysema with upper lobe predominance. Punctate peripheral left apical calcified granuloma, as before. Near-complete resolution of irregular spiculated nodular regions within the left lower lobe since 12/10/2017. New small focus of consolidation within the anterior inferior lingula, with air bronchograms, and increased coarse reticular opacities throughout the lingula. Multifocal bilateral mild to moderate bronchial wall thickening especially throughout the left lung. Overall, no significant interval change in appearance of the right lung. Pleural space: No effusion or pneumothorax. Heart: Nonenlarged. Marked coronary artery calcified atherosclerotic plaque +/-stents. Bones/joints: Marked bilateral glenohumeral chondromalacia, and probable at least small bilateral glenohumeral joint effusions. Status post anterior inferior cervical spine fusion, as before. Soft tissues: Grossly unremarkable. Vasculature: Marked atherosclerosis, as before. Lymph nodes: Small calcified AP window/left hilar lymph nodes, as before. Upper abdomen: Few tiny layering stones within the gallbladder. Bilateral renal vascular calcifications. Colonic diverticulosis. IMPRESSION: 1. New small inferior lingular probable pneumonia since 12/10/2017. 2. Predominantly decreased sizes/near-complete resolution of previously identified left lower lobe spiculated nodular regions compared with 12/10/2017. 3. Emphysema, bronchial wall thickening, and additional foci of probable postinflammatory scarring/fibrosis and bronchiolitis, as before. 4. Incidental cholelithiasis.
--- NOTE | 2018-06-06 10:56 | DCSUMMARY ---
Hospitalization Summary Admit Date: 06/05/2018 Discharge Date: 06/06/18 Hospital Course: Discharge diagnoses 1. Small inferior lingular pneumonia 2. Decreased size/near-complete resolution of previously identified left lower lobe speculated nodular region 3. Emphysema on oxygen at home 4. Cholelithiasis 5. History of A. fib 6. History of hypothyroidism 7. History of coronary artery disease 8. Chronic pain syndrome Hospital course This is a 77 years old male with medical history significant for history of atrial fibrillation, COPD, recurrent pneumonias and history of cavitary lesion that is been followed up by oncology who was brought to the hospital because of some mild confusion at home. He was febrile when he came into the ER. Evaluation did reveal pneumonia and hence the admission. There was no increased shortness of breath or increased cough or phlegm production. Patient was put on IV antibiotics and was admitted. The next day he did have a CT of the chest which showed small inferior lingular pneumonia with decreased size of the previously identified left lower lobe speculated nodular region. I saw him the next day he was denying symptoms feels well denying shortness of breath he said that he is at his usual baseline. He was afebrile. His lung exam decreased air entry but otherwise clear. He did not appear in distress. I did talk to him about maybe keeping him another night in the hospital to watch him however he refused. He did not want to stay another night in the hospital. I did instruct him to come back if things worsen. like having fever, increasing shortness of breath or confusion. He need follow-up with his primary coming week. Likely need to repeat x-ray in 4 weeks to ensure resolution. Need repeat INR this week. We did discharge him on oral antibiotics and we gave him an IV antibiotics today before discharge. Laboratory Results 06/05/18 06/05/18 06/05/18 Range/Units 18:45 18:45 18:45 WBC 17.07 H (4.8-10.8) 10^3/uL RBC 4.19 L (4.70-6.10) 10^6/uL Hgb 13.1 L (14.0-18.0) g/dL Hct 38.1 L (42.0-52.0) % MCV 90.9 H (80-90) FL MCH 31.3 H (27-31) PG MCHC 34.4 (33-37) g/dL RDW Std Deviation 54.1 H (39-50) fL RDW Coeff of Isabelle 16.7 H (11.5-14.5) % Plt Count 290 (140-350) 10*3/uL MPV 9.7 (7.4-12.2) FL Immature Gran % (Auto) 0.4 (0-5) % Neut % (Auto) 79.5 (50-80) % Lymph % (Auto) 10.4 (10-50) % Stearns % (Auto) 9.4 (5-15) % Eos % (Auto) 0.1 (0-8) % Baso % (Auto) 0.2 (0-1) % Immature Gran # (Auto) 0.06 10*3/UL Neut # (Auto) 13.59 10*3/UL Lymph # (Auto) 1.77 10*3/uL Stearns # (Auto) 1.60 H (0.3-0.8) 10*3/UL Eos # (Auto) 0.01 10*3/UL Baso # (Auto) 0.04 10*3/UL WBC Morphology Comment Normal morphology (NORM) Plt Morphology Comment Normal morphology (NORM) RBC Morph Comment Normal morphology (NORM) PT 32.1 H (9.7-11.4) secs INR 3.08 (0.00-5.90) N/A Sodium (135-145) meq/L Potassium (3.8-5.2) meq/L Chloride (98-112) meq/L Carbon Dioxide (23-33) meq/L Anion Gap (5-20) BUN (7-22) mg/dL Creatinine (0.70-1.50) mg/dL BUN/Creatinine Ratio (6-20) Glucose (78-110) mg/dL Calculated Osmolality (267-292) mOsm/kg Calcium (8.7-10.7) mg/dL Total Bilirubin (0.3-1.2) mg/dL AST (21-57) IU/L ALT (21-72) IU/L Alkaline Phosphatase (38-126) IU/L Troponin I < 0.012 (< 0.040) ng/mL Total Protein (6.1-8.0) g/dL Albumin (3.5-4.8) g/dL Globulin (2.50-4.10) g/dL Albumin/Globulin Ratio (1.3-2.0) mg/g 06/05/18 06/06/18 06/06/18 Range/Units 18:45 05:10 06:31 WBC 16.63 H (4.8-10.8) 10^3/uL RBC 3.92 L (4.70-6.10) 10^6/uL Hgb 12.1 L (14.0-18.0) g/dL Hct 35.8 L (42.0-52.0) % MCV 91.3 H (80-90) FL MCH 30.9 (27-31) PG MCHC 33.8 (33-37) g/dL RDW Std Deviation 55.6 H (39-50) fL RDW Coeff of Isabelle 17.0 H (11.5-14.5) % Plt Count 292 (140-350) 10*3/uL MPV 9.9 (7.4-12.2) FL Immature Gran % (Auto) 0.3 (0-5) % Neut % (Auto) 74.9 (50-80) % Lymph % (Auto) 12.9 (10-50) % Stearns % (Auto) 10.9 (5-15) % Eos % (Auto) 0.7 (0-8) % Baso % (Auto) 0.3 (0-1) % Immature Gran # (Auto) 0.05 10*3/UL Neut # (Auto) 12.47 10*3/UL Lymph # (Auto) 2.14 10*3/uL Stearns # (Auto) 1.81 H (0.3-0.8) 10*3/UL Eos # (Auto) 0.11 10*3/UL Baso # (Auto) 0.05 10*3/UL WBC Morphology Comment Normal morphology (NORM) Plt Morphology Comment Normal morphology (NORM) RBC Morph Comment Normal morphology (NORM) PT 29.2 H (9.7-11.4) secs INR 2.81 (0.00-5.90) N/A Sodium 136 (135-145) meq/L Potassium 4.0 (3.8-5.2) meq/L Chloride 101 (98-112) meq/L Carbon Dioxide 25 (23-33) meq/L Anion Gap 10 (5-20) BUN 18 (7-22) mg/dL Creatinine 0.7 (0.70-1.50) mg/dL BUN/Creatinine Ratio 25.71 H (6-20) Glucose 110 (78-110) mg/dL Calculated Osmolality 284.0 (267-292) mOsm/kg Calcium 9.3 (8.7-10.7) mg/dL Total Bilirubin 2.3 H (0.3-1.2) mg/dL AST 39 (21-57) IU/L ALT 29 (21-72) IU/L Alkaline Phosphatase 70 (38-126) IU/L Troponin I (< 0.040) ng/mL Total Protein 6.4 (6.1-8.0) g/dL Albumin 3.7 (3.5-4.8) g/dL Globulin 2.7 (2.50-4.10) g/dL Albumin/Globulin Ratio 1.30 (1.3-2.0) mg/g Discharge suction Diet regular activity as started Medications Current Medication(s) 3 Medication Instructions Recorded Confirmed Type Nitroglycerin SL Tab [Nitrostat 0.4 mg SL PRN PRN #20 tab 05/30/16 06/05/18 History SL Tab] Albuterol/Ipratrop Neb Soln 3 ml NEB RTQ6H #120 ampul.neb 12/23/16 06/05/18 Rx [Duoneb Neb Soln] omeprazole magnesium 20 mg 20 mg PO BID #180 tab 10/23/17 06/05/18 Rx tablet,delayed release Aspirin EC 81 mg PO DAILY #90 tablet. 11/26/17 06/05/18 Rx fluticasone 100 mcg-vilanterol 25 1 inh INH Q24H #3 ea 12/07/17 06/05/18 Rx mcg/dose powder for inhalation tizanidine 4 mg tablet 4 mg PO Q6-8H PRN #360 tab 12/16/17 06/05/18 Rx warfarin 5 mg tablet 5 mg PO DIRECTED #90 tab 04/06/18 06/05/18 Rx albuterol sulfate HFA 90 2 puff INH Q6H PRN #18 g 04/09/18 06/05/18 Rx mcg/actuation aerosol inhaler levothyroxine 100 mcg tablet 100 mcg PO QDAY #30 tab 05/25/18 06/05/18 Rx alprazolam 0.25 mg tablet 0.25 mg PO BID #60 tab 06/02/18 06/05/18 Rx Azithromycin [Zithromax] 250 mg PO DAILY #4 tab 06/06/18 Rx Cefdinir 300 mg PO BID #10 cap 06/06/18 Rx Follow-up with Dr. Mishra this week Condition at discharge was stable for discharge Exam - Vitals Vital Signs: Vital Signs Temperature 97.6 F Temperature Source Temporal Artery Scan Pulse Rate [Pulse Oximeter] 85 Pulse Rate 74 Respiratory Rate 18 Blood Pressure [Left Arm] 132/78 Pulse Ox 98 Oxygen Flow Rate 2.5 Oxygen Delivery Method Nasal Cannula Height 5 ft 7.5 in Weight 130 lb 6.4 oz - General General Appearance: No Acute Distress, Cooperative - Head Head Exam: Normal Inspection - Eye Eye Exam: POSITIVE: Normal Appearance - ENT ENT Exam: POSITIVE: Normal Exam - Neck Neck Exam: Normal Inspection - Respiratory Additional Respiratory Exam Details: Decreased air entry otherwise clear - Cardiovascular Cardiovascular Exam: POSITIVE: RRR - GI/Abdominal GI/Abdominal Exam: POSITIVE: Normal Bowel Sounds, Non Tender, Non Distended, Soft, No Masses, No Hepatomegaly, No Splenomegaly, No Organomegaly - Rectal Rectal Exam: POSITIVE: Deferred - External Exam: POSITIVE: Deferred - Extremities Extremities Exam: POSITIVE: Normal Inspection - Back Back Exam: POSITIVE: Normal Inspection - Neurological Neurological Exam: POSITIVE: Alert, Oriented x 3, CN II-XII Intact, No Facial Droop, Speech Intact / Clear, Moves All Extremities Equally - Psychiatric Psychiatric Exam: POSITIVE: Normal Affect - Integumentary Integumentary Exam: POSITIVE: Normal Color
== END 2018-06-06 11:43 | disposition home or self-care (01) | DRG 195 ==
LOC: ER 18:20 → MED/SURG 20:50
PROVIDERS: ADMIT Family Medicine; ATTEND Family Medicine